=== PATIENT | male | born 1960 | race African-American/Black ===

== ENCOUNTER 2019-10-11 16:18 | Inpatient (IN) | payer MEDICARE ==
--- NOTE | 2019-10-11 16:51 | ER Document Report ---
ED Medical Screen (RME) - General Chief Complaint: Weakness Stated Complaint: WEAKNESS,BLURRED VISION Time Seen by Provider: 10/11/19 16:37 TRAVEL OUTSIDE OF THE [place] IN LAST 30 DAYS: No - HPI Notes: 10/11/19 59-year-old male to the emergency department with complaints of weakness, cough for 2 weeks, and low blood pressure. He states that he is been getting progressively worse. He states that he feels generally weak all over. He does admit to shortness of breath as well. He admits to fevers but has not measured them. He has not been seen for this in the past 2 weeks. He is a diabetic. Family who is with patient states that he seems to be a little bit more confused than normal. He does not smoke. Noted in triage that patient is hypotensive, tachycardic, tachypneic. Sepsis protocol was initiated and patient was immediately moved back to bed 2. I notified Dr. Shin of patient's sepsis criteria and she went and saw patient immediately. I did perform a brief medical screening exam on patient and determined that he would need further evaluation and management by me inside ER provider. - Related Data Allergies/Adverse Reactions: No Known Allergies Allergy (Verified 10/11/19 16:35) Past Medical History - Social History Chew tobacco use (# tins/day): No Frequency of alcohol use: Not any more Drug Abuse: None - Past Medical History Cardiac Medical History: Reports: Hx Hypercholesterolemia Endocrine Medical History: Reports: Hx Diabetes Mellitus Type 2 Musculoskeltal Medical History: Reports Hx Arthritis Past Surgical History: Reports: Hx Orthopedic Surgery - left leg surg - Immunizations Hx Diphtheria, Pertussis, Tetanus Vaccination: No Physical Exam - Vital signs Vitals: Temp Pulse Resp BP Pulse Ox 98.5 F 116 H 36 H 87/57 L 99 10/11/19 16:32 10/11/19 16:32 10/11/19 16:32 10/11/19 16:32 10/11/19 16:32 Course - Vital Signs Vital signs: Temp Pulse Resp BP Pulse Ox 98 F 116 H 30 H 101/64 97 10/11/19 19:45 10/11/19 16:32 10/11/19 19:45 10/11/19 19:45 10/11/19 19:45 - Laboratory Result Diagrams: 10/11/19 17:02 10/11/19 17:02 Laboratory results interpreted by me: 10/11/19 10/11/19 10/11/19 17:02 17:02 17:02 WBC 27.4 H RBC 3.76 L Hgb 11.0 L Hct 32.3 L RDW 14.6 H Plt Count 461 H Seg Neuts % (Manual) 84 H Band Neutrophils % 8 H Lymphocytes % (Manual) 5 L Monocytes % (Manual) 2 L Abs Neuts (Manual) 25.5 H PT 15.9 H D-Dimer 6.27 H Carbonic Acid ABG pCO2 ABG pO2 ABG HCO3 ABG Total CO2 Sodium Creatinine Est GFR (MDRD) Non-Af Glucose POC Glucose Lactic Acid (Sepsis) 5.2 H Total Bilirubin Direct Bilirubin AST Alkaline Phosphatase NT-Pro-B Natriuret Pep Total Protein Albumin Urine Glucose (UA) Urine Urobilinogen 10/11/19 10/11/19 10/11/19 17:02 17:02 17:08 WBC RBC Hgb Hct RDW Plt Count Seg Neuts % (Manual) Band Neutrophils % Lymphocytes % (Manual) Monocytes % (Manual) Abs Neuts (Manual) PT D-Dimer Carbonic Acid ABG pCO2 ABG pO2 ABG HCO3 ABG Total CO2 Sodium 135.1 L Creatinine 1.28 H Est GFR (MDRD) Non-Af 57 L Glucose 210 H POC Glucose 224 H Lactic Acid (Sepsis) Total Bilirubin 1.5 H Direct Bilirubin 1.0 H AST 113 H Alkaline Phosphatase 416 H NT-Pro-B Natriuret Pep 2330 H Total Protein 8.8 H Albumin 3.3 L Urine Glucose (UA) Urine Urobilinogen 10/11/19 10/11/19 18:50 18:50 WBC RBC Hgb Hct RDW Plt Count Seg Neuts % (Manual) Band Neutrophils % Lymphocytes % (Manual) Monocytes % (Manual) Abs Neuts (Manual) PT D-Dimer Carbonic Acid 0.80 L ABG pCO2 26.5 L ABG pO2 76.7 L ABG HCO3 17.5 L ABG Total CO2 18.3 L Sodium Creatinine Est GFR (MDRD) Non-Af Glucose POC Glucose Lactic Acid (Sepsis) Total Bilirubin Direct Bilirubin AST Alkaline Phosphatase NT-Pro-B Natriuret Pep Total Protein Albumin Urine Glucose (UA) >=500 H Urine Urobilinogen 4.0 H Doctor's Discharge - Discharge
[2019-10-11] MEDS ORDERED: NORMAL SALINE 1000 ML 2,300 ML IV ONE (16:59)
[2019-10-11] MEDS ORDERED: VANCOMYCIN HCL 0 MG in DEXTROSE 5%-WATER 250 ML IV NR ×2 (17:00→19:45)
[2019-10-11] MEDS ORDERED: IPRATROPIUM/ALBUTEROL 0.5-2.5 MG/3 ML AMPUL NEB ONE (17:01)
--- NOTE | 2019-10-11 17:08 | ER Document Report ---
ED General - General Chief Complaint: Weakness Stated Complaint: WEAKNESS,BLURRED VISION Time Seen by Provider: 10/11/19 16:37 Information source: Patient, Relative Notes: Mr. Leahy is a 59-year-old male with past medical history of diabetes, hyperlipidemia, and likely COPD presenting to the ED for cough and weakness. Patient states that his cough started between 3 to 4 weeks ago. It is productive of yellow sputum. He endorses subjective fever and chills. He also endorses lightheadedness and decreased appetite that is worsened over the past 5 days. He was smoking 1-1.5 packs of cigarettes per day up until 5 days ago when he states he quit. He has been smoking this much for the past 30 to 40 years. Upon further chart dissection, was noted that the patient has been on prednisone and has had episodes of wheezing multiple times in the past, likely COPD that he does not know that he carries this diagnosis. Patient denies any chest pain but does endorse shortness of breath. In triage, during provider evaluation, the patient was hypotensive. Brought immediately back at which point I evaluated him. Patient noted to be warm to touch although afebrile here rechecked multiple times. Tachycardic to 105 and when he stood up he did become lightheaded. TRAVEL OUTSIDE OF THE [place] IN LAST 30 DAYS: No - Related Data Allergies/Adverse Reactions: No Known Allergies Allergy (Verified 10/11/19 16:35) Past Medical History - Social History Smoking Status: Current Every Day Smoker Chew tobacco use (# tins/day): No Frequency of alcohol use: Not any more Drug Abuse: None Family History: DM Patient has suicidal ideation: No Patient has homicidal ideation: No - Past Medical History Cardiac Medical History: Reports: Hx Hypercholesterolemia Endocrine Medical History: Reports: Hx Diabetes Mellitus Type 2 Musculoskeletal Medical History: Reports Hx Arthritis Past Surgical History: Reports: Hx Orthopedic Surgery - left leg surg - Immunizations Hx Diphtheria, Pertussis, Tetanus Vaccination: No Review of Systems - Review of Systems Constitutional: See HPI EENT: No symptoms reported Cardiovascular: No symptoms reported Respiratory: See HPI Gastrointestinal: No symptoms reported Genitourinary: No symptoms reported Male Genitourinary: No symptoms reported Musculoskeletal: No symptoms reported Skin: No symptoms reported Hematologic/Lymphatic: No symptoms reported Neurological/Psychological: No symptoms reported Physical Exam - Vital signs Vitals: Temp Pulse Resp BP Pulse Ox 98.5 F 116 H 36 H 87/57 L 99 10/11/19 16:32 10/11/19 16:32 10/11/19 16:32 10/11/19 16:32 10/11/19 16:32 Interpretation: Hypotensive, Tachycardic, Tachypneic - General General appearance: Alert, Other - Appears weak and nontoxic In distress: Mild - HEENT Head: Normocephalic, Atraumatic Eyes: Normal Pupils: PERRL Mucous membranes: Dry - Respiratory Respiratory status: Respiratory distress, Tachypnea Chest status: Nontender Breath sounds: Decreased air movement, Rales, Wheezing - Bibasilar rales and some rhonchi. Faint expiratory wheezes. Chest palpation: Normal - Cardiovascular Rhythm: Regular Heart sounds: Normal auscultation Murmur: No - Abdominal Inspection: Normal Distension: No distension Bowel sounds: Normal Tenderness: Nontender Organomegaly: No organomegaly - Back Back: Normal, Nontender - Extremities General upper extremity: Normal inspection, Nontender, Normal color, Normal ROM, Normal temperature General lower extremity: Normal inspection, Nontender, Normal color, Normal ROM, Normal temperature, Normal weight bearing. No: Luciano's sign - Neurological Neuro grossly intact: Yes Cognition: Normal Orientation: AAOx4 [place] Coma Scale Eye Opening: Spontaneous [place] Coma Scale Verbal: Oriented [place] Coma Scale Motor: Obeys Commands Serafin Coma Scale Total: 15 Speech: Normal Motor strength normal: LUE, RUE, LLE, RLE Sensory: Normal - Psychological Associated symptoms: Normal affect, Normal mood - Skin Skin Temperature: Warm Skin Moisture: Dry Skin Color: Normal Course - Re-evaluation Re-evalutation: Patient is ill-appearing but nontoxic. Initial vitals notable for hypotension, tachycardia and tachypnea. Concerning for sepsis, pulmonary embolism, pneumonia, dehydration, electrolyte abnormalities 10/11/19 17:09 2 sets of blood cultures in addition to lactic acid were ordered. Patient get ordered for IV fluids. Will administer broad-spectrum antibiotics with vancomycin and Zosyn. Patient has some rhonchi and rales at bilateral bases although given the cough and history of extensive smoking as well as decreased appetite and lightheadedness, likely infectious in origin rather than congestive heart failure. Patient ordered for IV fluids. Will order DuoNeb's for the wheezing as well. 10/11/19 19:06 Labs notable for significant leukocytosis with a left shift. H&H is stable. Lactic acidosis also elevated at 5.2. D-dimer is positive so a CTA will be ordered. Patient received his full septic bolus as well as broad-spectrum antibiotics. CMP within normal limits. UA negative for infection. Chest x-ray has been read as right lower lobe pneumonia. 10/11/19 19:[address] Ramirez. No pickup. 10/11/19 19:[address] Ramirez. Accepted admission to MICU. - Vital Signs Vital signs: Temp Pulse Resp BP Pulse Ox 98.7 F 116 H 25 H 105/66 100 10/11/19 21:15 10/11/19 16:32 10/11/19 21:15 10/11/19 21:15 10/11/19 21:15 - Laboratory Result Diagrams: 10/11/19 17:02 10/11/19 17:02 Laboratory results interpreted by me: 10/11/19 10/11/19 10/11/19 17:02 17:02 17:02 WBC 27.4 H RBC 3.76 L Hgb 11.0 L Hct 32.3 L RDW 14.6 H Plt Count 461 H Seg Neuts % (Manual) 84 H Band Neutrophils % 8 H Lymphocytes % (Manual) 5 L Monocytes % (Manual) 2 L Abs Neuts (Manual) 25.5 H PT 15.9 H D-Dimer 6.27 H Carbonic Acid ABG pCO2 ABG pO2 ABG HCO3 ABG Total CO2 Sodium Creatinine Est GFR (MDRD) Non-Af Glucose POC Glucose Lactic Acid (Sepsis) 5.2 H Total Bilirubin Direct Bilirubin AST Alkaline Phosphatase NT-Pro-B Natriuret Pep Total Protein Albumin Urine Glucose (UA) Urine Urobilinogen 10/11/19 10/11/19 10/11/19 17:02 17:02 17:08 WBC RBC Hgb Hct RDW Plt Count Seg Neuts % (Manual) Band Neutrophils % Lymphocytes % (Manual) Monocytes % (Manual) Abs Neuts (Manual) PT D-Dimer Carbonic Acid ABG pCO2 ABG pO2 ABG HCO3 ABG Total CO2 Sodium 135.1 L Creatinine 1.28 H Est GFR (MDRD) Non-Af 57 L Glucose 210 H POC Glucose 224 H Lactic Acid (Sepsis) Total Bilirubin 1.5 H Direct Bilirubin 1.0 H AST 113 H Alkaline Phosphatase 416 H NT-Pro-B Natriuret Pep 2330 H Total Protein 8.8 H Albumin 3.3 L Urine Glucose (UA) Urine Urobilinogen 10/11/19 10/11/19 18:50 18:50 WBC RBC Hgb Hct RDW Plt Count Seg Neuts % (Manual) Band Neutrophils % Lymphocytes % (Manual) Monocytes % (Manual) Abs Neuts (Manual) PT D-Dimer Carbonic Acid 0.80 L ABG pCO2 26.5 L ABG pO2 76.7 L ABG HCO3 17.5 L ABG Total CO2 18.3 L Sodium Creatinine Est GFR (MDRD) Non-Af Glucose POC Glucose Lactic Acid (Sepsis) Total Bilirubin Direct Bilirubin AST Alkaline Phosphatase NT-Pro-B Natriuret Pep Total Protein Albumin Urine Glucose (UA) >=500 H Urine Urobilinogen 4.0 H - EKG Interpretation by Tx EKG shows normal: Sinus rhythm, [place] Rate: Normal Rhythm: NSR, Other - Inverted T waves in leads V1, V2, V3 Critical Care Note - Critical Care Note Total time excluding time spent on procedures (mins): 45 - Tubal reevaluation, sepsis, initially hypotensive Discharge - Discharge Clinical Impression: Pneumonia, Sepsis with hypotension, Lactic acid acidosis Clinical Impression: (Ruled Out): Sepsis associated hypotension Disposition: ADMITTED INPATIENT Admitting Provider: James (Hospitalist) Unit Admitted: [facility] ED Sepsis - Sepsis Documentation Sepsis Patient: Yes - Vital Signs Interpretation: Normal - Cardiovascular Peripheral Pulse Strength: Normal Capillary refill: < 3 seconds Rhythm: Regular Heart Sounds: Normal auscultation - Respiratory Breath sounds: Rales, Rhonchi Respiratory Status: No respiratory distress, Tachypnea - Skin Skin Color: Normal
[2019-10-11 17:29] LABS: HEMATOCRIT 32.3 % (37.9-51.0); MEAN CORPUSCULAR HEMOGLOBIN 29.1 pg (27.0-33.4); MEAN CORPUSCULAR HGB CONC 33.9 g/dL (32.0-36.0); MEAN CORPUSCULAR VOLUME 86 fl (80-97); PLATELET COUNT 461 10^3/uL (150-450); RED BLOOD COUNT 3.76 10^6/uL (4.35-5.55); RED CELL DISTRIBUTION WIDTH 14.6 % (11.5-14.0); WHITE BLOOD COUNT 27.4 10^3/uL (4.0-10.5)
[2019-10-11 17:30] LABS: INTERNATIONAL RATION (INR) 1.26; PROTHROMBIN TIME 15.9 SEC (11.4-15.4)
--- NOTE | 2019-10-11 17:38 | RADIOLOGY REPORT (SQ) ---
EXAM DESCRIPTION: CHEST SINGLE VIEW COMPLETED DATE/TIME: 10/11/2019 5:22 pm REASON FOR STUDY: sepsis COMPARISON: None. EXAM PARAMETERS: NUMBER OF VIEWS: One view. TECHNIQUE: Single frontal radiographic view of the chest acquired. RADIATION DOSE: NA LIMITATIONS: None. FINDINGS: LUNGS AND PLEURA: There is dense opacification in the right lung base. MEDIASTINUM AND HILAR STRUCTURES: No masses. Contour normal. HEART AND VASCULAR STRUCTURES: Heart size is borderline. There is no pulmonary edema. BONES: No acute findings. HARDWARE: None in the chest. OTHER: No other significant finding. IMPRESSION: Borderline cardiomegaly without pulmonary edema. Right lower lobe pneumonia. TECHNICAL DOCUMENTATION: JOB ID: [id number] [employer]- All Rights Reserved Reading location - IP/workstation name: [email or web address]
[2019-10-11 17:53] LABS: ALBUMIN 3.3 g/dL (3.5-5.0); ALKALINE PHOSPHATASE 416 U/L (38-126); ANION GAP 14 (5-19); ASPARTATE AMINO TRANSFERASE 113 U/L (17-59); BILIRUBIN,TOTAL 1.5 mg/dL (0.2-1.3); BLOOD UREA NITROGEN 17 mg/dL (7-20); CALCIUM 8.8 mg/dL (8.4-10.2); CARBON DIOXIDE 22 mmol/L (22-30); CHLORIDE 99 mmol/L (98-107); GLUCOSE 210 mg/dL (75-110); POTASSIUM 3.7 mmol/L (3.6-5.0); TOTAL PROTEIN 8.8 g/dL (6.3-8.2)
[2019-10-11 17:54] LABS: ABSOLUTE LYMPHOCYTES# (MANUAL) 1.4 10^3/uL (0.5-4.7); ABSOLUTE MONOCYTES # (MANUAL) 0.5 10^3/uL (0.1-1.4); ANISOCYTOSIS SLIGHT; BAND NEUTROPHILS % (MANUAL) 8 % (3-5); BASOPHILS % (MANUAL) 0 % (0-2); EOSINOPHILS % (MANUAL) 0 % (0-6); LYMPHOCYTES % (MANUAL) 5 % (13-45); METAMYELOCYTES % (MANUAL) 1 % (0-1); MONOCYTES % (MANUAL) 2 % (3-13); PLATELET COMMENT INCREASED; SEGMENTED NEUTROPHILS % (MAN) 84 % (42-78); TOTAL CELLS COUNTED 100
[2019-10-11 17:55] LABS: D-DIMER 6.27 ug/mL (0.00-0.50)
[2019-10-11] MEDS ORDERED: PIPERACILLIN SODIUM/TAZOBACTAM 4.5 GM in NORMAL SALINE 100 ML IV SCH (18:00)
--- NOTE | 2019-10-11 18:07 | EKG REPORT ---
SEVERITY:- ABNORMAL ECG - SINUS RHYTHM PROBABLE LEFT ATRIAL ABNORMALITY ABNORMAL T, CONSIDER ISCHEMIA, ANTERIOR LEADS PROLONGED QT INTERVAL : Confirmed by: Curry Taylor MD 11-Oct-2019 18:06:16
[2019-10-11] MEDS ORDERED: VANCOMYCIN HCL 750 MG in DEXTROSE 5%-WATER 250 ML IV SCH (19:00)
[2019-10-11 19:05] LABS: ARTERIAL BLOOD BASE EXCESS -5.6 mmol/L; ARTERIAL BLOOD HCO3 17.5 mmol/L (20-24); ARTERIAL BLOOD PCO2 26.5 mmHg (35-45); ARTERIAL BLOOD PH 7.44 (7.35-7.45); ARTERIAL BLOOD PO2 76.7 mmHg (80-100); ARTERIAL BLOOD TOTAL CO2 18.3 mmol/L (23-27)
[2019-10-11 19:19] LABS: APPEARANCE,URINE SLIGHTLY-CLOUDY; BILIRUBIN,URINE NEGATIVE (NEGATIVE); COLOR,URINE YELLOW; GLUCOSE, URINE >=500 mg/dL (NEGATIVE); KETONES,URINE NEGATIVE (NEGATIVE); PROTEIN,URINE NEGATIVE (NEGATIVE); URINE SPECIFIC GRAVITY 1.026
[2019-10-11] MEDS ORDERED: IPRATROPIUM/ALBUTEROL 0.5-2.5 MG/3 ML AMPUL NEB PRN (19:32)
[2019-10-11] MEDS ORDERED: ACETAMINOPHEN 325 MG TABLET PO PRN (19:32)
[2019-10-11 19:33] LABS: ARTERIAL BLOOD FIO2 ROOM AIR
[2019-10-11] MEDS ORDERED: DEXTROSE 50%-WATER 25 GM/50 ML DISP.SYRIN IV PRN ×2 (19:35)
[2019-10-11] MEDS ORDERED: DEXTROSE 40% GEL 15 GM TUBE PO PRN ×2 (19:35)
[2019-10-11] MEDS ORDERED: GLUCAGON,HUMAN RECOMB 1 MG INJ IM PRN (19:35)
[2019-10-11] MEDS ORDERED: VANCOMYCIN HCL 750 MG in DEXTROSE 5%-WATER 250 ML IV ONE (20:00)
[2019-10-11] MEDS ORDERED: NORMAL SALINE 1000 ML 1,000 ML IV ONE (20:34)
[2019-10-11] MEDS ORDERED: OXYCODONE-ACETAMINOPHEN 5-325 MG TABLET PO PRN (20:37)
[2019-10-11] MEDS: FLUTICASONE NASAL SPRAY 50 MCG/SPRY 120 SPRAY/16 GM NASL SCH ×2 (21:27→22:16)
[2019-10-11] MEDS: IPRATROPIUM/ALBUTEROL 0.5-2.5 MG/3 ML AMPUL NEB SCH (21:29)
--- NOTE | 2019-10-11 21:32 | RADIOLOGY REPORT (SQ) ---
EXAM DESCRIPTION: [facility]: CT CHEST ANGIOGRAPHY WITHOUT THEN WITH IV CONTRAST CLINICAL HISTORY: 59 years Male; + ddimer, hypoxia, hypotension; TECHNIQUE: CT angiogram of the chest using intravenous contrast.. MIP reconstructions were performed. All CT scans at this facility use dose modulation, iterative reconstruction, and/or weight based dosing when appropriate to reduce radiation dose to as low as reasonably achievable. COMPARISON: None. FINDINGS: Chest: No filling defects in the central pulmonary arteries. There is nearly complete consolidation of the right lower lobe, with some air bronchograms. Superior segment is partially aerated, with a dense alveolar/interstitial infiltrate. Dense consolidation/infiltrate in the right middle lobe, with air bronchograms. Scattered reticular nodular infiltrate in the right upper lobe Small scattered infiltrates in the left lung, with focal areas consolidation. There is a 2 cm superior pretracheal lymph node. No other enlarged mediastinal lymph nodes. There are multiple hepatic lesions: 1. Left lobe, segment 2, 3.9 cm diameter. 2. Segment 7, 4.9 x 6.4 x 5.2 cm 3. Superior segment 7, approximately 3.1 cm diameter. 4. There are other smaller lesions. 5. Note that the liver is incompletely visualized on this exam and this technique is not optimized to demonstrate liver lesions. IMPRESSION: 1. Dense consolidation of the majority of the right lower lobe. There is likely an underlying neoplasm. 2. Scattered infiltrates in the remainder of the lungs, likely acute pneumonia. 3. Multiple liver lesions, suspicious for metastatic disease 4. Enlarged superior pretracheal lymph node, suspicious for metastatic adenopathy. 5. Consider dedicated imaging of the abdomen and pelvis to more reliably assess the extent of liver disease. 6. No CT evidence for pulmonary embolism.
[2019-10-11] MEDS: THIAMINE HCL 100 MG, FOLIC ACID 1 MG in NORMAL SALINE 250 ML IV SCH (22:16)
[2019-10-11] MEDS: HEPARIN SOD (PORCINE) 5,000 UNIT/ML 1 ML VIAL SUBCUT SCH (22:41)
[2019-10-11] MEDS: PIPERACILLIN SODIUM/TAZOBACTAM 3.375 GM in NORMAL SALINE 100 ML IV SCH (23:03)
[2019-10-12] MEDS ORDERED: LORAZEPAM INJ 2 MG/1 ML VIAL ONE (00:36)
[2019-10-12] MEDS ORDERED: LORAZEPAM INJ 2 MG/1 ML VIAL IV ONE (00:45)
[2019-10-12] MEDS ORDERED: DILTIAZEM HCL INJ 25 MG/5 ML VIAL ONE (00:55)
[2019-10-12] MEDS ORDERED: DILTIAZEM HCL INJ 25 MG/5 ML VIAL IV ONE ×2 (01:15→03:30)
[2019-10-12] MEDS: IPRATROPIUM/ALBUTEROL 0.5-2.5 MG/3 ML AMPUL NEB SCH ×3 (01:25→14:12)
[2019-10-12] MEDS ORDERED: DILTIAZEM HCL/D5W 125 MG/125 ML RTUINJ IV ONE ×2 (01:59→17:19)
[2019-10-12] MEDS ORDERED: DILTIAZEM HCL/D5W 125 MG/125 ML RTUINJ IV PRN ×2 (02:11→17:33)
[2019-10-12] MEDS ORDERED: FUROSEMIDE INJ/PF 40 MG/4 ML SDV ONE (02:44)
[2019-10-12 03:02] LABS: ARTERIAL BLOOD BASE EXCESS -3.6 mmol/L; ARTERIAL BLOOD H2CO3 0.94 mmol/L (1.05-1.35); ARTERIAL BLOOD HCO3 19.9 mmol/L (20-24); ARTERIAL BLOOD O2 SATURATION 99.8 % (94-98); ARTERIAL BLOOD PCO2 31.1 mmHg (35-45); ARTERIAL BLOOD PH 7.42 (7.35-7.45); ARTERIAL BLOOD TOTAL CO2 20.9 mmol/L (23-27)
[2019-10-12 03:03] LABS: ARTERIAL BLOOD FIO2 100%
--- NOTE | 2019-10-12 03:08 | PDOC H&P ---
History of Present Illness Admission Date/PCP: 10/11/19 19:37 WANDA NEFF Patient complains of: Generalized weakness and shortness of breath History of Present Illness: OSCAR KOO is a 59 year old male who is a poor historian but admits diabetes, dyslipidemia, narcotic dependent chronic back pain and long-standing tobacco dependence. He 1 week after the onset of shortness of breath, nonproductive cough and generalized weakness. He admits some rhinorrhea denies sore throat, chest pain or acid reflux. In the emergency room he is found to have hypotension, tachypnea, hypoxia, use of respiratory muscles, leukocytosis with bandemia and a chest x-ray with a right lower lobe infiltrate. He started on empiric antibiotics and referred to the hospitalist for admission. Patient denies recent antibiotic use. He has been feeling bad for a couple of months, smoked from the age of 89 years old and decided to stop last week. Past Medical History Cardiac Medical History: Reports: Hyperlipidema Pulmonary Medical History: Reports: Bronchitis Endocrine Medical History: Reports: Diabetes Mellitus Type 2 Musculoskeltal Medical History: Reports: Arthritis Psychiatric Medical History: Reports: Tobacco Dependency Denies: Alcohol Dependency Past Surgical History Past Surgical History: Reports: Orthopedic Surgery - left leg surg Social History Information Source: Patient Smoking Status: Current Every Day Smoker Cigarettes Packs Per Day: 1 Electronic Cigarette use?: No Number of Years Smokin Frequency of Alcohol Use: None Hx Recreational Drug Use: No Drugs: None Hx Prescription Drug Abuse: No - Advance Directive Resuscitation Status: Full Code Family History Family History: DM Parental Family History Reviewed: Yes Children Family History Reviewed: Yes Sibling(s) Family History Reviewed.: Yes Medication/Allergy Home Medications: Glipizide [Glocotrol 10 Mg Tablet] 10 mg PO BID 10/11/19 Metformin HCl [Glucophage] 1,000 mg PO BID 10/11/19 Oxycodone HCl/Acetaminophen [Endocet 5-325 Tablet] 1 tab PO TIDP PRN 10/11/19 Simvastatin [Zocor 40 mg Tablet] 40 mg PO QHS 10/11/19 Allergies/Adverse Reactions: No Known Allergies Allergy (Verified 10/11/19 16:35) Review of Systems ROS unobtainable: Due to mental status Constitutional: PRESENT: as per HPI, anorexia, chills, fatigue, fever(s), weakness, weight loss. ABSENT: headache(s), weight gain Eyes: ABSENT: visual disturbances Ears: ABSENT: hearing changes Cardiovascular: PRESENT: as per HPI, dyspnea on exertion, orthropnea, palpitations. ABSENT: chest pain, edema Respiratory: PRESENT: as per HPI, cough, dyspnea. ABSENT: hemoptysis, sputum Gastrointestinal: ABSENT: abdominal pain, constipation, diarrhea, hematemesis, hematochezia, nausea, vomiting Genitourinary: ABSENT: dysuria, hematuria Musculoskeletal: ABSENT: joint swelling Integumentary: ABSENT: rash, wounds Neurological: ABSENT: abnormal gait, abnormal speech, confusion, dizziness, focal weakness, syncope Psychiatric: ABSENT: anxiety, depression, homidical ideation, suicidal ideation Endocrine: ABSENT: cold intolerance, heat intolerance, polydipsia, polyuria Hematologic/Lymphatic: ABSENT: easy bleeding, easy bruising Physical Exam Vital Signs: Temp Pulse Resp BP Pulse Ox 98.4 F 125 H 30 H 99/57 L 98 10/12/19 00:35 10/12/19 01:36 10/12/19 01:36 10/12/19 01:36 10/12/19 01:36 Intake & Output 10/10/19 10/11/19 10/12/19 11:59 11:59 11:59 Intake Total 4225.2 Output Total 0 Balance 4225.2 Weight 75.6 kg General appearance: PRESENT: cooperative, mild distress, well-developed Head exam: PRESENT: atraumatic, normocephalic Eye exam: PRESENT: conjunctiva pink, EOMI, PERRLA. ABSENT: scleral icterus Ear exam: PRESENT: normal external ear exam Mouth exam: PRESENT: moist, tongue midline Neck exam: PRESENT: full ROM, JVD, tenderness. ABSENT: lymphadenopathy Respiratory exam: PRESENT: accessory muscle use, crackles, prolonged expiratory phas, retraction, rhonchi, tachypnea. ABSENT: wheezes Cardiovascular exam: PRESENT: gallop, +S1, +S2, systolic murmur Pulses: PRESENT: normal dorsalis pedis pul Vascular exam: PRESENT: normal capillary refill GI/Abdominal exam: PRESENT: normal bowel sounds, soft. ABSENT: distended, guarding, mass, organolmegaly, rebound, tenderness Rectal exam: PRESENT: deferred Extremities exam: PRESENT: full ROM. ABSENT: calf tenderness, clubbing, pedal edema Neurological exam: PRESENT: alert, awake, oriented to person, oriented to place, oriented to situation, CN II-XII grossly intact. ABSENT: motor sensory deficit Psychiatric exam: PRESENT: flat affect, normal mood. ABSENT: homicidal ideation, suicidal ideation Skin exam: PRESENT: dry, intact, warm. ABSENT: cyanosis, rash Results Laboratory Results: 10/11/19 17:02 10/11/19 17:02 10/11/19 10/11/19 10/11/19 17:02 17:02 18:50 WBC 27.4 H RBC 3.76 L Hgb 11.0 L Hct 32.3 L MCV 86 MCH 29.1 MCHC 33.9 RDW 14.6 H Plt Count 461 H Seg Neutrophils % Not Reportable Carbonic Acid HCO3/H2CO3 Ratio ABG pH ABG pCO2 ABG pO2 ABG HCO3 ABG O2 Saturation ABG Base Excess FiO2 Sodium 135.1 L Potassium 3.7 Chloride 99 Carbon Dioxide 22 Anion Gap 14 BUN 17 Creatinine 1.28 H Est GFR ( Amer) > 60 Glucose 210 H Calcium 8.8 Total Bilirubin 1.5 H AST 113 H Alkaline Phosphatase 416 H Total Protein 8.8 H Albumin 3.3 L Urine Color YELLOW Urine Appearance SLIGHTLY-CLOUDY Urine pH 5.0 Ur Specific [place] 1.026 Urine Protein NEGATIVE Urine Glucose (UA) >=500 H Urine Ketones NEGATIVE Urine Blood NEGATIVE Urine RBC (Auto) 31 10/11/19 18:50 WBC RBC Hgb Hct MCV MCH MCHC RDW Plt Count Seg Neutrophils % Carbonic Acid 0.80 L HCO3/H2CO3 Ratio 21:1 ABG pH 7.44 ABG pCO2 26.5 L ABG pO2 76.7 L ABG HCO3 17.5 L ABG O2 Saturation 96.0 ABG Base Excess -5.6 FiO2 ROOM AIR Sodium Potassium Chloride Carbon Dioxide Anion Gap BUN Creatinine Est GFR ( Amer) Glucose Calcium Total Bilirubin AST Alkaline Phosphatase Total Protein Albumin Urine Color Urine Appearance Urine pH Ur Specific [place] Urine Protein Urine Glucose (UA) Urine Ketones Urine Blood Urine RBC (Auto) 10/11/19 10/11/19 17:02 20:03 Troponin I 0.016 NT-Pro-B Natriuret Pep 2330 H Impressions: Chest X-Ray 10/11/19 16:55 IMPRESSION: Borderline cardiomegaly without pulmonary edema. Right lower lobe pneumonia. Chest/Abdomen CTA 10/11/19 19:25 IMPRESSION: 1. Dense consolidation of the majority of the right lower lobe. There is likely an underlying neoplasm. 2. Scattered infiltrates in the remainder of the lungs, likely acute pneumonia. 3. Multiple liver lesions, suspicious for metastatic disease 4. Enlarged superior pretracheal lymph node, suspicious for metastatic adenopathy. 5. Consider dedicated imaging of the abdomen and pelvis to more reliably assess the extent of liver disease. 6. No CT evidence for pulmonary embolism. Assessment and Plan - Diagnosis (1) Pneumonia Is this a current diagnosis for this admission?: Yes Plan: Complicated by tobacco history and CT suggestive of lung mass. Pneumonia care set deployed, (2) Sepsis with hypotension Is this a current diagnosis for this admission?: Yes Plan: Secondary to #1, IV fluid challenge, Selvin-Synephrine PRN anticipate overload given cardiac enlargement and gallop. (3) Congestive heart failure Is this a current diagnosis for this admission?: Yes Plan: BiPAP, judicious volume control and septic state, strict I's and O's Lasix as needed, follow-up 2D echo and cardiac enzymes (4) Acute renal failure Is this a current diagnosis for this admission?: Yes Plan: Unclear duration likely secondary to sepsis. Avoid nephrotoxic meds and doses follow-up chemistry (5) Diabetes Is this a current diagnosis for this admission?: Yes Plan: Humalog sliding scale q. AC (6) Lactic acid acidosis Is this a current diagnosis for this admission?: Yes Plan: Secondary to sepsis, trend lactic acid level (7) Lung cancer, lower lobe Is this a current diagnosis for this admission?: Yes Plan: Oncology consult when stable (8) Liver mass Is this a current diagnosis for this admission?: Yes Plan: Oncology consult once stable - Time Time Spent with patient: 35 or more minutes - Inpatient Certification Medical Necessity: Need Close Monitoring Due to Risk of Patient Decompensation
[2019-10-12] MEDS ORDERED: FUROSEMIDE INJ/PF 40 MG/4 ML SDV IV ONE (03:15)
[2019-10-12] MEDS ORDERED: DIGOXIN INJ 0.5 MG/2 ML AMPULE IV ONE ×2 (03:24→05:00)
--- NOTE | 2019-10-12 03:39 | RADIOLOGY REPORT (SQ) ---
Chest single view on 10/12/2019 at 3:04 AM CLINICAL INDICATION: Change in respiratory status COMPARISON: 10/11/2019 FINDINGS: There has been mild worsening of right mid and lower lung opacities consistent with likely worsening pneumonia. Some of this may be postobstructive from underlying tumor. Other patchy bilateral opacities are likely infectious as well. Heart is within normal limits for size. No bony abnormality is noted. IMPRESSION: Some worsening right mid and lower lung opacity consistent with worsening or pneumonia.
[2019-10-12] MEDS: ACETAMINOPHEN 650 MG SUPP.RECT PR PRN ×2 (03:41→20:52)
[2019-10-12 03:56] LABS: HEMATOCRIT 30.5 % (37.9-51.0); HEMOGLOBIN 10.2 g/dL (13.5-17.0); MEAN CORPUSCULAR HEMOGLOBIN 28.6 pg (27.0-33.4); MEAN CORPUSCULAR HGB CONC 33.5 g/dL (32.0-36.0); MEAN CORPUSCULAR VOLUME 85 fl (80-97); PLATELET COUNT 357 10^3/uL (150-450); RED BLOOD COUNT 3.57 10^6/uL (4.35-5.55); RED CELL DISTRIBUTION WIDTH 14.3 % (11.5-14.0); WHITE BLOOD COUNT 9.6 10^3/uL (4.0-10.5)
[2019-10-12 04:06] LABS: ALBUMIN 2.8 g/dL (3.5-5.0); ALKALINE PHOSPHATASE 363 U/L (38-126); ANION GAP 9 (5-19); ASPARTATE AMINO TRANSFERASE 92 U/L (17-59); BILIRUBIN,DIRECT 1.1 mg/dL (0.0-0.4); BILIRUBIN,TOTAL 1.4 mg/dL (0.2-1.3); BLOOD UREA NITROGEN 15 mg/dL (7-20); CALCIUM 7.9 mg/dL (8.4-10.2); CARBON DIOXIDE 23 mmol/L (22-30); CHLORIDE 107 mmol/L (98-107); GLUCOSE 186 mg/dL (75-110); POTASSIUM 3.6 mmol/L (3.6-5.0); TOTAL PROTEIN 7.6 g/dL (6.3-8.2)
[2019-10-12 04:20] LABS: ABSOLUTE LYMPHOCYTES# (MANUAL) 0.4 10^3/uL (0.5-4.7); ABSOLUTE MONOCYTES # (MANUAL) 0.3 10^3/uL (0.1-1.4); BAND NEUTROPHILS % (MANUAL) 9 % (3-5); BASOPHILS % (MANUAL) 0 % (0-2); EOSINOPHILS % (MANUAL) 0 % (0-6); LYMPHOCYTES % (MANUAL) 4 % (13-45); MONOCYTES % (MANUAL) 3 % (3-13); SEGMENTED NEUTROPHILS % (MAN) 84 % (42-78); TOTAL CELLS COUNTED 100
[2019-10-12 04:22] LABS: ANISOCYTOSIS SLIGHT; OVALOCYTES SLIGHT; PLATELET COMMENT ADEQUATE; POIKILOCYTOSIS SLIGHT; TEAR DROP CELLS SLIGHT; TOXIC GRANULATION 1+
[2019-10-12] MEDS: HEPARIN SOD (PORCINE) 5,000 UNIT/ML 1 ML VIAL SUBCUT SCH ×3 (05:17→21:43)
[2019-10-12] MEDS: VANCOMYCIN HCL 750 MG in DEXTROSE 5%-WATER 250 ML IV SCH ×2 (05:18→19:04)
[2019-10-12] MEDS: PIPERACILLIN SODIUM/TAZOBACTAM 3.375 GM in NORMAL SALINE 100 ML IV SCH (05:18)
--- NOTE | 2019-10-12 08:53 | PDOC CONSULTATION ---
Consultation Consult Date: 10/12/19 Attending physician:: KARINA JUSTICE Provider Consulted: GERSON NEWBERRY Consult reason:: New right lung collapse/obstruction, liver metastasis, mediastinal adenopathy History of Present Illness Admission Date/PCP: 10/11/19 19:37 WANDA NEFF Patient complains of: Shortness of breath, dyspnea on exertion, respiratory failure History of Present Illness: OSCAR KOO is a 59 year old male who presents with acute respiratory failure, currently is on BiPAP and speaking short sentences, but per history He has been complaining of a 1 to 2-week history of increasing shortness of breath and dyspnea on exertion, ultimately presented to the ED and was in respiratory failure, he had CTA of the chest done which indicated right lower lobe collapse, probably postobstructive changes, mediastinal adenopathy as well as multiple liver lesions. I reviewed the images myself and it is quite significant. He is currently on the third floor and he has his oxygen status as well as respiratory status seems to be worsening and they are considering intubation. Past Medical History Cardiac Medical History: Reports: Hyperlipidema Pulmonary Medical History: Reports: Bronchitis Endocrine Medical History: Reports: Diabetes Mellitus Type 2 Malignancy Medical History: Reports: Lung Cancer - as per H&P Musculoskeltal Medical History: Reports: Arthritis Psychiatric Medical History: Reports: Tobacco Dependency Denies: Alcohol Dependency Past Surgical History Past Surgical History: Reports: Orthopedic Surgery - left leg surg Social History Information Source: Patient Smoking Status: Current Every Day Smoker Cigarettes Packs Per Day: 1 Electronic Cigarette use?: No Number of Years Smokin Frequency of Alcohol Use: None Hx Recreational Drug Use: No Drugs: None Hx Prescription Drug Abuse: No - Advance Directive Resuscitation Status: Full Code Family History Family History: DM Parental Family History Reviewed: Yes Children Family History Reviewed: Yes Sibling(s) Family History Reviewed.: Yes Medication/Allergy Home Medications: Glipizide [Glocotrol 10 Mg Tablet] 10 mg PO BID 10/11/19 Metformin HCl [Glucophage] 1,000 mg PO BID 10/11/19 Oxycodone HCl/Acetaminophen [Endocet 5-325 Tablet] 1 tab PO TIDP PRN 10/11/19 Simvastatin [Zocor 40 mg Tablet] 40 mg PO QHS 10/11/19 Allergies/Adverse Reactions: No Known Allergies Allergy (Verified 10/11/19 16:35) Review of Systems ROS unobtainable: Other - Speaking short sentences because of BiPAP Physical Exam Vital Signs: Temp Pulse Resp BP Pulse Ox 100.5 F H 115 H 36 H 106/50 L 99 10/12/19 08:00 10/12/19 08:00 10/12/19 08:00 10/12/19 08:00 10/12/19 08:00 Intake & Output 10/11/19 10/12/19 10/13/19 06:59 06:59 06:59 Intake Total 4325.2 250 Output Total 500 Balance 3825.2 250 Weight 75.6 kg General appearance: PRESENT: no acute distress, well-developed, well-nourished Head exam: PRESENT: atraumatic, normocephalic Eye exam: PRESENT: conjunctiva pink, EOMI, PERRLA. ABSENT: scleral icterus Ear exam: PRESENT: normal external ear exam Mouth exam: PRESENT: moist, tongue midline Neck exam: ABSENT: carotid bruit, JVD, lymphadenopathy, thyromegaly Respiratory exam: PRESENT: clear to auscultation sera. ABSENT: rales, rhonchi, wheezes Cardiovascular exam: PRESENT: RRR. ABSENT: diastolic murmur, rubs, systolic murmur Pulses: PRESENT: normal dorsalis pedis pul Vascular exam: PRESENT: normal capillary refill GI/Abdominal exam: PRESENT: normal bowel sounds, soft. ABSENT: distended, guarding, mass, organolmegaly, rebound, tenderness Rectal exam: PRESENT: deferred Extremities exam: PRESENT: full ROM. ABSENT: calf tenderness, clubbing, pedal edema Neurological exam: PRESENT: alert, awake, oriented to person, oriented to place, oriented to time, oriented to situation, CN II-XII grossly intact. ABSENT: motor sensory deficit Psychiatric exam: PRESENT: appropriate affect, normal mood. ABSENT: homicidal ideation, suicidal ideation Skin exam: PRESENT: dry, intact, warm. ABSENT: cyanosis, rash Results Laboratory Results: 10/12/19 03:43 10/12/19 03:43 10/11/19 10/11/19 10/11/19 17:02 17:02 18:50 WBC 27.4 H RBC 3.76 L Hgb 11.0 L Hct 32.3 L MCV 86 MCH 29.1 MCHC 33.9 RDW 14.6 H Plt Count 461 H Seg Neutrophils % Not Reportable Carbonic Acid HCO3/H2CO3 Ratio ABG pH ABG pCO2 ABG pO2 ABG HCO3 ABG O2 Saturation ABG Base Excess FiO2 Sodium 135.1 L Potassium 3.7 Chloride 99 Carbon Dioxide 22 Anion Gap 14 BUN 17 Creatinine 1.28 H Est GFR ( Amer) > 60 Glucose 210 H Calcium 8.8 Total Bilirubin 1.5 H AST 113 H Alkaline Phosphatase 416 H Total Protein 8.8 H Albumin 3.3 L Urine Color YELLOW Urine Appearance SLIGHTLY-CLOUDY Urine pH 5.0 Ur Specific [place] 1.026 Urine Protein NEGATIVE Urine Glucose (UA) >=500 H Urine Ketones NEGATIVE Urine Blood NEGATIVE Urine RBC (Auto) 31 10/11/19 10/12/19 10/12/19 18:50 02:52 03:43 WBC 9.6 RBC 3.57 L Hgb 10.2 L Hct 30.5 L MCV 85 MCH 28.6 MCHC 33.5 RDW 14.3 H Plt Count 357 Seg Neutrophils % Not Reportable Carbonic Acid 0.80 L 0.94 L HCO3/H2CO3 Ratio 21:1 21:1 ABG pH 7.44 7.42 ABG pCO2 26.5 L 31.1 L ABG pO2 76.7 L 329.0 H ABG HCO3 17.5 L 19.9 L ABG O2 Saturation 96.0 99.8 H ABG Base Excess -5.6 -3.6 FiO2 ROOM AIR 100% Sodium Potassium Chloride Carbon Dioxide Anion Gap BUN Creatinine Est GFR ( Amer) Glucose Calcium Total Bilirubin AST Alkaline Phosphatase Total Protein Albumin Urine Color Urine Appearance Urine pH Ur Specific [place] Urine Protein Urine Glucose (UA) Urine Ketones Urine Blood Urine RBC (Auto) 10/12/19 03:43 WBC RBC Hgb Hct MCV MCH MCHC RDW Plt Count Seg Neutrophils % Carbonic Acid HCO3/H2CO3 Ratio ABG pH ABG pCO2 ABG pO2 ABG HCO3 ABG O2 Saturation ABG Base Excess FiO2 Sodium 139.1 Potassium 3.6 Chloride 107 Carbon Dioxide 23 Anion Gap 9 BUN 15 Creatinine 1.00 Est GFR ( Amer) > 60 Glucose 186 H Calcium 7.9 L Total Bilirubin 1.4 H AST 92 H Alkaline Phosphatase 363 H Total Protein 7.6 Albumin 2.8 L Urine Color Urine Appearance Urine pH Ur Specific [place] Urine Protein Urine Glucose (UA) Urine Ketones Urine Blood Urine RBC (Auto) 10/11/19 10/11/19 10/12/19 17:02 20:03 00:00 Troponin I 0.016 < 0.012 NT-Pro-B Natriuret Pep 2330 H 10/12/19 03:43 Troponin I 0.029 NT-Pro-B Natriuret Pep Impressions: Chest/Abdomen CTA 10/11/19 19:25 IMPRESSION: 1. Dense consolidation of the majority of the right lower lobe. There is likely an underlying neoplasm. 2. Scattered infiltrates in the remainder of the lungs, likely acute pneumonia. 3. Multiple liver lesions, suspicious for metastatic disease 4. Enlarged superior pretracheal lymph node, suspicious for metastatic adenopathy. 5. Consider dedicated imaging of the abdomen and pelvis to more reliably assess the extent of liver disease. 6. No CT evidence for pulmonary embolism. Chest X-Ray 10/12/19 00:00 IMPRESSION: Some worsening right mid and lower lung opacity consistent with worsening or pneumonia. Status: Image reviewed by me Assessment & Plan - Diagnosis (1) Lung cancer, lower lobe Qualifiers: Laterality: right Qualified Code(s): C34.31 - Malignant neoplasm of lower lobe, right bronchus or lung Is this a current diagnosis for this admission?: Yes Plan: Probable stage IV right lung cancer, ultimately I believe we need to do liver biopsy. But he will need to be stabilized from a respiratory status. Once he is stabilized he would probably benefit from completion of staging with CT of the abdomen pelvis, and also CT of the head versus MRI of the brain. We will follow. - Time Time Spent: Greater than 70 Minutes - Inpatient Certification Based on my medical assessment, after consideration of the patient's comorbidities, presenting symptoms, or acuity I expect that the services needed warrant INPATIENT care.: Yes I certify that my determination is in accordance with my understanding of Medicare's requirements for reasonable and necessary INPATIENT services [42 CFR 412.3e].: Yes Medical Necessity: Need for Nebulizer Therapy and Monitoring of Response, Risk of Complication if Not Cared For in Hospital
[2019-10-12] MEDS: INSULIN LISPRO 100 UNIT/ML 3 ML VIAL SUBCUT SCH ×3 (08:58→18:45)
[2019-10-12] MEDS: THIAMINE HCL 100 MG, FOLIC ACID 1 MG in NORMAL SALINE 250 ML IV SCH (09:17)
[2019-10-12] MEDS: FLUTICASONE NASAL SPRAY 50 MCG/SPRY 120 SPRAY/16 GM NASL SCH (09:19)
[2019-10-12] MEDS ORDERED: AZITHROMYCIN 500 MG in DEXTROSE 5%-WATER 250 ML IV SCH (10:00)
[2019-10-12] MEDS ORDERED: CEFTRIAXONE 1 GM/D5W RTU 50 ML IV SCH (10:00)
[2019-10-12 10:33] LABS: ARTERIAL BLOOD BASE EXCESS -3.4 mmol/L; ARTERIAL BLOOD H2CO3 0.89 mmol/L (1.05-1.35); ARTERIAL BLOOD HCO3 19.9 mmol/L (20-24); ARTERIAL BLOOD O2 SATURATION 92.7 % (94-98); ARTERIAL BLOOD PCO2 29.7 mmHg (35-45); ARTERIAL BLOOD PH 7.45 (7.35-7.45); ARTERIAL BLOOD PO2 60.9 mmHg (80-100); ARTERIAL BLOOD TOTAL CO2 20.9 mmol/L (23-27)
[2019-10-12 10:34] LABS: ARTERIAL BLOOD FIO2 4L
[2019-10-12 13:37] LABS: FREE T3 2.15 pg/mL (2.77-5.27); FREE T4 (FREE THYROXINE) 1.28 ng/dL (0.78-2.19)
[2019-10-12 13:51] LABS: THYROID STIMULATING HORMONE 2.65 uIU/mL (0.47-4.68)
[2019-10-12] MEDS ORDERED: NORMAL SALINE 1000 ML 1,000 ML IV PRN (14:23)
--- NOTE | 2019-10-12 14:45 | PDOC PROGRESS REPORT ---
Subjective Progress Note for:: 10/12/19 Subjective:: This is a 59 year old male with a PMH of chronic cigarette smoking, diabetes mellitus, dyslipidemia and chronic back pain who presented with generalized weakness, cough and shortness of breath. Patient was noted to be hypoxic on presentation. Chest CT revealed a right sided pneumonia likely postobstructive from an underlying lung mass and possible liver metastasis. Patient was placed on BiPAP. He was also noted to be initially hypotensive, tachypneic and had significant leukocytosis and lactic acidosis. Upon encounter this morning, patient is saturating well on BiPAP. He was switched to nasal cannula and so far has been saturating well. He says that his shortness of breath has slightly improved. Sister and mother are on the bedside. We discussed in length initial lab and diagnostic findings. We also discussed his CODE STATUS. He expresses he prefers to be full code for now and prefers to receive chest compressions, defibrillation or mechanical ventilation if the need arises. He says that his mother and his girlfriend would be his surrogate medical decision makers. Also discussed oncology recommendations about liver biopsy later once he is more stable. He says he will discuss this with his family and will need more time to think about his options. Reason For Visit: COPD CHF PNEUMONIA Physical Exam Vital Signs: Temp Pulse Resp BP Pulse Ox 98.0 F 95 32 H 93/53 L 96 10/12/19 11:00 10/12/19 11:00 10/12/19 11:00 10/12/19 11:00 10/12/19 11:00 Intake & Output 10/11/19 10/12/19 10/13/19 06:59 06:59 06:59 Intake Total 4325.2 366 Output Total 500 Balance 3825.2 366 Weight 166 lb 10.711 oz General appearance: PRESENT: no acute distress, well-developed, well-nourished Head exam: PRESENT: atraumatic, normocephalic Eye exam: PRESENT: conjunctiva pink, EOMI, PERRLA. ABSENT: scleral icterus Ear exam: PRESENT: normal external ear exam Mouth exam: PRESENT: moist, tongue midline Neck exam: ABSENT: carotid bruit, JVD, lymphadenopathy, thyromegaly Respiratory exam: PRESENT: rales, rhonchi. ABSENT: wheezes Cardiovascular exam: PRESENT: RRR. ABSENT: diastolic murmur, rubs, systolic murmur Pulses: PRESENT: normal dorsalis pedis pul GI/Abdominal exam: PRESENT: normal bowel sounds, soft. ABSENT: distended, guarding, mass, organolmegaly, rebound, tenderness Rectal exam: PRESENT: deferred Extremities exam: PRESENT: full ROM. ABSENT: calf tenderness, clubbing, pedal edema Neurological exam: PRESENT: alert, awake, oriented to person, oriented to place, oriented to time, oriented to situation, CN II-XII grossly intact. ABSENT: motor sensory deficit Results Laboratory Results: 10/12/19 03:43 10/12/19 03:43 10/11/19 10/11/19 10/11/19 17:02 17:02 18:50 WBC 27.4 H RBC 3.76 L Hgb 11.0 L Hct 32.3 L MCV 86 MCH 29.1 MCHC 33.9 RDW 14.6 H Plt Count 461 H Seg Neutrophils % Not Reportable Carbonic Acid HCO3/H2CO3 Ratio ABG pH ABG pCO2 ABG pO2 ABG HCO3 ABG O2 Saturation ABG Base Excess FiO2 Sodium 135.1 L Potassium 3.7 Chloride 99 Carbon Dioxide 22 Anion Gap 14 BUN 17 Creatinine 1.28 H Est GFR ( Amer) > 60 Glucose 210 H Lactic Acid Calcium 8.8 Total Bilirubin 1.5 H AST 113 H Alkaline Phosphatase 416 H Total Protein 8.8 H Albumin 3.3 L TSH Free T4 Free T3 pg/mL Urine Color YELLOW Urine Appearance SLIGHTLY-CLOUDY Urine pH 5.0 Ur Specific [place] 1.026 Urine Protein NEGATIVE Urine Glucose (UA) >=500 H Urine Ketones NEGATIVE Urine Blood NEGATIVE Urine RBC (Auto) 31 10/11/19 10/12/19 10/12/19 18:50 02:52 03:43 WBC 9.6 RBC 3.57 L Hgb 10.2 L Hct 30.5 L MCV 85 MCH 28.6 MCHC 33.5 RDW 14.3 H Plt Count 357 Seg Neutrophils % Not Reportable Carbonic Acid 0.80 L 0.94 L HCO3/H2CO3 Ratio 21:1 21:1 ABG pH 7.44 7.42 ABG pCO2 26.5 L 31.1 L ABG pO2 76.7 L 329.0 H ABG HCO3 17.5 L 19.9 L ABG O2 Saturation 96.0 99.8 H ABG Base Excess -5.6 -3.6 FiO2 ROOM AIR 100% Sodium Potassium Chloride Carbon Dioxide Anion Gap BUN Creatinine Est GFR ( Amer) Glucose Lactic Acid Calcium Total Bilirubin AST Alkaline Phosphatase Total Protein Albumin TSH Free T4 Free T3 pg/mL Urine Color Urine Appearance Urine pH Ur Specific [place] Urine Protein Urine Glucose (UA) Urine Ketones Urine Blood Urine RBC (Auto) 10/12/19 10/12/19 10/12/19 03:43 09:25 12:40 WBC RBC Hgb Hct MCV MCH MCHC RDW Plt Count Seg Neutrophils % Carbonic Acid 0.89 L HCO3/H2CO3 Ratio 22:1 ABG pH 7.45 ABG pCO2 29.7 L ABG pO2 60.9 L ABG HCO3 19.9 L ABG O2 Saturation 92.7 L ABG Base Excess -3.4 FiO2 4L Sodium 139.1 Potassium 3.6 Chloride 107 Carbon Dioxide 23 Anion Gap 9 BUN 15 Creatinine 1.00 Est GFR ( Amer) > 60 Glucose 186 H Lactic Acid Calcium 7.9 L Total Bilirubin 1.4 H AST 92 H Alkaline Phosphatase 363 H Total Protein 7.6 Albumin 2.8 L TSH 2.65 Free T4 1.28 Free T3 pg/mL 2.15 L Urine Color Urine Appearance Urine pH Ur Specific [place] Urine Protein Urine Glucose (UA) Urine Ketones Urine Blood Urine RBC (Auto) 10/12/19 12:40 WBC RBC Hgb Hct MCV MCH MCHC RDW Plt Count Seg Neutrophils % Carbonic Acid HCO3/H2CO3 Ratio ABG pH ABG pCO2 ABG pO2 ABG HCO3 ABG O2 Saturation ABG Base Excess FiO2 Sodium Potassium Chloride Carbon Dioxide Anion Gap BUN Creatinine Est GFR ( Amer) Glucose Lactic Acid 2.7 H Calcium Total Bilirubin AST Alkaline Phosphatase Total Protein Albumin TSH Free T4 Free T3 pg/mL Urine Color Urine Appearance Urine pH Ur Specific [place] Urine Protein Urine Glucose (UA) Urine Ketones Urine Blood Urine RBC (Auto) 10/11/19 10/11/19 10/12/19 17:02 20:03 00:00 Troponin I 0.016 < 0.012 NT-Pro-B Natriuret Pep 2330 H 10/12/19 03:43 Troponin I 0.029 NT-Pro-B Natriuret Pep Impressions: Chest/Abdomen CTA 10/11/19 19:25 IMPRESSION: 1. Dense consolidation of the majority of the right lower lobe. There is likely an underlying neoplasm. 2. Scattered infiltrates in the remainder of the lungs, likely acute pneumonia. 3. Multiple liver lesions, suspicious for metastatic disease 4. Enlarged superior pretracheal lymph node, suspicious for metastatic adenopathy. 5. Consider dedicated imaging of the abdomen and pelvis to more reliably assess the extent of liver disease. 6. No CT evidence for pulmonary embolism. Chest X-Ray 10/12/19 00:00 IMPRESSION: Some worsening right mid and lower lung opacity consistent with worsening or pneumonia. Assessment and Plan - Diagnosis (1) Acute respiratory failure with hypoxia Is this a current diagnosis for this admission?: Yes Plan: Secondary to postobstructive pneumonia. Off BiPAP and switched to nasal cannula. (2) Sepsis Is this a current diagnosis for this admission?: Yes Plan: Secondary to postobstructive pneumonia. Continue vancomycin. Switch Zosyn to cefepime. Cultures pending. Repeat lactic acid level. (3) Postobstructive pneumonia Is this a current diagnosis for this admission?: Yes Plan: As per #2. (4) Lactic acid acidosis Is this a current diagnosis for this admission?: Yes Plan: Secondary to sepsis. Repeat lactic acid level. Cautious hydration. (5) Lung cancer, lower lobe Qualifiers: Laterality: right Qualified Code(s): C34.31 - Malignant neoplasm of lower lobe, right bronchus or lung Is this a current diagnosis for this admission?: Yes Plan: Oncology recommendations noted. - Time Time Spent with patient: 25-34 minutes
--- NOTE | 2019-10-12 14:46 | ADVANCED CARE ---
- Diagnosis (1) Acute respiratory failure with hypoxia Diagnosis Current: Yes (2) Sepsis Diagnosis Current: Yes (3) Postobstructive pneumonia Diagnosis Current: Yes (4) Lactic acid acidosis Diagnosis Current: Yes Resuscitation Status: Full Code Discussion: We discussed his CODE STATUS. He expresses he prefers to be full code for now and prefers to receive chest compressions, defibrillation or mechanical ventilation if the need arises. He says that his mother and his girlfriend would be his surrogate medical decision makers.
--- NOTE | 2019-10-12 16:47 | RADIOLOGY REPORT (SQ) ---
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 FLUOROSCOPY TIME: 0.24 minutes 2 images saved to PACS. TECHNIQUE: Fluoroscopic and ultrasound guided PICC placement. LIMITATIONS: None. PROCEDURE: The procedure, risks, benefits, and alternatives were discussed with the patient in the p reprocedural area, and all questions were answered. Informed consent was obtained verbally and in wri ting. The patient was then brought to the procedural suite, positioned supine on the fluoroscopy table, and a time-out was performed. At first the left upper extremity was evaluated with ultrasound and the brachial vein was found to be patent and compressible. The left upper extremity was then prepped and draped with 2% chlorhexidine utilizing standard sterile technique. After the skin over the brachial vein was anesthetized with 1% lidocaine, ultrasound guidance was used to access the vessel with a 21-gauge needle - a sonographic i mage was stored for documentation. A 0.018 inch guidewire was then inserted through the needle and ad vanced under fluoroscopic guidance into the SVC. After that, the needle was exchanged over the guidew sonia for a peel-away sheath. A 5 [place] double -lumen PICC was then cut to the appropriate length of 4 5 cm, inserted through the sheath and advanced under fluoroscopic guidance into the SVC. After that, the peel-away sheath was removed and a fluoroscopic image of the chest was obtained to confirm proper position of the catheter tip within SVC. The lumens of the PICC were then aspirated, flushed with sterile saline and heparinized. At the end of the procedure the PICC was secured in place and a sterile dressing applied over it. The patient tolerated the procedure well without immediate complication. At the end of the procedure the patient's condition was unchanged from the preprocedural baseline. No IV conscious sedation was administered. Physiologic monitoring was provided before, during, and after the procedure. Documentation of [id number] time performing proceduralist spent monitoring the patient: 15 minutes. IMPRESSION: Successful placement of a 5 [place] x 45 cm double-lumen PICC via the left brachial vein utilizing fluoroscopic and sonographic guidance. COMMENT: Patient medication list reviewed: Yes- Quality ID# [id number]:Eligible professional attests to doc umenting in the medical record they obtained, updated, or reviewed the patient's current medications. . Quality ID 145: Final reports for procedures using fluoroscopy that document radiation exposure susan winnie, or exposure time and number of fluorographic images (if radiation exposure indices are not avail able) Quality ID #76: The patient was prepped and draped using maximum sterile barrier technique including cap, mask, sterile gown, sterile gloves, a large sterile sheet, hand hygiene, and 2% Chlorhexidine fo r cutaneous antisepsis. When ultrasound is used, sterile ultrasound techniques are followed requiring sterile gel and sterile probes. TECHNICAL DOCUMENTATION: JOB ID: [id number] [employer]- All Rights Reserved Reading location - IP/workstation name: [email or web address]
--- NOTE | 2019-10-12 16:47 | RADIOLOGY REPORT (SQ) ---
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 FLUOROSCOPY TIME: 0.24 minutes 2 images saved to PACS. TECHNIQUE: Fluoroscopic and ultrasound guided PICC placement. LIMITATIONS: None. PROCEDURE: The procedure, risks, benefits, and alternatives were discussed with the patient in the p reprocedural area, and all questions were answered. Informed consent was obtained verbally and in wri ting. The patient was then brought to the procedural suite, positioned supine on the fluoroscopy table, and a time-out was performed. At first the left upper extremity was evaluated with ultrasound and the brachial vein was found to be patent and compressible. The left upper extremity was then prepped and draped with 2% chlorhexidine utilizing standard sterile technique. After the skin over the brachial vein was anesthetized with 1% lidocaine, ultrasound guidance was used to access the vessel with a 21-gauge needle - a sonographic i mage was stored for documentation. A 0.018 inch guidewire was then inserted through the needle and ad vanced under fluoroscopic guidance into the SVC. After that, the needle was exchanged over the guidew sonia for a peel-away sheath. A 5 [place] double -lumen PICC was then cut to the appropriate length of 4 5 cm, inserted through the sheath and advanced under fluoroscopic guidance into the SVC. After that, the peel-away sheath was removed and a fluoroscopic image of the chest was obtained to confirm proper position of the catheter tip within SVC. The lumens of the PICC were then aspirated, flushed with sterile saline and heparinized. At the end of the procedure the PICC was secured in place and a sterile dressing applied over it. The patient tolerated the procedure well without immediate complication. At the end of the procedure the patient's condition was unchanged from the preprocedural baseline. No IV conscious sedation was administered. Physiologic monitoring was provided before, during, and after the procedure. Documentation of iacw-sa-cnuo time performing proceduralist spent monitoring the patient: 15 minutes. IMPRESSION: Successful placement of a 5 [place] x 45 cm double-lumen PICC via the left brachial vein utilizing fluoroscopic and sonographic guidance. COMMENT: Patient medication list reviewed: Yes- Quality ID# 130:Eligible professional attests to doc umenting in the medical record they obtained, updated, or reviewed the patient's current medications. . Quality ID 145: Final reports for procedures using fluoroscopy that document radiation exposure susan winnie, or exposure time and number of fluorographic images (if radiation exposure indices are not avail able) Quality ID #76: The patient was prepped and draped using maximum sterile barrier technique including cap, mask, sterile gown, sterile gloves, a large sterile sheet, hand hygiene, and 2% Chlorhexidine fo r cutaneous antisepsis. When ultrasound is used, sterile ultrasound techniques are followed requiring sterile gel and sterile probes. TECHNICAL DOCUMENTATION: JOB ID: [id number] [employer]- All Rights Reserved Reading location - IP/workstation name: [email or web address]
--- NOTE | 2019-10-12 16:47 | RADIOLOGY REPORT (SQ) ---
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 FLUOROSCOPY TIME: 0.24 minutes 2 images saved to PACS. TECHNIQUE: Fluoroscopic and ultrasound guided PICC placement. LIMITATIONS: None. PROCEDURE: The procedure, risks, benefits, and alternatives were discussed with the patient in the p reprocedural area, and all questions were answered. Informed consent was obtained verbally and in wri ting. The patient was then brought to the procedural suite, positioned supine on the fluoroscopy table, and a time-out was performed. At first the left upper extremity was evaluated with ultrasound and the brachial vein was found to be patent and compressible. The left upper extremity was then prepped and draped with 2% chlorhexidine utilizing standard sterile technique. After the skin over the brachial vein was anesthetized with 1% lidocaine, ultrasound guidance was used to access the vessel with a 21-gauge needle - a sonographic i mage was stored for documentation. A 0.018 inch guidewire was then inserted through the needle and ad vanced under fluoroscopic guidance into the SVC. After that, the needle was exchanged over the guidew sonia for a peel-away sheath. A 5 Macedonian double -lumen PICC was then cut to the appropriate length of 4 5 cm, inserted through the sheath and advanced under fluoroscopic guidance into the SVC. After that, the peel-away sheath was removed and a fluoroscopic image of the chest was obtained to confirm proper position of the catheter tip within SVC. The lumens of the PICC were then aspirated, flushed with sterile saline and heparinized. At the end of the procedure the PICC was secured in place and a sterile dressing applied over it. The patient tolerated the procedure well without immediate complication. At the end of the procedure the patient's condition was unchanged from the preprocedural baseline. No IV conscious sedation was administered. Physiologic monitoring was provided before, during, and after the procedure. Documentation of [id number] time performing proceduralist spent monitoring the patient: 15 minutes. IMPRESSION: Successful placement of a 5 Macedonian x 45 cm double-lumen PICC via the left brachial vein utilizing fluoroscopic and sonographic guidance. COMMENT: Patient medication list reviewed: Yes- Quality ID# [id number]:Eligible professional attests to doc umenting in the medical record they obtained, updated, or reviewed the patient's current medications. . Quality ID 145: Final reports for procedures using fluoroscopy that document radiation exposure susan winnie, or exposure time and number of fluorographic images (if radiation exposure indices are not avail able) Quality ID #76: The patient was prepped and draped using maximum sterile barrier technique including cap, mask, sterile gown, sterile gloves, a large sterile sheet, hand hygiene, and 2% Chlorhexidine fo r cutaneous antisepsis. When ultrasound is used, sterile ultrasound techniques are followed requiring sterile gel and sterile probes. TECHNICAL DOCUMENTATION: JOB ID: [id number] [employer]- All Rights Reserved Reading location - IP/workstation name: [email or web address]
[2019-10-12] MEDS ORDERED: NORMAL SALINE 10 ML SDV (AFTER EACH USE) IV PRN (17:00)
[2019-10-12] MEDS ORDERED: FUROSEMIDE INJ/PF 20 MG/2 ML SDV ONE (17:37)
--- NOTE | 2019-10-12 17:38 | RADIOLOGY REPORT (SQ) ---
EXAM DESCRIPTION: CHEST SINGLE VIEW COMPLETED DATE/TIME: 10/12/2019 5:17 pm REASON FOR STUDY: shortness of breath COMPARISON: 10/12/2019 EXAM PARAMETERS: NUMBER OF VIEWS: One view. TECHNIQUE: Single frontal radiographic view of the chest acquired. RADIATION DOSE: NA LIMITATIONS: None. FINDINGS: LUNGS AND PLEURA: Pulmonary edema. Marked opacification in the right lung base. MEDIASTINUM AND HILAR STRUCTURES: No masses. Contour normal. HEART AND VASCULAR STRUCTURES: Cardiomegaly. BONES: No acute findings. HARDWARE: Left-sided PICC. No pneumothorax. OTHER: No other significant finding. IMPRESSION: Cardiomegaly with pulmonary edema. Airspace disease in the right lower lobe. TECHNICAL DOCUMENTATION: JOB ID: [id number] [employer]- All Rights Reserved Reading location - IP/workstation name: [email or web address]
[2019-10-12] MEDS: MEROPENEM 1 GM in NORMAL SALINE 50 ML IV SCH (18:47)
--- NOTE | 2019-10-12 18:52 | CRITICAL CARE ADMISSION REPORT ---
HPI Date:: 10/12/19 Time:: 18:18 Reason for ICU Reason:: Hypoxic respiratory failure with cavitary pneumonia and liver mass HPI: 59 year old male with diabetes, dyslipidemia, narcotic dependence secondary to chronic back pain. Developed onset of shortness of breath, nonproductive cough and generalized weakness. He admits some rhinorrhea denies sore throat, chest pain or acid reflux. In the emergency room he was hypotension with tachypnea and hypoxia. Noted increase use of respiratory muscles. Had elevated leukocytosis with bandemia . He was started on broad spectrum empiric antibiotics and admitted to [facility] under the hospitalist service. Patient also was noted to have lesions on his liver seen on CAT scan. CAT scan shows also an area that appears to be necrotizing. He has a long-standing tobacco user. Patient had been on I MCU however developed worsening shortness of breath. He was also noted to have Klebsiella in his bloodstream. His respiratory rate had worsened and he was requiring noninvasive ventilation. For safety and to improve his prognosis he is brought to the ICU for closer monitoring and care. Was also seen by the oncology service because of the liver masses. Work-up is underway. He had a PICC line placed today. He also had an echocardiogram done yesterday which has not been officially read. Review of the images shows an ejection fraction that approaches 35 to 38%. We do not have any ability to determine whether this is a new situation or not. Patient was brought down from [facility] with increasing shortness of breath. He end orses this but feels that he is slightly better than when he was first admitted. He has an elevated heart rate and respiratory rate of 32. Heart rate at 120. - Diagnosis/Plan (1) Sepsis with encephalopathy and septic shock Is this a current diagnosis for this admission?: Yes Plan: Sepsis secondary to Klebsiella bacteremia (2) Acute respiratory failure with hypoxia Is this a current diagnosis for this admission?: Yes (3) Cardiomyopathy Qualifiers: Cardiomyopathy type: unspecified Qualified Code(s): I42.9 - Cardiomyopathy, unspecified Is this a current diagnosis for this admission?: Yes (4) Pneumonia Qualifiers: Pneumonia type: due to unspecified organism Laterality: right Lung loc ation: lower lobe of lung Qualified Code(s): J18.9 - Pneumonia, unspecified organism Is this a current diagnosis for this admission?: Yes (5) Bacteremia due to Klebsiella pneumoniae Is this a current diagnosis for this admission?: Yes (6) Lactic acidosis Is this a current diagnosis for this admission?: Yes (7) Liver masses Is this a current diagnosis for this admission?: Yes - . Plan Summary: Patient has significant illness with bacteremia from Klebsiella. He also has a necrotizing pneumonia on the right lung. This would appear to be a Klebsiella based pneumonia however we do not have cultures for this. I have de-escalated his antibiotics and have given him 1 dose of IV gentamicin at a concentrated elevated dose. I am concerned about his cardiomyopathy but unsure that this is acute. We will check a mixed venous blood gas to determine what the S CVO to is. He may require inotropic or vasopressor support. He has masses in his liver. Unsure if this is primary malignancy, inflammatory, or infectious. He will need liver biopsy and we would suggest earlier than later. Patient appears quite ill with increased respiratory rate and is at risk for the need for mechanical ventilation. We will attempt to contact family to discuss. Past Medical History Cardiac Medical History: Reports: Hyperlipidema Denies: Congestive Heart Failure Pulmonary Medical History: Reports: Bronchitis EENT Medical History: Reports: None Neurological Medical History: Reports: None Endocrine Medical History: Reports: Diabetes Mellitus Type 2 Renal/ Medical History: Reports: None Malignancy Medical History: Reports: None Denies: Lung Cancer - as per H&P GI Medical History: Reports: None Musculoskeltal Medical History: Reports: Arthritis Skin Medical History: Reports: None Psychiatric Medical History: Reports: Tobacco Dependency Denies: Alcohol Dependency Traumatic Medical History: Reports: None Hematology: Reports: None Infectious Medical History: Reports: None Past Surgical History Past Surgical History: Reports: Orthopedic Surgery - left leg surg Social/Family History - Social History Smoking Status: Current Every Day Smoker Cigarettes Packs Per Day: 1 Number of Years Smokin Frequency of Alcohol Use: None Hx Recreational Drug Use: No Drugs: None Hx Prescription Drug Abuse: No - Family History Family History: Reviewed & Not Pertinent - Medication/Allergies Home Medications: Glipizide [Glocotrol 10 Mg Tablet] 10 mg PO BID 10/11/19 Oxycodone HCl/Acetaminophen [Endocet 5-325 Tablet] 1 tab PO Q8HP PRN 10/11/19 Simvastatin [Zocor 40 mg Tablet] 40 mg PO QHS 10/11/19 Empagliflozin [Jardiance] 25 mg PO DAILY 10/12/19 Insulin Detemir [Levemir] 65 units SQ DAILY 10/12/19 Allergies/Adverse Reactions: No Known Allergies Allergy (Verified 10/11/19 16:35) Review of Systems Constitutional: PRESENT: chills, fever(s), night sweats, weight loss Eyes: ABSENT: visual disturbances Ears: ABSENT: hearing changes Nose, Mouth, and Throat: ABSENT: mouth pain, sore throat Respiratory: PRESENT: cough, dyspnea, hemoptysis, sputum Gastrointestinal: ABSENT: as per HPI, abdominal pain, bloating, coffee ground emesis, constipation, diarrhea, dysphagia, heartburn, hematemesis, hematochezia, melena, nausea, vomiting, other Genitourinary: ABSENT: difficulty urinating, dysuria, hematuria Musculoskeletal: PRESENT: back pain, muscle weakness Integumentary: ABSENT: rash, wounds Neurological: ABSENT: abnormal gait, abnormal speech, confusion, dizziness, focal weakness, syncope Psychiatric: ABSENT: anxiety, depression, homidical ideation, suicidal ideation Endocrine: ABSENT: cold intolerance, heat intolerance, polydipsia, polyuria Hematologic/Lymphatic: ABSENT: easy bleeding, easy bruising Allergic/Immunologic: PRESENT: other - No lymphadenopathy. Physical Exam Vital Signs: Temp Pulse Resp BP Pulse Ox 97.7 F 85 34 H 111/67 99 10/12/19 15:00 10/12/19 15:00 10/12/19 15:00 10/12/19 15:00 10/12/19 15:00 Intake & Output 10/11/19 10/12/19 10/13/19 06:59 06:59 06:59 Intake Total 4325.2 371 Output Total 500 Balance 3825.2 371 Weight 75.6 kg Weight/Height Weight 75.6 kg Height 5 ft 11 in General appearance: PRESENT: cooperative, mild distress, thin. ABSENT: hard of hearing Exam: 59-year-old black male appears ill but nontoxic in mild to moderate distress which improved with BiPAP. Head exam: PRESENT: atraumatic, normocephalic Eye exam: PRESENT: conjunctival injection, EOMI, PERRLA. ABSENT: nystagmus, scleral icterus Ear exam: PRESENT: normal external ear exam Mouth exam: PRESENT: dry mucosa Neck exam: ABSENT: carotid bruit, JVD, lymphadenopathy, tenderness, thyromegaly, tracheal deviation Respiratory exam: PRESENT: accessory muscle use, crackles, decreased breath sounds - right lung, rhonchi, tachypnea. ABSENT: unlabored Cardiovascular exam: PRESENT: +S1, +S2, tachycardia. ABSENT: clicks, diastolic murmur, gallop, rubs Pulses: PRESENT: +2 pedal pulses bilateral Vascular exam: PRESENT: normal capillary refill. ABSENT: pallor GI/Abdominal exam: PRESENT: normal bowel sounds, soft. ABSENT: distended, firm, guarding, mass, Mallory's sign, organolmegaly, rebound, rigid, tenderness Rectal exam: PRESENT: deferred Gentrourinary exam: PRESENT: ecchymosis, lesions. ABSENT: erythema, scrotal swelling, urethral discharge, indwelling catheter, other Extremities exam: ABSENT: pedal edema, tenderness Musculoskeletal exam: PRESENT: normal inspection. ABSENT: deformity, dislocation Neurological exam: PRESENT: altered, awake, oriented to person, oriented to place, oriented to time, oriented to situation, CN II-XII grossly intact, other - Lethargic but awake. GCS: 15. No focal deficits. ABSENT: motor sensory deficit, aphasic Psychiatric exam: PRESENT: depressed, flat affect Focused psych exam: ABSENT: psychomotor agitation, restlessness Skin exam: PRESENT: dry, intact, normal color, warm. ABSENT: cyanosis, mottled, pallor, petechiae, rash, urticaria, vesicles Tubes/Lines: ABSENT: Endotracheal Tube, Chest Tube, Central Line, Arterial Catheter, Dialysis catheter, Peg Tube, Nasogastic Tube, Other Laboratory/Radiographs Laboratory Results: 10/12/19 03:43 10/12/19 03:43 10/11/19 10/11/19 10/12/19 18:50 18:50 02:52 WBC RBC Hgb Hct MCV MCH MCHC RDW Plt Count Seg Neutrophils % Carbonic Acid 0.80 L 0.94 L HCO3/H2CO3 Ratio 21:1 21:1 ABG pH 7.44 7.42 ABG pCO2 26.5 L 31.1 L ABG pO2 76.7 L 329.0 H ABG HCO3 17.5 L 19.9 L ABG O2 Saturation 96.0 99.8 H ABG Base Excess -5.6 -3.6 FiO2 ROOM AIR 100% Sodium Potassium Chloride Carbon Dioxide Anion Gap BUN Creatinine Est GFR ( Amer) Glucose Lactic Acid Calcium Total Bilirubin AST Alkaline Phosphatase Total Protein Albumin TSH Free T4 Free T3 pg/mL Urine Color YELLOW Urine Appearance SLIGHTLY-CLOUDY Urine pH 5.0 Ur Specific [place] 1.026 Urine Protein NEGATIVE Urine Glucose (UA) >=500 H Urine Ketones NEGATIVE Urine Blood NEGATIVE Urine RBC (Auto) 31 10/12/19 10/12/19 10/12/19 03:43 03:43 09:25 WBC 9.6 RBC 3.57 L Hgb 10.2 L Hct 30.5 L MCV 85 MCH 28.6 MCHC 33.5 RDW 14.3 H Plt Count 357 Seg Neutrophils % Not Reportable Carbonic Acid 0.89 L HCO3/H2CO3 Ratio 22:1 ABG pH 7.45 ABG pCO2 29.7 L ABG pO2 60.9 L ABG HCO3 19.9 L ABG O2 Saturation 92.7 L ABG Base Excess -3.4 FiO2 4L Sodium 139.1 Potassium 3.6 Chloride 107 Carbon Dioxide 23 Anion Gap 9 BUN 15 Creatinine 1.00 Est GFR ( Amer) > 60 Glucose 186 H Lactic Acid Calcium 7.9 L Total Bilirubin 1.4 H AST 92 H Alkaline Phosphatase 363 H Total Protein 7.6 Albumin 2.8 L TSH Free T4 Free T3 pg/mL Urine Color Urine Appearance Urine pH Ur Specific [place] Urine Protein Urine Glucose (UA) Urine Ketones Urine Blood Urine RBC (Auto) 10/12/19 10/12/19 12:40 12:40 WBC RBC Hgb Hct MCV MCH MCHC RDW Plt Count Seg Neutrophils % Carbonic Acid HCO3/H2CO3 Ratio ABG pH ABG pCO2 ABG pO2 ABG HCO3 ABG O2 Saturation ABG Base Excess FiO2 Sodium Potassium Chloride Carbon Dioxide Anion Gap BUN Creatinine Est GFR ( Amer) Glucose Lactic Acid 2.7 H Calcium Total Bilirubin AST Alkaline Phosphatase Total Protein Albumin TSH 2.65 Free T4 1.28 Free T3 pg/mL 2.15 L Urine Color Urine Appearance Urine pH Ur Specific [place] Urine Protein Urine Glucose (UA) Urine Ketones Urine Blood Urine RBC (Auto) 10/11/19 17:02 Blood Blood Culture (PCR) - Final Klebsiella Pneumoniae 10/11/19 10/11/19 10/12/19 17:02 20:03 00:00 Troponin I 0.016 < 0.012 NT-Pro-B Natriuret Pep 2330 H 10/12/19 03:43 Troponin I 0.029 NT-Pro-B Natriuret Pep Impressions: Chest/Abdomen CTA 10/11/19 19:25 IMPRESSION: 1. Dense consolidation of the majority of the right lower lobe. There is likely an underlying neoplasm. 2. Scattered infiltrates in the remainder of the lungs, likely acute pneumonia. 3. Multiple liver lesions, suspicious for metastatic disease 4. Enlarged superior pretracheal lymph node, suspicious for metastatic adenopathy. 5. Consider dedicated imaging of the abdomen and pelvis to more reliably assess the extent of liver disease. 6. No CT evidence for pulmonary embolism. Chest X-Ray 10/12/19 00:00 IMPRESSION: Cardiomegaly with pulmonary edema. Airspace disease in the right lower lobe. Guidance Fluoroscopy 10/12/19 00:00 IMPRESSION: Successful placement of a 5 Montenegrin x 45 cm double-lumen PICC via the left brachial vein utilizing fluoroscopic and sonographic guidance. Interventional Vascular Procedure 10/12/19 00:00 IMPRESSION: Successful placement of a 5 Montenegrin x 45 cm double-lumen PICC via the left brachial vein utilizing fluoroscopic and sonographic guidance. PICC Line Insertion 10/12/19 00:00 IMPRESSION: Successful placement of a 5 Montenegrin x 45 cm double-lumen PICC via the left brachial vein utilizing fluoroscopic and sonographic guidance. All labs, radiographs, diagnostic studies and EKGs were personally reviewed: Yes In addition, reports of radiographic and diagnostic studies were read: Yes Critical Time Critical Time (minutes): 68 -: The care of a critically ill patient is dynamic. This note represents a static moment in the admission process. orders and treatments may be given simultaneously and urgently, and time is not quality control representative of the treatment process. This patient requires Critical Care secondary to life threatening organ or limb dysfunction. Without the need for Critical Care services, the patient is at risk for increased mortality and morbidity.
[2019-10-12 18:54] LABS: ARTERIAL BLOOD HCO3 21.9 mmol/L (20-24); ARTERIAL BLOOD O2 SATURATION 66.4 % (94-98); ARTERIAL BLOOD PCO2 29.9 mmHg (35-45); ARTERIAL BLOOD PH 7.48 (7.35-7.45); ARTERIAL BLOOD TOTAL CO2 22.8 mmol/L (23-27)
[2019-10-12 18:55] LABS: ARTERIAL BLOOD PO2 31.5 mmHg (80-100)
[2019-10-12 19:07] LABS: ALBUMIN 2.5 g/dL (3.5-5.0); ALKALINE PHOSPHATASE 324 U/L (38-126); ANION GAP 11 (5-19); ASPARTATE AMINO TRANSFERASE 69 U/L (17-59); BILIRUBIN,DIRECT 1.3 mg/dL (0.0-0.4); BILIRUBIN,TOTAL 1.7 mg/dL (0.2-1.3); BLOOD UREA NITROGEN 14 mg/dL (7-20); CALCIUM 7.7 mg/dL (8.4-10.2); CARBON DIOXIDE 21 mmol/L (22-30); CHLORIDE 106 mmol/L (98-107); GLUCOSE 108 mg/dL (75-110); POTASSIUM 3.5 mmol/L (3.6-5.0); TOTAL PROTEIN 6.7 g/dL (6.3-8.2)
[2019-10-12 19:15] LABS: ARTERIAL BLOOD BASE EXCESS -1.3 mmol/L; ARTERIAL BLOOD FIO2 40%; ARTERIAL BLOOD H2CO3 0.84 mmol/L (1.05-1.35); ARTERIAL BLOOD O2 SATURATION 98.3 % (94-98); ARTERIAL BLOOD PH 7.49 (7.35-7.45); ARTERIAL BLOOD PO2 107.7 mmHg (80-100); ARTERIAL BLOOD TOTAL CO2 21.9 mmol/L (23-27)
[2019-10-12 19:37] LABS: CARCINOEMBRYONIC ANTIGEN 3.7 ng/mL (<3.0)
[2019-10-12] MEDS ORDERED: WATER IV ONE (20:00)
[2019-10-12] MEDS ORDERED: GENTAMICIN SULFATE IV ONE (20:00)
[2019-10-12] MEDS ORDERED: DEXTROSE 5% IV ONE (20:00)
[2019-10-12] MEDS: POTASSI CL 20 MEQ/50 ML RIDER 20 MEQ/50 ML RTUPB IV SCH ×2 (20:06→21:43)
[2019-10-12] MEDS: NORMAL SALINE 10 ML SDV (SCHEDULED) IV SCH (21:44)
[2019-10-12] MEDS ORDERED: CEFEPIME 1 GM/D5W RTU 1 GM/50 ML RTUPB IV SCH (22:00)
[2019-10-12] MEDS ORDERED: ALBUMIN HUMAN 12.5 GM/50 ML RTUINJ IV ONE (23:05)
[2019-10-13] MEDS ORDERED: RINGERS SOLUTION,LACTATED 1,000 ML IV ONE (03:47)
[2019-10-13] MEDS ORDERED: ACETAMINOPHEN 325 MG TABLET ONE ×2 (04:23→17:52)
[2019-10-13] MEDS: ACETAMINOPHEN 650 MG SUPP.RECT PR PRN (04:25)
[2019-10-13 05:09] LABS: ARTERIAL BLOOD FIO2 40%; ARTERIAL BLOOD H2CO3 0.89 mmol/L (1.05-1.35); ARTERIAL BLOOD HCO3 21.8 mmol/L (20-24); ARTERIAL BLOOD O2 SATURATION 94.5 % (94-98); ARTERIAL BLOOD PCO2 29.6 mmHg (35-45); ARTERIAL BLOOD PH 7.49 (7.35-7.45); ARTERIAL BLOOD PO2 65.3 mmHg (80-100); ARTERIAL BLOOD TOTAL CO2 22.8 mmol/L (23-27); HEMATOCRIT 25.7 % (37.9-51.0); HEMOGLOBIN 8.6 g/dL (13.5-17.0); MEAN CORPUSCULAR HEMOGLOBIN 28.6 pg (27.0-33.4); MEAN CORPUSCULAR HGB CONC 33.4 g/dL (32.0-36.0); MEAN CORPUSCULAR VOLUME 86 fl (80-97); PLATELET COUNT 294 10^3/uL (150-450); RED BLOOD COUNT 3.01 10^6/uL (4.35-5.55); RED CELL DISTRIBUTION WIDTH 14.6 % (11.5-14.0); WHITE BLOOD COUNT 18.1 10^3/uL (4.0-10.5)
[2019-10-13] MEDS: HEPARIN SOD (PORCINE) 5,000 UNIT/ML 1 ML VIAL SUBCUT SCH ×3 (05:09→21:48)
[2019-10-13] MEDS: MEROPENEM 1 GM in NORMAL SALINE 50 ML IV SCH ×3 (05:09→21:48)
[2019-10-13 05:26] LABS: ABSOLUTE LYMPHOCYTES# (MANUAL) 1.6 10^3/uL (0.5-4.7); ABSOLUTE MONOCYTES # (MANUAL) 1.1 10^3/uL (0.1-1.4); BAND NEUTROPHILS % (MANUAL) 6 % (3-5); BASOPHILS % (MANUAL) 0 % (0-2); EOSINOPHILS % (MANUAL) 0 % (0-6); LYMPHOCYTES % (MANUAL) 9 % (13-45); MONOCYTES % (MANUAL) 6 % (3-13); SEGMENTED NEUTROPHILS % (MAN) 79 % (42-78); TOTAL CELLS COUNTED 100
[2019-10-13 05:27] LABS: TOXIC GRANULATION SLIGHT
[2019-10-13 05:28] LABS: ANISOCYTOSIS SLIGHT; OVALOCYTES SLIGHT; PLATELET COMMENT ADEQUATE; POIKILOCYTOSIS SLIGHT; POLYCHROMASIA SLIGHT; TOXIC VACUOLATION PRESENT
[2019-10-13 05:35] LABS: VANCOMYCIN,TROUGH < 5.0 ug/mL (5.0-20.0)
[2019-10-13 06:16] LABS: ALBUMIN 2.4 g/dL (3.5-5.0); ALKALINE PHOSPHATASE 276 U/L (38-126); ANION GAP 7 (5-19); ASPARTATE AMINO TRANSFERASE 57 U/L (17-59); BILIRUBIN,DIRECT 1.5 mg/dL (0.0-0.4); BILIRUBIN,TOTAL 2.1 mg/dL (0.2-1.3); BLOOD UREA NITROGEN 15 mg/dL (7-20); CALCIUM 7.9 mg/dL (8.4-10.2); CARBON DIOXIDE 24 mmol/L (22-30); CHLORIDE 108 mmol/L (98-107); GLUCOSE 94 mg/dL (75-110); PHOSPHORUS 2.6 mg/dL (2.5-4.5); POTASSIUM 3.8 mmol/L (3.6-5.0); TOTAL PROTEIN 6.6 g/dL (6.3-8.2)
--- NOTE | 2019-10-13 09:02 | RADIOLOGY REPORT (SQ) ---
EXAM DESCRIPTION: CHEST SINGLE VIEW COMPLETED DATE/TIME: 10/13/2019 6:17 am REASON FOR STUDY: necrotizing pneumonia COMPARISON: 10/12/2019 NUMBER OF VIEWS: One view. TECHNIQUE: Single frontal radiographic image of the chest acquired. LIMITATIONS: None. FINDINGS: LUNGS AND PLEURA: Dense consolidation in the right lower lobe and middle lobe not signific antly changed. The left lung is clear. MEDIASTINUM AND HEART: Stable heart size and mediastinal structures. SUPPORT DEVICES: Appropriate location without change. BONY STRUCTURES: No acute findings. HARDWARE: None. OTHER: No other significant finding. IMPRESSION: Right middle and lower lobe pneumonia. No significant change. Reading location - IP/workstation name: [email or web address]
--- NOTE | 2019-10-13 11:36 | PDOC PROGRESS REPORT ---
Subjective Progress Note for:: 10/13/19 Subjective:: Patient doing much better this morning, breathing is better, oxygenation much better. Reason For Visit: COPD CHF PNEUMONIA Physical Exam Vital Signs: Temp Pulse Resp BP Pulse Ox 96.8 F L 93 30 H 109/71 100 10/13/19 08:00 10/13/19 10:00 10/13/19 10:00 10/13/19 10:00 10/13/19 10:00 Intake & Output 10/12/19 10/13/19 10/14/19 06:59 06:59 06:59 Intake Total 4325.2 948 240 Output Total 500 939 125 Balance 3825.2 9 115 Weight 75.6 kg 75.1 kg General appearance: PRESENT: no acute distress, well-developed, well-nourished Head exam: PRESENT: atraumatic, normocephalic Eye exam: PRESENT: conjunctiva pink, EOMI, PERRLA. ABSENT: scleral icterus Ear exam: PRESENT: normal external ear exam Mouth exam: PRESENT: moist, tongue midline Neck exam: ABSENT: carotid bruit, JVD, lymphadenopathy, thyromegaly Respiratory exam: PRESENT: clear to auscultation sera. ABSENT: rales, rhonchi, wheezes Cardiovascular exam: PRESENT: RRR. ABSENT: diastolic murmur, rubs, systolic murmur Pulses: PRESENT: normal dorsalis pedis pul Vascular exam: PRESENT: normal capillary refill GI/Abdominal exam: PRESENT: normal bowel sounds, soft. ABSENT: distended, guarding, mass, organolmegaly, rebound, tenderness Rectal exam: PRESENT: deferred Extremities exam: PRESENT: full ROM. ABSENT: calf tenderness, clubbing, pedal edema Neurological exam: PRESENT: alert, awake, oriented to person, oriented to place, oriented to time, oriented to situation, CN II-XII grossly intact. ABSENT: motor sensory deficit Psychiatric exam: PRESENT: appropriate affect, normal mood. ABSENT: homicidal ideation, suicidal ideation Skin exam: PRESENT: dry, intact, warm. ABSENT: cyanosis, rash Results Laboratory Results: 10/13/19 04:45 10/13/19 04:45 10/12/19 10/12/19 10/12/19 12:40 12:40 18:30 WBC RBC Hgb Hct MCV MCH MCHC RDW Plt Count Seg Neutrophils % Carbonic Acid HCO3/H2CO3 Ratio ABG pH ABG pCO2 ABG pO2 ABG HCO3 ABG O2 Saturation ABG Base Excess FiO2 Sodium 138.4 Potassium 3.5 L Chloride 106 Carbon Dioxide 21 L Anion Gap 11 BUN 14 Creatinine 0.83 Est GFR ( Amer) > 60 Glucose 108 Lactic Acid 2.7 H Calcium 7.7 L Phosphorus Magnesium Total Bilirubin 1.7 H AST 69 H Alkaline Phosphatase 324 H Ammonia Total Protein 6.7 Albumin 2.5 L TSH 2.65 Free T4 1.28 Free T3 pg/mL 2.15 L 10/12/19 10/12/19 10/12/19 18:30 18:30 18:35 WBC RBC Hgb Hct MCV MCH MCHC RDW Plt Count Seg Neutrophils % Carbonic Acid 0.90 L HCO3/H2CO3 Ratio 24:1 ABG pH 7.48 H ABG pCO2 29.9 L ABG pO2 31.5 L* ABG HCO3 21.9 ABG O2 Saturation 66.4 L ABG Base Excess -1.0 FiO2 5l Sodium Potassium Chloride Carbon Dioxide Anion Gap BUN Creatinine Est GFR ( Amer) Glucose Lactic Acid 3.2 H Calcium Phosphorus Magnesium Total Bilirubin AST Alkaline Phosphatase Ammonia 11.4 Total Protein Albumin TSH Free T4 Free T3 pg/mL 10/12/19 10/13/19 10/13/19 19:05 04:45 04:45 WBC RBC Hgb Hct MCV MCH MCHC RDW Plt Count Seg Neutrophils % Carbonic Acid 0.84 L 0.89 L HCO3/H2CO3 Ratio 25:1 24:1 ABG pH 7.49 H 7.49 H ABG pCO2 28.0 L 29.6 L ABG pO2 107.7 H 65.3 L ABG HCO3 21.0 21.8 ABG O2 Saturation 98.3 H 94.5 ABG Base Excess -1.3 -1.0 FiO2 40% 40% Sodium Potassium Chloride Carbon Dioxide Anion Gap BUN Creatinine Est GFR ( Amer) Glucose Lactic Acid Calcium Phosphorus Magnesium Total Bilirubin AST Alkaline Phosphatase Ammonia 14.7 Total Protein Albumin TSH Free T4 Free T3 pg/mL 10/13/19 10/13/19 10/13/19 04:45 04:45 04:45 WBC 18.1 H RBC 3.01 L Hgb 8.6 L Hct 25.7 L MCV 86 MCH 28.6 MCHC 33.4 RDW 14.6 H Plt Count 294 Seg Neutrophils % Not Reportable Carbonic Acid HCO3/H2CO3 Ratio ABG pH ABG pCO2 ABG pO2 ABG HCO3 ABG O2 Saturation ABG Base Excess FiO2 Sodium 139.2 Potassium 3.8 Chloride 108 H Carbon Dioxide 24 Anion Gap 7 BUN 15 Creatinine 0.83 Est GFR ( Amer) > 60 Glucose 94 Lactic Acid 1.3 Calcium 7.9 L Phosphorus 2.6 Magnesium 2.0 Total Bilirubin 2.1 H AST 57 Alkaline Phosphatase 276 H Ammonia Total Protein 6.6 Albumin 2.4 L TSH Free T4 Free T3 pg/mL 10/11/19 17:02 Blood Blood Culture (PCR) - Final Klebsiella Pneumoniae 10/11/19 18:30 Blood Blood Culture (PCR) - Final Klebsiella Pneumoniae 10/11/19 10/11/19 10/12/19 17:02 20:03 00:00 Troponin I 0.016 < 0.012 NT-Pro-B Natriuret Pep 2330 H 10/12/19 03:43 Troponin I 0.029 NT-Pro-B Natriuret Pep Impressions: Chest/Abdomen CTA 10/11/19 19:25 IMPRESSION: 1. Dense consolidation of the majority of the right lower lobe. There is likely an underlying neoplasm. 2. Scattered infiltrates in the remainder of the lungs, likely acute pneumonia. 3. Multiple liver lesions, suspicious for metastatic disease 4. Enlarged superior pretracheal lymph node, suspicious for metastatic adenopathy. 5. Consider dedicated imaging of the abdomen and pelvis to more reliably assess the extent of liver disease. 6. No CT evidence for pulmonary embolism. Guidance Fluoroscopy 10/12/19 00:00 IMPRESSION: Successful placement of a 5 Serbian x 45 cm double-lumen PICC via the left brachial vein utilizing fluoroscopic and sonographic guidance. Interventional Vascular Procedure 10/12/19 00:00 IMPRESSION: Successful placement of a 5 Serbian x 45 cm double-lumen PICC via the left brachial vein utilizing fluoroscopic and sonographic guidance. PICC Line Insertion 10/12/19 00:00 IMPRESSION: Successful placement of a 5 Serbian x 45 cm double-lumen PICC via the left brachial vein utilizing fluoroscopic and sonographic guidance. Chest X-Ray 10/13/19 06:00 IMPRESSION: Right middle and lower lobe pneumonia. No significant change. Status: Image reviewed by me Assessment & Plan - Diagnosis (1) Lung cancer, lower lobe Qualifiers: Laterality: right Qualified Code(s): C34.31 - Malignant neoplasm of lower lobe, right bronchus or lung Is this a current diagnosis for this admission?: Yes Plan: Likely a stage IV lung cancer, today I will complete staging with CT of the abdomen pelvis with IV contrast only, plan for CT-guided liver biopsy on Tuesday. - Time Time Spent with patient: 35 or more minutes - Inpatient Certification Based on my medical assessment, after consideration of the patient's comorbidities, presenting symptoms, or acuity I expect that the services needed warrant INPATIENT care.: Yes I certify that my determination is in accordance with my understanding of Medic are's requirements for reasonable and necessary INPATIENT services [42 CFR 412.3e].: Yes Medical Necessity: Need For Continuous Telemetry Monitoring, Need for Nebulizer Therapy and Monitoring of Response, Need for Surgery, Risk of Complication if Not Cared For in Hospital
[2019-10-13] MEDS: INSULIN LISPRO 100 UNIT/ML 3 ML VIAL SUBCUT SCH ×3 (12:10→17:56)
[2019-10-13] MEDS: NORMAL SALINE 10 ML SDV (SCHEDULED) IV SCH ×2 (12:11→21:49)
--- NOTE | 2019-10-13 15:19 | PDOC CRITICAL CARE PROG REPORT ---
General Date:: 10/13/19 ICU Day:: 2 Ventilator Day:: 0 Hospital Day:: 3 Events in the past 12 to 24 Hours:: Cardizem has been discontinued Dyspnea is much improved. Much more awake. Tolerated diet Microbiologic studies show Klebsiella in blood; Strep species in urine (clean catch) Review of systems relevant to events:: Starting to develop occasional increase in heart rate this afternoon. Patient started on Lopressor. Reason for ICU Addmission:: Hypoxic respiratory failure with cavitary pneumonia and liver mass - Medications: Medications reviewed and adjusted accordingly: Yes Vasopressors:: None Sedation:: None Physical Exam Vital Signs: Temp Pulse Resp BP Pulse Ox 96.9 F L 119 H 31 H 97/60 L 96 10/13/19 04:00 10/12/19 19:00 10/13/19 06:15 10/13/19 06:15 10/13/19 06:15 Intake & Output 10/12/19 10/13/19 10/14/19 06:59 06:59 06:59 Intake Total 4325.2 948 Output Total 500 939 Balance 3825.2 9 Weight 75.6 kg 75.1 kg Weight/Height Weight 75.1 kg Height 5 ft 11 in General appearance: PRESENT: no acute distress, thin, well-developed Exam: Resident nontoxic 59-year-old white male no acute distress he is awake alert oriented x3. Much improved lethargy. Head exam: PRESENT: atraumatic, normocephalic Eye exam: PRESENT: conjunctival injection, conjunctiva pink, EOMI, PERRLA, scleral icterus. ABSENT: nystagmus Ear exam: PRESENT: normal external ear exam Mouth exam: PRESENT: dry mucosa Teeth exam: PRESENT: dental caries, poor dentation Neck exam: ABSENT: carotid bruit, JVD, lymphadenopathy, thyromegaly Respiratory exam: PRESENT: crackles, rhonchi - On right, tachypnea, unlabored. ABSENT: accessory muscle use Cardiovascular exam: PRESENT: irregular rhythm, +S1, +S2 Pulses: PRESENT: +2 pedal pulses bilateral Vascular exam: PRESENT: normal capillary refill. ABSENT: pallor GI/Abdominal exam: PRESENT: firm, mass, Mallory's sign, normal bowel sounds, soft, tenderness - RUQ. ABSENT: ascites, distended, guarding, rigid Rectal exam: PRESENT: deferred Extremities exam: ABSENT: tenderness Musculoskeletal exam: PRESENT: normal inspection. ABSENT: deformity, dislocation Neurological exam: PRESENT: awake, oriented to person, oriented to place, oriented to time, oriented to situation, CN II-XII grossly intact. ABSENT: motor sensory deficit, aphasic Psychiatric exam: PRESENT: appropriate affect, normal mood. ABSENT: homicidal ideation, suicidal ideation Skin exam: PRESENT: dry, intact, normal color, warm. ABSENT: cyanosis, mottled, pallor, rash Tubes/Lines: ABSENT: Endotracheal Tube, Chest Tube, Central Line, Arterial Catheter, Dialysis catheter, Peg Tube, Nasogastic Tube, Other Laboratory/Radiographs Laboratory Results: 10/13/19 04:45 10/13/19 04:45 10/12/19 10/12/19 10/12/19 09:25 12:40 12:40 WBC RBC Hgb Hct MCV MCH MCHC RDW Plt Count Seg Neutrophils % Carbonic Acid 0.89 L HCO3/H2CO3 Ratio 22:1 ABG pH 7.45 ABG pCO2 29.7 L ABG pO2 60.9 L ABG HCO3 19.9 L ABG O2 Saturation 92.7 L ABG Base Excess -3.4 FiO2 4L Sodium Potassium Chloride Carbon Dioxide Anion Gap BUN Creatinine Est GFR ( Amer) Glucose Lactic Acid 2.7 H Calcium Phosphorus Magnesium Total Bilirubin AST Alkaline Phosphatase Ammonia Total Protein Albumin TSH 2.65 Free T4 1.28 Free T3 pg/mL 2.15 L 10/12/19 10/12/19 10/12/19 18:30 18:30 18:30 WBC RBC Hgb Hct MCV MCH MCHC RDW Plt Count Seg Neutrophils % Carbonic Acid HCO3/H2CO3 Ratio ABG pH ABG pCO2 ABG pO2 ABG HCO3 ABG O2 Saturation ABG Base Excess FiO2 Sodium 138.4 Potassium 3.5 L Chloride 106 Carbon Dioxide 21 L Anion Gap 11 BUN 14 Creatinine 0.83 Est GFR ( Amer) > 60 Glucose 108 Lactic Acid 3.2 H Calcium 7.7 L Phosphorus Magnesium Total Bilirubin 1.7 H AST 69 H Alkaline Phosphatase 324 H Ammonia 11.4 Total Protein 6.7 Albumin 2.5 L TSH Free T4 Free T3 pg/mL 10/12/19 10/12/19 10/13/19 18:35 19:05 04:45 WBC RBC Hgb Hct MCV MCH MCHC RDW Plt Count Seg Neutrophils % Carbonic Acid 0.90 L 0.84 L HCO3/H2CO3 Ratio 24:1 25:1 ABG pH 7.48 H 7.49 H ABG pCO2 29.9 L 28.0 L ABG pO2 31.5 L* 107.7 H ABG HCO3 21.9 21.0 ABG O2 Saturation 66.4 L 98.3 H ABG Base Excess -1.0 -1.3 FiO2 5l 40% Sodium Potassium Chloride Carbon Dioxide Anion Gap BUN Creatinine Est GFR ( Amer) Glucose Lactic Acid Calcium Phosphorus Magnesium Total Bilirubin AST Alkaline Phosphatase Ammonia 14.7 Total Protein Albumin TSH Free T4 Free T3 pg/mL 10/13/19 10/13/19 10/13/19 04:45 04:45 04:45 WBC 18.1 H RBC 3.01 L Hgb 8.6 L Hct 25.7 L MCV 86 MCH 28.6 MCHC 33.4 RDW 14.6 H Plt Count 294 Seg Neutrophils % Not Reportable Carbonic Acid 0.89 L HCO3/H2CO3 Ratio 24:1 ABG pH 7.49 H ABG pCO2 29.6 L ABG pO2 65.3 L ABG HCO3 21.8 ABG O2 Saturation 94.5 ABG Base Excess -1.0 FiO2 40% Sodium 139.2 Potassium 3.8 Chloride 108 H Carbon Dioxide 24 Anion Gap 7 BUN 15 Creatinine 0.83 Est GFR ( Amer) > 60 Glucose 94 Lactic Acid Calcium 7.9 L Phosphorus 2.6 Magnesium 2.0 Total Bilirubin 2.1 H AST 57 Alkaline Phosphatase 276 H Ammonia Total Protein 6.6 Albumin 2.4 L TSH Free T4 Free T3 pg/mL 10/13/19 04:45 WBC RBC Hgb Hct MCV MCH MCHC RDW Plt Count Seg Neutrophils % Carbonic Acid HCO3/H2CO3 Ratio ABG pH ABG pCO2 ABG pO2 ABG HCO3 ABG O2 Saturation ABG Base Excess FiO2 Sodium Potassium Chloride Carbon Dioxide Anion Gap BUN Creatinine Est GFR ( Amer) Glucose Lactic Acid 1.3 Calcium Phosphorus Magnesium Total Bilirubin AST Alkaline Phosphatase Ammonia Total Protein Albumin TSH Free T4 Free T3 pg/mL 10/11/19 18:30 Blood Blood Culture (PCR) - Final Klebsiella Pneumoniae 10/11/19 17:02 Blood Blood Culture (PCR) - Final Klebsiella Pneumoniae 10/11/19 10/11/19 10/12/19 17:02 20:03 00:00 Troponin I 0.016 < 0.012 NT-Pro-B Natriuret Pep 2330 H 10/12/19 03:43 Troponin I 0.029 NT-Pro-B Natriuret Pep Impressions: Chest/Abdomen CTA 10/11/19 19:25 IMPRESSION: 1. Dense consolidation of the majority of the right lower lobe. There is likely an underlying neoplasm. 2. Scattered infiltrates in the remainder of the lungs, likely acute pneumonia. 3. Multiple liver lesions, suspicious for metastatic disease 4. Enlarged superior pretracheal lymph node, suspicious for metastatic adenopathy. 5. Consider dedicated imaging of the abdomen and pelvis to more reliably assess the extent of liver disease. 6. No CT evidence for pulmonary embolism. Guidance Fluoroscopy 10/12/19 00:00 IMPRESSION: Successful placement of a 5 Mauritian x 45 cm double-lumen PICC via the left brachial vein utilizing fluoroscopic and sonographic guidance. Interventional Vascular Procedure 10/12/19 00:00 IMPRESSION: Successful placement of a 5 Mauritian x 45 cm double-lumen PICC via the left brachial vein utilizing fluoroscopic and sonographic guidance. PICC Line Insertion 10/12/19 00:00 IMPRESSION: Successful placement of a 5 Mauritian x 45 cm double-lumen PICC via the left brachial vein utilizing fluoroscopic and sonographic guidance. All labs, radiographs, diagnostic studies and EKGs were personally reviewed: Yes In addition, reports of radiographic and diagnostic studies were read: Yes Assessment and Plan - Diagnosis (1) Sepsis with encephalopathy and septic shock Is this a current diagnosis for this admission?: Yes (2) Acute respiratory failure with hypoxia Is this a current diagnosis for this admission?: Yes (3) Cardiomyopathy Qualifiers: Cardiomyopathy type: unspecified Qualified Code(s): I42.9 - Cardiomyopathy, unspecified Is this a current diagnosis for this admission?: Yes (4) Pneumonia Qualifiers: Pneumonia type: due to unspecified organism Laterality: right Lung location: lower lobe of lung Qualified Code(s): J18.9 - Pneumonia, unspecified organism Is this a current diagnosis for this admission?: Yes (5) Bacteremia due to Klebsiella pneumoniae Is this a current diagnosis for this admission?: Yes (6) Lactic acidosis Is this a current diagnosis for this admission?: Yes (7) Liver masses Is this a current diagnosis for this admission?: Yes (8) Lactic acidosis Is this a current diagnosis for this admission?: Yes Plan: Resolved (9) UTI (urinary tract infection) Qualifiers: Urinary tract infection type: site unspecified Hematuria presence: without hematuria Qualified Code(s): N39.0 - Urinary tract infection, site not specifi ed Is this a current diagnosis for this admission?: Yes Plan Summary: 10.13.19: Patient's condition has stabilized. He is still slightly tachycardic rate he does have a reduced ejection fraction as evaluated on echocardiogram. This is not been officially read but is available for review. We will start him on Lopr essor at this point. May also be a candidate for digoxin but we will start out with conservative management and treatment. He is on meropenem because of the Klebsiella in his bloodstream. He appears to have had a significant response to the gentamicin which was given as well. CT scan of the chest shows a cavitary pneumonia which may also represent metastatic disease. There is no evidence to support any broadening of antibiotics. Patient had atrial fibrillation with rapid ventricular response and will need to consider anticoagulation however he will need a liver biopsy because of the liver masses that are noted. Cancer antigens and enzymes have been sent and are still pending. We will continue to evaluate the patient in the ICU and monitor response to Lopressor. Continue to monitor microbiologic data to determine sensitivities. 10.12.19: 59 year old male with diabetes, dyslipidemia, narcotic dependence secondary to chronic back pain. Developed onset of shortness of breath, nonproductive cough and generalized weakness. He admits some rhinorrhea denies sore throat, chest pain or acid reflux. In the emergency room he was hypotension with tachypnea and hypoxia. Noted increase use of respiratory muscles. Had elevated leukocytosis with bandemia . He was started on broad spectrum empiric antibiotics and admitted to IMCU under the hospitalist service. Patient also was noted to have lesions on his liver seen on CAT scan. CAT scan shows also an area that appears to be necrotizing. He has a long-standing tobacco user. Patient had been on I MCU however developed worsening shortness of breath. He was also noted to have Klebsiella in his bloodstream. His respiratory rate had worsened and he was requiring noninvasive ventilation. For safety and to improve his prognosis he is brought to the ICU for closer monitoring and care. Was also seen by the oncology service because of the liver masses. Work-up is underway. He had a PICC line placed today. He also had an echocardiogram done yesterday which has not been officially read. Review of the images shows an ejection fraction that approaches 35 to 38%. We do not have any ability to determine whether this is a new situation or not. Patient was brought down from [facility] with increasing shortness of breath. He endorses this but feels that he is slightly better than when he was first admitted. He has an elevated heart rate and respiratory rate of 32. Heart rate at 120. Critical Time Critical Time (minutes): 38 Level of Care: ICU Within: within 48 hours -: 1. The care of a critical patient is a dynamic process. This note is a internet sales representative synopsis but static in nature. The timeframe for treatments given in order is not necessary the actual time these treatments may have been done. 2. This patient requires critical care secondary to ongoing requirements for therapy not offered or safe outside the critical care environment. Transfer to a lower level of care with altered life or limb morbidity and mortality. 3. Multidisciplinary rounds completed. 4. ABCDE bundle addressed.
[2019-10-13] MEDS: METOPROLOL TARTRATE 25 MG TABLET PO SCH ×3 (15:45→21:56)
[2019-10-13] MEDS ORDERED: METOPROLOL TARTRATE PF/INJ 5 MG/5 ML SDV IV ONE ×2 (17:48→18:00)
[2019-10-13] MEDS ORDERED: ALBUMIN HUMAN 500 ML IV ONE ×2 (18:45→19:27)
[2019-10-14] MEDS ORDERED: MIDAZOLAM HCL 50 MG/100 ML RTUINJ ONE (02:37)
[2019-10-14] MEDS: MEROPENEM 1 GM in NORMAL SALINE 50 ML IV SCH (05:17)
[2019-10-14] MEDS: HEPARIN SOD (PORCINE) 5,000 UNIT/ML 1 ML VIAL SUBCUT SCH ×2 (05:17→16:30)
[2019-10-14] MEDS: INSULIN LISPRO 100 UNIT/ML 3 ML VIAL SUBCUT SCH ×3 (09:04→16:28)
[2019-10-14] MEDS ORDERED: CEFTRIAXONE SODIUM 2,000 MG in DEXTROSE 5%-WATER 100 ML IV SCH (10:00)
--- NOTE | 2019-10-14 10:04 | RADIOLOGY REPORT (SQ) ---
EXAM DESCRIPTION: CT ABD/PELVIS WITH IV ONLY COMPLETED DATE/TIME: 10/14/2019 8:34 am REASON FOR STUDY: Lung Cancer COMPARISON: None. TECHNIQUE: CT scan of the abdomen and pelvis performed using helical scanning technique with dynamic intravenous contrast injection. No oral contrast. Images reviewed with lung, soft tissue, and bone windows. Reconstructed coronal and sagittal MPR images reviewed. Delayed images for evaluation of the urinary system also acquired. All images stored on PACS. All CT scanners at this facility use dose modulation, iterative reconstruction, and/or weight based d osing when appropriate to reduce radiation dose to as low as reasonably achievable (ALARA). [facility]: Dose Right [facility]: CareDose [facility]: Dose Right [facility]: Teradose 4D [facility]: Lopoly CONTRAST TYPE AND DOSE: contrast/concentration: Isovue 350.00 mg/ml; Total Contrast Delivered: 86.0 ml; Total Saline Delivered: 69.0 ml RENAL FUNCTION: GFR > 60. RADIATION DOSE: CT Rad equipment meets quality standard of care and radiation dose reduction techniq ues were employed. CTDIvol: 6.4 - 8.8 mGy. DLP: 850 mGy-cm.. LIMITATIONS: None. FINDINGS: LOWER CHEST: See recent chest CT. LIVER: Scattered low-density lesions measuring 20-30 HU, the largest posterior segment right lobe 4.3 x 6.6 cm. SPLEEN: Normal size. No focal lesions. PANCREAS: No masses. No significant calcifications. No adjacent inflammation or peripancreatic fluid collections. Pancreatic duct not dilated. GALLBLADDER: Cholelithiasis. ADRENAL GLANDS: No significant masses or asymmetry. RIGHT KIDNEY AND URETER: No solid masses. No significant calcifications. No hydronephrosis or hyd roureter. LEFT KIDNEY AND URETER: No solid masses. No significant calcifications. No hydronephrosis or hydr oureter. AORTA AND VESSELS: No aneurysm. No dissection. Renal arteries, SMA, celiac without stenosis. RETROPERITONEUM: No retroperitoneal adenopathy, hemorrhage or masses. BOWEL AND PERITONEAL CAVITY: No masses or inflammatory changes. Trace ascites right pericolic gutter . APPENDIX: Not visualized. PELVIS: Cade catheter in urinary bladder. No pelvic adenopathy. Small amount of free fluid. ABDOMINAL WALL: Small fat containing umbilical hernia. BONES: No significant or acute findings. OTHER: No other significant finding. IMPRESSION: 1. Liver lesions suspicious for metastatic disease. 2. Trace ascites. TECHNICAL DOCUMENTATION: JOB ID: [id number] Quality ID # [id number]: Final reports with documentation of one or more dose reduction techniques (e.g., Au tomated exposure control, adjustment of the mA and/or kV according to patient size, use of iterative reconstruction technique) 2010 [employer]- All Rights Reserved Reading location - IP/workstation name: [email or web address]
[2019-10-14] MEDS: METOPROLOL TARTRATE 25 MG TABLET PO SCH ×2 (10:50→21:20)
[2019-10-14] MEDS: CEFTRIAXONE 2 GM/D5W RTU 2 GM/50 ML RTUPB IV SCH (10:50)
[2019-10-14] MEDS: NORMAL SALINE 10 ML SDV (SCHEDULED) IV SCH ×2 (10:51→21:20)
[2019-10-14] MEDS: NORMAL SALINE 1000 ML 1,000 ML IV PRN (12:59)
[2019-10-14] MEDS ORDERED: OXYCODONE-ACETAMINOPHEN 5-325 MG TABLET PO PRN (13:14)
[2019-10-14] MEDS ORDERED: ACETAMINOPHEN 325 MG TABLET PO PRN (13:14)
[2019-10-14] MEDS ORDERED: ALBUMIN HUMAN 500 ML IV ONE (13:30)
--- NOTE | 2019-10-14 13:31 | XCELERA REPORT ---
[address] [address] Transthoracic Echocardiogram Report Name: OSCAR KOO Age: 59 yrs Gender: Male : 1960 Patient Status: Inpatient Patient Location: [address] Study Date: 10/11/2019 08:46 PM Procedure: A two-dimensional transthoracic echocardiogram with color flow and Doppler was performed. The study was technically difficult with many images being suboptimal in quality. Reason For Study: systolic murmur History: systolic murmur. Ordering Physician: LEXIS KASPER Performed By: Chantelle Gil Interpretation Summary The left ventricle is normal in size. LV EF is 40% Left ventricular systolic function is moderately reduced. LV diastolic function could not be adequately assessed. There is moderate global hypokinesis of the left ventricle. There is no thrombus. No ASD , VSD , or PFO seen. The right atrium is normal. The left atrial size is normal. There is no evidence of mitral valve prolapse. There is no vegetation seen on the mitral valve. There is no mitral valve stenosis. There is a trace to mild amount of mitral regurgitation There is no aortic valve stenosis There is no LVOT obstruction. No aortic regurgitation is present. There is a trace amount of tricuspid regurgitation No significant pulmonary hypertension.RVSP is 26 to 31 mm of Hg , with RA mean of 10 to 15. There is no pulmonic valvular stenosis. There is no pulmonic valvular regurgitation. The aortic root is normal size. The inferior vena cava appeared normal and decreased < 50% with respiration (RAP 10-15 mmHg) There is no pericardial effusion. MMode/2D Measurements & Calculations RVDd: 2.1 cm LVIDd: 4.8 cm FS: 11.7 % Ao root diam: 2.5 cm IVSd: 1.1 cm LVIDs: 4.2 cm EDV(Teich): Ao root area: LVPWd: 0.94 cm 107.1 ml 5.0 cm2 ESV(Teich): 79.9 ml EF(Teich): 25.4 % LA dimension: 3.3 cm LVLd ap4: 8.3 cm SV(MOD-sp4): EDV(MOD-sp4): 33.0 ml 74.0 ml LVLs ap4: 6.7 cm ESV(MOD-sp4): 41.0 ml EF(MOD-sp4): 44.6 % Doppler Measurements & Calculations MV E max iam: MV P1/2t max iam: Ao V2 max: LV V1 max P.5 cm/sec 99.9 cm/sec 109.5 cm/sec 2.9 mmHg MV A max iam: MV P1/2t: 49.3 msec Ao max P.8 mmHg LV V1 max: 71.6 cm/sec 85.4 cm/sec MV E/A: 1.1 MVA(P1/2t): 4.5 cm2 MV dec slope: 593.2 cm/sec2 MV dec time: 0.14 sec PA V2 max: TR max iam: MV P1/2t-pr_phl: 84.3 cm/sec 202.4 cm/sec 49.3 msec PA max PG: TR max P.4 mmHg 2.8 mmHg Left Ventricle The left ventricle is normal in size. There is normal left ventricular wall thickness. LV EF is 40%. Left ventricular systolic function is moderately reduced. LV diastolic function could not be adequately assessed. There is moderate global hypokinesis of the left ventricle. There is no thrombus. No ASD , VSD , or PFO seen. Right Ventricle The right ventricle is normal in size and function. Atria The right atrium is normal. The left atrial size is normal. Mitral Valve There is no evidence of mitral valve prolapse. There is no vegetation seen on the mitral valve. There is no mitral valve stenosis. There is a trace to mild amount of mitral regurgitation. Aortic Valve There is no aortic valve stenosis. There is no LVOT obstruction. No aortic regurgitation is present. Tricuspid Valve There is no tricuspid stenosis. There is a trace amount of tricuspid regurgitation. No significant pulmonary hypertension.RVSP is 26 to 31 mm of Hg , with RA mean of 10 to 15. Pulmonic Valve There is no pulmonic valvular stenosis. There is no pulmonic valvular regurgitation. Great Vessels The aortic root is normal size. The inferior vena cava appeared normal and decreased < 50% with respiration (RAP 10-15 mmHg). Effusions There is no pericardial effusion. : LEXIS KASPER Lakshmi
--- NOTE | 2019-10-14 13:55 | PDOC CRITICAL CARE PROG REPORT ---
General Date:: 10/14/19 ICU Day:: 3 Ventilator Day:: 0 Hospital Day:: 4 Events in the past 12 to 24 Hours:: Reason for ICU Admission:: Hypoxic respiratory failure with cavitary pneumonia and liver mass 10.14.19: Patient had elevated heart rate last evening which appeared to be atrial fibrillation. He was given 1 dose of Lopressor which revealed a sinus tachycardia. With the onset of a fever and his bacteremia he was given fluid and colloid improvement in his heart rate. He remains without complaint. 10.13.19: Cardizem has been discontinued Dyspnea is much improved. Much more awake. Tolerated diet Microbiologic studies show Klebsiella in blood; Strep species in urine (clean catch) Review of systems relevant to events:: Starting to develop occasional increase in heart rate this afternoon. Patient started on Lopressor. Review of systems relevant to events:: Patient underwent a CT of the abdomen pelvis for further declaration of the extent of liver and possible metastatic disease. His tachycardia has improved and he is off BiPAP and only on nasal cannula. Reason for ICU Addmission:: Hypoxic respiratory failure with cavitary pneumonia and liver mass - Medications: Medications reviewed and adjusted accordingly: Yes Vasopressors:: None Sedation:: None Physical Exam Vital Signs: Temp Pulse Resp BP Pulse Ox 98.3 F 100 18 118/72 97 10/14/19 04:00 10/14/19 07:13 10/14/19 06:22 10/14/19 06:22 10/14/19 06:22 Intake & Output 10/13/19 10/14/19 10/15/19 06:59 06:59 06:59 Intake Total 948 930 Output Total 939 1925 Balance 9 -995 Weight 75.1 kg 76.8 kg Weight/Height Weight 76.8 kg Height 5 ft 11 in General appearance: PRESENT: no acute distress, thin, well-developed Exam: Was not nontoxic 59-year-old black male no active distress awake alert and oriented. Head exam: PRESENT: atraumatic, normocephalic Eye exam: PRESENT: conjunctival injection, EOMI, PERRLA. ABSENT: nystagmus, scleral icterus Ear exam: PRESENT: normal external ear exam Mouth exam: PRESENT: dry mucosa, neck supple Teeth exam: PRESENT: poor dentation Neck exam: ABSENT: carotid bruit, JVD, lymphadenopathy, tenderness, thyromegaly Respiratory exam: PRESENT: crackles, rhonchi - Jesussaves#1. ABSENT: accessory muscle use Pulses: PRESENT: normal dorsalis pedis pul, +2 pedal pulses bilateral GI/Abdominal exam: PRESENT: mass - RUL mass, Mallory's sign, normal bowel sounds, soft, tenderness - RUL. ABSENT: ascites, distended, guarding, organolmegaly, r ebound Rectal exam: PRESENT: deferred Gentrourinary exam: ABSENT: scrotal swelling, indwelling catheter Extremities exam: ABSENT: pedal edema, tenderness Musculoskeletal exam: PRESENT: normal inspection. ABSENT: deformity, dislocation Neurological exam: PRESENT: alert, awake, oriented to person, oriented to place, oriented to time, oriented to situation, CN II-XII grossly intact. ABSENT: motor sensory deficit Psychiatric exam: PRESENT: appropriate affect, normal mood. ABSENT: homicidal ideation, suicidal ideation Skin exam: PRESENT: dry, intact, warm. ABSENT: cyanosis, rash Additional comments: No lymphadenopathy. Tubes/Lines: ABSENT: Endotracheal Tube, Chest Tube, Central Line, Arterial Catheter, Dialysis catheter - Bashir removed, Peg Tube, Nasogastic Tube, Other Laboratory/Radiographs Laboratory Results: 10/13/19 04:45 10/13/19 04:45 10/11/19 18:30 Blood Blood Culture (PCR) - Final Klebsiella Pneumoniae 10/11/19 18:30 Blood Blood Culture - Final Klebsiella Pneumoniae 10/11/19 17:02 Blood Blood Culture (PCR) - Final Klebsiella Pneumoniae 10/11/19 17:02 Blood Blood Culture - Final Klebsiella Pneumoniae 10/11/19 18:50 Clean Catch Midstream Urine Culture - Final Group B Beta Streptococcus 10/11/19 10/11/19 10/12/19 17:02 20:03 00:00 Troponin I 0.016 < 0.012 NT-Pro-B Natriuret Pep 2330 H 10/12/19 03:43 Troponin I 0.029 NT-Pro-B Natriuret Pep Impressions: Chest/Abdomen CTA 10/11/19 19:25 IMPRESSION: 1. Dense consolidation of the majority of the right lower lobe. There is likely an underlying neoplasm. 2. Scattered infiltrates in the remainder of the lungs, likely acute pneumonia. 3. Multiple liver lesions, suspicious for metastatic disease 4. Enlarged superior pretracheal lymph node, suspicious for metastatic adenopathy. 5. Consider dedicated imaging of the abdomen and pelvis to more reliably assess the extent of liver disease. 6. No CT evidence for pulmonary embolism. Guidance Fluoroscopy 10/12/19 00:00 IMPRESSION: Successful placement of a 5 Palestinian x 45 cm double-lumen PICC via the left brachial vein utilizing fluoroscopic and sonographic guidance. Interventional Vascular Procedure 10/12/19 00:00 IMPRESSION: Successful placement of a 5 Palestinian x 45 cm double-lumen PICC via the left brachial vein utilizing fluoroscopic and sonographic guidance. PICC Line Insertion 10/12/19 00:00 IMPRESSION: Successful placement of a 5 Palestinian x 45 cm double-lumen PICC via the left brachial vein utilizing fluoroscopic and sonographic guidance. Chest X-Ray 10/13/19 06:00 IMPRESSION: Right middle and lower lobe pneumonia. No significant change. All labs, radiographs, diagnostic studies and EKGs were personally reviewed: Yes In addition, reports of radiographic and diagnostic studies were read: Yes Assessment and Plan - Diagnosis (1) Sepsis with encephalopathy and septic shock Is this a current diagnosis for this admission?: Yes Plan: Improving (2) Acute respiratory failure with hypoxia Is this a current diagnosis for this admission?: Yes Plan: Improving. Suspect post-obstructive pneumonia (3) Cardiomyopathy Qualifiers: Cardiomyopathy type: unspecified Qualified Code(s): I42.9 - Cardiomyopathy, unspecified Is this a current diagnosis for this admission?: Yes (4) Pneumonia Qualifiers: Pneumonia type: due to unspecified organism Laterality: right Lung location: lower lobe of lung Qualified Code(s): J18.9 - Pneumonia, unspecified organism Is this a current diagnosis for this admission?: Yes Plan: Suspect klebsiella given positive blood cultures (5) Bacteremia due to Klebsiella pneumoniae Is this a current diagnosis for this admission?: Yes (6) Lactic acidosis Is this a current diagnosis for this admission?: Yes Plan: Resolved (7) Liver masses Is this a current diagnosis for this admission?: Yes Plan: For biopsy 10.15.19; NPO after midnight (8) Lactic acidosis Is this a current diagnosis for this admission?: Yes (9) UTI (urinary tract infection) Qualifiers: Urinary tract infection type: site unspecified Hematuria presence: without hematuria Qualified Code(s): N39.0 - Urinary tract infection, site not specified Is this a current diagnosis for this admission?: Yes Plan: Prior to admission and prior to bashir placement. Will d/c bashir (10) Acute metabolic encephalopathy Is this a current diagnosis for this admission?: Yes Plan: Resolved Plan Summary: 10.14.19: Overall the patient's condition has improved. His tachycardia is improved. He is no longer dyspneic and he is only on nasal cannula having been on BiPAP 24 hours ago. We are making the assumption, based on his bacteremia with Klebsiella, that this is a Klebsiella pneumonia with bacteremia. Sensitivities have returned and he has been transitioned to IV Rocephin. He is scheduled for biopsy of the liver tomorrow and I have discontinued his heparin before midnight. He is also been made n.p.o. in preparation. Review of his CT scan he does have some ascites and what appears to be some gallbladder sludge. He most definitely has significant masses in his liver. His serum tumor markers are still pending although the CEA is elevated. His encephalopathy, from sepsis, is improved and he is more awake and conversant. His ejection fraction is noted to be 40% with global cardiomyopathy. He has systolic dysfunction of the left ventricle. We have maintained him on beta- samara therapy. Will start DILAN inhibitor therapy as long as his blood pressure is stable. I have withheld the DILAN inhibitor until the biopsy is complete so that no hypotension occurs or if there is bleeding we will not have an additive effect. The beta-samara will be necessary for now but attention will need to be paid to lack of tachycardic response if there are any complications. Patient will be downgraded to telemetry. He would most definitely need bronchoscopy for postobstructive pneumonia however the liver mass is more amenable to biopsy and will be the first step in determining what is needed next. I have sent a PSA because of enlargement of the prostate seen on CT scan. Alpha-fetoprotein CA-19-9 are all still pending We will continue glucose coverage with subcu insulin. We have stopped Glucophage secondary to lactic acidosis. 10.13.19: Patient's condition has stabilized. He is still slightly tachycardic rate he does have a reduced ejection fraction as evaluated on echocardiogram. This is not been officially read but is available for review. We will start him on Lopressor at this point. May also be a candidate for digoxin but we will start out with conservative management and treatment. He is on meropenem because of the Klebsiella in his bloodstream. He appears to have had a significant response to the gentamicin which was given as well. CT scan of the chest shows a cavitary pneumonia which may also represent metastatic disease. There is no evidence to support any broadening of antibiotics. Patient had atrial fibrillation with rapid ventricular response and will need to consider anticoagulation however he will need a liver biopsy because of the li jordi masses that are noted. Cancer antigens and enzymes have been sent and are still pending. We will continue to evaluate the patient in the ICU and monitor response to Lopressor. Continue to monitor microbiologic data to determine sensitivities. 10.12.19: 59 year old male with diabetes, dyslipidemia, narcotic dependence secondary to chronic back pain. Developed onset of shortness of breath, nonproductive cough and generalized weakness. He admits some rhinorrhea denies sore throat, chest p ain or acid reflux. In the emergency room he was hypotension with tachypnea and hypoxia. Noted increase use of respiratory muscles. Had elevated leukocytosis with bandemia . He was started on broad spectrum empiric antibiotics and admitted to [facility] under the hospitalist service. Patient also was noted to have lesions on his liver seen on CAT scan. CAT scan shows also an area that appears to be necrotizing. He has a long-standing tobacco user. Patient had been on I MCU however developed worsening shortness of breath. He was also noted to have Klebsiella in his bloodstream. His respiratory rate had worsened and he was requiring noninvasive ventilation. For safety and to improve his prognosis he is brought to the ICU for closer monitoring and care. Was also seen by the oncology service because of the liver masses. Work-up is underway. He had a PICC line placed today. He also had an echocardiogram done yesterday which has not been officially read. Review of the images shows an ejection fraction that approaches 35 to 38%. We do not have any ability to determine whether this is a new situation or not. Patient was brought down from [facility] with increasing shortness of breath. He e ndorses this but feels that he is slightly better than when he was first admitted. He has an elevated heart rate and respiratory rate of 32. Heart rate at 120. Critical Time Critical Time (minutes): 38 Level of Care: ICU Anticipated discharge: Home with Homehealth Within: within 48 hours -: 1. The care of a critical patient is a dynamic process. This note is a compliance representative synopsis but static in nature. The timeframe for treatments given in order is not necessary the actual time these treatments may have been done. 2. This patient requires critical care secondary to ongoing requirements for therapy not offered or safe outside the critical care environment. Transfer to a lower level of care with altered life or limb morbidity and mortality. 3. Multidisciplinary rounds completed. 4. ABCDE bundle addressed. 5. Met with patient and family, updated Patient required critical care services secondary to tachycardia and bacteremia.
[2019-10-14] MEDS: OXYCODONE-ACETAMINOPHEN 5-325 MG TABLET PO PRN (16:28)
[2019-10-14 18:39] LABS: AFP SERUM TUMOR MARKER <0.9 ng/mL (0.0-8.3); CANCER ANTIGEN (CA) 125 28.1 U/mL (Not Estab.)
[2019-10-15] MEDS: NORMAL SALINE 1000 ML 1,000 ML IV PRN ×2 (02:20→15:33)
[2019-10-15 04:30] LABS: ABSOLUTE BASOPHILS # (AUTO) 0.1 10^3/uL (0.0-0.2); ABSOLUTE EOSINOPHILS # (AUTO) 0.1 10^3/uL (0.0-0.6); ABSOLUTE LYMPHOCYTES (AUTO) 0.9 10^3/uL (0.5-4.7); ABSOLUTE MONOCYTES (AUTO) 0.7 10^3/uL (0.1-1.4); ABSOLUTE NEUT (AUTO) 10.7 10^3/uL (1.7-8.2); BASOPHILS % (AUTO) 0.5 % (0-2); EOSINOPHILS % (AUTO) 0.8 % (0-6); HEMATOCRIT 24.9 % (37.9-51.0); HEMOGLOBIN 8.3 g/dL (13.5-17.0); LYMPHOCYTES % (AUTO) 7.1 % (13-45); MEAN CORPUSCULAR HEMOGLOBIN 28.3 pg (27.0-33.4); MEAN CORPUSCULAR HGB CONC 33.5 g/dL (32.0-36.0); MEAN CORPUSCULAR VOLUME 85 fl (80-97); MONOCYTES % (AUTO) 5.8 % (3-13); PLATELET COUNT 285 10^3/uL (150-450); RED BLOOD COUNT 2.94 10^6/uL (4.35-5.55); RED CELL DISTRIBUTION WIDTH 14.7 % (11.5-14.0); SEGMENTED NEUTROPHILS % (AUTO) 85.8 % (42-78); TOTAL CELLS COUNTED % (AUTO) 100 %; WHITE BLOOD COUNT 12.4 10^3/uL (4.0-10.5)
[2019-10-15 04:53] LABS: PROTHROMBIN TIME 16.3 SEC (11.4-15.4)
[2019-10-15 04:54] LABS: FIBRINOGEN 623 mg/dL (209-497)
[2019-10-15 05:02] LABS: ALBUMIN 2.4 g/dL (3.5-5.0); ALKALINE PHOSPHATASE 255 U/L (38-126); ANION GAP 11 (5-19); ASPARTATE AMINO TRANSFERASE 23 U/L (17-59); BILIRUBIN,DIRECT 0.6 mg/dL (0.0-0.4); BILIRUBIN,TOTAL 1.1 mg/dL (0.2-1.3); BLOOD UREA NITROGEN 11 mg/dL (7-20); CALCIUM 7.7 mg/dL (8.4-10.2); CARBON DIOXIDE 20 mmol/L (22-30); CHLORIDE 110 mmol/L (98-107); GLUCOSE 231 mg/dL (75-110); PHOSPHORUS 2.6 mg/dL (2.5-4.5); POTASSIUM 3.8 mmol/L (3.6-5.0)
--- NOTE | 2019-10-15 08:10 | PDOC PROGRESS REPORT ---
Subjective Progress Note for:: 10/15/19 Subjective:: Pt improved, should be getting liver bx today Reason For Visit: COPD CHF PNEUMONIA Physical Exam Vital Signs: Temp Pulse Resp BP Pulse Ox 98.6 F 104 H 36 H 125/62 95 10/15/19 07:12 10/15/19 07:12 10/15/19 07:12 10/15/19 07:12 10/15/19 07:12 Intake & Output 10/14/19 10/15/19 10/16/19 06:59 06:59 06:59 Intake Total 930 2009 Output Total 5 1151 Balance -995 859 Weight 76.8 kg 78.9 kg General appearance: PRESENT: no acute distress, well-developed, well-nourished Head exam: PRESENT: atraumatic, normocephalic Eye exam: PRESENT: conjunctiva pink, EOMI, PERRLA. ABSENT: scleral icterus Ear exam: PRESENT: normal external ear exam Mouth exam: PRESENT: moist, tongue midline Neck exam: ABSENT: carotid bruit, JVD, lymphadenopathy, thyromegaly Respiratory exam: PRESENT: clear to auscultation sera. ABSENT: rales, rhonchi, wheezes Cardiovascular exam: PRESENT: RRR. ABSENT: diastolic murmur, rubs, systolic murmur Pulses: PRESENT: normal dorsalis pedis pul Vascular exam: PRESENT: normal capillary refill GI/Abdominal exam: PRESENT: normal bowel sounds, soft. ABSENT: distended, guarding, mass, organolmegaly, rebound, tenderness Rectal exam: PRESENT: deferred Extremities exam: PRESENT: full ROM. ABSENT: calf tenderness, clubbing, pedal edema Neurological exam: PRESENT: alert, awake, oriented to person, oriented to place, oriented to time, oriented to situation, CN II-XII grossly intact. ABSENT: motor sensory deficit Psychiatric exam: PRESENT: appropriate affect, normal mood. ABSENT: homicidal ideation, suicidal ideation Skin exam: PRESENT: dry, intact, warm. ABSENT: cyanosis, rash Results Laboratory Results: 10/15/19 04:11 10/15/19 04:11 10/15/19 10/15/19 10/15/19 04:11 04:11 04:11 WBC 12.4 H RBC 2.94 L Hgb 8.3 L Hct 24.9 L MCV 85 MCH 28.3 MCHC 33.5 RDW 14.7 H Plt Count 285 Seg Neutrophils % 85.8 H Sodium 140.6 Potassium 3.8 Chloride 110 H Carbon Dioxide 20 L Anion Gap 11 BUN 11 Creatinine 0.63 Est GFR ( Amer) > 60 Glucose 231 H Calcium 7.7 L Phosphorus 2.6 Magnesium 1.8 Total Bilirubin 1.1 AST 23 Alkaline Phosphatase 255 H Ammonia < 8.7 L Total Protein 6.0 L Albumin 2.4 L Prostate Specific Ag 1.900 10/11/19 18:30 Blood Blood Culture (PCR) - Final Klebsiella Pneumoniae 10/11/19 18:30 Blood Blood Culture - Final Klebsiella Pneumoniae 10/11/19 17:02 Blood Blood Culture (PCR) - Final Klebsiella Pneumoniae 10/11/19 17:02 Blood Blood Culture - Final Klebsiella Pneumoniae 10/11/19 10/11/19 10/12/19 17:02 20:03 00:00 Troponin I 0.016 < 0.012 NT-Pro-B Natriuret Pep 2330 H 10/12/19 03:43 Troponin I 0.029 NT-Pro-B Natriuret Pep Impressions: Chest/Abdomen CTA 10/11/19 19:25 IMPRESSION: 1. Dense consolidation of the majority of the right lower lobe. There is likely an underlying neoplasm. 2. Scattered infiltrates in the remainder of the lungs, likely acute pneumonia. 3. Multiple liver lesions, suspicious for metastatic disease 4. Enlarged superior pretracheal lymph node, suspicious for metastatic adenopathy. 5. Consider dedicated imaging of the abdomen and pelvis to more reliably assess the extent of liver disease. 6. No CT evidence for pulmonary embolism. Guidance Fluoroscopy 10/12/19 00:00 IMPRESSION: Successful placement of a 5 Sri [place]ankan x 45 cm double-lumen PICC via the left brachial vein utilizing fluoroscopic and sonographic guidance. Interventional Vascular Procedure 10/12/19 00:00 IMPRESSION: Successful placement of a 5 Sri [place]ankan x 45 cm double-lumen PICC via the left brachial vein utilizing fluoroscopic and sonographic guidance. PICC Line Insertion 10/12/19 00:00 IMPRESSION: Successful placement of a 5 Sri [place]ankan x 45 cm double-lumen PICC via the left brachial vein utilizing fluoroscopic and sonographic guidance. Chest X-Ray 10/13/19 06:00 IMPRESSION: Right middle and lower lobe pneumonia. No significant change. Abdomen/Pelvis CT 10/14/19 09:00 IMPRESSION: 1. Liver lesions suspicious for metastatic disease. 2. Trace ascites. Assessment & Plan - Diagnosis (1) Lung cancer, lower lobe Qualifiers: Laterality: right Qualified Code(s): C34.31 - Malignant neoplasm of lower lobe, right bronchus or lung Is this a current diagnosis for this admission?: Yes Plan: Likely to be lung ca, liver bx pending today - Time Time Spent with patient: 15-24 minutes
[2019-10-15] MEDS: INSULIN LISPRO 100 UNIT/ML 3 ML VIAL SUBCUT SCH ×3 (08:41→16:15)
[2019-10-15] MEDS: METOPROLOL TARTRATE 25 MG TABLET PO SCH ×2 (10:01→21:56)
[2019-10-15] MEDS: NORMAL SALINE 10 ML SDV (SCHEDULED) IV SCH ×2 (10:04→21:56)
[2019-10-15] MEDS: CEFTRIAXONE 2 GM/D5W RTU 2 GM/50 ML RTUPB IV SCH (10:05)
[2019-10-15] MEDS ORDERED: OXYCODONE-ACETAMINOPHEN 5-325 MG TABLET PO PRN (11:26)
--- NOTE | 2019-10-15 13:17 | PDOC CRITICAL CARE PROG REPORT ---
General Date:: 10/15/19 ICU Day:: 4 Hospital Day:: 5 Events in the past 12 to 24 Hours:: Plan for a liver biopsy. Improvement in respiratory status. Review of systems relevant to events:: Respiratory Reason for ICU Addmission:: Hypoxic respiratory failure with cavitary pneumonia and liver mass - Medications: Medications reviewed and adjusted accordingly: Yes Vasopressors:: None Sedation:: None Physical Exam Vital Signs: Temp Pulse Resp BP Pulse Ox 98.6 F 104 H 36 H 125/62 95 10/15/19 07:12 10/15/19 07:12 10/15/19 07:12 10/15/19 07:12 10/15/19 07:12 Intake & Output 10/14/19 10/15/19 10/16/19 06:59 06:59 06:59 Intake Total 930 2010 240 Output Total 1925 1151 Balance -995 859 240 Weight 76.8 kg 78.9 kg Weight/Height Weight 78.9 kg Height 5 ft 11 in General appearance: PRESENT: no acute distress, well-developed, well-nourished Head exam: PRESENT: atraumatic, normocephalic Eye exam: PRESENT: conjunctiva pink, EOMI, PERRLA. ABSENT: scleral icterus Ear exam: PRESENT: normal external ear exam Mouth exam: PRESENT: moist, tongue midline Throat exam: PRESENT: other - Voice quite weak Respiratory exam: PRESENT: clear to auscultation sera, decreased breath sounds, prolonged expiratory phas, unlabored Cardiovascular exam: PRESENT: RRR. ABSENT: diastolic murmur, rubs, systolic murmur Vascular exam: PRESENT: normal capillary refill GI/Abdominal exam: PRESENT: normal bowel sounds, soft. ABSENT: distended, guarding, mass, organolmegaly, rebound, tenderness Rectal exam: PRESENT: deferred Extremities exam: PRESENT: full ROM. ABSENT: calf tenderness, clubbing, pedal edema Neurological exam: PRESENT: alert, awake, oriented to person, oriented to place, oriented to time, oriented to situation, CN II-XII grossly intact. ABSENT: motor sensory deficit Skin exam: PRESENT: dry, intact, warm. ABSENT: cyanosis, rash Laboratory/Radiographs Laboratory Results: 10/15/19 04:11 10/15/19 04:11 10/15/19 10/15/19 10/15/19 04:11 04:11 04:11 WBC 12.4 H RBC 2.94 L Hgb 8.3 L Hct 24.9 L MCV 85 MCH 28.3 MCHC 33.5 RDW 14.7 H Plt Count 285 Seg Neutrophils % 85.8 H Sodium 140.6 Potassium 3.8 Chloride 110 H Carbon Dioxide 20 L Anion Gap 11 BUN 11 Creatinine 0.63 Est GFR ( Amer) > 60 Glucose 231 H Calcium 7.7 L Phosphorus 2.6 Magnesium 1.8 Total Bilirubin 1.1 AST 23 Alkaline Phosphatase 255 H Ammonia < 8.7 L Total Protein 6.0 L Albumin 2.4 L Prostate Specific Ag 1.900 10/11/19 10/11/19 10/12/19 17:02 20:03 00:00 Troponin I 0.016 < 0.012 NT-Pro-B Natriuret Pep 2330 H 10/12/19 03:43 Troponin I 0.029 NT-Pro-B Natriuret Pep Impressions: Chest/Abdomen CTA 10/11/19 19:25 IMPRESSION: 1. Dense consolidation of the majority of the right lower lobe. There is likely an underlying neoplasm. 2. Scattered infiltrates in the remainder of the lungs, likely acute pneumonia. 3. Multiple liver lesions, suspicious for metastatic disease 4. Enlarged superior pretracheal lymph node, suspicious for metastatic adenopathy. 5. Consider dedicated imaging of the abdomen and pelvis to more reliably assess the extent of liver disease. 6. No CT evidence for pulmonary embolism. Guidance Fluoroscopy 10/12/19 00:00 IMPRESSION: Successful placement of a 5 Portuguese x 45 cm double-lumen PICC via the left brachial vein utilizing fluoroscopic and sonographic guidance. Interventional Vascular Procedure 10/12/19 00:00 IMPRESSION: Successful placement of a 5 Portuguese x 45 cm double-lumen PICC via the left brachial vein utilizing fluoroscopic and sonographic guidance. PICC Line Insertion 10/12/19 00:00 IMPRESSION: Successful placement of a 5 Portuguese x 45 cm double-lumen PICC via the left brachial vein utilizing fluoroscopic and sonographic guidance. Chest X-Ray 10/13/19 06:00 IMPRESSION: Right middle and lower lobe pneumonia. No significant change. Abdomen/Pelvis CT 10/14/19 09:00 IMPRESSION: 1. Liver lesions suspicious for metastatic disease. 2. Trace ascites. All labs, radiographs, diagnostic studies and EKGs were personally reviewed: Yes In addition, reports of radiographic and diagnostic studies were read: Yes Assessment and Plan - Diagnosis (1) Bacteremia due to Klebsiella pneumoniae Is this a current diagnosis for this admission?: Yes Plan: Continue antibiotics for up to 7 days. (2) Liver masses Is this a current diagnosis for this admission?: Yes Plan: Most likely lung CA with mets. Liver biopsy postponed till Tuesday due to full schedule. Likely will not be read until after Thanksgiving. (3) Lung cancer, lower lobe Qualifiers: Laterality: right Qualified Code(s): C34.31 - Malignant neoplasm of lower lobe, right bronchus or lung Is this a current diagnosis for this admission?: Yes Plan: The likely primary site and source of cancer. (4) Postobstructive pneumonia Is this a current diagnosis for this admission?: Yes Plan: As above. No longer needs an ICU or tele level of care. Plan Summary: Continue antibiotics and plan for liver biopsy Tuesday. May need chemoport but this can be placed as out patient. Critical Time Critical Time (minutes): 30 Level of Care: MEDICAL Anticipated discharge: Home with Homehealth Within: within 72 hours -: 1. The care of a critical patient is a dynamic process. This note is a new accounts representative synopsis but static in nature. The timeframe for treatments give n in order is not necessary the actual time these treatments may have been done. 2. This patient requires critical care secondary to ongoing requirements for therapy not offered or safe outside the critical care environment. Transfer to a lower level of care with altered life or limb morbidity and mortality. 3. Multidisciplinary rounds completed. 4. ABCDE bundle addressed.
[2019-10-15] MEDS: OXYCODONE-ACETAMINOPHEN 5-325 MG TABLET PO PRN (15:17)
[2019-10-15] MEDS ORDERED: SIMVASTATIN 40 MG TABLET PO SCH (22:00)
[2019-10-16] MEDS: NORMAL SALINE 1000 ML 1,000 ML IV PRN (03:57)
--- NOTE | 2019-10-16 07:48 | PDOC PROGRESS REPORT ---
Subjective Progress Note for:: 10/16/19 Subjective:: Patient states that he feels better. He is still having pain in his lower back. ROS: eating and drinking OK. No constipation. No dyspnea. Reason For Visit: COPD CHF PNEUMONIA Physical Exam Vital Signs: Temp Pulse Resp BP Pulse Ox 99.9 F 72 24 H 111/61 93 10/16/19 03:59 10/15/19 20:00 10/15/19 20:00 10/15/19 20:00 10/15/19 20:00 Intake & Output 10/15/19 10/16/19 10/17/19 06:59 06:59 06:59 Intake Total 2009 2400 Output Total 1151 1320 Balance 859 1081 Weight 78.9 kg 78.6 kg General appearance: PRESENT: no acute distress, well-developed, well-nourished Head exam: PRESENT: normocephalic Respiratory exam: PRESENT: clear to auscultation sera, unlabored Cardiovascular exam: PRESENT: RRR GI/Abdominal exam: PRESENT: soft. ABSENT: tenderness Extremities exam: ABSENT: pedal edema Neurological exam: PRESENT: alert, awake Psychiatric exam: PRESENT: appropriate affect Skin exam: PRESENT: normal color Results Laboratory Results: 10/15/19 04:11 10/15/19 04:11 10/11/19 10/11/19 10/12/19 17:02 20:03 00:00 Troponin I 0.016 < 0.012 NT-Pro-B Natriuret Pep 2330 H 10/12/19 03:43 Troponin I 0.029 NT-Pro-B Natriuret Pep Impressions: Chest/Abdomen CTA 10/11/19 19:25 IMPRESSION: 1. Dense consolidation of the majority of the right lower lobe. There is likely an underlying neoplasm. 2. Scattered infiltrates in the remainder of the lungs, likely acute pneumonia. 3. Multiple liver lesions, suspicious for metastatic disease 4. Enlarged superior pretracheal lymph node, suspicious for metastatic adenopathy. 5. Consider dedicated imaging of the abdomen and pelvis to more reliably assess the extent of liver disease. 6. No CT evidence for pulmonary embolism. Guidance Fluoroscopy 10/12/19 00:00 IMPRESSION: Successful placement of a 5 Maldivian x 45 cm double-lumen PICC via the left brachial vein utilizing fluoroscopic and sonographic guidance. Interventional Vascular Procedure 10/12/19 00:00 IMPRESSION: Successful placement of a 5 Maldivian x 45 cm double-lumen PICC via the left brachial vein utilizing fluoroscopic and sonographic guidance. PICC Line Insertion 10/12/19 00:00 IMPRESSION: Successful placement of a 5 Maldivian x 45 cm double-lumen PICC via the left brachial vein utilizing fluoroscopic and sonographic guidance. Chest X-Ray 10/13/19 06:00 IMPRESSION: Right middle and lower lobe pneumonia. No significant change. Abdomen/Pelvis CT 10/14/19 09:00 IMPRESSION: 1. Liver lesions suspicious for metastatic disease. 2. Trace ascites. Assessment & Plan - Diagnosis (1) Back pain Is this a current diagnosis for this admission?: Yes Plan: Continue current pain meds. (2) Acute respiratory failure with hypoxia Is this a current diagnosis for this admission?: Yes Plan: Improving. (3) Liver mass Is this a current diagnosis for this admission?: Yes Plan: Await biopsy today. This was scheduled for yesterday, but radiology had a full schedule, so plan to have this today instead. Further recommendations after path results are available. - Time Time Spent with patient: Less than 15 minutes
[2019-10-16] MEDS: OXYCODONE-ACETAMINOPHEN 5-325 MG TABLET PO PRN (07:55)
[2019-10-16] MEDS: INSULIN LISPRO 100 UNIT/ML 3 ML VIAL SUBCUT SCH ×3 (08:29→16:32)
[2019-10-16] MEDS ORDERED: (PENDING PHARMACY ID) (Empagliflozin [Jardiance] 25 MG) PO SCH (10:00)
[2019-10-16] MEDS ORDERED: MIDAZOLAM 2 MG/2 ML INJ ONE (10:46)
[2019-10-16] MEDS ORDERED: FENTANYL CITRATE INJ/PF 100 MCG/2 ML AMPUL ONE (10:46)
[2019-10-16] MEDS: NORMAL SALINE 10 ML SDV (SCHEDULED) IV SCH ×2 (12:10→21:33)
[2019-10-16] MEDS: CEFTRIAXONE 2 GM/D5W RTU 2 GM/50 ML RTUPB IV SCH (12:11)
[2019-10-16] MEDS: METOPROLOL TARTRATE 25 MG TABLET PO SCH ×2 (12:17→21:32)
--- NOTE | 2019-10-16 12:52 | RADIOLOGY REPORT (SQ) ---
EXAM DESCRIPTION: CT BIOPSY LIVER COMPLETED DATE/TIME: 10/16/2019 12:28 pm REASON FOR STUDY: Liver Mass COMPARISON: 10/14/2019 TECHNIQUE: After obtaining informed consent and explaining the risks and benefits of conscious sedat ion,the patient agreed to the procedure. The patient was brought to the CT suite and was placed supin e on the CT gurney. The patient was prepped and draped in the usual sterile fashion. Axial images we re obtained for targeting of theleft hepatic lobe lesion. An appropriate access site was selected. IV conscious sedation was administered and physician direction by the registered nurse using 25 microgr ams of fentanyl. Physiologic monitoring was provided before, during, and after sedation. The total se dation time was 45 minutes. Documentation face to face time, the performing proceduralist, spent monitoring the patient: [address] of the liver was performed to localize an approach for the left hepatic lobe liver biopsy. A percutaneous site was marked. Time out was performed. After skin prep and local lidocaine for skin and deep tissue anesthesia, a coaxial biopsy needle sys tem was used to obtain several cores of tissue from the left hepatic lobe hypodense lesion liver. Ad ditional attempts were made at aspirating from the trocar without fluid returned. The samples were s ubmitted to the lab in formalin. No immediate postprocedure complications. Total of 12.[address] fluoro was used. 3 CT Fluoroscopic images were obtained and saved to PACS. All CT scanners at this facility use dose modulation, iterative reconstruction, and/or weight based d osing when appropriate to reduce radiation dose to as low as reasonably achievable (ALARA). [facility]: Dose Right [facility]: CareDose [facility]: Dose Right [facility]: Teradose 4D [facility]: Smart [employer] RADIATION DOSE: CT Rad equipment meets quality standard of care and radiation dose reduction techniq ues were employed. CTDIvol: 4.0 - 18.0 mGy. DLP: 641 mGy-cm. mGy. LIMITATIONS: None. FINDINGS: Limited CT demonstrates unchanged appearance of the hypodense bilobar hepatic lesions. In traprocedural imaging demonstrates needle biopsy trough across the lesion of interest. IMPRESSION: CT-guided biopsy of the hypodense left hepatic lobe lesion as detailed above. Pathology pending at the time of dictation. Attempts at aspirating from the trocar yielded no fluid. COMMENT: Patient medication list reviewed:Yes- Quality ID# [id number]:Eligible professional attests to docu menting in the medical record they obtained, updated, or reviewed the patient's current medications.. Quality ID [id number]: Final reports for procedures using fluoroscopy that document radiation exposure susan winnie, or exposure time and number of fluorographic images (if radiation exposure indices are not avail able) TECHNICAL DOCUMENTATION: JOB ID: [id number] Quality ID # [id number]: Final reports with documentation of one or more dose reduction techniques (e.g., A utomated exposure control, adjustment of the mA and/or kV according to patient size, use of iterative reconstruction technique) 2010 [employer]- All Rights Reserved Reading location - IP/workstation name: [email or web address]
[2019-10-16] MEDS: CEFPODOXIME 200 MG TABLET PO SCH ×2 (13:50→21:32)
--- NOTE | 2019-10-16 15:12 | PDOC CRITICAL CARE PROG REPORT ---
General Date:: 10/16/19 Hospital Day:: 5 Events in the past 12 to 24 Hours:: Liver biopsy performed Review of systems relevant to events:: Respiratory and GI Reason for ICU Addmission:: Hypoxic respiratory failure with cavitary pneumonia and liver mass - Medications: Medications reviewed and adjusted accordingly: Yes Vasopressors:: None Sedation:: None Physical Exam Vital Signs: Temp Pulse Resp BP Pulse Ox 98.8 F 85 31 H 123/68 96 10/16/19 08:04 10/16/19 08:04 10/16/19 08:04 10/16/19 08:04 10/16/19 08:04 Intake & Output 10/15/19 10/16/19 10/17/19 06:59 06:59 06:59 Intake Total 20091 1050 Output Total 1 1320 400 Balance 859 1081 650 Weight 78.9 kg 78.6 kg Weight/Height Weight 78.6 kg Height 5 ft 11 in General appearance: PRESENT: no acute distress, cooperative - . Head exam: PRESENT: atraumatic, normocephalic Eye exam: PRESENT: conjunctiva pink, EOMI, PERRLA. ABSENT: scleral icterus Ear exam: PRESENT: normal external ear exam Mouth exam: PRESENT: moist, tongue midline Respiratory exam: PRESENT: clear to auscultation sera. ABSENT: rales, rhonchi, wheezes Cardiovascular exam: PRESENT: RRR, tachycardia. ABSENT: diastolic murmur, rubs, systolic murmur Vascular exam: PRESENT: normal capillary refill GI/Abdominal exam: PRESENT: normal bowel sounds, soft. ABSENT: distended, g uarding, mass, organolmegaly, rebound, tenderness Rectal exam: PRESENT: deferred Extremities exam: PRESENT: full ROM. ABSENT: calf tenderness, clubbing, pedal edema Musculoskeletal exam: PRESENT: full ROM Neurological exam: PRESENT: alert, awake, oriented to person, oriented to place, oriented to time, oriented to situation, CN II-XII grossly intact. ABSENT: motor sensory deficit Psychiatric exam: PRESENT: appropriate affect, normal mood. ABSENT: homicidal ideation, suicidal ideation Skin exam: PRESENT: dry, intact, warm. ABSENT: cyanosis, rash Laboratory/Radiographs Laboratory Results: 10/15/19 04:11 10/15/19 04:11 10/11/19 10/11/19 10/12/19 17:02 20:03 00:00 Troponin I 0.016 < 0.012 NT-Pro-B Natriuret Pep 2330 H 10/12/19 03:43 Troponin I 0.029 NT-Pro-B Natriuret Pep Impressions: Chest/Abdomen CTA 10/11/19 19:25 IMPRESSION: 1. Dense consolidation of the majority of the right lower lobe. There is likely an underlying neoplasm. 2. Scattered infiltrates in the remainder of the lungs, likely acute pneumonia. 3. Multiple liver lesions, suspicious for metastatic disease 4. Enlarged superior pretracheal lymph node, suspicious for metastatic adenopathy. 5. Consider dedicated imaging of the abdomen and pelvis to more reliably assess the extent of liver disease. 6. No CT evidence for pulmonary embolism. Guidance Fluoroscopy 10/12/19 00:00 IMPRESSION: Successful placement of a 5 Fijian x 45 cm double-lumen PICC via the left brachial vein utilizing fluoroscopic and sonographic guidance. Interventional Vascular Procedure 10/12/19 00:00 IMPRESSION: Successful placement of a 5 Fijian x 45 cm double-lumen PICC via the left brachial vein utilizing fluoroscopic and sonographic guidance. PICC Line Insertion 10/12/19 00:00 IMPRESSION: Successful placement of a 5 Fijian x 45 cm double-lumen PICC via the left brachial vein utilizing fluoroscopic and sonographic guidance. Chest X-Ray 10/13/19 06:00 IMPRESSION: Right middle and lower lobe pneumonia. No significant change. Abdomen/Pelvis CT 10/14/19 09:00 IMPRESSION: 1. Liver lesions suspicious for metastatic disease. 2. Trace ascites. Liver Biopsy CT 10/16/19 11:00 IMPRESSION: CT-guided biopsy of the hypodense left hepatic lobe lesion as detailed above. Pathology pending at the time of dictation. Attempts at aspirating from the trocar yielded no fluid. EKG: Sinus tachycardia All labs, radiographs, diagnostic studies and EKGs were personally reviewed: Yes In addition, reports of radiographic and diagnostic studies were read: Yes Assessment and Plan - Diagnosis (1) Bacteremia due to Klebsiella pneumoniae Is this a current diagnosis for this admission?: Yes Plan: On IV antibiotic for 5 days. Very sensitive klebsiela. On PO now with Vantin (2) Liver masses Is this a current diagnosis for this admission?: Yes Plan: Probably a form of lung cancer. Biopsy probably wont be ready till next week. Oncology on the case. (3) Lung cancer, lower lobe Qualifiers: Laterality: right Qualified Code(s): C34.31 - Malignant neoplasm of lower lobe, right bronchus or lung Is this a current diagnosis for this admission?: Yes Plan: Same (4) Postobstructive pneumonia Is this a current diagnosis for this admission?: Yes Plan: CXR shows dense consolidation of RLL. This is likely mostly a post obstructive process that will not improve until the bronchi are open. If he has now fever by tomorrow AM will send home. Plan Summary: PO antibiotics, await biopsy report and send home hopefully in AM. Critical Time Critical Time (minutes): 30 Level of Care: MEDICAL Anticipated discharge: Home Within: within 24 hours -: 1. The care of a critical patient is a dynamic process. This note is a home furnishings sales representative synopsis but static in nature. The timeframe for treatments giv en in order is not necessary the actual time these treatments may have been done. 2. This patient requires critical care secondary to ongoing requirements for therapy not offered or safe outside the critical care environment. Transfer to a lower level of care with altered life or limb morbidity and mortality. 3. Multidisciplinary rounds completed. 4. ABCDE bundle addressed.
[2019-10-17 01:36] LABS: ALK PHOS BONE FRACTION 38 % (12-68); ALK PHOS LIVER FRACTION 54 % (13-88); ALKALINE PHOSPHATASE TOTAL 219 IU/L (39-117)
[2019-10-17] MEDS: OXYCODONE-ACETAMINOPHEN 5-325 MG TABLET PO PRN ×2 (06:15→20:12)
[2019-10-17 07:11] LABS: ALK PHOS INTESTINAL FRACTION 8 % (0-18)
[2019-10-17] MEDS: INSULIN LISPRO 100 UNIT/ML 3 ML VIAL SUBCUT SCH ×3 (07:55→17:38)
[2019-10-17] MEDS: METOPROLOL TARTRATE 25 MG TABLET PO SCH ×2 (09:04→21:46)
[2019-10-17] MEDS: NORMAL SALINE 10 ML SDV (SCHEDULED) IV SCH ×2 (09:07→21:44)
[2019-10-17] MEDS: CEFPODOXIME 200 MG TABLET PO SCH ×2 (09:09→21:47)
--- NOTE | 2019-10-17 09:11 | PDOC PROGRESS REPORT ---
Subjective Progress Note for:: 10/17/19 Subjective:: 10/17/2019-no complaints Reason For Visit: COPD CHF PNEUMONIA Physical Exam Vital Signs: Temp Pulse Resp BP Pulse Ox 98.1 F 77 16 124/55 L 98 10/17/19 07:45 10/17/19 07:45 10/17/19 07:45 10/17/19 07:45 10/17/19 07:45 Intake & Output 10/16/19 10/17/19 10/18/19 06:59 06:59 06:59 Intake Total 2401 1650 Output Total 1320 2000 Balance 1081 -350 Weight 78.6 kg 78.7 kg General appearance: PRESENT: no acute distress, well-developed, well-nourished Neck exam: ABSENT: carotid bruit, JVD, lymphadenopathy, thyromegaly Respiratory exam: PRESENT: decreased breath sounds, symmetrical, unlabored, wheezes. ABSENT: rales, rhonchi Cardiovascular exam: PRESENT: RRR. ABSENT: diastolic murmur, rubs, systolic murmur Pulses: PRESENT: normal dorsalis pedis pul GI/Abdominal exam: PRESENT: normal bowel sounds, soft. ABSENT: distended, guarding, mass, organolmegaly, rebound, tenderness Extremities exam: PRESENT: full ROM. ABSENT: calf tenderness, clubbing, pedal edema Neurological exam: PRESENT: alert, awake, oriented to person, oriented to place, oriented to time, oriented to situation, CN II-XII grossly intact. ABSENT: motor sensory deficit Psychiatric exam: PRESENT: appropriate affect, normal mood. ABSENT: homicidal ideation, suicidal ideation Skin exam: PRESENT: dry, intact, warm. ABSENT: cyanosis, rash Results Laboratory Results: 10/15/19 04:11 10/15/19 04:11 10/11/19 10/11/19 10/12/19 17:02 20:03 00:00 Troponin I 0.016 < 0.012 NT-Pro-B Natriuret Pep 2330 H 10/12/19 03:43 Troponin I 0.029 NT-Pro-B Natriuret Pep Impressions: Chest/Abdomen CTA 10/11/19 19:25 IMPRESSION: 1. Dense consolidation of the majority of the right lower lobe. There is likely an underlying neoplasm. 2. Scattered infiltrates in the remainder of the lungs, likely acute pneumonia. 3. Multiple liver lesions, suspicious for metastatic disease 4. Enlarged superior pretracheal lymph node, suspicious for metastatic adenopathy. 5. Consider dedicated imaging of the abdomen and pelvis to more reliably assess the extent of liver disease. 6. No CT evidence for pulmonary embolism. Guidance Fluoroscopy 10/12/19 00:00 IMPRESSION: Successful placement of a 5 Slovak x 45 cm double-lumen PICC via the left brachial vein utilizing fluoroscopic and sonographic guidance. Interventional Vascular Procedure 10/12/19 00:00 IMPRESSION: Successful placement of a 5 Slovak x 45 cm double-lumen PICC via the left brachial vein utilizing fluoroscopic and sonographic guidance. PICC Line Insertion 10/12/19 00:00 IMPRESSION: Successful placement of a 5 Slovak x 45 cm double-lumen PICC via the left brachial vein utilizing fluoroscopic and sonographic guidance. Chest X-Ray 10/13/19 06:00 IMPRESSION: Right middle and lower lobe pneumonia. No significant change. Abdomen/Pelvis CT 10/14/19 09:00 IMPRESSION: 1. Liver lesions suspicious for metastatic disease. 2. Trace ascites. Liver Biopsy CT 10/16/19 11:00 IMPRESSION: CT-guided biopsy of the hypodense left hepatic lobe lesion as detailed above. Pathology pending at the time of dictation. Attempts at aspirating from the trocar yielded no fluid. Assessment and Plan - Diagnosis (1) Pneumonia Is this a current diagnosis for this admission?: Yes Plan: Complicated by tobacco history and CT suggestive of lung mass. Pneumonia care set deployed, 10/17/2019-at this time. Patient continues on cephalosporin which show susceptibility to type Klebsiella pneumoniae. We will continue until all sensitivities return (2) Acute renal failure Is this a current diagnosis for this admission?: Yes Plan: Unclear duration likely secondary to sepsis. Avoid nephrotoxic meds and doses follow-up chemistry 10/17/2019-resolved stable continue to follow (3) Congestive heart failure Is this a current diagnosis for this admission?: Yes Plan: BiPAP, judicious volume control and septic state, strict I's and O's Lasix as needed, follow-up 2D echo and cardiac enzymes 10/17/2019-not in acute exacerbation at this time. Continue to follow (4) Diabetes Is this a current diagnosis for this admission?: Yes Plan: Humalog sliding scale q. AC 10/17/2019-continue sliding scale insulin before meals and at bedtime. (5) Lactic acidosis Is this a current diagnosis for this admission?: Yes Plan: Resolved 10/17/2019-resolved stable. (6) Liver mass Is this a current diagnosis for this admission?: Yes Plan: Oncology consult once stable 10/17/2019-awaiting liver biopsy results. (7) Lung cancer, lower lobe Qualifiers: Laterality: right Qualified Code(s): C34.31 - Malignant neoplasm of lower lobe, right bronchus or lung Is this a current diagnosis for this admission?: Yes Plan: Same 10/17/2019-stable (8) Sepsis with hypotension Is this a current diagnosis for this admission?: Yes Plan: Secondary to #1, IV fluid challenge, Selvin-Synephrine PRN anticipate overload given cardiac enlargement and gallop. 10/17/2019-stable patient remains off vasopressors at this time. We will continue to follow - Time Time Spent with patient: 15-24 minutes - Inpatient Certification Based on my medical assessment, after consideration of the patient's comorbidities, presenting symptoms, or acuity I expect that the services needed warrant INPATIENT care.: Yes I certify that my determination is in accordance with my understanding of Medicare's requirements for reasonable and necessary INPATIENT services [42 CFR 412.3e].: Yes Medical Necessity: Need for IV Antibiotics
[2019-10-18] MEDS: OXYCODONE-ACETAMINOPHEN 5-325 MG TABLET PO PRN ×2 (04:35→18:07)
[2019-10-18] MEDS: INSULIN LISPRO 100 UNIT/ML 3 ML VIAL SUBCUT SCH ×3 (07:19→18:00)
[2019-10-18 07:40] LABS: HEMATOCRIT 27.9 % (37.9-51.0); HEMOGLOBIN 9.1 g/dL (13.5-17.0); MEAN CORPUSCULAR HEMOGLOBIN 28.1 pg (27.0-33.4); MEAN CORPUSCULAR HGB CONC 32.7 g/dL (32.0-36.0); MEAN CORPUSCULAR VOLUME 86 fl (80-97); PLATELET COUNT 351 10^3/uL (150-450); RED BLOOD COUNT 3.26 10^6/uL (4.35-5.55); RED CELL DISTRIBUTION WIDTH 14.9 % (11.5-14.0); WHITE BLOOD COUNT 14.4 10^3/uL (4.0-10.5)
[2019-10-18 08:04] LABS: ANION GAP 7 (5-19); BLOOD UREA NITROGEN 5 mg/dL (7-20); CARBON DIOXIDE 23 mmol/L (22-30); CHLORIDE 107 mmol/L (98-107); GLUCOSE 185 mg/dL (75-110); POTASSIUM 3.4 mmol/L (3.6-5.0)
[2019-10-18] MEDS: CEFPODOXIME 200 MG TABLET PO SCH ×2 (09:03→21:29)
[2019-10-18] MEDS: METOPROLOL TARTRATE 25 MG TABLET PO SCH ×2 (09:03→21:29)
[2019-10-18] MEDS: NORMAL SALINE 10 ML SDV (SCHEDULED) IV SCH ×2 (09:19→21:30)
--- NOTE | 2019-10-18 09:38 | PDOC PROGRESS REPORT ---
Subjective Progress Note for:: 10/18/19 Subjective:: 10/17/2019-no complaints 10/18/2019-no complaints this a.m. Reason For Visit: COPD CHF PNEUMONIA Physical Exam Vital Signs: Temp Pulse Resp BP Pulse Ox 99.7 F 97 16 141/60 H 96 10/17/19 20:48 10/17/19 20:48 10/17/19 20:48 10/17/19 20:48 10/18/19 00:31 Intake & Output 10/17/19 10/18/19 10/19/19 06:59 06:59 06:59 Intake Total 1650 480 Output Total 1999 775 Balance -350 -295 Weight 78.7 kg 78.9 kg General appearance: PRESENT: no acute distress, well-developed, well-nourished Neck exam: ABSENT: carotid bruit, JVD, lymphadenopathy, thyromegaly Respiratory exam: PRESENT: decreased breath sounds, symmetrical, unlabored Cardiovascular exam: PRESENT: RRR. ABSENT: diastolic murmur, rubs, systolic murmur Pulses: PRESENT: normal dorsalis pedis pul Vascular exam: PRESENT: normal capillary refill GI/Abdominal exam: PRESENT: normal bowel sounds, soft. ABSENT: distended, guarding, mass, organolmegaly, rebound, tenderness Extremities exam: PRESENT: full ROM. ABSENT: calf tenderness, clubbing, pedal edema Neurological exam: PRESENT: alert, awake, oriented to person, oriented to place, oriented to time, oriented to situation, CN II-XII grossly intact. ABSENT: motor sensory deficit Psychiatric exam: PRESENT: appropriate affect, normal mood. ABSENT: homicidal ideation, suicidal ideation Skin exam: PRESENT: dry, intact, warm. ABSENT: cyanosis, rash Results Laboratory Results: 10/18/19 06:00 10/18/19 06:00 10/18/19 10/18/19 06:00 06:00 WBC 14.4 H RBC 3.26 L Hgb 9.1 L Hct 27.9 L MCV 86 MCH 28.1 MCHC 32.7 RDW 14.9 H Plt Count 351 Sodium 137.4 Potassium 3.4 L Chloride 107 Carbon Dioxide 23 Anion Gap 7 BUN 5 L Creatinine 0.50 L Est GFR ( Amer) > 60 Glucose 185 H Calcium 7.0 L* 10/11/19 10/11/19 10/12/19 17:02 20:03 00:00 Troponin I 0.016 < 0.012 NT-Pro-B Natriuret Pep 2330 H 10/12/19 03:43 Troponin I 0.029 NT-Pro-B Natriuret Pep Impressions: Chest/Abdomen CTA 10/11/19 19:25 IMPRESSION: 1. Dense consolidation of the majority of the right lower lobe. There is likely an underlying neoplasm. 2. Scattered infiltrates in the remainder of the lungs, likely acute pneumonia. 3. Multiple liver lesions, suspicious for metastatic disease 4. Enlarged superior pretracheal lymph node, suspicious for metastatic adenopathy. 5. Consider dedicated imaging of the abdomen and pelvis to more reliably assess the extent of liver disease. 6. No CT evidence for pulmonary embolism. Guidance Fluoroscopy 10/12/19 00:00 IMPRESSION: Successful placement of a 5 Cuban x 45 cm double-lumen PICC via t he left brachial vein utilizing fluoroscopic and sonographic guidance. Interventional Vascular Procedure 10/12/19 00:00 IMPRESSION: Successful placement of a 5 Cuban x 45 cm double-lumen PICC via the left brachial vein utilizing fluoroscopic and sonographic guidance. PICC Line Insertion 10/12/19 00:00 IMPRESSION: Successful placement of a 5 [place] x 45 cm double-lumen PICC via the left brachial vein utilizing fluoroscopic and sonographic guidance. Chest X-Ray 10/13/19 06:00 IMPRESSION: Right middle and lower lobe pneumonia. No significant change. Abdomen/Pelvis CT 10/14/19 09:00 IMPRESSION: 1. Liver lesions suspicious for metastatic disease. 2. Trace ascites. Liver Biopsy CT 10/16/19 11:00 IMPRESSION: CT-guided biopsy of the hypodense left hepatic lobe lesion as detailed above. Pathology pending at the time of dictation. Attempts at aspirating from the trocar yielded no fluid. Assessment and Plan - Diagnosis (1) Pneumonia Is this a current diagnosis for this admission?: Yes Plan: Complicated by tobacco history and CT suggestive of lung mass. Pneumonia care set deployed, 10/17/2019-at this time. Patient continues on cephalosporin which show susceptibility to type Klebsiella pneumoniae. We will continue until all sensitivities return 10/18/2019-potential improvement. Most likely discharge in a.m. Continue current antibiotic therapy (2) Acute renal failure Is this a current diagnosis for this admission?: Yes Plan: Unclear duration likely secondary to sepsis. Avoid nephrotoxic meds and doses follow-up chemistry 10/17/2019-resolved stable continue to follow 10/18/2019-stable (3) Congestive heart failure Is this a current diagnosis for this admission?: Yes Plan: BiPAP, judicious volume control and septic state, strict I's and O's Lasix as needed, follow-up 2D echo and cardiac enzymes 10/17/2019-not in acute exacerbation at this time. Continue to follow 10/18/2019-stable (4) Diabetes Is this a current diagnosis for this admission?: Yes Plan: Humalog sliding scale q. AC 10/17/2019-continue sliding scale insulin before meals and at bedtime. 10/18/2019-stable (5) Lactic acidosis Is this a current diagnosis for this admission?: Yes Plan: Resolved 10/17/2019-resolved stable. 10/18/2019-resolved stable (6) Liver mass Is this a current diagnosis for this admission?: Yes Plan: Oncology consult once stable 10/17/2019-awaiting liver biopsy results. 10/18/2019-continue await liver biopsy results (7) Lung cancer, lower lobe Qualifiers: Laterality: right Qualified Code(s): C34.31 - Malignant neoplasm of lower lobe, right bronchus or lung Is this a current diagnosis for this admission?: Yes Plan: Same 10/17/2019-stable 10/18/2019-stable (8) Sepsis with hypotension Is this a current diagnosis for this admission?: Yes Plan: Secondary to #1, IV fluid challenge, Selvin-Synephrine PRN anticipate overload given cardiac enlargement and gallop. 10/17/2019-stable patient remains off vasopressors at this time. We will continue to follow 10/18/2019-stable resolved - Time Time Spent with patient: 15-24 minutes - Inpatient Certification Based on my medical assessment, after consideration of the patient's comorbidities, presenting symptoms, or acuity I expect that the services needed warrant INPATIENT care.: Yes I certify that my determination is in accordance with my understanding of Medicare's requirements for reasonable and necessary INPATIENT services [42 CFR 412.3e].: Yes Medical Necessity: Need for IV Antibiotics
[2019-10-18] MEDS ORDERED: CALCIUM GLUCONATE 1000 MG/10 ML INJ IV ONE (10:00)
--- NOTE | 2019-10-18 10:37 | PDOC PROGRESS REPORT ---
Subjective Progress Note for:: 10/18/19 Subjective:: Patient states that he is feeling much better than he was previously. He is eating well, denies pain. Some loose stools. He states he has not been up walking, as he has no pants. Reason For Visit: COPD CHF PNEUMONIA Physical Exam Vital Signs: Temp Pulse Resp BP Pulse Ox 98.6 F 89 19 138/67 H 98 10/18/19 08:07 10/18/19 08:07 10/18/19 08:07 10/18/19 08:07 10/18/19 08:07 Intake & Output 10/17/19 10/18/19 10/19/19 06:59 06:59 06:59 Intake Total 1650 480 120 Output Total 1999 775 700 Balance -350 -295 -580 Weight 78.7 kg 78.9 kg General appearance: PRESENT: well-developed, well-nourished Head exam: PRESENT: normocephalic Eye exam: PRESENT: EOMI Respiratory exam: PRESENT: clear to auscultation sera, unlabored Cardiovascular exam: PRESENT: RRR GI/Abdominal exam: PRESENT: soft. ABSENT: tenderness Extremities exam: ABSENT: pedal edema Neurological exam: PRESENT: alert, awake Psychiatric exam: PRESENT: appropriate affect Skin exam: PRESENT: normal color Results Laboratory Results: 10/18/19 06:00 10/18/19 06:00 10/18/19 10/18/19 06:00 06:00 WBC 14.4 H RBC 3.26 L Hgb 9.1 L Hct 27.9 L MCV 86 MCH 28.1 MCHC 32.7 RDW 14.9 H Plt Count 351 Sodium 137.4 Potassium 3.4 L Chloride 107 Carbon Dioxide 23 Anion Gap 7 BUN 5 L Creatinine 0.50 L Est GFR ( Amer) > 60 Glucose 185 H Calcium 7.0 L* 10/11/19 10/11/19 10/12/19 17:02 20:03 00:00 Troponin I 0.016 < 0.012 NT-Pro-B Natriuret Pep 2330 H 10/12/19 03:43 Troponin I 0.029 NT-Pro-B Natriuret Pep Impressions: Chest/Abdomen CTA 10/11/19 19:25 IMPRESSION: 1. Dense consolidation of the majority of the right lower lobe. There is likely an underlying neoplasm. 2. Scattered infiltrates in the remainder of the lungs, likely acute pneumonia. 3. Multiple liver lesions, suspicious for metastatic disease 4. Enlarged superior pretracheal lymph node, suspicious for metastatic adenopathy. 5. Consider dedicated imaging of the abdomen and pelvis to more reliably assess the extent of liver disease. 6. No CT evidence for pulmonary embolism. Guidance Fluoroscopy 10/12/19 00:00 IMPRESSION: Successful placement of a 5 [place] Konger x 45 cm double-lumen PICC via the left brachial vein utilizing fluoroscopic and sonographic guidance. Interventional Vascular Procedure 10/12/19 00:00 IMPRESSION: Successful placement of a 5 [place] Kong[place] x 45 cm double-lumen PICC via the left brachial vein utilizing fluoroscopic and sonographic guidance. PICC Line Insertion 10/12/19 00:00 IMPRESSION: Successful placement of a 5 [place] Kong[place] x 45 cm double-lumen PICC via the left brachial vein utilizing fluoroscopic and sonographic guidance. Chest X-Ray 10/13/19 06:00 IMPRESSION: Right middle and lower lobe pneumonia. No significant change. Abdomen/Pelvis CT 10/14/19 09:00 IMPRESSION: 1. Liver lesions suspicious for metastatic disease. 2. Trace ascites. Liver Biopsy CT 10/16/19 11:00 IMPRESSION: CT-guided biopsy of the hypodense left hepatic lobe lesion as detailed above. Pathology pending at the time of dictation. Attempts at aspirating from the trocar yielded no fluid. Assessment & Plan - Diagnosis (1) Back pain Is this a current diagnosis for this admission?: Yes (2) Acute respiratory failure with hypoxia Is this a current diagnosis for this admission?: Yes (3) Liver mass Is this a current diagnosis for this admission?: Yes Plan: Await pathology from cultures. If patient is discharged prior to path returning, please arrange follow-up with us to review results in office. (4) Bacteremia due to Klebsiella pneumoniae Is this a current diagnosis for this admission?: Yes Plan: No repeat olld cultures were obtained. I am concerned about discharging patient without making sure the bacteremia has cleared. I discussed this with Shakir Dan, hospitalist. I will repeat Blood cultures today to make sure these are negative prior to discharge. - Time Time Spent with patient: 15-24 minutes - Plan Summary Plan Summary: I have encouraged patient to ask nurses for appropriate clothing and to walk in [place] with help.
[2019-10-19 07:17] LABS: ANION GAP 9 (5-19); BLOOD UREA NITROGEN 8 mg/dL (7-20); CALCIUM 8.5 mg/dL (8.4-10.2); CARBON DIOXIDE 28 mmol/L (22-30); CHLORIDE 100 mmol/L (98-107); GLUCOSE 201 mg/dL (75-110)
[2019-10-19] MEDS: INSULIN LISPRO 100 UNIT/ML 3 ML VIAL SUBCUT SCH ×3 (08:54→17:18)
--- NOTE | 2019-10-19 09:15 | PDOC PROGRESS REPORT ---
Subjective Progress Note for:: 10/19/19 Subjective:: 10/17/2019-no complaints 10/18/2019-no complaints this a.m. 10/19/2019-no complaints Reason For Visit: COPD CHF PNEUMONIA Physical Exam Vital Signs: Temp Pulse Resp BP Pulse Ox 99.0 F 94 17 130/54 H 91 L 10/18/19 20:28 10/18/19 20:28 10/18/19 20:28 10/18/19 20:28 10/18/19 20:28 Intake & Output 10/18/19 10/19/19 10/20/19 06:59 06:59 06:59 Intake Total 480 120 Output Total 775 1075 Balance -295 -955 Weight 78.9 kg 78.6 kg General appearance: PRESENT: no acute distress, well-developed, well-nourished Neck exam: ABSENT: carotid bruit, JVD, lymphadenopathy, thyromegaly Respiratory exam: PRESENT: clear to auscultation sera. ABSENT: rales, rhonchi, w heezes Cardiovascular exam: PRESENT: RRR. ABSENT: diastolic murmur, rubs, systolic murmur Pulses: PRESENT: normal dorsalis pedis pul Vascular exam: PRESENT: normal capillary refill GI/Abdominal exam: PRESENT: normal bowel sounds, soft. ABSENT: distended, guarding, mass, organolmegaly, rebound, tenderness Extremities exam: PRESENT: full ROM. ABSENT: calf tenderness, clubbing, pedal edema Neurological exam: PRESENT: alert, awake, oriented to person, oriented to place, oriented to time, oriented to situation, CN II-XII grossly intact. ABSENT: motor sensory deficit Psychiatric exam: PRESENT: appropriate affect, normal mood. ABSENT: homicidal ideation, suicidal ideation Skin exam: PRESENT: dry, intact, warm. ABSENT: cyanosis, rash Results Laboratory Results: 10/18/19 06:00 10/19/19 06:30 10/19/19 06:30 Sodium 137.1 Potassium 4.0 Chloride 100 Carbon Dioxide 28 Anion Gap 9 BUN 8 Creatinine 0.65 Est GFR ( Amer) > 60 Glucose 201 H Calcium 8.5 10/11/19 10/11/19 10/12/19 17:02 20:03 00:00 Troponin I 0.016 < 0.012 NT-Pro-B Natriuret Pep 2330 H 10/12/19 03:43 Troponin I 0.029 NT-Pro-B Natriuret Pep Impressions: Chest/Abdomen CTA 10/11/19 19:25 IMPRESSION: 1. Dense consolidation of the majority of the right lower lobe. There is likely an underlying neoplasm. 2. Scattered infiltrates in the remainder of the lungs, likely acute pneumonia. 3. Multiple liver lesions, suspicious for metastatic disease 4. Enlarged superior pretracheal lymph node, suspicious for metastatic adenopathy. 5. Consider dedicated imaging of the abdomen and pelvis to more reliably assess the extent of liver disease. 6. No CT evidence for pulmonary embolism. Guidance Fluoroscopy 10/12/19 00:00 IMPRESSION: Successful placement of a 5 Pashto x 45 cm double-lumen PICC via the left brachial vein utilizing fluoroscopic and sonographic guidance. Interventional Vascular Procedure 10/12/19 00:00 IMPRESSION: Successful placement of a 5 Pashto x 45 cm double-lumen PICC via the left brachial vein utilizing fluoroscopic and sonographic guidance. PICC Line Insertion 10/12/19 00:00 IMPRESSION: Successful placement of a 5 Pashto x 45 cm double-lumen PICC via the left brachial vein utilizing fluoroscopic and sonographic guidance. Chest X-Ray 10/13/19 06:00 IMPRESSION: Right middle and lower lobe pneumonia. No significant change. Abdomen/Pelvis CT 10/14/19 09:00 IMPRESSION: 1. Liver lesions suspicious for metastatic disease. 2. Trace ascites. Liver Biopsy CT 10/16/19 11:00 IMPRESSION: CT-guided biopsy of the hypodense left hepatic lobe lesion as detailed above. Pathology pending at the time of dictation. Attempts at aspirating from the trocar yielded no fluid. Assessment and Plan - Diagnosis (1) Pneumonia Is this a current diagnosis for this admission?: Yes Plan: Complicated by tobacco history and CT suggestive of lung mass. Pneumonia care set deployed, 10/17/2019-at this time. Patient continues on cephalosporin which show susceptibility to type Klebsiella pneumoniae. We will continue until all sensitivities return 10/18/2019-potential improvement. Most likely discharge in a.m. Continue current antibiotic therapy 10/19/2019-continues to improve. Patient was bacteremic with Klebsiella no pneumonia growing and all blood cultures on arrival we repeated blood cultures yesterday awaiting for confirmation of resolution (2) Acute renal failure Is this a current diagnosis for this admission?: Yes Plan: Unclear duration likely secondary to sepsis. Avoid nephrotoxic meds and doses follow-up chemistry 10/17/2019-resolved stable continue to follow 10/18/2019-stable 10/19/2019-stable (3) Congestive heart failure Is this a current diagnosis for this admission?: Yes Plan: BiPAP, judicious volume control and septic state, strict I's and O's Lasix as needed, follow-up 2D echo and cardiac enzymes 10/17/2019-not in acute exacerbation at this time. Continue to follow 10/18/2019-stable 10/19/2019-no acute exacerbation at this time. Continue to follow (4) Diabetes Is this a current diagnosis for this admission?: Yes Plan: Humalog sliding scale q. AC 10/17/2019-continue sliding scale insulin before meals and at bedtime. 10/18/2019-stable 10/19/2019-stable (5) Lactic acidosis Is this a current diagnosis for this admission?: Yes Plan: Resolved 10/17/2019-resolved stable. 10/18/2019-resolved stable 10/19/2019-stable (6) Liver mass Is this a current diagnosis for this admission?: Yes Plan: Oncology consult once stable 10/17/2019-awaiting liver biopsy results. 10/18/2019-continue await liver biopsy results 10/19/2019-stable continue be followed by oncology. Await liver biopsy results (7) Lung cancer, lower lobe Qualifiers: Laterality: right Qualified Code(s): C34.31 - Malignant neoplasm of lower lobe, right bronchus or lung Is this a current diagnosis for this admission?: Yes Plan: Same 10/17/2019-stable 10/18/2019-stable 10/19/2019-continue followed by oncology (8) Sepsis with hypotension Is this a current diagnosis for this admission?: Yes Plan: Secondary to #1, IV fluid challenge, Selvin-Synephrine PRN anticipate overload given cardiac enlargement and gallop. 10/17/2019-stable patient remains off vasopressors at this time. We will continue to follow 10/18/2019-stable resolved 10/19/2019-stable resolved - Time Time Spent with patient: 15-24 minutes - Inpatient Certification Based on my medical assessment, after consideration of the patient's comorbidities, presenting symptoms, or acuity I expect that the services needed warrant INPATIENT care.: Yes I certify that my determination is in accordance with my understanding of Medicare's requirements for reasonable and necessary INPATIENT services [42 CFR 412.3e].: Yes Medical Necessity: Need for IV Antibiotics
[2019-10-19] MEDS ORDERED: NORMAL SALINE 10 ML SDV (AFTER EACH USE) IV PRN (10:30)
[2019-10-19] MEDS: METOPROLOL TARTRATE 25 MG TABLET PO SCH ×2 (11:13→22:38)
[2019-10-19] MEDS: CEFPODOXIME 200 MG TABLET PO SCH ×2 (11:14→22:38)
[2019-10-19] MEDS ORDERED: HYDROCORTISONE ACETATE 25 MG SUPP.RECT PR PRN (16:36)
[2019-10-19] MEDS: OXYCODONE-ACETAMINOPHEN 5-325 MG TABLET PO PRN ×2 (17:18→22:38)
[2019-10-19] MEDS: NORMAL SALINE 10 ML SDV (SCHEDULED) IV SCH (22:39)
[2019-10-20] MEDS: OXYCODONE-ACETAMINOPHEN 5-325 MG TABLET PO PRN ×2 (05:59→21:48)
[2019-10-20 06:50] LABS: HEMATOCRIT 26.6 % (37.9-51.0); HEMOGLOBIN 8.7 g/dL (13.5-17.0); MEAN CORPUSCULAR HGB CONC 32.8 g/dL (32.0-36.0); MEAN CORPUSCULAR VOLUME 85 fl (80-97); PLATELET COUNT 351 10^3/uL (150-450); RED BLOOD COUNT 3.12 10^6/uL (4.35-5.55)
[2019-10-20 07:08] LABS: ANION GAP 7 (5-19); BLOOD UREA NITROGEN 10 mg/dL (7-20); CALCIUM 8.5 mg/dL (8.4-10.2); CARBON DIOXIDE 29 mmol/L (22-30); CHLORIDE 101 mmol/L (98-107); GLUCOSE 246 mg/dL (75-110); POTASSIUM 4.5 mmol/L (3.6-5.0)
[2019-10-20] MEDS: INSULIN LISPRO 100 UNIT/ML 3 ML VIAL SUBCUT SCH ×3 (08:19→17:08)
--- NOTE | 2019-10-20 09:14 | PDOC PROGRESS REPORT ---
Subjective Reason For Visit: COPD CHF PNEUMONIA Physical Exam Vital Signs: Temp Pulse Resp BP Pulse Ox 98.4 F 81 19 137/61 H 97 10/19/19 21:45 10/19/19 21:45 10/19/19 21:45 10/19/19 21:45 10/20/19 05:39 Intake & Output 10/19/19 10/20/19 10/21/19 06:59 06:59 06:59 Intake Total 120 330 Output Total 1075 Balance -955 330 Weight 78.6 kg 75.8 kg General appearance: PRESENT: no acute distress, well-developed, well-nourished Head exam: PRESENT: atraumatic, normocephalic Eye exam: PRESENT: conjunctiva pink, EOMI, PERRLA. ABSENT: scleral icterus Ear exam: PRESENT: normal external ear exam Mouth exam: PRESENT: moist, tongue midline Neck exam: ABSENT: carotid bruit, JVD, lymphadenopathy, thyromegaly Respiratory exam: PRESENT: clear to auscultation sera. ABSENT: rales, rhonchi, wheezes Cardiovascular exam: PRESENT: RRR. ABSENT: diastolic murmur, rubs, systolic murmur Pulses: PRESENT: normal dorsalis pedis pul Vascular exam: PRESENT: normal capillary refill GI/Abdominal exam: PRESENT: normal bowel sounds, soft. ABSENT: distended, guarding, mass, organolmegaly, rebound, tenderness Rectal exam: PRESENT: deferred Extremities exam: PRESENT: full ROM. ABSENT: calf tenderness, clubbing, pedal edema Neurological exam: PRESENT: alert, awake, oriented to person, oriented to place, oriented to time, oriented to situation, CN II-XII grossly intact. ABSENT: motor sensory deficit Psychiatric exam: PRESENT: appropriate affect, normal mood. ABSENT: homicidal ideation, suicidal ideation Skin exam: PRESENT: dry, intact, warm. ABSENT: cyanosis, rash Results Laboratory Results: 10/20/19 05:42 10/20/19 05:42 10/20/19 10/20/19 05:42 05:42 WBC 15.0 H RBC 3.12 L Hgb 8.7 L Hct 26.6 L MCV 85 MCH 28.0 MCHC 32.8 RDW 15.0 H Plt Count 351 Sodium 137.0 Potassium 4.5 Chloride 101 Carbon Dioxide 29 Anion Gap 7 BUN 10 Creatinine 0.76 Est GFR ( Amer) > 60 Glucose 246 H Calcium 8.5 10/17/19 06:00 Sputum Gram Stain - Final 10/17/19 06:00 Sputum Sputum Culture - Final C.albicans/C.dubliniensis Reduced Normal Dotty 10/11/19 10/11/19 10/12/19 17:02 20:03 00:00 Troponin I 0.016 < 0.012 NT-Pro-B Natriuret Pep 2330 H 10/12/19 03:43 Troponin I 0.029 NT-Pro-B Natriuret Pep Impressions: Chest/Abdomen CTA 10/11/19 19:25 IMPRESSION: 1. Dense consolidation of the majority of the right lower lobe. There is likely an underlying neoplasm. 2. Scattered infiltrates in the remainder of the lungs, likely acute pneumonia. 3. Multiple liver lesions, suspicious for metastatic disease 4. Enlarged superior pretracheal lymph node, suspicious for metastatic adenopathy. 5. Consider dedicated imaging of the abdomen and pelvis to more reliably assess the extent of liver disease. 6. No CT evidence for pulmonary embolism. Guidance Fluoroscopy 10/12/19 00:00 IMPRESSION: Successful placement of a 5 Iraqi x 45 cm double-lumen PICC via the left brachial vein utilizing fluoroscopic and sonographic guidance. Interventional Vascular Procedure 10/12/19 00:00 IMPRESSION: Successful placement of a 5 Iraqi x 45 cm double-lumen PICC via the left brachial vein utilizing fluoroscopic and sonographic guidance. PICC Line Insertion 10/12/19 00:00 IMPRESSION: Successful placement of a 5 Iraqi x 45 cm double-lumen PICC via the left brachial vein utilizing fluoroscopic and sonographic guidance. Chest X-Ray 10/13/19 06:00 IMPRESSION: Right middle and lower lobe pneumonia. No significant change. Abdomen/Pelvis CT 10/14/19 09:00 IMPRESSION: 1. Liver lesions suspicious for metastatic disease. 2. Trace ascites. Liver Biopsy CT 10/16/19 11:00 IMPRESSION: CT-guided biopsy of the hypodense left hepatic lobe lesion as detailed above. Pathology pending at the time of dictation. Attempts at aspirating from the trocar yielded no fluid. Assessment and Plan - Diagnosis (1) Pneumonia Is this a current diagnosis for this admission?: Yes Plan: Complicated by tobacco history and CT suggestive of lung mass. Pneumonia care set deployed, 10/17/2019-at this time. Patient continues on cephalosporin which show susceptibility to type Klebsiella pneumoniae. We will continue until all sensitivities return 10/18/2019-potential improvement. Most likely discharge in a.m. Continue current antibiotic therapy 10/19/2019-continues to improve. Patient was bacteremic with Klebsiella no pneumonia growing and all blood cultures on arrival we repeated blood cultures yesterday awaiting for confirmation of resolution 10/20/2019-continues to improve. Continue antibiotics. Awaiting second set of cultures return. (2) Acute renal failure Is this a current diagnosis for this admission?: Yes Plan: Unclear duration likely secondary to sepsis. Avoid nephrotoxic meds and doses follow-up chemistry 10/17/2019-resolved stable continue to follow 10/18/2019-stable 10/19/2019-stable -stable resolved (3) Congestive heart failure Is this a current diagnosis for this admission?: Yes Plan: BiPAP, judicious volume control and septic state, strict I's and O's Lasix as needed, follow-up 2D echo and cardiac enzymes 10/17/2019-not in acute exacerbation at this time. Continue to follow 10/18/2019-stable 10/19/2019-no acute exacerbation at this time. Continue to follow 10/20/2019-stable (4) Diabetes Is this a current diagnosis for this admission?: Yes Plan: Humalog sliding scale q. AC 10/17/2019-continue sliding scale insulin before meals and at bedtime. 10/18/2019-stable 10/19/2019-stable 10/20/2019-mildly elevated in the 200 range. I have added Lantus 15 units daily (5) Lactic acidosis Is this a current diagnosis for this admission?: Yes Plan: Resolved 10/17/2019-resolved stable. 10/18/2019-resolved stable 10/19/2019-stable 10/20/2019-stable (6) Liver mass Is this a current diagnosis for this admission?: Yes Plan: Oncology consult once stable 10/17/2019-awaiting liver biopsy results. 10/18/2019-continue await liver biopsy results 10/19/2019-stable continue be followed by oncology. Await liver biopsy results 10/20/2019-stable (7) Lung cancer, lower lobe Qualifiers: Laterality: right Qualified Code(s): C34.31 - Malignant neoplasm of lower lobe, right bronchus or lung Is this a current diagnosis for this admission?: Yes Plan: Same 10/17/2019-stable 10/18/2019-stable 10/19/2019-continue followed by oncology 10/20/2019-followed by oncology (8) Sepsis with hypotension Is this a current diagnosis for this admission?: Yes Plan: Secondary to #1, IV fluid challenge, Selvin-Synephrine PRN anticipate overload given cardiac enlargement and gallop. 10/17/2019-stable patient remains off vasopressors at this time. We will continue to follow 10/18/2019-stable resolved 10/19/2019-stable resolved 10/20/2019-stable - Time Time Spent with patient: 15-24 minutes - Inpatient Certification Based on my medical assessment, after consideration of the patient's comorbidities, presenting symptoms, or acuity I expect that the services needed warrant INPATIENT care.: Yes I certify that my determination is in accordance with my understanding of Medicare's requirements for reasonable and necessary INPATIENT services [42 CFR 412.3e].: Yes Medical Necessity: Need for IV Antibiotics
[2019-10-20] MEDS: METOPROLOL TARTRATE 25 MG TABLET PO SCH ×2 (12:03→21:47)
[2019-10-20] MEDS: INSULIN GLARGINE,HUM.REC.ANLOG 1,000 UNIT/10 ML VIAL SUBCUT SCH (12:05)
[2019-10-20] MEDS: CEFPODOXIME 200 MG TABLET PO SCH ×2 (12:15→21:48)
[2019-10-20] MEDS: NORMAL SALINE 10 ML SDV (SCHEDULED) IV SCH ×2 (12:17→21:49)
--- NOTE | 2019-10-20 16:10 | PDOC PROGRESS REPORT ---
Subjective Progress Note for:: 10/20/19 Subjective:: Patient continues to feel better. He states he is able to walk in hallway. He is eating. No new concerns. Reason For Visit: COPD CHF PNEUMONIA Physical Exam Vital Signs: Temp Pulse Resp BP Pulse Ox 98.2 F 73 15 133/63 H 96 10/20/19 07:53 10/20/19 07:53 10/20/19 07:53 10/20/19 07:53 10/20/19 07:53 Intake & Output 10/19/19 10/20/19 10/21/19 06:59 06:59 06:59 Intake Total 120 330 840 Output Total 1075 Balance -955 330 840 Weight 78.6 kg 75.8 kg General appearance: PRESENT: well-developed, well-nourished Head exam: PRESENT: normocephalic Eye exam: PRESENT: EOMI Respiratory exam: PRESENT: unlabored Neurological exam: PRESENT: alert, awake Skin exam: PRESENT: normal color Results Laboratory Results: 10/20/19 05:42 10/20/19 05:42 10/20/19 10/20/19 05:42 05:42 WBC 15.0 H RBC 3.12 L Hgb 8.7 L Hct 26.6 L MCV 85 MCH 28.0 MCHC 32.8 RDW 15.0 H Plt Count 351 Sodium 137.0 Potassium 4.5 Chloride 101 Carbon Dioxide 29 Anion Gap 7 BUN 10 Creatinine 0.76 Est GFR ( Amer) > 60 Glucose 246 H Calcium 8.5 10/17/19 06:00 Sputum Gram Stain - Final 10/17/19 06:00 Sputum Sputum Culture - Final C.albicans/C.dubliniensis Reduced Normal Dotty 10/11/19 10/11/19 10/12/19 17:02 20:03 00:00 Troponin I 0.016 < 0.012 NT-Pro-B Natriuret Pep 2330 H 10/12/19 03:43 Troponin I 0.029 NT-Pro-B Natriuret Pep Impressions: Chest/Abdomen CTA 10/11/19 19:25 IMPRESSION: 1. Dense consolidation of the majority of the right lower lobe. There is likely an underlying neoplasm. 2. Scattered infiltrates in the remainder of the lungs, likely acute pneumonia. 3. Multiple liver lesions, suspicious for metastatic disease 4. Enlarged superior pretracheal lymph node, suspicious for metastatic adenopathy. 5. Consider dedicated imaging of the abdomen and pelvis to more reliably assess the extent of liver disease. 6. No CT evidence for pulmonary embolism. Guidance Fluoroscopy 10/12/19 00:00 IMPRESSION: Successful placement of a 5 [place] x 45 cm double-lumen PICC via the left brachial vein utilizing fluoroscopic and sonographic guidance. Interventional Vascular Procedure 10/12/19 00:00 IMPRESSION: Successful placement of a 5 [place] x 45 cm double-lumen PICC via the left brachial vein utilizing fluoroscopic and sonographic guidance. PICC Line Insertion 10/12/19 00:00 IMPRESSION: Successful placement of a 5 [place] x 45 cm double-lumen PICC via the left brachial vein utilizing fluoroscopic and sonographic guidance. Chest X-Ray 10/13/19 06:00 IMPRESSION: Right middle and lower lobe pneumonia. No significant change. Abdomen/Pelvis CT 10/14/19 09:00 IMPRESSION: 1. Liver lesions suspicious for metastatic disease. 2. Trace ascites. Liver Biopsy CT 10/16/19 11:00 IMPRESSION: CT-guided biopsy of the hypodense left hepatic lobe lesion as detailed above. Pathology pending at the time of dictation. Attempts at aspirating from the trocar yielded no fluid. Assessment & Plan - Diagnosis (1) Back pain Is this a current diagnosis for this admission?: Yes (2) Acute respiratory failure with hypoxia Is this a current diagnosis for this admission?: Yes (3) Liver mass Is this a current diagnosis for this admission?: Yes Plan: pathology report shows no evidence of cancer. Only microabcesses. (4) Bacteremia due to Klebsiella pneumoniae Is this a current diagnosis for this admission?: Yes Plan: Repeat Blood cultures are NGTD. However, with abscesses, will defer to primary team as to further treatment. - Time Time Spent with patient: 15-24 minutes - Plan Summary Plan Summary: He is still anemic, but otherwise, no evidence of Heme/onc problems. I will sign off. Please call me if needed.
[2019-10-21] MEDS: INSULIN LISPRO 100 UNIT/ML 3 ML VIAL SUBCUT SCH (08:01)
[2019-10-21] MEDS: METOPROLOL TARTRATE 25 MG TABLET PO SCH (09:20)
[2019-10-21] MEDS: INSULIN GLARGINE,HUM.REC.ANLOG 1,000 UNIT/10 ML VIAL SUBCUT SCH (09:21)
[2019-10-21] MEDS: CEFPODOXIME 200 MG TABLET PO SCH (09:22)
[2019-10-21] MEDS: NORMAL SALINE 10 ML SDV (SCHEDULED) IV SCH (09:23)
--- NOTE | 2019-10-21 09:42 | PDOC DISCHARGE SUMMARY ---
Impression - Admit/DC Date/PCP Admission Date/Primary Care Provider: 10/11/19 19:37 WANDA NEFF Discharge Date: 10/21/19 - Discharge Diagnosis (1) Pneumonia Is this a current diagnosis for this admission?: Yes (2) Acute renal failure Is this a current diagnosis for this admission?: Yes (3) Congestive heart failure Is this a current diagnosis for this admission?: Yes (4) Diabetes Is this a current diagnosis for this admission?: Yes (5) Lactic acidosis Is this a current diagnosis for this admission?: Yes (6) Liver mass Is this a current diagnosis for this admission?: Yes (7) Lung cancer, lower lobe Is this a current diagnosis for this admission?: Yes (8) Sepsis with hypotension Is this a current diagnosis for this admission?: Yes - Additional Information Resuscitation Status: Full Code Discharge Diet: Cardiac Discharge Activity: Activity As Tolerated, Balance Activity w/Rest, Weigh Daily Referrals: GERSON NEWBERRY MD [ACTIVE STAFF] - WANDA NEFF MD [Primary Care Provider] - Prescriptions: Amox Tr/Potassium Clavulanate [Augmentin 875-125 mg Tablet] 1 tab PO BID #10 tablet Fluconazole [Diflucan 100 Mg Tablet] 100 mg PO DAILY #5 tablet Metoprolol Tartrate [Lopressor 25 mg Tablet] 25 mg PO Q12 #60 tablet Home Medications: Glipizide [Glucotrol 10 mg Tablet] 10 mg PO BID 10/11/19 Oxycodone HCl/Acetaminophen [Endocet 5-325 Tablet] 1 tab PO Q8HP PRN 10/11/19 Simvastatin [Zocor 40 mg Tablet] 40 mg PO QHS 10/11/19 Empagliflozin [Jardiance] 25 mg PO DAILY 10/12/19 Insulin Detemir [Levemir] 65 units SQ DAILY 10/12/19 Amox Tr/Potassium Clavulanate [Augmentin 875-125 mg Tablet] 1 tab PO BID #10 tablet 10/21/19 Fluconazole [Diflucan 100 Mg Tablet] 100 mg PO DAILY #5 tablet 10/21/19 Metoprolol Tartrate [Lopressor 25 mg Tablet] 25 mg PO Q12 #60 tablet 10/21/19 History of Present Illiness History of Present Illness: OSCAR KOO is a 59 year old male who presented to the ER with generalized weakness and shortness of breath Hospital Course Hospital Course: Patient presented to the ER with generalized weakness shortness of breath but was a poor historian but did admit to diabetes, dyslipidemia, narcotic dependent chronic back pain and long-standing tobacco dependence. States 1 week history of shortness of breath, nonproductive cough and generalized weakness. He did state he did have rhinorrhea and denied sore throat chest pain or acid reflux. He was found to have hypotension, tachycardia tachypnea and hypoxia in the ER use of accessory muscles, leukocytosis with bandemia and a chest x-ray with a right lower lobe infiltrate. Patient was admitted and transferred to the ICU for further evaluation treatment. Patient was placed on vasopressors and IV antibiotics with fluid resuscitation. Patient is improved patient return to the floor and was found to have a Klebsiella pneumonia, Patience in sputum and a UTI. History of lung cancer and was found to have a mass on his liver. This mass turned out to be a small abscess. Patient will need to follow-up with gastroenterology. I will leave this up to primary care to establish. Patient will also follow-up with primary care within 1 week. I will send patient home on Augmentin 875 mg 1 p.o. twice daily for 5 more days and Diflucan 100 mg p.o. for 5 days. Patient return to the ER with any further complaints or concerns. Physical Exam Vital Signs: Temp Pulse Resp BP Pulse Ox 98.6 F 85 16 129/68 H 95 10/21/19 07:20 10/21/19 07:20 10/21/19 07:20 10/21/19 07:20 10/21/19 07:20 Intake & Output 10/20/19 10/21/19 10/22/19 06:59 06:59 06:59 Intake Total 330 840 Balance 330 840 Weight 75.8 kg 76.1 kg General appearance: PRESENT: no acute distress, well-developed, well-nourished Head exam: PRESENT: atraumatic, normocephalic Eye exam: PRESENT: EOMI, PERRLA. ABSENT: scleral icterus Ear exam: PRESENT: normal external ear exam Mouth exam: PRESENT: moist, tongue midline Neck exam: ABSENT: carotid bruit, JVD, lymphadenopathy, thyromegaly Respiratory exam: PRESENT: clear to auscultation sera. ABSENT: rales, rhonchi, wheezes Cardiovascular exam: PRESENT: RRR. ABSENT: diastolic murmur, rubs, systolic murmur Pulses: PRESENT: normal dorsalis pedis pul Vascular exam: PRESENT: normal capillary refill GI/Abdominal exam: PRESENT: normal bowel sounds, soft. ABSENT: distended, guarding, mass, organolmegaly, rebound, tenderness Rectal exam: PRESENT: deferred Extremities exam: PRESENT: full ROM. ABSENT: calf tenderness, clubbing, pedal edema Neurological exam: PRESENT: alert, awake, oriented to person, oriented to place, oriented to time, oriented to situation, CN II-XII grossly intact. ABSENT: motor sensory deficit Psychiatric exam: PRESENT: appropriate affect, normal mood. ABSENT: homicidal ideation, suicidal ideation Skin exam: PRESENT: dry, intact, warm. ABSENT: cyanosis, rash Results Laboratory Results: WBC 15.0 10^3/uL (4.0-10.5) H 10/20/19 05:42 RBC 3.12 10^6/uL (4.35-5.55) L 10/20/19 05:42 Hgb 8.7 g/dL (13.5-17.0) L 10/20/19 05:42 Hct 26.6 % (37.9-51.0) L 10/20/19 05:42 MCV 85 fl (80-97) 10/20/19 05:42 MCH 28.0 pg (27.0-33.4) 10/20/19 05:42 MCHC 32.8 g/dL (32.0-36.0) 10/20/19 05:42 RDW 15.0 % (11.5-14.0) H 10/20/19 05:42 Plt Count 351 10^3/uL (150-450) 10/20/19 05:42 Lymph % (Auto) 7.1 % (13-45) L 10/15/19 04:11 [place] % (Auto) 5.8 % (3-13) 10/15/19 04:11 Eos % (Auto) 0.8 % (0-6) 10/15/19 04:11 Baso % (Auto) 0.5 % (0-2) 10/15/19 04:11 Absolute Neuts (auto) 10.7 10^3/uL (1.7-8.2) H 10/15/19 04:11 Absolute Lymphs (auto) 0.9 10^3/uL (0.5-4.7) 10/15/19 04:11 Absolute Monos (auto) 0.7 10^3/uL (0.1-1.4) 10/15/19 04:11 Absolute Eos (auto) 0.1 10^3/uL (0.0-0.6) 10/15/19 04:11 Absolute Basos (auto) 0.1 10^3/uL (0.0-0.2) 10/15/19 04:11 Total Counted 100 10/13/19 04:45 Seg Neutrophils % 85.8 % (42-78) H 10/15/19 04:11 Seg Neuts % (Manual) 79 % (42-78) H 10/13/19 04:45 Band Neutrophils % 6 % (3-5) H 10/13/19 04:45 Lymphocytes % (Manual) 9 % (13-45) L 10/13/19 04:45 Monocytes % (Manual) 6 % (3-13) 10/13/19 04:45 Eosinophils % (Manual) 0 % (0-6) 10/13/19 04:45 Basophils % (Manual) 0 % (0-2) 10/13/19 04:45 Metamyelocytes % 1 % (0-1) 10/11/19 17:02 Abs Neuts (Manual) 15.4 10^3/uL (1.7-8.2) H 10/13/19 04:45 Abs Lymphs (Manual) 1.6 10^3/uL (0.5-4.7) 10/13/19 04:45 Abs Monocytes (Manual) 1.1 10^3/uL (0.1-1.4) 10/13/19 04:45 Absolute Eos (Manual) 0.0 10^3/uL (0.0-0.6) 10/13/19 04:45 Abs Basophils (Manual) 0.0 10^3/uL (0.0-0.2) 10/13/19 04:45 Toxic Granulation SLIGHT 10/13/19 04:45 Toxic Vacuolation PRESENT 10/13/19 04:45 Platelet Comment ADEQUATE 10/13/19 04:45 Polychromasia SLIGHT 10/13/19 04:45 Poikilocytosis SLIGHT 10/13/19 04:45 Anisocytosis SLIGHT 10/13/19 04:45 Tear Drop Cells SLIGHT 10/12/19 03:43 Ovalocytes SLIGHT 10/13/19 04:45 PT 16.3 SEC (11.4-15.4) H 10/15/19 04:11 INR 1.30 10/15/19 04:11 APTT 35.0 SEC (23.5-35.8) 10/15/19 04:11 Fibrinogen 623 mg/dL (209-497) H 10/15/19 04:11 D-Dimer 6.27 ug/mL (0.00-0.50) H 10/11/19 17:02 Carbonic Acid 0.89 mmol/L (1.05-1.35) L 10/13/19 04:45 HCO3/H2CO3 Ratio 24:1 10/13/19 04:45 ABG pH 7.49 (7.35-7.45) H 10/13/19 04:45 ABG pCO2 29.6 mmHg (35-45) L 10/13/19 04:45 ABG pO2 65.3 mmHg (80-100) L 10/13/19 04:45 ABG HCO3 21.8 mmol/L (20-24) 10/13/19 04:45 ABG Total CO2 22.8 mmol/L (23-27) L 10/13/19 04:45 ABG O2 Saturation 94.5 % (94-98) 10/13/19 04:45 ABG Base Excess -1.0 mmol/L 10/13/19 04:45 FiO2 40% 10/13/19 04:45 Sodium 137.0 mmol/L (137-145) 10/20/19 05:42 Potassium 4.5 mmol/L (3.6-5.0) 10/20/19 05:42 Chloride 101 mmol/L (98-107) 10/20/19 05:42 Carbon Dioxide 29 mmol/L (22-30) 10/20/19 05:42 Anion Gap 7 (5-19) 10/20/19 05:42 BUN 10 mg/dL (7-20) 10/20/19 05:42 Creatinine 0.76 mg/dL (0.52-1.25) 10/20/19 05:42 Est GFR ( Amer) > 60 (>60) 10/20/19 05:42 Est GFR (MDRD) Non-Af > 60 (>60) 10/20/19 05:42 Glucose 246 mg/dL (75-110) H 10/20/19 05:42 POC Glucose 227 mg/dL (70-110) H 10/21/19 06:19 Hemoglobin A1c % 12.3 % (4.7-6.0) H 10/13/19 04:45 Lactic Acid 1.3 mmol/L (0.7-2.1) 10/13/19 04:45 Lactic Acid (Sepsis) 3.2 mmol/L (0.7-2.1) H 10/12/19 03:43 Calcium 8.5 mg/dL (8.4-10.2) 10/20/19 05:42 Phosphorus 2.6 mg/dL (2.5-4.5) 10/15/19 04:11 Magnesium 1.8 mg/dL (1.6-2.3) 10/15/19 04:11 Total Bilirubin 1.1 mg/dL (0.2-1.3) 10/15/19 04:11 Direct Bilirubin 0.6 mg/dL (0.0-0.4) H 10/15/19 04:11 Neonat Total Bilirubin Not Reportable 10/15/19 04:11 Neonat Direct Bilirubin Not Reportable 10/15/19 04:11 Neonat Indirect Bili Not Reportable 10/15/19 04:11 AST 23 U/L (17-59) 10/15/19 04:11 ALT 23 U/L (<50) 10/15/19 04:11 Alkaline Phosphatase 255 U/L (38-126) H 10/15/19 04:11 Total Alk Phosphatase 219 IU/L (39-117) H 10/15/19 04:11 Alk Phos Iso-Intestine 8 % (0-18) 10/15/19 04:11 Alk Phos Iso-Bone 38 % (12-68) 10/15/19 04:11 Alk Phos Iso-Liver 54 % (13-88) 10/15/19 04:11 Ammonia < 8.7 umol/L (9-33) L 10/15/19 04:11 Troponin I 0.029 ng/mL 10/12/19 03:43 NT-Pro-B Natriuret Pep 2330 pg/mL (<125) H 10/11/19 17:02 Total Protein 6.0 g/dL (6.3-8.2) L 10/15/19 04:11 Albumin 2.4 g/dL (3.5-5.0) L 10/15/19 04:11 Tumor Marker AFP <0.9 ng/mL (0.0-8.3) 10/12/19 18:30 Carcinoembryonic Ag 3.7 ng/mL (<3.0) H 10/12/19 18:30 CA 19-9 Antigen 186 U/mL (0-35) H 10/12/19 18:30 CA 125 Antigen 28.1 U/mL (Not Estab.) 10/12/19 18:30 Prostate Specific Ag 1.900 ng/mL (<4.00) 10/15/19 04:11 TSH 2.65 uIU/mL (0.47-4.68) 10/12/19 12:40 Free T4 1.28 ng/dL (0.78-2.19) 10/12/19 12:40 Free T3 pg/mL 2.15 pg/mL (2.77-5.27) L 10/12/19 12:40 Urine Color YELLOW 10/11/19 18:50 Urine Appearance SLIGHTLY-CLOUDY 10/11/19 18:50 Urine pH 5.0 (5.0-9.0) 10/11/19 18:50 Ur Specific Pace 1.026 10/11/19 18:50 Urine Protein NEGATIVE mg/dL (NEGATIVE) 10/11/19 18:50 Urine Glucose (UA) >=500 mg/dL (NEGATIVE) H 10/11/19 18:50 Urine Ketones NEGATIVE mg/dL (NEGATIVE) 10/11/19 18:50 Urine Blood NEGATIVE (NEGATIVE) 10/11/19 18:50 Urine Nitrite (Reflex) NEGATIVE (NEGATIVE) 10/11/19 18:50 Urine Bilirubin NEGATIVE (NEGATIVE) 10/11/19 18:50 Urine Urobilinogen 4.0 mg/dL (<2.0) H 10/11/19 18:50 Leukocyte Esterase Rfl NEGATIVE (NEGATIVE) 10/11/19 18:50 Urine RBC (Auto) 31 /HPF 10/11/19 18:50 U Hyaline Cast (Auto) 3 /LPF 10/11/19 18:50 Urine WBC (Reflex) 14 /HPF 10/11/19 18:50 Squamous Epi Cells Auto 2 /HPF 10/11/19 18:50 Urine Mucus (Auto) RARE /LPF 10/11/19 18:50 Urine Ascorbic Acid NEGATIVE (NEGATIVE) 10/11/19 18:50 Time Trough Drawn 0445 10/13/19 04:45 Vancomycin Trough < 5.0 ug/mL (5.0-20.0) L 10/13/19 04:45 10/11/19 10/11/19 10/12/19 17:02 20:03 00:00 Troponin I 0.016 < 0.012 NT-Pro-B Natriuret Pep 2330 H 10/12/19 03:43 Troponin I 0.029 NT-Pro-B Natriuret Pep Impressions: Chest X-Ray 10/11/19 16:55 IMPRESSION: Borderline cardiomegaly without pulmonary edema. Right lower lobe pneumonia. Chest/Abdomen CTA 10/11/19 19:25 IMPRESSION: 1. Dense consolidation of the majority of the right lower lobe. There is likely an underlying neoplasm. 2. Scattered infiltrates in the remainder of the lungs, likely acute pneumonia. 3. Multiple liver lesions, suspicious for metastatic disease 4. Enlarged superior pretracheal lymph node, suspicious for metastatic adenopathy. 5. Consider dedicated imaging of the abdomen and pelvis to more reliably assess the extent of liver disease. 6. No CT evidence for pulmonary embolism. Chest X-Ray 10/12/19 00:00 IMPRESSION: Some worsening right mid and lower lung opacity consistent with worsening or pneumonia. Chest X-Ray 10/12/19 00:00 IMPRESSION: Cardiomegaly with pulmonary edema. Airspace disease in the right lower lobe. Guidance Fluoroscopy 10/12/19 00:00 IMPRESSION: Successful placement of a 5 Citizen [place] x 45 cm double-lumen PICC via the left brachial vein utilizing fluoroscopic and sonographic guidance. Interventional Vascular Procedure 10/12/19 00:00 IMPRESSION: Successful placement of a 5 [place] x 45 cm double-lumen PICC via the left brachial vein utilizing fluoroscopic and sonographic guidance. PICC Line Insertion 10/12/19 00:00 IMPRESSION: Successful placement of a 5 [place] x 45 cm double-lumen PICC via the left brachial vein utilizing fluoroscopic and sonographic guidance. Chest X-Ray 10/13/19 06:00 IMPRESSION: Right middle and lower lobe pneumonia. No significant change. Abdomen/Pelvis CT 10/14/19 09:00 IMPRESSION: 1. Liver lesions suspicious for metastatic disease. 2. Trace ascites. Liver Biopsy CT 10/16/19 11:00 IMPRESSION: CT-guided biopsy of the hypodense left hepatic lobe lesion as detailed above. Pathology pending at the time of dictation. Attempts at aspirating from the trocar yielded no fluid. Plan Time Spent: Greater than 30 Minutes Stroke Is this a Stroke Patient?: No Acute Heart Failure - Is this a Heart Failure Patient?: No
[2019-10-21 10:12] VITALS: BP 120/67
== END 2019-10-21 12:28 | disposition home or self-care (01) | DRG 871 ==
LOC: ER 16:18 → EH 19:37 → UNDOADMIN 19:37 → 3S 21:58 → EH 21:58 → ICU 10-12 18:25 → 3S 10-12 18:25 → 4S 10-16 16:05
PROVIDERS: ADMIT Internal Medicine Critical Care Medicine; ATTEND Internal Medicine Critical Care Medicine
PROC: 02HV33Z Insertion of Infusion Device into Superior Vena Cava, Percutaneous Approach (ICD-10-PCS; principal; 2019-10-12)
PROC: B5181ZA Fluoroscopy of Superior Vena Cava using Low Osmolar Contrast, Guidance (ICD-10-PCS; 2019-10-12)
PROC: B548ZZA Ultrasonography of Superior Vena Cava, Guidance (ICD-10-PCS; 2019-10-12)
PROC: 5A09457 Assistance with Respiratory Ventilation, 24-96 Consecutive Hours, Continuous Positive Airway Pressure (ICD-10-PCS; 2019-10-12)
PROC: 0FB23ZX Excision of Left Lobe Liver, Percutaneous Approach, Diagnostic (ICD-10-PCS; 2019-10-16)
DX: A41.89 Other specified sepsis (principal); K75.0 Abscess of liver; R65.21 Severe sepsis with septic shock; J96.01 Acute respiratory failure with hypoxia; J15.0 Pneumonia due to Klebsiella pneumoniae; J44.1 Chronic obstructive pulmonary disease with (acute) exacerbation; N17.9 Acute kidney failure, unspecified; J44.0 Chronic obstructive pulmonary disease with (acute) lower respiratory infection; C34.31 Malignant neoplasm of lower lobe, right bronchus or lung; I42.9 Cardiomyopathy, unspecified; E11.22 Type 2 diabetes mellitus with diabetic chronic kidney disease; I50.9 Heart failure, unspecified; E78.5 Hyperlipidemia, unspecified; B96.1 Klebsiella pneumoniae [K. pneumoniae] as the cause of diseases classified elsewhere; G89.29 Other chronic pain; M54.9 Dorsalgia, unspecified; E78.00 Pure hypercholesterolemia, unspecified; F17.210 Nicotine dependence, cigarettes, uncomplicated; E86.0 Dehydration; Z79.4 Long term (current) use of insulin; Z79.899 Other long term (current) drug therapy; Z79.891 Long term (current) use of opiate analgesic; Z79.84 Long term (current) use of oral hypoglycemic drugs
CPT/HCPCS: 36415; 36569; 36600; 47000; 71045; 71275; 74177; 76937; 77001; 80048; 80053; 80202; 81001; 82105; 82140; 82378; 82803; 82962; 83036; 83605; 83735; 83880; 84080; 84100; 84153; 84439; 84443; 84481; 84484; 85025; 85027; 85379; 85384; 85610; 85730; 86301; 86304; 87040; 87070; 87077; 87086; 87088; 87150; 87186; 87205; 88305; 93005; 93010; 93306; 94640; 94660; 94667; 94668; 94799; 96361; 96365; 99232; 99291; J0610; J0696; J1160; J1580; J1642; J1644; J1815; J1940; J2060; J2185; J2250; J2543; J3010; J3370; J3411; J3480; J3490; J7030; J7050; J7060; J7120; J7620; P9041; P9047

== ENCOUNTER 2019-12-30 13:26 | Inpatient (IN) | payer MEDICARE ==
--- NOTE | 2019-12-30 13:43 | ER Document Report ---
ED Medical Screen (RME) - General Chief Complaint: Shortness Of Breath Stated Complaint: SHORTNESS OF BREATH Time Seen by Provider: 12/30/19 13:36 Primary Care Provider: WANDA NEFF MD [Primary Care Provider] - Follow up as needed Mode of Arrival: Ambulatory Information source: Patient Notes: 59-year-old male patient presents emergency department chief complaint of shortness of breath and feeling like there is fluid in his lungs. Patient denies any peripheral edema. Patient reports symptoms ongoing for the last 2 days. Patient denies any history of CHF or COPD however in his chart there was a recent admission for same. He reports only medication he takes is for his diabetes. Exam: Rales noted bilaterally. Patient tachycardic in triage heart rate 129. Increased work of breathing. Patient answering all questions appropriately. I have greeted and performed a rapid initial assessment of this patient. A comprehensive ED assessment and evaluation of the patient, analysis of test results and completion of the medical decision making process will be conducted by additional ED providers. I have specifically instructed the patient or family members with the patient to immediately return to any nursing staff should anything change in the patient's condition or with their chief complaint. TRAVEL OUTSIDE OF THE [place] IN LAST 30 DAYS: No - Related Data Allergies/Adverse Reactions: No Known Allergies Allergy (Verified 10/11/19 16:35) Past Medical History - Past Medical History Cardiac Medical History: Reports: Hx Hypercholesterolemia Denies: Hx Congestive Heart Failure Pulmonary Medical History: Reports: Hx Bronchitis Endocrine Medical History: Reports: Hx Diabetes Mellitus Type 2 Malignancy Medical History: Denies Hx Lung Cancer - as per H&P Musculoskeltal Medical History: Reports Hx Arthritis Past Surgical History: Reports: Hx Orthopedic Surgery - left leg surg - Immunizations Hx Diphtheria, Pertussis, Tetanus Vaccination: No Doctor's Discharge - Discharge Referrals: WANDA NEFF MD [Primary Care Provider] - Follow up as needed
[2019-12-30] MEDS ORDERED: ACETAMINOPHEN 325 MG TABLET PO ONE (14:11)
[2019-12-30] MEDS ORDERED: IPRATROPIUM/ALBUTEROL 0.5-2.5 MG/3 ML AMPUL NEB ONE (14:11)
--- NOTE | 2019-12-30 14:16 | RADIOLOGY REPORT (SQ) ---
EXAM DESCRIPTION: CHEST SINGLE VIEW COMPLETED DATE/TIME: 12/30/2019 2:05 pm REASON FOR STUDY: shortness of breath COMPARISON: 10/13/2019 EXAM PARAMETERS: NUMBER OF VIEWS: One view. TECHNIQUE: Single frontal radiographic view of the chest acquired. RADIATION DOSE: NA LIMITATIONS: None. FINDINGS: LUNGS AND PLEURA: Bilateral airspace disease with air bronchograms. Chronic elevation rig ht diaphragm. No large effusions. MEDIASTINUM AND HILAR STRUCTURES: Stable. HEART AND VASCULAR STRUCTURES: Stable cardiomegaly. BONES: No acute findings. HARDWARE: None in the chest. OTHER: No other significant finding. IMPRESSION: Bilateral pneumonia or asymmetric edema. Clinical correlation is needed. TECHNICAL DOCUMENTATION: JOB ID: [id number] [email or web address] All Rights Reserved Reading location - IP/workstation name: [email or web address]
[2019-12-30 14:37] LABS: ABSOLUTE BASOPHILS # (AUTO) 0.2 10^3/uL (0.0-0.2); ABSOLUTE EOSINOPHILS # (AUTO) 0.4 10^3/uL (0.0-0.6); ABSOLUTE LYMPHOCYTES (AUTO) 1.4 10^3/uL (0.5-4.7); ABSOLUTE MONOCYTES (AUTO) 1.6 10^3/uL (0.1-1.4); ABSOLUTE NEUT (AUTO) 12.1 10^3/uL (1.7-8.2); BASOPHILS % (AUTO) 1.3 % (0-2); EOSINOPHILS % (AUTO) 2.5 % (0-6); HEMOGLOBIN 12.4 g/dL (13.5-17.0); LYMPHOCYTES % (AUTO) 8.9 % (13-45); MEAN CORPUSCULAR HEMOGLOBIN 28.2 pg (27.0-33.4); MEAN CORPUSCULAR HGB CONC 34.5 g/dL (32.0-36.0); MEAN CORPUSCULAR VOLUME 82 fl (80-97); MONOCYTES % (AUTO) 10.4 % (3-13); PLATELET COUNT 564 10^3/uL (150-450); RED BLOOD COUNT 4.41 10^6/uL (4.35-5.55); RED CELL DISTRIBUTION WIDTH 16.6 % (11.5-14.0); SEGMENTED NEUTROPHILS % (AUTO) 76.9 % (42-78); TOTAL CELLS COUNTED % (AUTO) 100 %; WHITE BLOOD COUNT 15.8 10^3/uL (4.0-10.5)
[2019-12-30 14:45] LABS: ALBUMIN 3.5 g/dL (3.5-5.0); ALKALINE PHOSPHATASE 162 U/L (38-126); ANION GAP 14 (5-19); ASPARTATE AMINO TRANSFERASE 16 U/L (17-59); BILIRUBIN,DIRECT 0.5 mg/dL (0.0-0.4); BILIRUBIN,TOTAL 0.5 mg/dL (0.2-1.3); BLOOD UREA NITROGEN 22 mg/dL (7-20); CALCIUM 9.9 mg/dL (8.4-10.2); CARBON DIOXIDE 30 mmol/L (22-30); CHLORIDE 94 mmol/L (98-107); GLUCOSE 129 mg/dL (75-110); POTASSIUM 4.4 mmol/L (3.6-5.0); TOTAL PROTEIN 9.8 g/dL (6.3-8.2)
[2019-12-30 14:48] LABS: CREATINE KINASE < 20 U/L (55-170)
[2019-12-30 14:56] LABS: NT PRO BNP 410 pg/mL (<125)
[2019-12-30 14:59] LABS: TROPONIN I < 0.012 ng/mL
[2019-12-30] MEDS ORDERED: LEVOFLOXACIN 750 MG/D5W RTU 750 MG/150 ML RTUPB IV ONE (15:15)
--- NOTE | 2019-12-30 15:21 | ER Document Report ---
Entered by HEATH TOVAR SCRIBE 12/30/19 1407 Acting as scribe for:DARRYL BRAVO MD ED Respiratory Problem - General Chief Complaint: Shortness Of Breath Stated Complaint: SHORTNESS OF BREATH Time Seen by Provider: 12/30/19 13:36 Mode of Arrival: Ambulatory Information source: Patient Notes: This 59 year old male patient presents to the emergency department today with complaints of a cough, shortness of breath, and left lateral rib (chest wall) pain for the last "couple of days". Patient was admitted to this facility from 10/11/19 to 10/21/19 for klebsiella pneumonia. Patient states he does not feel like he ever got fully well since this admission. Patient had a room air saturation of 89% on arrival here. He reports coughing up yellow colored phlegm. TRAVEL OUTSIDE OF THE [place] IN LAST 30 DAYS: No - Related Data Allergies/Adverse Reactions: No Known Allergies Allergy (Verified 12/30/19 14:17) Past Medical History - General Information source: Patient, [facility] Records - Social History Smoking Status: Former Smoker Cigarette use (# per day): No Chew tobacco use (# tins/day): No Smoking Education Provided: No Frequency of alcohol use: None Drug Abuse: None Occupation: unemployed Lives with: Family Family History: Reviewed & Not Pertinent Patient has suicidal ideation: No Patient has homicidal ideation: No - Past Medical History Cardiac Medical History: Reports: Hx Hypercholesterolemia Pulmonary Medical History: Reports: Hx Bronchitis, Hx Pneumonia - klebsiella Endocrine Medical History: Reports: Hx Diabetes Mellitus Type 2 Malignancy Medical History: Reports Hx Lung Cancer - Lung cancer was documented on his admission from 10/11/2019. Musculoskeletal Medical History: Reports Hx Arthritis Past Surgical History: Reports: Hx Orthopedic Surgery - left leg surg - Immunizations Hx Diphtheria, Pertussis, Tetanus Vaccination: No Review of Systems - Review of Systems Constitutional: No symptoms reported EENT: No symptoms reported Cardiovascular: No symptoms reported Respiratory: See HPI, Cough, Short of breath, Sputum, Wheezing, Other - left lateral chest wall pain, reproducible Gastrointestinal: No symptoms reported Genitourinary: No symptoms reported Male Genitourinary: No symptoms reported Musculoskeletal: No symptoms reported Skin: No symptoms reported Hematologic/Lymphatic: No symptoms reported Neurological/Psychological: No symptoms reported -: Yes All other systems reviewed and negative Physical Exam - Vital signs Vitals: Temp Pulse Resp BP Pulse Ox 97.8 F 140 H 28 H 111/65 89 L 12/30/19 13:35 12/30/19 13:35 12/30/19 13:35 12/30/19 13:35 12/30/19 13:35 Interpretation: Normal - General General appearance: Appears well, Alert - HEENT Head: Normocephalic, Atraumatic Eyes: Normal Pupils: PERRL - Respiratory Respiratory status: Respiratory distress - mild Chest status: Tender - left lateral chest wall ttp Breath sounds: Productive cough, Rhonchi, Wheezing - Cardiovascular Rhythm: Tachycardia Heart sounds: Normal auscultation Murmur: No - Abdominal Inspection: Normal Distension: No distension Bowel sounds: Normal Tenderness: Nontender Organomegaly: No organomegaly - Back Back: Normal, Nontender - Extremities General upper extremity: Normal inspection, Normal ROM. No: Edema General lower extremity: Normal inspection, Normal ROM. No: Edema - Neurological Neuro grossly intact: Yes Cognition: Normal Orientation: AAOx4 Seraf[place] Coma Scale Eye Opening: Spontaneous [place] Coma Scale Verbal: Oriented Seraf[place] Coma Scale Motor: Obeys Commands Serafin Coma Scale Total: 15 Speech: Normal - Psychological Associated symptoms: Normal affect, Normal mood - Skin Skin Temperature: Cool Skin Moisture: Diaphoretic Skin Color: Normal Course - Re-evaluation Re-evalutation: 12/30/19 15:22 On auscultation, the lungs sound better, the wheezes have mostly cleared and there are rales noted in the bases. Patient remains diaphoretic and tachycardic. - Vital Signs Vital signs: Temp Pulse Resp BP Pulse Ox 98.0 F 122 H 20 110/87 H 96 12/30/19 19:22 12/30/19 19:22 12/30/19 19:22 12/30/19 19:22 12/30/19 19:22 - Laboratory Result Diagrams: 12/30/19 14:10 12/30/19 14:10 Laboratory results interpreted by me: 12/30/19 12/30/19 12/30/19 14:10 14:10 14:10 WBC 15.8 H Hgb 12.4 L Hct 36.0 L RDW 16.6 H Plt Count 564 H Lymph % (Auto) 8.9 L Absolute Neuts (auto) 12.1 H Absolute Monos (auto) 1.6 H Chloride 94 L BUN 22 H Glucose 129 H Direct Bilirubin 0.5 H AST 16 L Alkaline Phosphatase 162 H Creatine Kinase < 20 L NT-Pro-B Natriuret Pep 410 H Total Protein 9.8 H - Diagnostic Test Radiology reviewed: Image reviewed, Reports reviewed - Chest x-ray shows bilateral lower lobe pneumonias - EKG Interpretation by Me EKG shows normal: Sinus rhythm, [place], Intervals, QRS Complexes, ST-T Waves Rate: Tachycardia - 127 Voltage: Consistant with LVH P Waves: LAE When compared to previous EKG there are: Changes noted Critical Care Note - Critical Care Note Total time excluding time spent on procedures (mins): 40 Discharge - Discharge Clinical Impression: Hypoxemia, Tachycardia Pneumonia Qualifiers: Pneumonia type: due to unspecified organism Laterality: bilateral Lung location: lower lobe of lung Qualified Code(s): J18.9 - Pneumonia, unspecified organism Leukocytosis Qualifiers: Leukocytosis type: unspecified Qualified Code(s): D72.829 - Elevated white blood cell count, unspecified Fever Qualifiers: Fever type: unspecified Qualified Code(s): R50.9 - Fever, unspecified Condition: Stable Disposition: ADMITTED INPATIENT Admitting Provider: Zane (Hospitalist) Lakeisha Attestation: 12/30/19 15:31 I personally performed the services described in the documentation, reviewed and edited the documentation which was dictated to the scribe in my presence, and it accurately records my words and actions. I personally performed the services described in the documentation, reviewed and edited the documentation which was dictated to the scribe in my presence, and it accurately records my words and actions.
[2019-12-30] MEDS ORDERED: NORMAL SALINE 1000 ML 1,000 ML IV ONE (15:23)
[2019-12-30] MEDS ORDERED: VANCOMYCIN HCL 0 MG in DEXTROSE 5%-WATER 250 ML IV NR (16:00)
[2019-12-30] MEDS ORDERED: ACETAMINOPHEN 325 MG TABLET PO PRN (16:01)
--- NOTE | 2019-12-30 16:13 | PDOC H&P ---
History of Present Illness Admission Date/PCP: WANDA NEFF History of Present Illness: OSCAR KOO is a 59 year old male with a history of heart failure with reduced ejection fraction EF 40% on echocardiogram done late September 2019, [id number] diabetes mellitus, alleged history of lung cancer, and was recently hospitalized here late September early October 2019 with a Klebsiella bacteremia due to liver abscess. He presented with worsening shortness of breath since yesterday. He said he had a fever at home but is not know how high it was. He is a terrible historian. He said he was feeling poorly so he got his girlfriend to bring him to the emergency room. He was found to be tachycardic and his chest x-ray shows asymmetric pulmonary edema. He does not a ppear to be volume overloaded. He had a leukocytosis. Past Medical History Cardiac Medical History: Reports: Hyperlipidema Denies: Congestive Heart Failure Pulmonary Medical History: Reports: Bronchitis, Pneumonia - klebsiella Endocrine Medical History: Reports: Diabetes Mellitus Type 2 Malignancy Medical History: Denies: Lung Cancer - as per H&P Musculoskeltal Medical History: Reports: Arthritis Past Surgical History Past Surgical History: Reports: Orthopedic Surgery - left leg surg Social History Lives with: Family Smoking Status: Former Smoker Frequency of Alcohol Use: None Hx Recreational Drug Use: No Drugs: None Hx Prescription Drug Abuse: No Family History Family History: Reviewed & Not Pertinent Parental Family History Reviewed: No - Unreliable historian Children Family History Reviewed: No - Unreliable historian Sibling(s) Family History Reviewed.: No - Unreliable historian Medication/Allergy Home Medications: Aspirin [Ecotrin 81 mg EC Tablet] 81 mg PO BID 12/30/19 Empagliflozin [Jardiance] 25 mg PO DAILY 12/30/19 Glipizide [Glucotrol 10 mg Tablet] 10 mg PO BID 12/30/19 Metformin HCl [Glucophage] 1,000 mg PO DAILY 12/30/19 Oxycodone HCl/Acetaminophen [Percocet 5-325 mg Tablet] 1 tab PO Q8HP PRN 12/30/19 Simvastatin [Zocor 40 mg Tablet] 40 mg PO QHS 12/30/19 Allergies/Adverse Reactions: No Known Allergies Allergy (Verified 12/30/19 14:17) Review of Systems ROS unobtainable: Other - Unreliable historian Physical Exam Vital Signs: Temp Pulse Resp BP Pulse Ox 97.8 F 140 H 31 H 129/80 H 98 12/30/19 13:35 12/30/19 13:35 12/30/19 15:01 12/30/19 15:00 12/30/19 15:01 Intake & Output 12/29/19 12/30/19 12/31/19 06:59 06:59 06:59 Weight 70.2 kg General appearance: PRESENT: cooperative, disheveled, mild distress Head exam: PRESENT: atraumatic, normocephalic Eye exam: PRESENT: EOMI, PERRLA. ABSENT: conjunctival injection, nystagmus Ear exam: PRESENT: normal external ear exam Mouth exam: PRESENT: dry mucosa, neck supple Teeth exam: PRESENT: poor dentation Throat exam: ABSENT: post pharyngeal erythema Neck exam: PRESENT: full ROM. ABSENT: carotid bruit, JVD, lymphadenopathy, me ningismus, tenderness, thyromegaly Respiratory exam: PRESENT: crackles - Bibasilar, symmetrical, tachypnea. ABSENT: accessory muscle use, chest wall tenderness, prolonged expiratory phas, retraction, rhonchi, unlabored, wheezes Cardiovascular exam: PRESENT: +S1, +S2, tachycardia Pulses: PRESENT: normal carotid pulses Vascular exam: PRESENT: normal capillary refill GI/Abdominal exam: PRESENT: normal bowel sounds, soft. ABSENT: distended, guarding, rebound, tenderness Extremities exam: ABSENT: clubbing, pedal edema Musculoskeletal exam: PRESENT: normal inspection. ABSENT: deformity Neurological exam: PRESENT: alert, awake, oriented to person, oriented to place, oriented to situation, CN II-XII grossly intact. ABSENT: motor sensory deficit Psychiatric exam: PRESENT: flat affect Skin exam: PRESENT: dry, warm Results Laboratory Results: 12/30/19 14:10 12/30/19 14:10 12/30/19 12/30/19 14:10 14:10 WBC 15.8 H RBC 4.41 Hgb 12.4 L Hct 36.0 L MCV 82 MCH 28.2 MCHC 34.5 RDW 16.6 H Plt Count 564 H Seg Neutrophils % 76.9 Sodium 138.4 Potassium 4.4 Chloride 94 L Carbon Dioxide 30 Anion Gap 14 BUN 22 H Creatinine 0.72 Est GFR ( Amer) > 60 Glucose 129 H Calcium 9.9 Magnesium 2.0 Total Bilirubin 0.5 AST 16 L Alkaline Phosphatase 162 H Total Protein 9.8 H Albumin 3.5 12/30/19 12/30/19 14:10 14:10 Creatine Kinase < 20 L Troponin I < 0.012 NT-Pro-B Natriuret Pep 410 H Impressions: Chest X-Ray 12/30/19 13:41 IMPRESSION: Bilateral pneumonia or asymmetric edema. Clinical correlation is needed. Assessment and Plan - Diagnosis (1) Healthcare-associated pneumonia Is this a current diagnosis for this admission?: Yes Plan: Blood cultures have been drawn. I will start him empirically on vancomycin and cefepime. We will monitor his response. We will try to get a sputum specimen if possible. (2) Acute respiratory failure with hypoxia Is this a current diagnosis for this admission?: Yes Plan: Continue supplemental O2 to maintain SPO2 greater than 90%. (3) Congestive heart failure Qualifiers: Heart failure type: systolic Heart failure chronicity: chronic Qualified Code(s): I50.22 - Chronic systolic (congestive) heart failure Is this a current diagnosis for this admission?: Yes Plan: Not acutely exacerbated. He does not appear to be on a beta-samara or an DILAN inhibitor and so once he is a little bit improved clinically we will get him started on those medications. (4) Diabetes Qualifiers: Diabetes mellitus type: type 2 Diabetes mellitus alf insulin use: without alf use Diabetes mellitus complication status: without complication Qualified Code(s): E11.9 - Type 2 diabetes mellitus without complications Is this a current diagnosis for this admission?: Yes Plan: We will try to control this with his home medications. (5) Sepsis Qualifiers: Sepsis type: sepsis due to unspecified organism Sepsis acute organ dysfunction status: with acute organ dysfunction Severe sepsis acute organ dysfunction type: acute respiratory failure Acute respiratory failure type: with hypoxia Severe sepsis shock status: without septic shock Qualified Code(s): A41.9 - Sepsis, unspecified organism; R65.20 - Severe sepsis without septic shock; J96.01 - Acute respiratory failure with hypoxia Is this a current diagnosis for this admission?: Yes Plan: Treatments as previously noted - Time Time Spent with patient: 35 or more minutes - Inpatient Certification Based on my medical assessment, after consideration of the patient's comorbidities, presenting symptoms, or acuity I expect that the services needed warrant INPATIENT care.: Yes I certify that my determination is in accordance with my understanding of Medicare's requirements for reasonable and necessary INPATIENT services [42 CFR 412.3e].: Yes Medical Necessity: Need Close Monitoring Due to Risk of Patient Decompensation, Need For IV Fluids, Need for IV Antibiotics, Risk of Complication if Not Cared For in Hospital
[2019-12-30] MEDS ORDERED: CEFEPIME 2 GM/D5W RTU 2 GM/50 ML RTUPB IV ONE (16:45)
[2019-12-30] MEDS ORDERED: VANCOMYCIN HCL 1,500 MG in DEXTROSE 5%-WATER 250 ML IV SCH (18:00)
[2019-12-30] MEDS: ASPIRIN 81 MG TABLET, ENT COATED PO SCH (19:47)
[2019-12-30] MEDS: GLIPIZIDE 10 MG TABLET PO SCH (19:47)
[2019-12-30] MEDS ORDERED: VANCOMYCIN HCL INJ 500 MG VIAL ONE (20:00)
[2019-12-30] MEDS ORDERED: VANCOMYCIN HCL INJ 1000 MG VIAL ONE (20:00)
--- NOTE | 2019-12-30 20:34 | EKG REPORT ---
SEVERITY:- ABNORMAL ECG - SINUS TACHYCARDIA PROBABLE LEFT ATRIAL ABNORMALITY LVH WITH SECONDARY REPOLARIZATION ABNORMALITY : Confirmed by: Elvia Russell MD 30-Dec-2019 20:33:46
[2019-12-30] MEDS: OXYCODONE-ACETAMINOPHEN 5-325 MG TABLET PO PRN (20:45)
[2019-12-30] MEDS: HEPARIN SOD (PORCINE) 5,000 UNIT/ML 1 ML VIAL SUBCUT SCH (22:39)
[2019-12-30] MEDS: SIMVASTATIN 40 MG TABLET PO SCH (22:39)
[2019-12-31] MEDS: IPRATROPIUM/ALBUTEROL 0.5-2.5 MG/3 ML AMPUL NEB PRN ×2 (03:26→21:01)
[2019-12-31] MEDS: OXYCODONE-ACETAMINOPHEN 5-325 MG TABLET PO PRN ×2 (05:09→12:11)
[2019-12-31] MEDS ORDERED: METOPROLOL TARTRATE PF/INJ 5 MG/5 ML SDV IV PRN (05:43)
[2019-12-31] MEDS: HEPARIN SOD (PORCINE) 5,000 UNIT/ML 1 ML VIAL SUBCUT SCH ×3 (05:53→21:54)
--- NOTE | 2019-12-31 06:39 | Progress Note ---
Provider Note Provider Note: Critical care note: 12/31/2019 Critical care start time: 04:35 Critical care issue: Tachycardia The patient's nurse asked me to see the patient because he had persistent tachycardia in the 120s without apparent cause. Patient is being treated for pneumonia but has not had a fever and is not hypotensive and has been getting adequate fluid intake. Patient complains of moderate to severe amounts of sharp pain in his left side that worsens with a cough. On exam his chest is found to have a few scattered rhonchi. Heart shows a regular rate and rhythm with no murmurs clicks gallops or rubs but a significant tachycardia is present in the 120s. Extremities showed no clubbing cyanosis or edema. I discussed the patient's symptoms and problems with him and instruct him as to my proposed recommendation which would be to start him on a medication called metoprolol at 25 mg p.o. twice daily with a initial 5 mg metoprolol tartrate IV dose which could be repeated every 4 hours as needed until he can be started on oral medication at 10 AM. Patient's monitor is observed and the care plan was discussed with the patient and his care providing nurse. Critical care end time: 06:39 Total critical care time: 24 minutes
[2019-12-31 06:45] LABS: HEMOGLOBIN 10.5 g/dL (13.5-17.0); MEAN CORPUSCULAR HGB CONC 32.9 g/dL (32.0-36.0); MEAN CORPUSCULAR VOLUME 82 fl (80-97); PLATELET COUNT 498 10^3/uL (150-450); RED BLOOD COUNT 3.91 10^6/uL (4.35-5.55); RED CELL DISTRIBUTION WIDTH 16.8 % (11.5-14.0); WHITE BLOOD COUNT 13.4 10^3/uL (4.0-10.5)
[2019-12-31 07:04] LABS: ANION GAP 14 (5-19); BLOOD UREA NITROGEN 15 mg/dL (7-20); CALCIUM 9.2 mg/dL (8.4-10.2); CARBON DIOXIDE 25 mmol/L (22-30); CHLORIDE 98 mmol/L (98-107); POTASSIUM 4.5 mmol/L (3.6-5.0)
[2019-12-31 07:13] LABS: GLUCOSE 69 mg/dL (75-110)
[2019-12-31] MEDS ORDERED: VANCOMYCIN HCL 1,500 MG in DEXTROSE 5%-WATER 250 ML IV SCH (09:00)
[2019-12-31] MEDS: METFORMIN HCL 500 MG TABLET PO SCH (09:29)
[2019-12-31] MEDS: METOPROLOL SUCCINATE 25 MG TAB.SR.24H PO SCH ×2 (09:29→21:54)
[2019-12-31] MEDS: ASPIRIN 81 MG TABLET, ENT COATED PO SCH ×2 (09:29→17:50)
[2019-12-31] MEDS: GLIPIZIDE 10 MG TABLET PO SCH ×2 (09:29→17:50)
[2019-12-31] MEDS ORDERED: (PENDING PHARMACY ID) (Empagliflozin [Jardiance] 25 MG) PO SCH (10:00)
[2019-12-31] MEDS ORDERED: CEFEPIME 2 GM/D5W RTU 2 GM/50 ML RTUPB IV SCH (10:00)
[2019-12-31] MEDS: CEFEPIME HCL 2 GM in DEXTROSE 5%-WATER 50 ML IV SCH ×2 (12:11→23:56)
[2019-12-31] MEDS: VANCOMYCIN HCL 1,250 MG in DEXTROSE 5%-WATER 250 ML IV SCH ×2 (12:52→21:54)
--- NOTE | 2019-12-31 15:08 | Progress Note ---
Provider Note Provider Note: He was started on some metoprolol overnight for his mild tachycardia. His heart rate has been staying right around 100-110. He is in a sinus rhythm. He states his breathing feels a lot better than it did yesterday. We will continue to monitor.
[2019-12-31] MEDS: SIMVASTATIN 40 MG TABLET PO SCH (21:54)
[2020-01-01] MEDS: HEPARIN SOD (PORCINE) 5,000 UNIT/ML 1 ML VIAL SUBCUT SCH ×3 (05:03→21:44)
[2020-01-01 05:07] LABS: HEMATOCRIT 34.1 % (37.9-51.0); HEMOGLOBIN 11.3 g/dL (13.5-17.0); MEAN CORPUSCULAR HEMOGLOBIN 27.3 pg (27.0-33.4); MEAN CORPUSCULAR HGB CONC 33.1 g/dL (32.0-36.0); MEAN CORPUSCULAR VOLUME 82 fl (80-97); PLATELET COUNT 473 10^3/uL (150-450); RED BLOOD COUNT 4.14 10^6/uL (4.35-5.55); RED CELL DISTRIBUTION WIDTH 16.5 % (11.5-14.0); WHITE BLOOD COUNT 11.5 10^3/uL (4.0-10.5)
[2020-01-01 05:28] LABS: ANION GAP 10 (5-19); BLOOD UREA NITROGEN 17 mg/dL (7-20); CALCIUM 9.3 mg/dL (8.4-10.2); CARBON DIOXIDE 26 mmol/L (22-30); CHLORIDE 100 mmol/L (98-107); GLUCOSE 226 mg/dL (75-110); POTASSIUM 4.9 mmol/L (3.6-5.0)
[2020-01-01] MEDS: ASPIRIN 81 MG TABLET, ENT COATED PO SCH ×2 (10:36→17:38)
[2020-01-01] MEDS: METOPROLOL SUCCINATE 25 MG TAB.SR.24H PO SCH ×2 (10:36→21:44)
[2020-01-01] MEDS: GLIPIZIDE 10 MG TABLET PO SCH ×2 (10:36→17:38)
[2020-01-01] MEDS: METFORMIN HCL 500 MG TABLET PO SCH (10:36)
[2020-01-01] MEDS: OXYCODONE-ACETAMINOPHEN 5-325 MG TABLET PO PRN ×2 (10:36→20:41)
[2020-01-01] MEDS: IPRATROPIUM/ALBUTEROL 0.5-2.5 MG/3 ML AMPUL NEB PRN ×2 (11:05→20:29)
[2020-01-01] MEDS: CEFEPIME HCL 2 GM in DEXTROSE 5%-WATER 50 ML IV SCH (12:03)
--- NOTE | 2020-01-01 16:59 | PDOC PROGRESS REPORT ---
Subjective Progress Note for:: 01/01/20 Subjective:: OSCAR KOO is a 59 year old male with a history of heart failure with reduced ejection fraction EF 40% on echocardiogram done late September 2019, [id number] diabetes mellitus, alleged history of lung cancer, and was recently hospitalized here late September early October 2019 with a Klebsiella bacteremia due to liver abscess. He presented with worsening shortness of breath since yesterday. He said he had a fever at home but is not know how high it was. He is a terrible historian. He said he was feeling poorly so he got his girlfriend to bring him to the emergency room. He was found to be tachycardic and his chest x-ray shows asymmetric pulmonary edema. He does not appear to be volume overloaded. He had a leukocytosis. 01/01/2020. No acute events overnight. Comfortably sitting in bed no apparent distress, still complaining of shortness of breath on exertion denies any chest pain, nausea, vomiting, diarrhea, constipation or any urinary symptoms. Reason For Visit: [facility] Physical Exam Vital Signs: Temp Pulse Resp BP Pulse Ox 97.7 F 95 18 128/71 H 94 01/01/20 11:16 01/01/20 14:00 01/01/20 11:16 01/01/20 11:16 01/01/20 11:16 Intake & Output 12/31/19 01/01/20 01/02/20 06:59 06:59 06:59 Intake Total 1932 2040 530 Output Total 1175 2200 300 Balance 757 -160 230 Weight 70.6 kg 70.7 kg General appearance: PRESENT: no acute distress, well-developed, well-nourished Head exam: PRESENT: atraumatic, normocephalic Respiratory exam: PRESENT: crackles, decreased breath sounds. ABSENT: rales, rhonchi, wheezes Cardiovascular exam: PRESENT: RRR. ABSENT: diastolic murmur, rubs, systolic murmur GI/Abdominal exam: PRESENT: normal bowel sounds, soft. ABSENT: distended, guard ing, mass, organolmegaly, rebound, tenderness Neurological exam: PRESENT: alert, awake, oriented to person, oriented to place, oriented to time, oriented to situation, CN II-XII grossly intact. ABSENT: motor sensory deficit Results Laboratory Results: 01/01/20 04:22 01/01/20 04:22 01/01/20 01/01/20 04:22 04:22 WBC 11.5 H RBC 4.14 L Hgb 11.3 L Hct 34.1 L MCV 82 MCH 27.3 MCHC 33.1 RDW 16.5 H Plt Count 473 H Sodium 136.0 L Potassium 4.9 Chloride 100 Carbon Dioxide 26 Anion Gap 10 BUN 17 Creatinine 0.58 Est GFR ( Amer) > 60 Glucose 226 H Calcium 9.3 12/30/19 12/30/19 14:10 14:10 Creatine Kinase < 20 L Troponin I < 0.012 NT-Pro-B Natriuret Pep 410 H Impressions: Chest X-Ray 12/30/19 13:41 IMPRESSION: Bilateral pneumonia or asymmetric edema. Clinical correlation is needed. Assessment and Plan - Diagnosis (1) Healthcare-associated pneumonia Is this a current diagnosis for this admission?: Yes Plan: Improving. WBC WNL. SPO2 WNL on 2 L nasal cannula. Afebrile. Healthcare associated pneumonia.History of recent multiple hospitalization within the last 6 months. Blood cultures negative. Sputum culture positive for gram-negative rods pending sensitivity. Day 3 IV antibiotics. Day 3 IV cefepime. Received 2 days of IV vancomycin. DC IV vancomycin. (2) Acute respiratory failure with hypoxia Is this a current diagnosis for this admission?: Yes Plan: Due to problem #1. Improving. SPO2 WNL on 2 L nasal cannula. Plan as per #1. (4) Congestive heart failure Qualifiers: Heart failure type: systolic Heart failure chronicity: chronic Qualified Code(s): I50.22 - Chronic systolic (congestive) heart failure Is this a current diagnosis for this admission?: Yes Plan: Not acutely exacerbated. ED echo. 10/17/2019. LVEF 40%. Moderate global hypokinesis. Home meds metoprolol 25 mg p.o. daily. Continue metoprolol 25 mg p.o. daily. Uptitrate as tolerated. Low-dose lisinopril, uptitrate as tolerated. Cardiac diet, daily weights. (5) Diabetes Qualifiers: Diabetes mellitus type: type 2 Diabetes mellitus residential insulin use: without residential use Diabetes mellitus complication status: without complication Qualified Code(s): E11.9 - Type 2 diabetes mellitus without complications Is this a current diagnosis for this admission?: Yes Plan: Not controlled. Hemoglobin A1c 12.3% on 10/13/2019. Home meds are glipizide, metformin and Jardiance. Restart home meds. Diabetic diet. Sliding scale insulin. (6) Sepsis Qualifiers: Sepsis type: sepsis due to unspecified organism Sepsis acute organ dysfunction status: with acute organ dysfunction Severe sepsis acute organ dysfunction type: acute respiratory failure Acute respiratory failure type: with hypoxia Severe sepsis shock status: without septic shock Qualified Code(s): A41.9 - Sepsis, unspecified organism; R65.20 - Severe sepsis without septic shock; J96.01 - Acute respiratory failure with hypoxia Is this a current diagnosis for this admission?: Yes Plan: Treatments as previously noted
[2020-01-01] MEDS ORDERED: DEXTROSE 40% GEL 15 GM TUBE PO PRN ×2 (17:18)
[2020-01-01] MEDS ORDERED: DEXTROSE 50%-WATER 25 GM/50 ML DISP.SYRIN IV PRN ×2 (17:18)
[2020-01-01] MEDS ORDERED: GLUCAGON,HUMAN RECOMB 1 MG INJ IM PRN (17:18)
[2020-01-01] MEDS: SIMVASTATIN 40 MG TABLET PO SCH (21:44)
[2020-01-01] MEDS: INSULIN LISPRO 100 UNIT/ML 3 ML VIAL SUBCUT SCH (21:45)
[2020-01-01 22:47] LABS: VANCOMYCIN,TROUGH 6.7 ug/mL (5.0-20.0)
[2020-01-02] MEDS: CEFEPIME HCL 2 GM in DEXTROSE 5%-WATER 50 ML IV SCH (00:51)
[2020-01-02 05:22] LABS: HEMATOCRIT 32.2 % (37.9-51.0); HEMOGLOBIN 10.7 g/dL (13.5-17.0); MEAN CORPUSCULAR HEMOGLOBIN 27.1 pg (27.0-33.4); MEAN CORPUSCULAR HGB CONC 33.3 g/dL (32.0-36.0); MEAN CORPUSCULAR VOLUME 82 fl (80-97); PLATELET COUNT 510 10^3/uL (150-450); RED BLOOD COUNT 3.96 10^6/uL (4.35-5.55); RED CELL DISTRIBUTION WIDTH 16.1 % (11.5-14.0); WHITE BLOOD COUNT 13.9 10^3/uL (4.0-10.5)
[2020-01-02] MEDS: HEPARIN SOD (PORCINE) 5,000 UNIT/ML 1 ML VIAL SUBCUT SCH ×3 (05:25→22:06)
[2020-01-02 05:52] LABS: ANION GAP 7 (5-19); BLOOD UREA NITROGEN 15 mg/dL (7-20); CALCIUM 9.5 mg/dL (8.4-10.2); CARBON DIOXIDE 29 mmol/L (22-30); CHLORIDE 102 mmol/L (98-107); GLUCOSE 171 mg/dL (75-110); POTASSIUM 4.3 mmol/L (3.6-5.0)
[2020-01-02] MEDS: METFORMIN HCL 500 MG TABLET PO SCH (09:28)
[2020-01-02] MEDS: OXYCODONE-ACETAMINOPHEN 5-325 MG TABLET PO PRN ×2 (09:29→18:04)
[2020-01-02] MEDS: METOPROLOL SUCCINATE 25 MG TAB.SR.24H PO SCH (09:29)
[2020-01-02] MEDS: GLIPIZIDE 10 MG TABLET PO SCH ×2 (09:29→17:35)
[2020-01-02] MEDS: INSULIN LISPRO 100 UNIT/ML 3 ML VIAL SUBCUT SCH ×4 (09:29→22:05)
[2020-01-02] MEDS: ASPIRIN 81 MG TABLET, ENT COATED PO SCH ×2 (09:29→17:35)
--- NOTE | 2020-01-02 10:34 | PDOC PROGRESS REPORT ---
Subjective Progress Note for:: 01/02/20 Subjective:: OSCAR KOO is a 59 year old male with a history of heart failure with reduced ejection fraction EF 40% on echocardiogram done late September 2019, bql-jvaxzjo-kkwlqmuoc diabetes mellitus, alleged history of lung cancer, and was recently hospitalized here late September early October 2019 with a Klebsiella bacteremia due to liver abscess. He presented with worsening shortness of breath since yesterday. He said he had a fever at home but is not know how high it was. He is a terrible historian. He said he was feeling poorly so he got his girlfriend to bring him to the emergency room. He was found to be tachycardic and his chest x-ray shows asymmetric pulmonary edema. He does not appear to be volume overloaded. He had a leukocytosis. 01/01/2020. No acute events overnight. Comfortably sitting in bed no apparent distress, still complaining of shortness of breath on exertion denies any chest pain, nausea, vomiting, diarrhea, constipation or any urinary symptoms. 01/02/2020. No acute events overnight. Still on 2 L nasal cannula in no apparent distress. [facility] Physical Exam Vital Signs: Temp Pulse Resp BP Pulse Ox 98.0 F 102 H 19 120/87 H 96 01/02/20 07:17 01/02/20 07:17 01/02/20 07:17 01/02/20 07:17 01/02/20 07:17 Intake & Output 01/01/20 01/02/20 01/03/20 06:59 06:59 06:59 Intake Total 2040 940 Output Total 2200 600 Balance -160 340 Weight 70.7 kg 70.5 kg General appearance: PRESENT: no acute distress, well-developed, well-nourished Head exam: PRESENT: atraumatic, normocephalic Respiratory exam: PRESENT: crackles. ABSENT: rales, rhonchi, wheezes Cardiovascular exam: PRESENT: RRR, tachycardia. ABSENT: diastolic murmur, rubs, systolic murmur GI/Abdominal exam: PRESENT: normal bowel sounds, soft. ABSENT: distended, guarding, mass, organolmegaly, rebound, tenderness Neurological exam: PRESENT: alert, awake, oriented to person, oriented to place, oriented to time, oriented to situation, CN II-XII grossly intact. ABSENT: motor sensory deficit Results Laboratory Results: 01/02/20 04:24 01/02/20 04:24 01/02/20 01/02/20 04:24 04:24 WBC 13.9 H RBC 3.96 L Hgb 10.7 L Hct 32.2 L MCV 82 MCH 27.1 MCHC 33.3 RDW 16.1 H Plt Count 510 H Sodium 138.2 Potassium 4.3 Chloride 102 Carbon Dioxide 29 Anion Gap 7 BUN 15 Creatinine 0.60 Est GFR ( Amer) > 60 Glucose 171 H Calcium 9.5 Magnesium 2.2 12/30/19 15:04 Sputum Gram Stain - Final 12/30/19 15:04 Sputum Sputum Culture - Final Klebsiella Pneumoniae Yeast, Not Patience Albicans Normal Dotty 12/30/19 12/30/19 14:10 14:10 Creatine Kinase < 20 L Troponin I < 0.012 NT-Pro-B Natriuret Pep 410 H Impressions: Chest X-Ray 12/30/19 13:41 IMPRESSION: Bilateral pneumonia or asymmetric edema. Clinical correlation is needed. Assessment and Plan - Diagnosis (1) Healthcare-associated pneumonia Is this a current diagnosis for this admission?: Yes Plan: Improving. WBC WNL. SPO2 WNL on 2 L nasal cannula. Afebrile. Due to Klebsiella pneumonia. Pansensitive. Blood cultures negative. Sputum culture growing Klebsiella pneumonia pansensitive. Day 4 antibiotics. Day 1 p.o. levofloxacin. Received 3 days of IV antibiotics. Received 3 days of IV cefepime. DC IV cefepime. Received 2 days of IV vancomycin. DC IV vancomycin. (2) Acute respiratory failure with hypoxia Is this a current diagnosis for this admission?: Yes Plan: Due to problem #1. Improving. SPO2 WNL on 2 L nasal cannula. Plan as per #1. (3) Congestive heart failure Qualifiers: Heart failure type: systolic Heart failure chronicity: chronic Qualified Code(s): I50.22 - Chronic systolic (congestive) heart failure Is this a current diagnosis for this admission?: Yes Plan: Not acutely exacerbated. ED echo. 10/17/2019. LVEF 40%. Moderate global hypokinesis. Home meds metoprolol 25 mg p.o. daily. Increase metoprolol to 50 mg p.o. twice daily. Uptitrate as tolerated. Increase lisinopril to 5 mg p.o. daily. Uptitrate as tolerated. Cardiac diet, daily weights. 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 Hemoglobin A1c 12.3% on 10/13/2019. Home meds are glipizide, metformin and Jardiance. Restart home meds. Diabetic diet. Sliding scale insulin. (5) Sepsis Qualifiers: Sepsis type: sepsis due to unspecified organism Sepsis acute organ dysfunction status: with acute organ dysfunction Severe sepsis acute organ dysfunction type: acute respiratory failure Acute respiratory failure type: with hypoxia Severe sepsis shock status: without septic shock Qualified Code(s): A41.9 - Sepsis, unspecified organism; R65.20 - Severe sepsis without septic shock; J96.01 - Acute respiratory failure with hypoxia Is this a current diagnosis for this admission?: Yes Plan: Ruled out. Presented with SPO2 89% on RA, tachypnea, tachycardia, neutrophilic leukocytosis, thrombocytosis likely due to systemic inflammatory response syndrome due to underlying pneumonia.
[2020-01-02] MEDS: LEVOFLOXACIN 750 MG TABLET PO SCH (13:37)
[2020-01-02] MEDS: LISINOPRIL 5 MG TABLET PO SCH (13:44)
[2020-01-02] MEDS: FLUTICASONE/UMECLIDIN/VILANTER 100-62.5-25 MCG/DOSE IH SCH (13:47)
[2020-01-02] MEDS: IPRATROPIUM BROMIDE 0.02% NEB 0.5 MG/2.5 ML AMPUL NEB SCH ×2 (14:23→21:13)
[2020-01-02] MEDS: LEVALBUTEROL HCL NEB 0.63 MG/3 ML AMPUL NEB SCH ×2 (14:23→21:13)
[2020-01-02] MEDS ORDERED: METOPROLOL SUCCINATE 25 MG TAB.SR.24H PO SCH (22:00)
[2020-01-02] MEDS: SIMVASTATIN 40 MG TABLET PO SCH (22:05)
[2020-01-02] MEDS: METOPROLOL SUCCINATE 50 MG TAB.SR.24H PO SCH (22:05)
[2020-01-03] MEDS: OXYCODONE-ACETAMINOPHEN 5-325 MG TABLET PO PRN ×2 (02:09→21:03)
[2020-01-03 04:58] LABS: HEMATOCRIT 33.1 % (37.9-51.0); HEMOGLOBIN 11.1 g/dL (13.5-17.0); MEAN CORPUSCULAR HEMOGLOBIN 27.2 pg (27.0-33.4); MEAN CORPUSCULAR HGB CONC 33.5 g/dL (32.0-36.0); MEAN CORPUSCULAR VOLUME 81 fl (80-97); PLATELET COUNT 518 10^3/uL (150-450); RED BLOOD COUNT 4.07 10^6/uL (4.35-5.55); RED CELL DISTRIBUTION WIDTH 16.4 % (11.5-14.0)
[2020-01-03] MEDS: HEPARIN SOD (PORCINE) 5,000 UNIT/ML 1 ML VIAL SUBCUT SCH ×3 (05:21→21:03)
[2020-01-03 05:25] LABS: ANION GAP 10 (5-19); BLOOD UREA NITROGEN 14 mg/dL (7-20); CALCIUM 9.6 mg/dL (8.4-10.2); CARBON DIOXIDE 24 mmol/L (22-30); CHLORIDE 101 mmol/L (98-107); GLUCOSE 164 mg/dL (75-110); POTASSIUM 5.3 mmol/L (3.6-5.0)
[2020-01-03] MEDS: INSULIN LISPRO 100 UNIT/ML 3 ML VIAL SUBCUT SCH ×4 (08:01→21:43)
[2020-01-03] MEDS ORDERED: SODIUM POLYSTYRENE SULFONATE 15 GM/60 ML PO ONE (08:30)
[2020-01-03] MEDS: LEVALBUTEROL HCL NEB 0.63 MG/3 ML AMPUL NEB SCH ×3 (08:36→20:30)
[2020-01-03] MEDS: IPRATROPIUM BROMIDE 0.02% NEB 0.5 MG/2.5 ML AMPUL NEB SCH ×3 (08:36→20:30)
[2020-01-03] MEDS: LEVOFLOXACIN 750 MG TABLET PO SCH (09:54)
[2020-01-03] MEDS: METFORMIN HCL 500 MG TABLET PO SCH (09:54)
[2020-01-03] MEDS: ASPIRIN 81 MG TABLET, ENT COATED PO SCH ×2 (09:55→18:01)
[2020-01-03] MEDS: METOPROLOL SUCCINATE 50 MG TAB.SR.24H PO SCH ×2 (09:55→21:02)
[2020-01-03] MEDS: LISINOPRIL 5 MG TABLET PO SCH (09:55)
[2020-01-03] MEDS: GLIPIZIDE 10 MG TABLET PO SCH ×2 (09:55→18:01)
[2020-01-03] MEDS: FLUTICASONE/UMECLIDIN/VILANTER 100-62.5-25 MCG/DOSE IH SCH (09:58)
--- NOTE | 2020-01-03 12:33 | PDOC PROGRESS REPORT ---
Subjective Progress Note for:: 01/03/20 Subjective:: OSCAR KOO is a 59 year old male with a history of heart failure with reduced ejection fraction EF 40% on echocardiogram done late September 2019, [id number] diabetes mellitus, alleged history of lung cancer, and was recently hospitalized here late September early October 2019 with a Klebsiella bacteremia due to liver abscess. He presented with worsening shortness of breath since yesterday. He said he had a fever at home but is not know how high it was. He is a terrible historian. He said he was feeling poorly so he got his girlfriend to bring him to the emergency room. He was found to be tachycardic and his chest x-ray shows asymmetric pulmonary edema. He does not appear to be volume overloaded. He had a leukocytosis. 01/01/2020. No acute events overnight. Comfortably sitting in bed no apparent distress, still complaining of shortness of breath on exertion denies any chest pain, nausea, vomiting, diarrhea, constipation or any urinary symptoms. 01/02/2020. No acute events overnight. Still on 2 L nasal cannula in no apparent distress. 01/03/2020. No acute events overnight. Patient currently resting in bed no apparent distress, enjoying his breakfast. Could potentially be discharged home however potassium is still elevated patient still dependent on supplemental oxygen. [facility] Physical Exam Vital Signs: Temp Pulse Resp BP Pulse Ox 97.1 F 100 16 120/75 90 L 01/03/20 07:32 01/03/20 08:36 01/03/20 08:36 01/03/20 07:32 01/03/20 08:36 Intake & Output 01/02/20 01/03/20 01/04/20 06:59 06:59 06:59 Intake Total 940 1580 Output Total 600 Balance 340 1580 Weight 70.5 kg 70.8 kg General appearance: PRESENT: no acute distress, well-developed, well-nourished Head exam: PRESENT: atraumatic, normocephalic Neck exam: ABSENT: carotid bruit, JVD, lymphadenopathy, thyromegaly Respiratory exam: PRESENT: clear to auscultation sera. ABSENT: rales, rhonchi, wheezes GI/Abdominal exam: PRESENT: normal bowel sounds, soft. ABSENT: distended, guarding, mass, organolmegaly, rebound, tenderness Extremities exam: PRESENT: full ROM. ABSENT: calf tenderness, clubbing, pedal edema Neurological exam: PRESENT: alert, awake, oriented to person, oriented to place, oriented to time, oriented to situation, CN II-XII grossly intact. ABSENT: motor sensory deficit Results Laboratory Results: 01/03/20 04:29 01/03/20 04:29 01/03/20 01/03/20 04:29 04:29 WBC 14.0 H RBC 4.07 L Hgb 11.1 L Hct 33.1 L MCV 81 MCH 27.2 MCHC 33.5 RDW 16.4 H Plt Count 518 H Sodium 135.4 L Potassium 5.3 H Chloride 101 Carbon Dioxide 24 Anion Gap 10 BUN 14 Creatinine 0.54 Est GFR ( Amer) > 60 Glucose 164 H Calcium 9.6 12/30/19 12/30/19 14:10 14:10 Creatine Kinase < 20 L Troponin I < 0.012 NT-Pro-B Natriuret Pep 410 H Impressions: Chest X-Ray 12/30/19 13:41 IMPRESSION: Bilateral pneumonia or asymmetric edema. Clinical correlation is needed. Assessment and Plan - Diagnosis (1) Healthcare-associated pneumonia Is this a current diagnosis for this admission?: Yes Plan: Improving. WBC WNL. SPO2 WNL on 2 L nasal cannula. Afebrile. Due to Klebsiella pneumonia. Pansensitive. Blood cultures negative. Sputum culture growing Klebsiella pneumonia pansensitive. Day 5 antibiotics. Day 2 p.o. levofloxacin. Received 3 days of IV antibiotics. Received 3 days of IV cefepime. DC IV cefepime. Received 2 days of IV vancomycin. DC IV vancomycin. (2) Acute respiratory failure with hypoxia Is this a current diagnosis for this admission?: Yes Plan: Due to problem #1. Improving. SPO2 WNL on 2 L nasal cannula. Plan as per #1. (3) Congestive heart failure Qualifiers: Heart failure type: systolic Heart failure chronicity: chronic Qualified Code(s): I50.22 - Chronic systolic (congestive) heart failure Is this a current diagnosis for this admission?: Yes Plan: Not acutely exacerbated. ED echo. 10/17/2019. LVEF 40%. Moderate global hypokinesis. Home meds metoprolol 25 mg p.o. daily. Increase metoprolol to 50 mg p.o. twice daily. Uptitrate as tolerated. Increase lisinopril to 5 mg p.o. daily. Uptitrate as tolerated. Cardiac diet, daily weights. 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 Hemoglobin A1c 12.3% on 10/13/2019. Home meds are glipizide, metformin and Jardiance. Restart home meds. Diabetic diet. Sliding scale insulin. (5) Sepsis Qualifiers: Sepsis type: sepsis due to unspecified organism Sepsis acute organ dysfunction status: with acute organ dysfunction Severe sepsis acute organ dysfunction type: acute respiratory failure Acute respiratory failure type: w ith hypoxia Severe sepsis shock status: without septic shock Qualified Code(s): A41.9 - Sepsis, unspecified organism; R65.20 - Severe sepsis without septic shock; J96.01 - Acute respiratory failure with hypoxia Is this a current diagnosis for this admission?: Yes Plan: Ruled out. Presented with SPO2 89% on RA, tachypnea, tachycardia, neutrophilic leukocytosis, thrombocytosis likely due to systemic inflammatory response syndrome due to underlying pneumonia. (6) Hyperkalemia Is this a current diagnosis for this admission?: Yes Plan: No acute EKG changes. Hyperkalemia protocol. BMP tomorrow.
[2020-01-03] MEDS: SIMVASTATIN 40 MG TABLET PO SCH (21:02)
[2020-01-04 05:08] LABS: HEMATOCRIT 34.1 % (37.9-51.0); HEMOGLOBIN 11.2 g/dL (13.5-17.0); MEAN CORPUSCULAR HEMOGLOBIN 26.9 pg (27.0-33.4); MEAN CORPUSCULAR VOLUME 81 fl (80-97); PLATELET COUNT 517 10^3/uL (150-450); RED BLOOD COUNT 4.19 10^6/uL (4.35-5.55); RED CELL DISTRIBUTION WIDTH 16.1 % (11.5-14.0); WHITE BLOOD COUNT 13.4 10^3/uL (4.0-10.5)
[2020-01-04] MEDS: HEPARIN SOD (PORCINE) 5,000 UNIT/ML 1 ML VIAL SUBCUT SCH (05:18)
[2020-01-04 05:22] LABS: ANION GAP 9 (5-19); BLOOD UREA NITROGEN 14 mg/dL (7-20); CALCIUM 9.5 mg/dL (8.4-10.2); CARBON DIOXIDE 27 mmol/L (22-30); CHLORIDE 100 mmol/L (98-107); GLUCOSE 233 mg/dL (75-110)
[2020-01-04 05:38] LABS: POTASSIUM 3.8 mmol/L (3.6-5.0)
[2020-01-04] MEDS: INSULIN LISPRO 100 UNIT/ML 3 ML VIAL SUBCUT SCH (08:28)
[2020-01-04] MEDS: IPRATROPIUM BROMIDE 0.02% NEB 0.5 MG/2.5 ML AMPUL NEB SCH (08:42)
[2020-01-04] MEDS: LEVALBUTEROL HCL NEB 0.63 MG/3 ML AMPUL NEB SCH (08:42)
[2020-01-04 09:19] VITALS: BP 118/70
[2020-01-04] MEDS: ASPIRIN 81 MG TABLET, ENT COATED PO SCH (09:57)
[2020-01-04] MEDS: LEVOFLOXACIN 750 MG TABLET PO SCH (09:57)
[2020-01-04] MEDS: METOPROLOL SUCCINATE 50 MG TAB.SR.24H PO SCH (09:57)
[2020-01-04] MEDS: METFORMIN HCL 500 MG TABLET PO SCH (09:57)
[2020-01-04] MEDS: LISINOPRIL 5 MG TABLET PO SCH (09:58)
[2020-01-04] MEDS: GLIPIZIDE 10 MG TABLET PO SCH (09:58)
[2020-01-04] MEDS: OXYCODONE-ACETAMINOPHEN 5-325 MG TABLET PO PRN (09:59)
[2020-01-04] MEDS: FLUTICASONE/UMECLIDIN/VILANTER 100-62.5-25 MCG/DOSE IH SCH (09:59)
--- NOTE | 2020-01-04 16:29 | PDOC DISCHARGE SUMMARY ---
Impression - Admit/DC Date/PCP Admission Date/Primary Care Provider: 12/30/19 16:25 WANDA NEFF Discharge Date: 01/04/20 - Discharge Diagnosis (1) Healthcare-associated pneumonia Is this a current diagnosis for this admission?: Yes (2) Acute respiratory failure with hypoxia Is this a current diagnosis for this admission?: Yes (3) Congestive heart failure Is this a current diagnosis for this admission?: Yes (4) Diabetes Is this a current diagnosis for this admission?: Yes (5) Sepsis Is this a current diagnosis for this admission?: Yes - Additional Information Resuscitation Status: Full Code Discharge Diet: Cardiac, Diabetic Discharge Activity: Activity As Tolerated Referrals: WANDA NEFF MD [Primary Care Provider] - 01/09/20 10:00 am Prescriptions: Levofloxacin [Levaquin 750 mg Tablet] 750 mg PO DAILY 4 Days #4 tablet Lisinopril [Prinivil 5 mg Tablet] 2.5 mg PO DAILY 30 Days #15 tablet Metoprolol Succinate [Toprol Xl 50 mg Tab.sr] 50 mg PO Q12 30 Days #30 tab.sr.24h Home Medications: Aspirin [Ecotrin 81 mg EC Tablet] 81 mg PO BID 12/30/19 Empagliflozin [Jardiance] 25 mg PO DAILY 12/30/19 Glipizide [Glucotrol 10 mg Tablet] 10 mg PO BID 12/30/19 Metformin HCl [Glucophage] 1,000 mg PO DAILY 12/30/19 Oxycodone HCl/Acetaminophen [Percocet 5-325 mg Tablet] 1 tab PO Q8HP PRN 12/30/19 Simvastatin [Zocor 40 mg Tablet] 40 mg PO QHS 12/30/19 Levofloxacin [Levaquin 750 mg Tablet] 750 mg PO DAILY 4 Days #4 tablet 01/04/20 Lisinopril [Prinivil 5 mg Tablet] 2.5 mg PO DAILY 30 Days #15 tablet 01/04/20 Metoprolol Succinate [Toprol Xl 50 mg Tab.sr] 50 mg PO Q12 30 Days #30 tab.sr.24h 01/04/20 History of Present Illiness History of Present Illness: OSCAR KOO is a 59 year old male with a history of heart failure with reduced ejection fraction EF 40% on echocardiogram done late September 2019, non -insulin-dependent diabetes mellitus, alleged history of lung cancer, and was recently hospitalized here late September early October 2019 with a Klebsiella bacteremia due to liver abscess. He presented with worsening shortness of breath since yesterday. He said he had a fever at home but is not know how high it was. He is a terrible historian. He said he was feeling poorly so he got his girlfriend to bring him to the emergency room. He was found to be tachycardic and his chest x-ray shows asymmetric pulmonary edema. He does not appear to be volume overloaded. He had a leukocytosis. Hospital Course Hospital Course: (1) Healthcare-associated pneumonia Afebrile. SPO2 WNL on RA. Mild leukocytosis with no bandemia. Due to Klebsiella pneumonia. Pansensitive. Sputum culture growing Klebsiella pneumonia pansensitive. Blood cultures remain negative. Received 6 days of antibiotics. Received 3 days of levofloxacin. Received 3 days of IV antibiotics. Received 3 days of IV cefepime. DC IV cefepime. Received 2 days of IV vancomycin. DC IV vancomycin. Was discharged on levofloxacin p.o. for another 4 days. (2) Acute respiratory failure with hypoxia Resolved. SPO2 WNL on RA. (3) Congestive heart failure Not acutely exacerbated. ED echo. 10/17/2019. LVEF 40%. Moderate global hypokinesis. Home meds metoprolol 25 mg p.o. daily. Increase metoprolol to 50 mg p.o. twice daily. Increase lisinopril to 5 mg p.o. daily. Was a started on cardiac diet and daily weights. Outpatient PCP and cardiology follow-up recommended. (4) Diabetes Improved compared to previous hospitalization. Hemoglobin A1c 12.3% on 10/13/2019. Home meds are glipizide, metformin and Jardiance. Restarted on home meds. Diabetic diet, sliding scale insulin. (5) Sepsis Ruled out. Presented with SPO2 89% on RA, tachypnea, tachycardia, neutrophilic leukocytosis, thrombocytosis likely due to systemic inflammatory response syndrome due to underlying pneumonia. (6) Hyperkalemia Resolved. No acute EKG changes. Hyperkalemia protocol initiated. Physical Exam Vital Signs: Temp Pulse Resp BP Pulse Ox 98.1 F 94 19 110/87 H 96 01/04/20 09:08 01/04/20 09:08 01/04/20 09:08 01/04/20 09:08 01/04/20 09:08 Intake & Output 01/03/20 01/04/20 01/05/20 06:59 06:59 06:59 Intake Total 1580 1138 Balance 1580 1138 Weight 70.8 kg 70.4 kg General appearance: PRESENT: no acute distress, well-developed, well-nourished Head exam: PRESENT: atraumatic, normocephalic Respiratory exam: PRESENT: clear to auscultation sera. ABSENT: rales, rhonchi, wheezes Cardiovascular exam: PRESENT: RRR. ABSENT: diastolic murmur, rubs, systolic murmur Neurological exam: PRESENT: alert, awake, oriented to person, oriented to place, oriented to time, oriented to situation, CN II-XII grossly intact. ABSENT: motor sensory deficit Results Laboratory Results: WBC 13.4 10^3/uL (4.0-10.5) H 01/04/20 04:30 RBC 4.19 10^6/uL (4.35-5.55) L 01/04/20 04:30 Hgb 11.2 g/dL (13.5-17.0) L 01/04/20 04:30 Hct 34.1 % (37.9-51.0) L 01/04/20 04:30 MCV 81 fl (80-97) 01/04/20 04:30 MCH 26.9 pg (27.0-33.4) L 01/04/20 04:30 MCHC 33.0 g/dL (32.0-36.0) 01/04/20 04:30 RDW 16.1 % (11.5-14.0) H 01/04/20 04:30 Plt Count 517 10^3/uL (150-450) H 01/04/20 04:30 Lymph % (Auto) 8.9 % (13-45) L 12/30/19 14:10 Smyth % (Auto) 10.4 % (3-13) 12/30/19 14:10 Eos % (Auto) 2.5 % (0-6) 12/30/19 14:10 Baso % (Auto) 1.3 % (0-2) 12/30/19 14:10 Absolute Neuts (auto) 12.1 10^3/uL (1.7-8.2) H 12/30/19 14:10 Absolute Lymphs (auto) 1.4 10^3/uL (0.5-4.7) 12/30/19 14:10 Absolute Monos (auto) 1.6 10^3/uL (0.1-1.4) H 12/30/19 14:10 Absolute Eos (auto) 0.4 10^3/uL (0.0-0.6) 12/30/19 14:10 Absolute Basos (auto) 0.2 10^3/uL (0.0-0.2) 12/30/19 14:10 Seg Neutrophils % 76.9 % (42-78) 12/30/19 14:10 Sodium 135.9 mmol/L (137-145) L 01/04/20 04:30 Potassium 3.8 mmol/L (3.6-5.0) 01/04/20 04:30 Chloride 100 mmol/L (98-107) 01/04/20 04:30 Carbon Dioxide 27 mmol/L (22-30) 01/04/20 04:30 Anion Gap 9 (5-19) 01/04/20 04:30 BUN 14 mg/dL (7-20) 01/04/20 04:30 Creatinine 0.50 mg/dL (0.52-1.25) L 01/04/20 04:30 Est GFR ( Amer) > 60 (>60) 01/04/20 04:30 Est GFR (MDRD) Non-Af > 60 (>60) 01/04/20 04:30 Glucose 233 mg/dL (75-110) H 01/04/20 04:30 POC Glucose 211 mg/dL (70-110) H 01/04/20 08:19 Calcium 9.5 mg/dL (8.4-10.2) 01/04/20 04:30 Magnesium 2.2 mg/dL (1.6-2.3) 01/02/20 04:24 Total Bilirubin 0.5 mg/dL (0.2-1.3) 12/30/19 14:10 Direct Bilirubin 0.5 mg/dL (0.0-0.4) H 12/30/19 14:10 Neonat Total Bilirubin Not Reportable 12/30/19 14:10 Neonat Direct Bilirubin Not Reportable 12/30/19 14:10 Neonat Indirect Bili Not Reportable 12/30/19 14:10 AST 16 U/L (17-59) L 12/30/19 14:10 ALT 9 U/L (<50) 12/30/19 14:10 Alkaline Phosphatase 162 U/L (38-126) H 12/30/19 14:10 Creatine Kinase < 20 U/L (55-170) L 12/30/19 14:10 Troponin I < 0.012 ng/mL 12/30/19 14:10 NT-Pro-B Natriuret Pep 410 pg/mL (<125) H 12/30/19 14:10 Total Protein 9.8 g/dL (6.3-8.2) H 12/30/19 14:10 Albumin 3.5 g/dL (3.5-5.0) 12/30/19 14:10 Time Trough Drawn 2144 01/01/20 21:44 Vancomycin Trough 6.7 ug/mL (5.0-20.0) 01/01/20 21:44 12/30/19 14:10 Troponin I < 0.012 NT-Pro-B Natriuret Pep 410 H Impressions: Chest X-Ray 12/30/19 13:41 IMPRESSION: Bilateral pneumonia or asymmetric edema. Clinical correlation is needed. Stroke Is this a Stroke Patient?: No Acute Heart Failure - Is this a Heart Failure Patient?: No
== END 2020-01-04 10:30 | disposition home or self-care (01) | DRG 177 ==
LOC: ER 13:26 → EH 16:25 → 3W 18:55
PROVIDERS: ADMIT Family Medicine; ATTEND Family Medicine
DX: J15.0 Pneumonia due to Klebsiella pneumoniae (principal); J96.01 Acute respiratory failure with hypoxia; I50.22 Chronic systolic (congestive) heart failure; D72.829 Elevated white blood cell count, unspecified; E11.9 Type 2 diabetes mellitus without complications; E78.5 Hyperlipidemia, unspecified; E87.5 Hyperkalemia; Y95 Nosocomial condition; M19.90 Unspecified osteoarthritis, unspecified site; Z87.891 Personal history of nicotine dependence; Z79.82 Long term (current) use of aspirin; Z79.84 Long term (current) use of oral hypoglycemic drugs; Z85.118 Personal history of other malignant neoplasm of bronchus and lung
CPT/HCPCS: 36415; 71045; 80048; 80053; 80202; 82550; 82962; 83735; 83880; 84132; 84484; 85025; 85027; 87040; 87070; 87077; 87186; 87205; 93005; 93010; 94640; 96365; 99291; J0692; J1644; J1815; J1956; J3370; J3490; J7030; J7060; J7614; J7620

== ENCOUNTER 2020-02-08 18:13 | Inpatient (IN) | payer MEDICARE ==
--- NOTE | 2020-02-08 19:33 | RADIOLOGY REPORT (SQ) ---
EXAM DESCRIPTION: CHEST SINGLE VIEW COMPLETED DATE/TIME: 02/08/2020 7:17 pm REASON FOR STUDY: sob COMPARISON: 12/30/2019 EXAM PARAMETERS: NUMBER OF VIEWS: One view. TECHNIQUE: Single frontal radiographic view of the chest acquired. RADIATION DOSE: NA LIMITATIONS: None. FINDINGS: LUNGS AND PLEURA: Elevated right hemidiaphragm. Considerable opacification of both lungs. Small right pleural effusion. MEDIASTINUM AND HILAR STRUCTURES: No masses. Contour normal. HEART AND VASCULAR STRUCTURES: Heart size is borderline. BONES: No acute findings. HARDWARE: None in the chest. OTHER: No other significant finding. IMPRESSION: Borderline heart size. Extensive airspace disease in both lungs, pneumonia versus asymm etric pulmonary edema. Small right pleural effusion. TECHNICAL DOCUMENTATION: JOB ID: [id number] [employer]- All Rights Reserved Reading location - IP/workstation name: [email or web address]
[2020-02-08] MEDS ORDERED: PIPERACILLIN/TAZOBACTAM 3.375 GM VIAL IV ONE (19:39)
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
[2020-02-08 19:51] LABS: ABSOLUTE BASOPHILS # (AUTO) 0.2 10^3/uL (0.0-0.2); ABSOLUTE EOSINOPHILS # (AUTO) 0.5 10^3/uL (0.0-0.6); ABSOLUTE LYMPHOCYTES (AUTO) 1.9 10^3/uL (0.5-4.7); ABSOLUTE MONOCYTES (AUTO) 1.2 10^3/uL (0.1-1.4); BASOPHILS % (AUTO) 1.2 % (0-2); EOSINOPHILS % (AUTO) 3.3 % (0-6); HEMATOCRIT 37.2 % (37.9-51.0); HEMOGLOBIN 12.6 g/dL (13.5-17.0); LYMPHOCYTES % (AUTO) 13.8 % (13-45); MEAN CORPUSCULAR HEMOGLOBIN 27.7 pg (27.0-33.4); MEAN CORPUSCULAR HGB CONC 33.9 g/dL (32.0-36.0); MEAN CORPUSCULAR VOLUME 82 fl (80-97); MONOCYTES % (AUTO) 8.7 % (3-13); PLATELET COUNT 646 10^3/uL (150-450); RED BLOOD COUNT 4.54 10^6/uL (4.35-5.55); RED CELL DISTRIBUTION WIDTH 16.7 % (11.5-14.0); TOTAL CELLS COUNTED % (AUTO) 100 %; WHITE BLOOD COUNT 13.7 10^3/uL (4.0-10.5)
[2020-02-08 20:05] LABS: ALBUMIN 3.4 g/dL (3.5-5.0); ALKALINE PHOSPHATASE 117 U/L (38-126); ANION GAP 11 (5-19); ASPARTATE AMINO TRANSFERASE 23 U/L (17-59); BILIRUBIN,TOTAL 0.3 mg/dL (0.2-1.3); BLOOD UREA NITROGEN 18 mg/dL (7-20); CARBON DIOXIDE 30 mmol/L (22-30); CHLORIDE 100 mmol/L (98-107); GLUCOSE 74 mg/dL (75-110); POTASSIUM 4.9 mmol/L (3.6-5.0); TOTAL PROTEIN 9.4 g/dL (6.3-8.2)
[2020-02-08 20:06] LABS: CREATINE KINASE < 20 U/L (55-170)
[2020-02-08 20:17] LABS: CREATINE KINASE MB 0.54 ng/mL (<4.55); NT PRO BNP 603 pg/mL (<125)
[2020-02-08 20:23] LABS: TROPONIN I < 0.012 ng/mL
[2020-02-08] MEDS ORDERED: FUROSEMIDE INJ/PF 20 MG/2 ML SDV IV ONE (20:42)
[2020-02-08] MEDS ORDERED: LEVALBUTEROL HCL NEB 0.63 MG/3 ML AMPUL NEB PRN (21:48)
[2020-02-08 21:51] LABS: ARTERIAL BLOOD BASE EXCESS 3.8 mmol/L; ARTERIAL BLOOD FIO2 28%; ARTERIAL BLOOD H2CO3 1.26 mmol/L (1.05-1.35); ARTERIAL BLOOD HCO3 28.3 mmol/L (20-24); ARTERIAL BLOOD PH 7.45 (7.35-7.45); ARTERIAL BLOOD PO2 78.1 mmHg (80-100); ARTERIAL BLOOD TOTAL CO2 29.6 mmol/L (23-27)
[2020-02-08] MEDS ORDERED: DEXTROSE 40% GEL 15 GM TUBE PO PRN ×2 (21:52)
[2020-02-08] MEDS ORDERED: GLUCAGON,HUMAN RECOMB 1 MG INJ IM PRN (21:52)
[2020-02-08] MEDS ORDERED: DEXTROSE 50%-WATER 25 GM/50 ML DISP.SYRIN IV PRN ×2 (21:52)
[2020-02-08] MEDS ORDERED: NICOTINE 21 MG/24 HR PATCH.TD24 TD PRN (21:53)
[2020-02-08] MEDS ORDERED: PROMETHAZINE HCL INJ 25 MG/1 ML VIAL IV PRN (21:53)
[2020-02-08] MEDS ORDERED: MELATONIN 5 MG TABLET PO PRN ×2 (21:53→22:30)
[2020-02-08] MEDS ORDERED: ACETAMINOPHEN 325 MG TABLET PO PRN (21:53)
[2020-02-08] MEDS ORDERED: MAGNESIUM HYDROXIDE SUSP 30 ML UDCUP PO PRN (21:56)
[2020-02-08] MEDS ORDERED: MAG HYDROX/AL HYDROX/SIMETH SUSP 30 ML UDCUP PO PRN (21:56)
[2020-02-08] MEDS ORDERED: MEROPENEM 1 GM VIAL IV PRN (22:00)
[2020-02-08] MEDS: HEPARIN SOD (PORCINE) 5,000 UNIT/ML 1 ML VIAL SUBCUT SCH (22:49)
[2020-02-08] MEDS: FAMOTIDINE 20 MG TABLET PO SCH (22:49)
[2020-02-08] MEDS ORDERED: MEROPENEM 1 GM VIAL ONE (22:58)
[2020-02-08] MEDS ORDERED: MEROPENEM 1 GM in NORMAL SALINE 50 ML IV ONE (23:00)
[2020-02-08 23:20] LABS: APPEARANCE,URINE CLEAR; BILIRUBIN,URINE NEGATIVE (NEGATIVE); COLOR,URINE YELLOW; GLUCOSE, URINE >=500 mg/dL (NEGATIVE); KETONES,URINE NEGATIVE (NEGATIVE); LEUKOCYTE ESTERASE,URINE NEGATIVE (NEGATIVE); NITRITE,URINE NEGATIVE (NEGATIVE); PROTEIN,URINE NEGATIVE (NEGATIVE); URINE SPECIFIC GRAVITY 1.016; UROBILINOGEN,URINE NEGATIVE mg/dL (<2.0)
[2020-02-08] MEDS: IPRATROPIUM BROMIDE 0.02% NEB 0.5 MG/2.5 ML AMPUL NEB SCH (23:51)
[2020-02-08] MEDS: LEVALBUTEROL HCL NEB 1.25 MG/3 ML AMPUL NEB SCH (23:51)
[2020-02-09] MEDS: GUAIFENESIN SYRP 200 MG/10 ML UDC PO PRN ×2 (00:04→22:36)
[2020-02-09] MEDS: ACETYLCYSTEINE 20% SOLN 800 MG/4 ML VIAL.NEB NEB SCH ×3 (00:05→20:40)
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
[2020-02-09] MEDS: HEPARIN SOD (PORCINE) 5,000 UNIT/ML 1 ML VIAL SUBCUT SCH ×3 (05:51→22:36)
[2020-02-09] MEDS: MEROPENEM 1 GM in NORMAL SALINE 50 ML IV SCH ×3 (05:51→22:36)
[2020-02-09 08:01] LABS: HEMATOCRIT 33.5 % (37.9-51.0); HEMOGLOBIN 11.7 g/dL (13.5-17.0); MEAN CORPUSCULAR HEMOGLOBIN 28.2 pg (27.0-33.4); MEAN CORPUSCULAR HGB CONC 34.8 g/dL (32.0-36.0); MEAN CORPUSCULAR VOLUME 81 fl (80-97); PLATELET COUNT 614 10^3/uL (150-450); RED BLOOD COUNT 4.14 10^6/uL (4.35-5.55); RED CELL DISTRIBUTION WIDTH 16.6 % (11.5-14.0); WHITE BLOOD COUNT 15.1 10^3/uL (4.0-10.5)
[2020-02-09] MEDS: IPRATROPIUM BROMIDE 0.02% NEB 0.5 MG/2.5 ML AMPUL NEB SCH ×3 (08:08→23:59)
[2020-02-09] MEDS: LEVALBUTEROL HCL NEB 1.25 MG/3 ML AMPUL NEB SCH ×2 (08:08→15:52)
[2020-02-09 08:22] LABS: ANION GAP 14 (5-19); BLOOD UREA NITROGEN 18 mg/dL (7-20); CALCIUM 9.6 mg/dL (8.4-10.2); CARBON DIOXIDE 26 mmol/L (22-30); CHLORIDE 99 mmol/L (98-107); CHOLESTEROL 123.58 mg/dL (0-200); GLUCOSE 93 mg/dL (75-110); POTASSIUM 4.7 mmol/L (3.6-5.0); TRIGLYCERIDES 85 mg/dL (<150)
[2020-02-09 08:32] LABS: DIRECT LDL 67 mg/dL (<100)
[2020-02-09] MEDS: FAMOTIDINE 20 MG TABLET PO SCH ×2 (11:06→22:36)
[2020-02-09] MEDS: DOCUSATE SODIUM 100 MG CAPSULE PO SCH ×2 (11:08→17:39)
--- NOTE | 2020-02-09 13:12 | PDOC PROGRESS REPORT ---
Subjective Progress Note for:: 02/09/20 Subjective:: Patient still has a cough. It is productive of white sputum. He states previously it was yellow. He is still on oxygen but reports that his shortness of breath is slightly improved. He has had repeated episodes of pneumonia with Klebsiella and some sputum specimens in the past have tested positive for yeast. 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 ABSENT: bleeding, drainage Respiratory exam: PRESENT: decreased breath sounds - Bilaterally, prolonged expiratory phas, rhonchi - Bilateral, symmetrical, unlabored. ABSENT: accessory muscle use, rales, tachypnea, wheezes Cardiovascular exam: PRESENT: RRR, +S1, +S2 GI/Abdominal exam: PRESENT: diminished bowel sounds, soft. ABSENT: distended, guarding, tenderness Rectal exam: PRESENT: deferred Gentrourinary exam: ABSENT: indwelling catheter Extremities exam: ABSENT: joint swelling, pedal edema Musculoskeletal exam: PRESENT: deformity - Bony lump medial aspect distal left lower leg from previous fracture Neurological exam: PRESENT: alert, awake, oriented to person, oriented to place, oriented to time, oriented to situation, CN II-XII grossly intact. ABSENT: altered Psychiatric exam: PRESENT: flat affect. ABSENT: agitated, anxious Focused psych exam: ABSENT: delusional, restlessness Skin exam: PRESENT: dry, normal color, warm. ABSENT: rash Results Laboratory Results: 02/09/20 07:48 02/09/20 07:48 02/08/20 02/08/20 02/08/20 19:33 19:33 19:33 WBC 13.7 H RBC 4.54 Hgb 12.6 L Hct 37.2 L MCV 82 MCH 27.7 MCHC 33.9 RDW 16.7 H Plt Count 646 H Seg Neutrophils % 73.0 Carbonic Acid HCO3/H2CO3 Ratio ABG pH ABG pCO2 ABG pO2 ABG HCO3 ABG O2 Saturation ABG Base Excess FiO2 Sodium 140.8 Potassium 4.9 Chloride 100 Carbon Dioxide 30 Anion Gap 11 BUN 18 Creatinine 0.68 Est GFR ( Amer) > 60 Glucose 74 L Lactic Acid 3.1 H Calcium 10.0 Magnesium Total Bilirubin 0.3 AST 23 Alkaline Phosphatase 117 Total Protein 9.4 H Albumin 3.4 L Triglycerides Cholesterol LDL Cholesterol Direct VLDL Cholesterol HDL Cholesterol TSH Urine Color Urine Appearance Urine pH Ur Specific [place] Urine Protein Urine Glucose (UA) Urine Ketones Urine Blood Urine Nitrite Ur Leukocyte Esterase Urine WBC (Auto) Urine RBC (Auto) 02/08/20 02/08/20 02/08/20 20:14 21:40 22:50 WBC RBC Hgb Hct MCV MCH MCHC RDW Plt Count Seg Neutrophils % Carbonic Acid Cancelled 1.26 HCO3/H2CO3 Ratio Cancelled 22:1 ABG pH Cancelled 7.45 ABG pCO2 Cancelled 42.0 ABG pO2 Cancelled 78.1 L ABG HCO3 Cancelled 28.3 H ABG O2 Saturation Cancelled 96.0 ABG Base Excess Cancelled 3.8 FiO2 Cancelled 28% Sodium Potassium Chloride Carbon Dioxide Anion Gap BUN Creatinine Est GFR ( Amer) Glucose Lactic Acid Calcium Magnesium Total Bilirubin AST Alkaline Phosphatase Total Protein Albumin Triglycerides Cholesterol LDL Cholesterol Direct VLDL Cholesterol HDL Cholesterol TSH Urine Color YELLOW Urine Appearance CLEAR Urine pH 5.0 Ur Specific [place] 1.016 Urine Protein NEGATIVE Urine Glucose (UA) >=500 H Urine Ketones NEGATIVE Urine Blood NEGATIVE Urine Nitrite NEGATIVE Ur Leukocyte Esterase NEGATIVE Urine WBC (Auto) 1 Urine RBC (Auto) 1 02/08/20 02/09/20 02/09/20 23:03 02:49 07:48 WBC RBC Hgb Hct MCV MCH MCHC RDW Plt Count Seg Neutrophils % Carbonic Acid HCO3/H2CO3 Ratio ABG pH ABG pCO2 ABG pO2 ABG HCO3 ABG O2 Saturation ABG Base Excess FiO2 Sodium Potassium Chloride Carbon Dioxide Anion Gap BUN Creatinine Est GFR ( Amer) Glucose Lactic Acid 1.9 2.1 1.2 Calcium Magnesium Total Bilirubin AST Alkaline Phosphatase Total Protein Albumin Triglycerides Cholesterol LDL Cholesterol Direct VLDL Cholesterol HDL Cholesterol TSH Urine Color Urine Appearance Urine pH Ur Specific [place] Urine Protein Urine Glucose (UA) Urine Ketones Urine Blood Urine Nitrite Ur Leukocyte Esterase Urine WBC (Auto) Urine RBC (Auto) 02/09/20 02/09/20 02/09/20 07:48 07:48 07:48 WBC 15.1 H RBC 4.14 L Hgb 11.7 L Hct 33.5 L MCV 81 MCH 28.2 MCHC 34.8 RDW 16.6 H Plt Count 614 H Seg Neutrophils % Carbonic Acid HCO3/H2CO3 Ratio ABG pH ABG pCO2 ABG pO2 ABG HCO3 ABG O2 Saturation ABG Base Excess FiO2 Sodium 138.9 Potassium 4.7 Chloride 99 Carbon Dioxide 26 Anion Gap 14 BUN 18 Creatinine 0.60 Est GFR ( Amer) > 60 Glucose 93 Lactic Acid Calcium 9.6 Magnesium 1.9 Total Bilirubin AST Alkaline Phosphatase Total Protein Albumin Triglycerides 85 Cholesterol 123.58 LDL Cholesterol Direct 67 VLDL Cholesterol 17.0 HDL Cholesterol 29 L TSH 1.77 Urine Color Urine Appearance Urine pH Ur Specific [place] Urine Protein Urine Glucose (UA) Urine Ketones Urine Blood Urine Nitrite Ur Leukocyte Esterase Urine WBC (Auto) Urine RBC (Auto) 02/09/20 11:03 WBC RBC Hgb Hct MCV MCH MCHC RDW Plt Count Seg Neutrophils % Carbonic Acid HCO3/H2CO3 Ratio ABG pH ABG pCO2 ABG pO2 ABG HCO3 ABG O2 Saturation ABG Base Excess FiO2 Sodium Potassium Chloride Carbon Dioxide Anion Gap BUN Creatinine Est GFR ( Amer) Glucose Lactic Acid 1.4 Calcium Magnesium Total Bilirubin AST Alkaline Phosphatase Total Protein Albumin Triglycerides Cholesterol LDL Cholesterol Direct VLDL Cholesterol HDL Cholesterol TSH Urine Color Urine Appearance Urine pH Ur Specific [place] Urine Protein Urine Glucose (UA) Urine Ketones Urine Blood Urine Nitrite Ur Leukocyte Esterase Urine WBC (Auto) Urine RBC (Auto) 02/08/20 02/08/20 19:33 19:33 Creatine Kinase < 20 L CK-MB (CK-2) 0.54 Troponin I < 0.012 NT-Pro-B Natriuret Pep 603 H Impressions: Chest X-Ray 02/08/20 19:02 IMPRESSION: Borderline heart size. Extensive airspace disease in both lungs, pneumonia versus asymmetric pulmonary edema. Small right pleural effusion. Assessment and Plan - Diagnosis (1) Acute respiratory failure with hypoxia Is this a current diagnosis for this admission?: Yes Plan: 02/09/2020 The patient reports not needing oxygen at home. He is requiring 2 L nasal cannula to keep saturations greater than 90%. Will treat comorbidities and attempt to wean oxygen to room air. (2) Pneumonia due to Klebsiella pneumoniae Qualifiers: Laterality: bilateral Is this a current diagnosis for this admission?: Yes Plan: 02/09/2020 In December 2019 the patient had pneumonia from Klebsiella pneumonia and yeast was present. He has had multiple blood cultures in the past positive for Klebsiella as well. In September 2019 his sputum had Patience with reduced normal rodolfo. His x-ray shows diffuse bilateral pneumonia. He is currently on meropenem. I have added micafungin for possible candidiasis/fungal pneumonia. I have asked for a sputum culture for yeast primarily as the patient has been on meropenem. (3) Candidiasis of lung Is this a current diagnosis for this admission?: Yes Plan: 02/09/2020 As above (4) Lactic acidosis Is this a current diagnosis for this admission?: Yes Plan: 02/09/2020 Lactic acid was 3.1 on admission but is now normal. (5) Leukocytosis Qualifiers: Leukocytosis type: unspecified Qualified Code(s): D72.829 - Elevated white blood cell count, unspecified Is this a current diagnosis for this admission?: Yes Plan: 02/09/2020 White blood cell count is actually slightly higher today. He does have a significant bilateral pneumonia. We will continue meropenem and micafungin and continue to monitor serial CBCs. (6) Diabetes mellitus type 2 in nonobese Is this a current diagnosis for this admission?: Yes Plan: 02/09/2020 Hemoglobin A1c was greater than 9%. He will continue his oral medications. He normally takes a large dose of Levemir daily. If his sliding scale requirements are high I will reintroduce long-acting insulin and adjust based on his Accu- Cheks. (7) Chronic systolic congestive heart failure Is this a current diagnosis for this admission?: Yes Plan: 02/09/2020 In September 2019 the patient had an ejection fraction of 40% by echocardiogram. We will monitor his intake and output. We will watch for volume overload. Net fluid balance is fairly neutral at this point. (8) Liver abscess Is this a current diagnosis for this admission?: Yes Plan: 02/09/2020 The patient has multiple liver abscesses. This is based on a CT scan from September 2019. If his blood cultures are positive for Klebsiella then it is worth rescanning his abdomen. There certainly could be anaerobes. He has not traveled outside [place] so parasitic lesions are less likely. We will continue to monitor the patient's progress. I did asked the patient if he had ever had a PICC line with long-term antibiotic therapy. He said he has not. This might be a consideration. - Plan Summary Summary: Patient is admitted to the medical floor where he will receive routine supportive and symptomatic cares. He will be treated with IV fluids and antibiotics utilizing meropenem. Serial lactic acid levels will be performed. Patient will receive supplemental oxygen via nasal cannula with possible use of noninvasive airway pressure support devices such as BiPAP. Patient received aggressive pulmonary toilet utilizing nebulized Xopenex, Atrovent and Mucomyst. CBCs, metabolic profiles and magnesium levels will be obtained as required. Before meals and at bedtime Accu-Cheks will be obtained and the patient be treated with a sliding scale insulin for hyperglycemia with a hypoglycemic p rotocol in place. Patient will be on a cardiac and diabetic restricted diet. Patient's usual home medications will be continued as appropriate once his medication list has been verified and reconciled. - Time Time Spent with patient: 15-24 minutes Medications reviewed and adjusted accordingly: Yes Anticipated discharge: Home
--- NOTE | 2020-02-09 13:56 | EKG REPORT ---
SEVERITY:- BORDERLINE ECG - SINUS TACHYCARDIA PROBABLE LEFT ATRIAL ABNORMALITY BORDERLINE T ABNORMALITIES, ANT-LAT LEADS : Confirmed by: Elvia Russell MD 09-Feb-2020 13:54:49
--- NOTE | 2020-02-09 13:56 | EKG REPORT ---
SEVERITY:- BORDERLINE ECG - SINUS TACHYCARDIA PROBABLE LEFT ATRIAL ABNORMALITY : Confirmed by: Elvia Russell MD 09-Feb-2020 13:54:45
[2020-02-09] MEDS: GLIPIZIDE 10 MG TABLET PO SCH (17:37)
[2020-02-09] MEDS: METFORMIN HCL 500 MG TABLET PO SCH (17:37)
[2020-02-09] MEDS: MICAFUNGIN SODIUM 100 MG in NORMAL SALINE 100 ML IV SCH (17:39)
[2020-02-09] MEDS: METOPROLOL SUCCINATE 50 MG TAB.SR.24H PO SCH (22:36)
[2020-02-09] MEDS: SIMVASTATIN 40 MG TABLET PO SCH (22:36)
[2020-02-10] MEDS: OXYCODONE-ACETAMINOPHEN 5-325 MG TABLET PO PRN ×2 (02:50→23:07)
[2020-02-10 05:29] LABS: HEMATOCRIT 35.6 % (37.9-51.0); HEMOGLOBIN 11.7 g/dL (13.5-17.0); MEAN CORPUSCULAR HEMOGLOBIN 26.8 pg (27.0-33.4); MEAN CORPUSCULAR HGB CONC 32.8 g/dL (32.0-36.0); MEAN CORPUSCULAR VOLUME 82 fl (80-97); PLATELET COUNT 614 10^3/uL (150-450); RED BLOOD COUNT 4.36 10^6/uL (4.35-5.55); RED CELL DISTRIBUTION WIDTH 16.3 % (11.5-14.0)
[2020-02-10] MEDS: HEPARIN SOD (PORCINE) 5,000 UNIT/ML 1 ML VIAL SUBCUT SCH ×3 (05:37→21:56)
[2020-02-10] MEDS: MEROPENEM 1 GM in NORMAL SALINE 50 ML IV SCH (05:37)
[2020-02-10 05:54] LABS: ANION GAP 11 (5-19); BLOOD UREA NITROGEN 16 mg/dL (7-20); CALCIUM 9.6 mg/dL (8.4-10.2); CARBON DIOXIDE 25 mmol/L (22-30); CHLORIDE 100 mmol/L (98-107); GLUCOSE 156 mg/dL (75-110); POTASSIUM 5.6 mmol/L (3.6-5.0)
[2020-02-10] MEDS: METFORMIN HCL 500 MG TABLET PO SCH ×2 (07:56→16:10)
[2020-02-10] MEDS: ACETYLCYSTEINE 20% SOLN 800 MG/4 ML VIAL.NEB NEB SCH (08:34)
[2020-02-10] MEDS: IPRATROPIUM BROMIDE 0.02% NEB 0.5 MG/2.5 ML AMPUL NEB SCH ×3 (08:34→20:29)
[2020-02-10] MEDS: LEVALBUTEROL HCL NEB 1.25 MG/3 ML AMPUL NEB SCH ×4 (08:34→20:29)
[2020-02-10] MEDS: DOCUSATE SODIUM 100 MG CAPSULE PO SCH ×2 (10:55→17:21)
[2020-02-10] MEDS: FAMOTIDINE 20 MG TABLET PO SCH ×2 (10:55→21:56)
[2020-02-10] MEDS: GLIPIZIDE 10 MG TABLET PO SCH ×2 (10:55→17:21)
--- NOTE | 2020-02-10 11:41 | PDOC PROGRESS REPORT ---
Subjective Progress Note for:: 02/10/20 Subjective:: The patient is feeling slightly better. He actually has saturation of 96% on room air. I did take his oxygen off this morning. We will see how he does with exertion. He is still coughing up sputum. It is still white. I will make sure he is on maximum mucolytic's. In addition he does report that the nebulizer treatments make him feel better. He has a nebulizer machine at home. I will increase the scheduled frequency as well. 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 ABSENT: bleeding, drainage Mouth exam: PRESENT: moist, tongue midline Respiratory exam: PRESENT: prolonged expiratory phas, rhonchi - Diffuse bilateral rhonchi, symmetrical, unlabored. ABSENT: accessory muscle use, rales, tachypnea, wheezes Cardiovascular exam: PRESENT: RRR, +S1, +S2. ABSENT: diastolic murmur, gallop, systolic murmur GI/Abdominal exam: PRESENT: normal bowel sounds, soft. ABSENT: distended, guarding, tenderness Rectal exam: PRESENT: deferred Gentrourinary exam: ABSENT: indwelling catheter Extremities exam: ABSENT: joint swelling, pedal edema Musculoskeletal exam: PRESENT: ambulatory, full ROM, normal inspection. ABSENT: deformity Neurological exam: PRESENT: alert, awake, oriented to person, oriented to place, oriented to situation, CN II-XII grossly intact Psychiatric exam: PRESENT: flat affect. ABSENT: agitated, anxious, unusual affect Focused psych exam: ABSENT: delusional, paranoid, restlessness Skin exam: PRESENT: dry, normal color, warm. ABSENT: rash Results Laboratory Results: 02/10/20 05:06 02/10/20 05:06 02/09/20 02/10/20 02/10/20 11:03 05:06 05:06 WBC 12.0 H RBC 4.36 Hgb 11.7 L Hct 35.6 L MCV 82 MCH 26.8 L MCHC 32.8 RDW 16.3 H Plt Count 614 H Sodium 136.4 L Potassium 5.6 H Chloride 100 Carbon Dioxide 25 Anion Gap 11 BUN 16 Creatinine 0.57 Est GFR ( Amer) > 60 Glucose 156 H Lactic Acid 1.4 Calcium 9.6 Magnesium 2.0 02/08/20 02/08/20 19:33 19:33 Creatine Kinase < 20 L CK-MB (CK-2) 0.54 Troponin I < 0.012 NT-Pro-B Natriuret Pep 603 H Impressions: Chest X-Ray 02/08/20 19:02 IMPRESSION: Borderline heart size. Extensive airspace disease in both lungs, pneumonia versus asymmetric pulmonary edema. Small right pleural effusion. Assessment and Plan - Diagnosis (1) Acute respiratory failure with hypoxia Is this a current diagnosis for this admission?: Yes Plan: 02/09/2020 The patient reports not needing oxygen at home. He is requiring 2 L nasal cannula to keep saturations greater than 90%. Will treat comorbidities and attempt to wean oxygen to room air. 02/10/2020 At rest on room air the patient's oxygen saturation was 96%. I will leave him on room air. We will see if he drops while walking to the bathroom. I believe he will be able to stay off of the oxygen at this point. I am going to increase his nebulizer treatments and add a flutter valve to help with pulmonary toilet (2) Pneumonia due to Klebsiella pneumoniae Qualifiers: Laterality: bilateral Is this a current diagnosis for this admission?: Yes Plan: 02/09/2020 In December 2019 the patient had pneumonia from Klebsiella pneumonia and yeast was present. He has had multiple blood cultures in the past positive for Klebsiella as well. In September 2019 his sputum had Patience with reduced normal rodolfo. His x-ray shows diffuse bilateral pneumonia. He is currently on meropenem. I have added micafungin for possible candidiasis/fungal pneumonia. I have asked for a sputum culture for yeast primarily as the patient has been on meropenem. 02/10/2020 The final sensitivities from the previous Klebsiella are complete. It was sensitive to ceftriaxone with an MARIELLA of less than 1. He will remain on the antibiotics but I will change to ceftriaxone and as he may need extended antibiotic therapy at home and this would be most suitable to a PICC line and once a day dosing. It is likely that a CT scan of the abdomen to reassess the liver abscesses will help determine length of treatment. He needs less oxygen and is actually on a trial of room air. He still has a productive cough and I am increasing his pulmonary toilet regimen (3) Candidiasis of lung Is this a current diagnosis for this admission?: Yes Plan: 02/09/2020 As above 02/10/2020 The patient had Patience in several sputum specimens in the past. We did submit a sputum culture yesterday. I started micafungin therapy as it could easily be a yeast infection in the lungs. We will continue the micafungin at this time. (4) Leukocytosis Qualifiers: Leukocytosis type: unspecified Qualified Code(s): D72.829 - Elevated white blood cell count, unspecified Is this a current diagnosis for this admission?: Yes Plan: 02/09/2020 White blood cell count is actually slightly higher today. He does have a significant bilateral pneumonia. We will continue meropenem and micafungin and continue to monitor serial CBCs. 02/10/2020 The white blood cell count is down to 12,000. I expect it to be in the normal range tomorrow. Continue antibiotic therapy. (5) Diabetes mellitus type 2 in nonobese Is this a current diagnosis for this admission?: Yes Plan: 02/09/2020 Hemoglobin A1c was greater than 9%. He will continue his oral medications. He normally takes a large dose of Levemir daily. If his sliding scale requirements are high I will reintroduce long-acting insulin and adjust based on his Accu- Cheks. 02/10/2020 Fingersticks are quite variable. They tend to be higher earlier in the day. I will add a small dose of Lantus in the evening and monitor Accu-Cheks. (6) Chronic systolic congestive heart failure Is this a current diagnosis for this admission?: Yes Plan: 02/09/2020 In September 2019 the patient had an ejection fraction of 40% by echocardiogram. We will monitor his intake and output. We will watch for volume overload. Net fluid balance is fairly neutral at this point. 02/10/2020 Continue current regimen (7) Liver abscess Is this a current diagnosis for this admission?: Yes Plan: 02/09/2020 The patient has multiple liver abscesses. This is based on a CT scan from September 2019. If his blood cultures are positive for Klebsiella then it is worth rescanning his abdomen. There certainly could be anaerobes. He has not traveled outside [facility] so parasitic lesions are less likely. We will continue to monitor the patient's progress. I did asked the patient if he had ever had a PICC line with long-term antibiotic therapy. He said he has not. This might be a consideration. 02/10/2020 I am going to repeat a CT scan of the liver. If there are still multiple abscesses the patient would benefit from long-term antibiotic therapy and possible aspiration of a cyst. (8) Lactic acidosis Is this a current diagnosis for this admission?: Yes Plan: 02/09/2020 Lactic acid was 3.1 on admission but is now normal. 02/10/2020 Resolved - Plan Summary Summary: Patient is admitted to the medical floor where he will receive routine supportive and symptomatic cares. He will be treated with IV fluids and an tibiotics utilizing meropenem. Serial lactic acid levels will be performed. Patient will receive supplemental oxygen via nasal cannula with possible use of noninvasive airway pressure support devices such as BiPAP. Patient received aggressive pulmonary toilet utilizing nebulized Xopenex, Atrovent and Mucomyst. CBCs, metabolic profiles and magnesium levels will be obtained as required. Before meals and at bedtime Accu-Cheks will be obtained and the patient be treated with a sliding scale insulin for hyperglycemia with a hypoglycemic protocol in place. Patient will be on a cardiac and diabetic restricted diet. Patient's usual home medications will be continued as appropriate once his me dication list has been verified and reconciled. - Time Time Spent with patient: 15-24 minutes Medications reviewed and adjusted accordingly: Yes
[2020-02-10] MEDS: METOPROLOL SUCCINATE 50 MG TAB.SR.24H PO SCH ×2 (12:05→21:57)
[2020-02-10] MEDS ORDERED: SODIUM POLYSTYRENE SULFONATE 15 GM/60 ML PO ONE (12:30)
[2020-02-10] MEDS: INSULIN REG, HUMAN 100 UNIT/ML 3 ML VIAL (PYX) SUBCUT PRN (12:45)
[2020-02-10] MEDS ORDERED: CEFTRIAXONE 2 GM/D5W RTU 2 GM/50 ML RTUPB IV ONE (14:30)
[2020-02-10] MEDS: MICAFUNGIN SODIUM 100 MG in NORMAL SALINE 100 ML IV SCH (18:11)
[2020-02-10] MEDS: GUAIFENESIN 600 MG TABLET.SA PO SCH (21:56)
[2020-02-10] MEDS: SIMVASTATIN 40 MG TABLET PO SCH (21:57)
[2020-02-10] MEDS ORDERED: INSULIN GLARGINE,HUM.REC.ANLOG 1,000 UNIT/10 ML VIAL SUBCUT SCH (22:00)
[2020-02-11] MEDS: IPRATROPIUM BROMIDE 0.02% NEB 0.5 MG/2.5 ML AMPUL NEB SCH ×3 (02:22→14:24)
[2020-02-11] MEDS: LEVALBUTEROL HCL NEB 1.25 MG/3 ML AMPUL NEB SCH ×3 (02:22→14:24)
[2020-02-11] MEDS: HEPARIN SOD (PORCINE) 5,000 UNIT/ML 1 ML VIAL SUBCUT SCH ×3 (05:38→22:25)
[2020-02-11 06:10] LABS: HEMATOCRIT 35.5 % (37.9-51.0); HEMOGLOBIN 11.6 g/dL (13.5-17.0); MEAN CORPUSCULAR HEMOGLOBIN 26.8 pg (27.0-33.4); MEAN CORPUSCULAR HGB CONC 32.8 g/dL (32.0-36.0); MEAN CORPUSCULAR VOLUME 82 fl (80-97); PLATELET COUNT 564 10^3/uL (150-450); RED BLOOD COUNT 4.34 10^6/uL (4.35-5.55); RED CELL DISTRIBUTION WIDTH 16.4 % (11.5-14.0); WHITE BLOOD COUNT 12.7 10^3/uL (4.0-10.5)
[2020-02-11 06:28] LABS: CARBON DIOXIDE 26 mmol/L (22-30); CHLORIDE 101 mmol/L (98-107)
[2020-02-11 06:29] LABS: BLOOD UREA NITROGEN 13 mg/dL (7-20); CALCIUM 9.5 mg/dL (8.4-10.2); POTASSIUM 5.2 mmol/L (3.6-5.0)
[2020-02-11 06:31] LABS: ANION GAP 12 (5-19)
[2020-02-11 06:34] LABS: GLUCOSE 69 mg/dL (75-110)
[2020-02-11] MEDS: METFORMIN HCL 500 MG TABLET PO SCH ×2 (08:10→15:16)
[2020-02-11] MEDS ORDERED: PROMETHAZINE HCL INJ 25 MG/1 ML VIAL IV PRN (08:30)
[2020-02-11] MEDS: METOPROLOL SUCCINATE 50 MG TAB.SR.24H PO SCH ×2 (09:38→22:31)
[2020-02-11] MEDS: CEFTRIAXONE 2 GM/D5W RTU 2 GM/50 ML RTUPB IV SCH (09:38)
[2020-02-11] MEDS: GUAIFENESIN 600 MG TABLET.SA PO SCH ×2 (09:38→22:26)
[2020-02-11] MEDS: DOCUSATE SODIUM 100 MG CAPSULE PO SCH ×2 (09:38→17:20)
[2020-02-11] MEDS: GLIPIZIDE 10 MG TABLET PO SCH ×2 (09:38→17:20)
[2020-02-11] MEDS: FAMOTIDINE 20 MG TABLET PO SCH ×2 (09:40→22:27)
[2020-02-11] MEDS ORDERED: ALBUTEROL SULFATE HFA (90 MCG/PUFF) 8 GM MDI IH PRN (14:47)
[2020-02-11] MEDS ORDERED: LEVALBUTEROL HCL NEB 1.25 MG/3 ML AMPUL NEB PRN (14:47)
[2020-02-11] MEDS ORDERED: SODIUM POLYSTYRENE SULFONATE 15 GM/60 ML PO ONE (14:48)
--- NOTE | 2020-02-11 14:56 | PDOC PROGRESS REPORT ---
Subjective Progress Note for:: 02/11/20 Subjective:: The patient is resting in bed. He is complaining more about his pain than his breathing. He did state that earlier when he got up to go the bathroom he was short of breath. He reports that he is still coughing up sputum. 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 ABSENT: prolonged expiratory phas, rales, tachypnea, wheezes Cardiovascular exam: PRESENT: RRR, +S1, +S2 GI/Abdominal exam: PRESENT: normal bowel sounds, soft. ABSENT: distended, tenderness Rectal exam: PRESENT: deferred Gentrourinary exam: ABSENT: indwelling catheter Musculoskeletal exam: PRESENT: ambulatory, normal inspection Neurological exam: PRESENT: alert, awake, oriented to person, oriented to place, oriented to time, oriented to situation, CN II-XII grossly intact Psychiatric exam: PRESENT: flat affect. ABSENT: agitated, anxious Results Laboratory Results: 02/11/20 05:13 02/11/20 05:13 02/11/20 02/11/20 05:13 05:13 WBC 12.7 H RBC 4.34 L Hgb 11.6 L Hct 35.5 L MCV 82 MCH 26.8 L MCHC 32.8 RDW 16.4 H Plt Count 564 H Sodium 138.8 Potassium 5.2 H Chloride 101 Carbon Dioxide 26 Anion Gap 12 BUN 13 Creatinine 0.52 Est GFR ( Amer) > 60 Glucose 69 L Calcium 9.5 Magnesium 2.1 02/09/20 19:42 Sputum Gram Stain - Final 02/09/20 19:42 Sputum Sputum Culture - Final C.albicans/C.dubliniensis Normal Rodolfo 02/08/20 02/08/20 19:33 19:33 Creatine Kinase < 20 L CK-MB (CK-2) 0.54 Troponin I < 0.012 NT-Pro-B Natriuret Pep 603 H Impressions: Chest X-Ray 02/08/20 19:02 IMPRESSION: Borderline heart size. Extensive airspace disease in both lungs, pneumonia versus asymmetric pulmonary edema. Small right pleural effusion. Assessment and Plan - Diagnosis (1) Acute respiratory failure with hypoxia Is this a current diagnosis for this admission?: Yes Plan: 02/09/2020 The patient reports not needing oxygen at home. He is requiring 2 L nasal cannula to keep saturations greater than 90%. Will treat comorbidities and attempt to wean oxygen to room air. 02/10/2020 At rest on room air the patient's oxygen saturation was 96%. I will leave him on room air. We will see if he drops while walking to the bathroom. I believe he will be able to stay off of the oxygen at this point. I am going to increase his nebulizer treatments and add a flutter valve to help with pulmonary toilet 02/11/2020 Patient still requires nasal cannula however during this encounter he was not wearing his oxygen and seemed quite comfortable. Continue pulmonary toilet regimen. To decrease exposure will be changing him to Trelegy and as needed medications. (2) Pneumonia due to Klebsiella pneumoniae Qualifiers: Laterality: bilateral Is this a current diagnosis for this admission?: Yes Plan: 02/09/2020 In December 2019 the patient had pneumonia from Klebsiella pneumonia and yeast was present. He has had multiple blood cultures in the past positive for Klebsiella as well. In September 2019 his sputum had Patience with reduced normal rodolfo. His x-ray shows diffuse bilateral pneumonia. He is currently on meropen em. I have added micafungin for possible candidiasis/fungal pneumonia. I have asked for a sputum culture for yeast primarily as the patient has been on meropenem. 02/10/2020 The final sensitivities from the previous Klebsiella are complete. It was sensitive to ceftriaxone with an MARIELLA of less than 1. He will remain on the antibiotics but I will change to ceftriaxone and as he may need extended a ntibiotic therapy at home and this would be most suitable to a PICC line and once a day dosing. It is likely that a CT scan of the abdomen to reassess the liver abscesses will help determine length of treatment. He needs less oxygen and is actually on a trial of room air. He still has a productive cough and I am increasing his pulmonary toilet regimen 02/11/2020 Ceftriaxone through February 17. We may need to obtain a CT scan to check the liver. He may need prolonged antibiotic therapy. I am trying to wait for a negative Covid-19 screen before sending him to radiology. His results should be back in the next day or 2. (3) Candidiasis of lung Is this a current diagnosis for this admission?: Yes Plan: 02/09/2020 As above 02/10/2020 The patient had Patience in several sputum specimens in the past. We did submit a sputum culture yesterday. I started micafungin therapy as it could easily be a yeast infection in the lungs. We will continue the micafungin at this time. 02/11/2020 His current sputum came back with the same Patience as before. I will continue the micafungin. (4) Leukocytosis Qualifiers: Leukocytosis type: unspecified Qualified Code(s): D72.829 - Elevated white blood cell count, unspecified Is this a current diagnosis for this admission?: Yes Plan: 02/09/2020 White blood cell count is actually slightly higher today. He does have a significant bilateral pneumonia. We will continue meropenem and micafungin and continue to monitor serial CBCs. 02/10/2020 The white blood cell count is down to 12,000. I expect it to be in the normal range tomorrow. Continue antibiotic therapy. 02/11/2020 Slightly higher today. Not a worrisome increase. Continue to monitor. (5) Diabetes mellitus type 2 in nonobese Is this a current diagnosis for this admission?: Yes Plan: 02/09/2020 Hemoglobin A1c was greater than 9%. He will continue his oral medications. He normally takes a large dose of Levemir daily. If his sliding scale requirements are high I will reintroduce long-acting insulin and adjust based on his Accu- Cheks. 02/10/2020 Fingersticks are quite variable. They tend to be higher earlier in the day. I will add a small dose of Lantus in the evening and monitor Accu-Cheks. 02/11/2020 Will be starting Lantus in the evening. We will give it a day or 2 before adjusting the dose. (6) Chronic systolic congestive heart failure Is this a current diagnosis for this admission?: Yes Plan: 02/09/2020 In September 2019 the patient had an ejection fraction of 40% by echocardiogram. We will monitor his intake and output. We will watch for volume overload. Net fluid balance is fairly neutral at this point. 02/10/2020 Continue current regimen 02/11/2020 Continue to maintain a neutral fluid status. No longer on IV fluid. (7) Liver abscess Is this a current diagnosis for this admission?: Yes Plan: 02/09/2020 The patient has multiple liver abscesses. This is based on a CT scan from September 2019. If his blood cultures are positive for Klebsiella then it is worth rescanning his abdomen. There certainly could be anaerobes. He has not traveled outside [facility] so parasitic lesions are less likely. We will continue to monitor the patient's progress. I did asked the patient if he had ever had a PICC line with long-term antibiotic therapy. He said he has not. This might be a consideration. 02/10/2020 I am going to repeat a CT scan of the liver. If there are still multiple abscesses the patient would benefit from long-term antibiotic therapy and possi ble aspiration of a cyst. (8) Lactic acidosis Is this a current diagnosis for this admission?: Yes Plan: 02/09/2020 Lactic acid was 3.1 on admission but is now normal. 02/10/2020 Resolved - Plan Summary Summary: Patient is admitted to the medical floor where he will receive routine supportiv e and symptomatic cares. He will be treated with IV fluids and antibiotics utilizing meropenem. Serial lactic acid levels will be performed. Patient will receive supplemental oxygen via nasal cannula with possible use of noninvasive airway pressure support devices such as BiPAP. Patient received aggressive pulmonary toilet utilizing nebulized Xopenex, Atrovent and Mucomyst. CBCs, metabolic profiles and magnesium levels will be obtained as required. Before meals and at bedtime Accu-Cheks will be obtained and the patient be treated with a sliding scale insulin for hyperglycemia with a hypoglycemic protocol in place. Patient will be on a cardiac and diabetic restricted diet. Patient's usual home medications will be continued as appropriate once his medication list has been verified and reconciled. - Time Time Spent with patient: 15-24 minutes Medications reviewed and adjusted accordingly: Yes Anticipated discharge: Home
[2020-02-11] MEDS: OXYCODONE-ACETAMINOPHEN 5-325 MG TABLET PO PRN ×2 (15:16→22:27)
[2020-02-11] MEDS: MICAFUNGIN SODIUM 100 MG in NORMAL SALINE 100 ML IV SCH (17:20)
[2020-02-11] MEDS: SIMVASTATIN 40 MG TABLET PO SCH (22:25)
[2020-02-11] MEDS: INSULIN GLARGINE,HUM.REC.ANLOG 1,000 UNIT/10 ML VIAL SUBCUT SCH (22:25)
[2020-02-12] MEDS: HEPARIN SOD (PORCINE) 5,000 UNIT/ML 1 ML VIAL SUBCUT SCH ×3 (05:12→22:33)
[2020-02-12 05:50] LABS: ANION GAP 11 (5-19); BLOOD UREA NITROGEN 14 mg/dL (7-20); CALCIUM 9.4 mg/dL (8.4-10.2); CARBON DIOXIDE 26 mmol/L (22-30); CHLORIDE 99 mmol/L (98-107); POTASSIUM 5.4 mmol/L (3.6-5.0)
[2020-02-12 06:10] LABS: GLUCOSE 61 mg/dL (75-110)
[2020-02-12] MEDS: GUAIFENESIN 600 MG TABLET.SA PO SCH ×2 (09:12→22:33)
[2020-02-12] MEDS: GLIPIZIDE 10 MG TABLET PO SCH ×2 (09:12→17:03)
[2020-02-12] MEDS: DOCUSATE SODIUM 100 MG CAPSULE PO SCH ×2 (09:12→17:03)
[2020-02-12] MEDS: FAMOTIDINE 20 MG TABLET PO SCH ×2 (09:12→22:33)
[2020-02-12] MEDS: METFORMIN HCL 500 MG TABLET PO SCH ×2 (09:12→16:15)
[2020-02-12] MEDS: CEFTRIAXONE 2 GM/D5W RTU 2 GM/50 ML RTUPB IV SCH (09:12)
[2020-02-12] MEDS: METOPROLOL SUCCINATE 50 MG TAB.SR.24H PO SCH ×2 (09:12→22:33)
[2020-02-12] MEDS: FLUTICASONE/UMECLIDIN/VILANTER 100-62.5-25 MCG/DOSE IH SCH (09:13)
--- NOTE | 2020-02-12 14:48 | PDOC PROGRESS REPORT ---
Subjective Progress Note for:: 02/12/20 Subjective:: No adverse events overnight. He is down to 2 L nasal cannula. He is very talkative and his speech is a bit rambling. Appetite is been fair. 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 ABSENT: accessory muscle use, chest wall tenderness, crackles, prolonged expiratory phas, retraction, tachypnea, wheezes Cardiovascular exam: PRESENT: RRR, +S1, +S2 Pulses: PRESENT: normal carotid pulses Vascular exam: PRESENT: normal capillary refill GI/Abdominal exam: PRESENT: normal bowel sounds, soft. ABSENT: distended, guarding, rebound, tenderness Extremities exam: ABSENT: clubbing, pedal edema Musculoskeletal exam: PRESENT: normal inspection. ABSENT: deformity Neurological exam: PRESENT: awake, oriented to person, oriented to place, oriented to situation Psychiatric exam: PRESENT: flat affect Skin exam: PRESENT: dry, warm Results Laboratory Results: 02/11/20 05:13 02/12/20 04:20 02/12/20 04:20 Sodium 136.1 L Potassium 5.4 H Chloride 99 Carbon Dioxide 26 Anion Gap 11 BUN 14 Creatinine 0.68 Est GFR ( Amer) > 60 Glucose 61 L Calcium 9.4 02/09/20 19:42 Sputum Gram Stain - Final 02/09/20 19:42 Sputum Sputum Culture - Final C.albicans/C.dubliniensis Normal Dotty 02/08/20 02/08/20 19:33 19:33 Creatine Kinase < 20 L CK-MB (CK-2) 0.54 Troponin I < 0.012 NT-Pro-B Natriuret Pep 603 H Impressions: Chest X-Ray 02/08/20 19:02 IMPRESSION: Borderline heart size. Extensive airspace disease in both lungs, pneumonia versus asymmetric pulmonary edema. Small right pleural effusion. Assessment and Plan - Diagnosis (1) Candidiasis of lung Is this a current diagnosis for this admission?: Yes Plan: Continue micafungin (2) Chronic systolic congestive heart failure Is this a current diagnosis for this admission?: Yes Plan: Not acutely exacerbated (3) Diabetes mellitus type 2 in nonobese Is this a current diagnosis for this admission?: Yes Plan: Continue consistent carbohydrate diet and sliding scale insulin (4) Liver abscess Is this a current diagnosis for this admission?: Yes Plan: Blood cultures have been negative. This is a bit of a chronic issue for him. This was picked up on imaging several months ago. His cultures have been negative so I doubt as if he needs to be reimaged at this time. He does not have a left upper quadrant pain. (5) Pneumonia Qualifiers: Pneumonia type: due to Klebsiella pneumoniae Laterality: bilateral Lung location: unspecified part of lung Qualified Code(s): J15.0 - Pneumonia due to Klebsiella pneumoniae Is this a current diagnosis for this admission?: Yes Plan: This is a presumptive diagnosis. His cultures have been negative. He is currently on antibiotics. Responding well. Down to 2 L nasal cannula. Tests for COVID-19 are pending. (6) Sepsis Qualifiers: Sepsis type: sepsis due to unspecified organism Sepsis acute organ dysfunction status: with acute organ dysfunction Severe sepsis acute organ dysfunction type: acute respiratory failure Acute respiratory failure type: with hypoxia Severe sepsis shock status: without septic shock Qualified Code(s): A41.9 - Sepsis, unspecified organism; R65.20 - Severe sepsis without septic shock; J96.01 - Acute respiratory failure with hypoxia Is this a current diagnosis for this admission?: Yes Plan: Resolved (7) Acute metabolic encephalopathy Is this a current diagnosis for this admission?: Yes Plan: Resolved - Plan Summary Summary: Patient is admitted to the medical floor where he will receive routine supportive and symptomatic cares. He will be treated with IV fluids and antibiotics utilizing meropenem. Serial lactic acid levels will be performed. Patient will receive supplemental oxygen via nasal cannula with possible use of noninvasive airway pressure support devices such as BiPAP. Patient received aggressive pulmonary toilet utilizing nebulized Xopenex, Atrovent and Mucomyst. CBCs, metabolic profiles and magnesium levels will be obtained as required. Before meals and at bedtime Accu-Cheks will be obtained and the patient be treated with a sliding scale insulin for hyperglycemia with a hypoglycemic protocol in place. Patient will be on a cardiac and diabetic restricted diet. Patient's usual home medications will be continued as appropriate once his medication list has been verified and reconciled. - Time Time Spent with patient: 15-24 minutes
[2020-02-12] MEDS: MICAFUNGIN SODIUM 100 MG in NORMAL SALINE 100 ML IV SCH (17:02)
[2020-02-12] MEDS: SIMVASTATIN 40 MG TABLET PO SCH (22:33)
[2020-02-12] MEDS: OXYCODONE-ACETAMINOPHEN 5-325 MG TABLET PO PRN (22:34)
[2020-02-12] MEDS: INSULIN GLARGINE,HUM.REC.ANLOG 1,000 UNIT/10 ML VIAL SUBCUT SCH (22:45)
[2020-02-13] MEDS: HEPARIN SOD (PORCINE) 5,000 UNIT/ML 1 ML VIAL SUBCUT SCH ×3 (06:09→21:47)
[2020-02-13] MEDS: METOPROLOL SUCCINATE 50 MG TAB.SR.24H PO SCH ×2 (09:29→21:15)
[2020-02-13] MEDS: DOCUSATE SODIUM 100 MG CAPSULE PO SCH ×2 (09:29→17:18)
[2020-02-13] MEDS: METFORMIN HCL 500 MG TABLET PO SCH ×2 (09:29→17:18)
[2020-02-13] MEDS: GUAIFENESIN 600 MG TABLET.SA PO SCH ×2 (09:29→21:15)
[2020-02-13] MEDS: CEFTRIAXONE 2 GM/D5W RTU 2 GM/50 ML RTUPB IV SCH (09:29)
[2020-02-13] MEDS: GLIPIZIDE 10 MG TABLET PO SCH ×2 (09:29→17:18)
[2020-02-13] MEDS: FAMOTIDINE 20 MG TABLET PO SCH ×2 (09:40→21:47)
[2020-02-13] MEDS: FLUTICASONE/UMECLIDIN/VILANTER 100-62.5-25 MCG/DOSE IH SCH (09:42)
[2020-02-13 10:58] LABS: ANION GAP 15 (5-19); BLOOD UREA NITROGEN 16 mg/dL (7-20); CALCIUM 10.2 mg/dL (8.4-10.2); CARBON DIOXIDE 23 mmol/L (22-30); CHLORIDE 98 mmol/L (98-107); GLUCOSE 144 mg/dL (75-110); POTASSIUM 5.1 mmol/L (3.6-5.0)
--- NOTE | 2020-02-13 16:24 | PDOC PROGRESS REPORT ---
Subjective Progress Note for:: 02/13/20 Subjective:: No adverse events overnight. He is off oxygen. He is very talkative and appears comfortable. Appetite is been fair and is improving. 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 ABSENT: accessory muscle use, chest wall tenderness, crackles, prolonged expiratory phas, retraction, tachypnea, wheezes Cardiovascular exam: PRESENT: RRR, +S1, +S2 Pulses: PRESENT: normal carotid pulses Vascular exam: PRESENT: normal capillary refill GI/Abdominal exam: PRESENT: normal bowel sounds, soft. ABSENT: distended, guarding, rebound, tenderness Extremities exam: ABSENT: clubbing, pedal edema Musculoskeletal exam: PRESENT: normal inspection. ABSENT: deformity Neurological exam: PRESENT: awake, oriented to person, oriented to place, oriented to situation Psychiatric exam: PRESENT: flat affect Skin exam: PRESENT: dry, warm Results Laboratory Results: 02/11/20 05:13 02/13/20 10:00 02/13/20 10:00 Sodium 136.0 L Potassium 5.1 H Chloride 98 Carbon Dioxide 23 Anion Gap 15 BUN 16 Creatinine 0.59 Est GFR ( Amer) > 60 Glucose 144 H Calcium 10.2 02/08/20 02/08/20 19:33 19:33 Creatine Kinase < 20 L CK-MB (CK-2) 0.54 Troponin I < 0.012 NT-Pro-B Natriuret Pep 603 H Impressions: Chest X-Ray 02/08/20 19:02 IMPRESSION: Borderline heart size. Extensive airspace disease in both lungs, pneumonia versus asymmetric pulmonary edema. Small right pleural effusion. Assessment and Plan - Diagnosis (1) Candidiasis of lung Is this a current diagnosis for this admission?: Yes Plan: Continue micafungin. He needs it for a total of 2 weeks. (2) Chronic systolic congestive heart failure Is this a current diagnosis for this admission?: Yes Plan: Not acutely exacerbated (3) Diabetes mellitus type 2 in nonobese Is this a current diagnosis for this admission?: Yes Plan: Continue consistent carbohydrate diet and sliding scale insulin (4) Liver abscess Is this a current diagnosis for this admission?: Yes Plan: Blood cultures have been negative. This is a bit of a chronic issue for him. This was picked up on imaging several months ago. His cultures have been negative so I doubt as if he needs to be reimaged at this time. He does not have a left upper quadrant pain. (5) Pneumonia Qualifiers: Pneumonia type: due to Klebsiella pneumoniae Laterality: bilateral Lung location: unspecified part of lung Qualified Code(s): J15.0 - Pneumonia due to Klebsiella pneumoniae Is this a current diagnosis for this admission?: Yes Plan: This is a presumptive diagnosis. His cultures have been negative. He is curre ntly on antibiotics. Responding well. Currently off oxygen. Tests for COVID- 19 are pending. (6) Sepsis Qualifiers: Sepsis type: sepsis due to unspecified organism Sepsis acute organ dysfunction status: with acute organ dysfunction Severe sepsis acute organ dysfunction type: acute respiratory failure Acute respiratory failure type: with hypoxia Severe sepsis shock status: without septic shock Qualified Code(s): A41.9 - Sepsis, unspecified organism; R65.20 - Severe sepsis without septic shock; J96.01 - Acute respiratory failure with hypoxia Is this a current diagnosis for this admission?: Yes Plan: Resolved (7) Acute metabolic encephalopathy Is this a current diagnosis for this admission?: Yes Plan: Resolved - Plan Summary Summary: Patient is admitted to the medical floor where he will receive routine supportive and symptomatic cares. He will be treated with IV fluids and antibiotics utilizing meropenem. Serial lactic acid levels will be performed. Patient will receive supplemental oxygen via nasal cannula with possible use of noninvasive airway pressure support devices such as BiPAP. Patient received aggressive pulmonary toilet utilizing nebulized Xopenex, Atrovent and Mucomyst. CBCs, metabolic profiles and magnesium levels will be obtained as required. Before meals and at bedtime Accu-Cheks will be obtained and the patient be treated with a sliding scale insulin for hyperglycemia with a hypoglycemic protocol in place. Patient will be on a cardiac and diabetic restricted diet. Patient's usual home medications will be continued as appropriate once his medication list has been verified and reconciled. - Time Time Spent with patient: 15-24 minutes
[2020-02-13] MEDS: MICAFUNGIN SODIUM 100 MG in NORMAL SALINE 100 ML IV SCH (17:18)
[2020-02-13] MEDS: SIMVASTATIN 40 MG TABLET PO SCH (21:15)
[2020-02-13] MEDS: INSULIN GLARGINE,HUM.REC.ANLOG 1,000 UNIT/10 ML VIAL SUBCUT SCH (21:48)
[2020-02-14] MEDS: HEPARIN SOD (PORCINE) 5,000 UNIT/ML 1 ML VIAL SUBCUT SCH ×3 (05:20→21:28)
[2020-02-14 06:20] LABS: ANION GAP 11 (5-19); BLOOD UREA NITROGEN 16 mg/dL (7-20); CARBON DIOXIDE 26 mmol/L (22-30); CHLORIDE 98 mmol/L (98-107); GLUCOSE 143 mg/dL (75-110); POTASSIUM 5.5 mmol/L (3.6-5.0)
[2020-02-14] MEDS ORDERED: SODIUM POLYSTYRENE SULFONATE 15 GM/60 ML PO ONE (09:00)
[2020-02-14] MEDS: FAMOTIDINE 20 MG TABLET PO SCH ×2 (09:32→21:29)
[2020-02-14] MEDS: FLUTICASONE/UMECLIDIN/VILANTER 100-62.5-25 MCG/DOSE IH SCH (09:34)
[2020-02-14] MEDS: GUAIFENESIN 600 MG TABLET.SA PO SCH ×2 (09:35→21:29)
[2020-02-14] MEDS: METOPROLOL SUCCINATE 50 MG TAB.SR.24H PO SCH ×2 (09:35→21:29)
[2020-02-14] MEDS: GLIPIZIDE 10 MG TABLET PO SCH ×2 (09:35→17:06)
[2020-02-14] MEDS: DOCUSATE SODIUM 100 MG CAPSULE PO SCH ×2 (09:35→17:06)
[2020-02-14] MEDS: CEFTRIAXONE 2 GM/D5W RTU 2 GM/50 ML RTUPB IV SCH (09:35)
--- NOTE | 2020-02-14 11:18 | PDOC PROGRESS REPORT ---
Subjective Progress Note for:: 02/14/20 Subjective:: 59 year old male presented to the emergency room with a 5-day history of dyspnea. The patient is a very poor historian, who admits to gradually worsening dyspnea over the course of the last 5 days which has become severe today. His dyspnea has been accompanied by increased coughing (nonproductive) and worsening dyspnea on exertion. His dyspnea has been associated with intermittent subjective fevers, generalized weakness, malaise, ague and fatigue. He denies other associated or accompanying signs and symptoms. He admits a prior similar episode due to pneumonia 1 month ago. He has not identified any additional aggravating or ameliorating factors for his dyspnea. In the emergency room he was found to be hypoxic and was also noted to have a leukocytosis and an elevated lactic acid. His chest x-ray showed persistence of his bilateral airspace disease. He was subsequently admitted to the hospital for further evaluation treatment. Patient still has a cough. It is productive of white sputum. He states previously it was yellow. He is still on oxygen but reports that his shortness of breath is slightly improved. He has had repeated episodes of pneumonia with Klebsiella and some sputum specimens in the past have tested positive for yeast. 02/09/20-Patient still has a cough. It is productive of white sputum. He states previously it was yellow. He is still on oxygen but reports that his shortness of breath is slightly improved. He has had repeated episodes of pneumonia with Klebsiella and some sputum specimens in the past have tested positive for yeast. 02/10/20-The patient is feeling slightly better. He actually has saturation of 96% on room air. I did take his oxygen off this morning. We will see how he does with exertion. He is still coughing up sputum. It is still white. I will make sure he is on maximum mucolytic's. In addition he does report that the nebulizer treatments make him feel better. He has a nebulizer machine at home. I will increase the scheduled frequency as well. 02/11/20-The patient is resting in bed. He is complaining more about his pain than his breathing. He did state that earlier when he got up to go the bathroom he was short of breath. He reports that he is still coughing up sputum. 02/12/20-No adverse events overnight. He is down to 2 L nasal cannula. He is very talkative and his speech is a bit rambling. Appetite is been fair. 02/13/20-No adverse events overnight. He is off oxygen. He is very talkative and appears comfortable. Appetite is been fair and is improving. 02/14/2020-patient admitted with healthcare acquired pneumonia. Your blood sugars are better today. Metformin was discontinued. Serum potassium is 5.5 given Kayexalate. Sputum culture is positive for Patience albicans on micafungin. covid test is pending. 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,ACUTE RESPIRATORY Physical Exam Vital Signs: Temp Pulse Resp BP Pulse Ox 97.4 F 83 17 120/68 97 02/14/20 07:26 02/14/20 07:26 02/14/20 02:24 02/14/20 07:26 02/14/20 07:26 Intake & Output 02/13/20 02/14/20 02/15/20 06:59 06:59 06:59 Intake Total 875 1126 50 Output Total 925 1275 Balance -50 -149 50 Weight 65.3 kg 65.5 kg 65.5 kg General appearance: PRESENT: no acute distress, well-developed Head exam: PRESENT: atraumatic Eye exam: PRESENT: PERRLA Mouth exam: PRESENT: dry mucosa Teeth exam: PRESENT: poor dentation Neck exam: ABSENT: carotid bruit, JVD, lymphadenopathy, thyromegaly Respiratory exam: PRESENT: decreased breath sounds Cardiovascular exam: PRESENT: RRR. ABSENT: diastolic murmur, rubs, systolic murmur Vascular exam: PRESENT: normal capillary refill GI/Abdominal exam: PRESENT: normal bowel sounds, soft. ABSENT: distended, guarding, mass, organolmegaly, rebound, tenderness Rectal exam: PRESENT: deferred Extremities exam: PRESENT: full ROM. ABSENT: calf tenderness, clubbing, pedal edema Neurological exam: PRESENT: alert, awake, oriented to person, oriented to place, oriented to time, oriented to situation, CN II-XII grossly intact. ABSENT: motor sensory deficit Psychiatric exam: PRESENT: appropriate affect, normal mood. ABSENT: homicidal ideation, suicidal ideation Results Laboratory Results: 02/11/20 05:13 02/14/20 05:17 02/14/20 05:17 Sodium 135.0 L Potassium 5.5 H Chloride 98 Carbon Dioxide 26 Anion Gap 11 BUN 16 Creatinine 0.67 Est GFR ( Amer) > 60 Glucose 143 H Calcium 10.0 02/08/20 21:16 Blood Blood Culture - Final NO GROWTH IN 5 DAYS 02/08/20 18:30 Blood Blood Culture - Final NO GROWTH IN 5 DAYS 02/08/20 02/08/20 19:33 19:33 Creatine Kinase < 20 L CK-MB (CK-2) 0.54 Troponin I < 0.012 NT-Pro-B Natriuret Pep 603 H Impressions: Chest X-Ray 02/08/20 19:02 IMPRESSION: Borderline heart size. Extensive airspace disease in both lungs, pneumonia versus asymmetric pulmonary edema. Small right pleural effusion. Assessment and Plan - Diagnosis (1) Candidiasis of lung Is this a current diagnosis for this admission?: Yes Plan: Continue micafungin. He needs it for a total of 2 weeks. 02/14/2020-sputum culture is positive for Patience. Present on micafungin. Plan is to give a total of 2 weeks therapy. (2) Chronic systolic congestive heart failure Is this a current diagnosis for this admission?: No Plan: Not acutely exacerbated 02/14/2020-patient has history of chronic systolic heart failure. On examination euvolemic. Blood pressure is 115/66. Stable. (3) Diabetes mellitus type 2 in nonobese Is this a current diagnosis for this admission?: No Plan: Continue consistent carbohydrate diet and sliding scale insulin 02/14/2020-blood sugars are running low in the 60s. Metformin was discontinued. Plan is to continue insulin sliding scale and to continue glipizide. diet ,Exercise, weight loss lifestyle modifications discussed with the patient. (4) Liver abscess Is this a current diagnosis for this admission?: No Plan: Blood cultures have been negative. This is a bit of a chronic issue for him. T his was picked up on imaging several months ago. His cultures have been negative so I doubt as if he needs to be reimaged at this time. He does not have a left upper quadrant pain. (5) Pneumonia Qualifiers: Pneumonia type: due to Klebsiella pneumoniae Laterality: bilateral Lung location: unspecified part of lung Qualified Code(s): J15.0 - Pneumonia due to Klebsiella pneumoniae Is this a current diagnosis for this admission?: Yes Plan: This is a presumptive diagnosis. His cultures have been negative. He is cur rently on antibiotics. Responding well. Currently off oxygen. Tests for COVID-19 are pending. 02/14/2020-pulse ox today is 99% on 2 L. Cover test is pending. Sputum cultures positive for Patience albicans. Blood cultures are negative. (6) Sepsis Qualifiers: Sepsis type: sepsis due to unspecified organism Sepsis acute organ dysfunction status: with acute organ dysfunction Severe sepsis acute organ dysfunction type: acute respiratory failure Acute respiratory failure type: with hypoxia Severe sepsis shock status: without septic shock Qualified Code(s): A41.9 - Sepsis, unspecified organism; R65.20 - Severe sepsis without septic shock; J96.01 - Acute respiratory failure with hypoxia Is this a current diagnosis for this admission?: Yes Plan: Resolved (7) Acute metabolic encephalopathy Is this a current diagnosis for this admission?: Yes Plan: Resolved - Plan Summary Summary: Patient is admitted to the medical floor where he will receive routine supportive and symptomatic cares. He will be treated with IV fluids and antibiotics utilizing meropenem. Serial lactic acid levels will be performed. Patient will receive supplemental oxygen via nasal cannula with possible use of noninvasive airway pressure support devices such as BiPAP. Patient received aggressive pulmonary toilet utilizing nebulized Xopenex, Atrovent and Mucomyst. CBCs, metabolic profiles and magnesium levels will be obtained as required. Before meals and at bedtime Accu-Cheks will be obtained and the patient be treated with a sliding scale insulin for hyperglycemia with a hypoglycemic protocol in place. Patient will be on a cardiac and diabetic restricted diet. Patient's usual home medications will be continued as appropriate once his medication list has been verified and reconciled.
[2020-02-14] MEDS: INSULIN REG, HUMAN 100 UNIT/ML 3 ML VIAL (PYX) SUBCUT PRN (11:23)
[2020-02-14] MEDS: MICAFUNGIN SODIUM 100 MG in NORMAL SALINE 100 ML IV SCH (17:05)
[2020-02-14] MEDS: INSULIN GLARGINE,HUM.REC.ANLOG 1,000 UNIT/10 ML VIAL SUBCUT SCH (21:28)
[2020-02-14] MEDS: SIMVASTATIN 40 MG TABLET PO SCH (21:29)
[2020-02-15] MEDS: HEPARIN SOD (PORCINE) 5,000 UNIT/ML 1 ML VIAL SUBCUT SCH ×3 (05:23→21:33)
[2020-02-15 06:02] LABS: ABSOLUTE EOSINOPHILS # (AUTO) 0.7 10^3/uL (0.0-0.6); ABSOLUTE LYMPHOCYTES (AUTO) 2.3 10^3/uL (0.5-4.7); ABSOLUTE MONOCYTES (AUTO) 0.9 10^3/uL (0.1-1.4); ABSOLUTE NEUT (AUTO) 8.8 10^3/uL (1.7-8.2); BASOPHILS % (AUTO) 0.3 % (0-2); EOSINOPHILS % (AUTO) 5.4 % (0-6); HEMATOCRIT 35.5 % (37.9-51.0); HEMOGLOBIN 12.1 g/dL (13.5-17.0); LYMPHOCYTES % (AUTO) 18.2 % (13-45); MEAN CORPUSCULAR HEMOGLOBIN 27.4 pg (27.0-33.4); MEAN CORPUSCULAR HGB CONC 34.1 g/dL (32.0-36.0); MEAN CORPUSCULAR VOLUME 81 fl (80-97); MONOCYTES % (AUTO) 7.3 % (3-13); PLATELET COUNT 491 10^3/uL (150-450); RED CELL DISTRIBUTION WIDTH 16.9 % (11.5-14.0); SEGMENTED NEUTROPHILS % (AUTO) 68.8 % (42-78); TOTAL CELLS COUNTED % (AUTO) 100 %; WHITE BLOOD COUNT 12.9 10^3/uL (4.0-10.5)
[2020-02-15 07:09] LABS: ANION GAP 11 (5-19); BLOOD UREA NITROGEN 17 mg/dL (7-20); CALCIUM 9.7 mg/dL (8.4-10.2); CARBON DIOXIDE 25 mmol/L (22-30); CHLORIDE 100 mmol/L (98-107); GLUCOSE 183 mg/dL (75-110); POTASSIUM 4.5 mmol/L (3.6-5.0)
[2020-02-15] MEDS: CEFTRIAXONE 2 GM/D5W RTU 2 GM/50 ML RTUPB IV SCH (09:22)
[2020-02-15] MEDS: DOCUSATE SODIUM 100 MG CAPSULE PO SCH ×2 (09:23→17:29)
[2020-02-15] MEDS: GUAIFENESIN 600 MG TABLET.SA PO SCH ×2 (09:23→21:31)
[2020-02-15] MEDS: METOPROLOL SUCCINATE 50 MG TAB.SR.24H PO SCH ×2 (09:23→21:31)
[2020-02-15] MEDS: GLIPIZIDE 10 MG TABLET PO SCH ×2 (09:23→17:30)
[2020-02-15] MEDS: FAMOTIDINE 20 MG TABLET PO SCH ×2 (09:23→21:32)
[2020-02-15] MEDS: FLUTICASONE/UMECLIDIN/VILANTER 100-62.5-25 MCG/DOSE IH SCH (09:25)
--- NOTE | 2020-02-15 09:59 | PDOC PROGRESS REPORT ---
Subjective Progress Note for:: 02/15/20 Subjective:: 59 year old male presented to the emergency room with a 5-day history of dyspnea. The patient is a very poor historian, who admits to gradually worsening dyspnea over the course of the last 5 days which has become severe today. His dyspnea has been accompanied by increased coughing (nonproductive) and worsening dyspnea on exertion. His dyspnea has been associated with intermittent subjective fevers, generalized weakness, malaise, ague and fatigue. He denies other associated or accompanying signs and symptoms. He admits a prior similar episode due to pneumonia 1 month ago. He has not identified any additional aggravating or ameliorating factors for his dyspnea. In the emergency room he was found to be hypoxic and was also noted to have a leukocytosis and an elevated lactic acid. His chest x-ray showed persistence of his bilateral airspace disease. He was subsequently admitted to the hospital for further evaluation treatment. Patient still has a cough. It is productive of white sputum. He states previously it was yellow. He is still on oxygen but reports that his shortness of breath is slightly improved. He has had repeated episodes of pneumonia with Klebsiella and some sputum specimens in the past have tested positive for yeast. 02/09/20-Patient still has a cough. It is productive of white sputum. He states previously it was yellow. He is still on oxygen but reports that his shortness of breath is slightly improved. He has had repeated episodes of pneumonia with Klebsiella and some sputum specimens in the past have tested positive for yeast. 02/10/20-The patient is feeling slightly better. He actually has saturation of 96% on room air. I did take his oxygen off this morning. We will see how he does with exertion. He is still coughing up sputum. It is still white. I will make sure he is on maximum mucolytic's. In addition he does report that the nebulizer treatments make him feel better. He has a nebulizer machine at home. I will increase the scheduled frequency as well. 02/11/20-The patient is resting in bed. He is complaining more about his pain than his breathing. He did state that earlier when he got up to go the bathroom he was short of breath. He reports that he is still coughing up sputum. 02/12/20-No adverse events overnight. He is down to 2 L nasal cannula. He is very talkative and his speech is a bit rambling. Appetite is been fair. 02/13/20-No adverse events overnight. He is off oxygen. He is very talkative and appears comfortable. Appetite is been fair and is improving. 02/14/2020-patient admitted with healthcare acquired pneumonia. Your blood sugars are better today. Metformin was discontinued. Serum potassium is 5.5 given Kayexalate. Sputum culture is positive for Patience albicans on micafungin. covid test is pending. 02/15/[id number]-old male admitted with healthcare acquired pneumonia. Patient is complaining of mild shortness of breath. Plan to do the chest x-ray portable. He is receiving inhalers at this time. WBC count is around 12,900. T-max is 98.4. Patient is receiving micafungin Patience in the sputum. covid came back negative. Patient will be moved to fourth floor. 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,ACUTE RESPIRATORY Physical Exam Vital Signs: Temp Pulse Resp BP Pulse Ox 98.4 F 80 16 138/81 H 98 02/15/20 05:14 02/15/20 05:14 02/15/20 05:14 02/15/20 05:14 02/15/20 05:14 Intake & Output 02/14/20 02/15/20 02/16/20 06:59 06:59 06:59 Intake Total 1126 1360 Output Total 1275 1500 Balance -149 -140 Weight 65.5 kg 65.9 kg General appearance: PRESENT: no acute distress, well-developed Head exam: PRESENT: atraumatic Eye exam: PRESENT: PERRLA Mouth exam: PRESENT: moist, tongue midline Teeth exam: PRESENT: poor dentation Neck exam: ABSENT: carotid bruit, JVD, lymphadenopathy, thyromegaly Respiratory exam: PRESENT: decreased breath sounds Cardiovascular exam: PRESENT: RRR. ABSENT: diastolic murmur, rubs, systolic murmur GI/Abdominal exam: PRESENT: normal bowel sounds, soft. ABSENT: distended, guarding, mass, organolmegaly, rebound, tenderness Rectal exam: PRESENT: deferred Neurological exam: PRESENT: alert, awake, oriented to person, oriented to place, oriented to time, oriented to situation, CN II-XII grossly intact. ABSENT: motor sensory deficit Psychiatric exam: PRESENT: appropriate affect, normal mood. ABSENT: homicidal ideation, suicidal ideation Results Laboratory Results: 02/15/20 05:18 02/15/20 06:40 02/15/20 02/15/20 02/15/20 05:18 05:18 06:40 WBC 12.9 H RBC 4.40 Hgb 12.1 L Hct 35.5 L MCV 81 MCH 27.4 MCHC 34.1 RDW 16.9 H Plt Count 491 H Seg Neutrophils % 68.8 Sodium Cancelled 136.2 L Potassium Cancelled 4.5 Chloride Cancelled 100 Carbon Dioxide Cancelled 25 Anion Gap Cancelled 11 BUN Cancelled 17 Creatinine Cancelled 0.53 Est GFR ( Amer) Cancelled > 60 Est GFR (Non-Af Amer) Cancelled Glucose Cancelled 183 H Calcium Cancelled 9.7 Magnesium Cancelled 1.8 02/08/20 02/08/20 19:33 19:33 Creatine Kinase < 20 L CK-MB (CK-2) 0.54 Troponin I < 0.012 NT-Pro-B Natriuret Pep 603 H Impressions: Chest X-Ray 02/08/20 19:02 IMPRESSION: Borderline heart size. Extensive airspace disease in both lungs, pneumonia versus asymmetric pulmonary edema. Small right pleural effusion. Assessment and Plan - Diagnosis (1) Candidiasis of lung Is this a current diagnosis for this admission?: Yes Plan: Continue micafungin. He needs it for a total of 2 weeks. 02/14/2020-sputum culture is positive for Patience. Present on micafungin. Plan is to give a total of 2 weeks therapy. covid neg (2) Chronic systolic congestive heart failure Is this a current diagnosis for this admission?: No Plan: Not acutely exacerbated 02/14/2020-patient has history of chronic systolic heart failure. On examination euvolemic. Blood pressure is 115/66. Stable. 07/17/2020-patient has history of chronic systolic heart failure. Euvolemic. Blood pressure is 138/81. Stable. (3) Diabetes mellitus type 2 in nonobese Is this a current diagnosis for this admission?: No Plan: Continue consistent carbohydrate diet and sliding scale insulin 02/14/2020-blood sugars are running low in the 60s. Metformin was discontinued. Plan is to continue insulin sliding scale and to continue glipizide. diet,Exercise, weight loss lifestyle modifications discussed with the patient. 02/15/2020-blood sugar today is 183. Hypoglycemia is resolved. Metformin is on hold. (4) Liver abscess Is this a current diagnosis for this admission?: No (5) Pneumonia Qualifiers: Pneumonia type: due to Klebsiella pneumoniae Laterality: bilateral Lung location: unspecified part of lung Qualified Code(s): J15.0 - Pneumonia due to Klebsiella pneumoniae Is this a current diagnosis for this admission?: Yes Plan: This is a presumptive diagnosis. His cultures have been negative. He is currently on antibiotics. Responding well. Currently off oxygen. Tests for COVID-19 are pending. 02/14/2020-pulse ox today is 99% on 2 L. Covid test is pending. Sputum cultures positive for Patience albicans. Blood cultures are negative. 02/15/2020-patient is complaining of shortness of breath to do the portable chest x-ray today pulse ox is 98% on 2 L. covid negative. (6) Sepsis Qualifiers: Sepsis type: sepsis due to unspecified organism Sepsis acute organ dysfunction status: with acute organ dysfunction Severe sepsis acute organ dysfunction type: acute respiratory failure Acute respiratory failure type: with hypoxia Severe sepsis shock status: without septic shock Qualified Code(s): A41.9 - Sepsis, unspecified organism; R65.20 - Severe sepsis without septic shock; J96.01 - Acute respiratory failure with hypoxia Is this a current diagnosis for this admission?: Yes Plan: Resolved (7) Acute metabolic encephalopathy Is this a current diagnosis for this admission?: Yes Plan: Resolved - Plan Summary Summary: Patient is admitted to the medical floor where he will receive routine supportive and symptomatic cares. He will be treated with IV fluids and antibiotics utilizing meropenem. Serial lactic acid levels will be performed. Patient will receive supplemental oxygen via nasal cannula with possible use of noninvasive airway pressure support devices such as BiPAP. Patient received aggressive pulmonary toilet utilizing nebulized Xopenex, Atrovent and Mucomyst. CBCs, metabolic profiles and magnesium levels will be obtained as required. Before meals and at bedtime Accu-Cheks will be obtained and the patient be treated with a sliding scale insulin for hyperglycemia with a hypoglycemic protocol in place. Patient will be on a cardiac and diabetic restricted diet. Patient's usual home medications will be continued as appropriate once his medication list has been verified and reconciled.
--- NOTE | 2020-02-15 13:35 | RADIOLOGY REPORT (SQ) ---
EXAM DESCRIPTION: CHEST SINGLE VIEW COMPLETED DATE/TIME: 02/15/2020 1:24 pm REASON FOR STUDY: dyspnea COMPARISON: None. NUMBER OF VIEWS: One view. TECHNIQUE: Single frontal radiographic image of the chest acquired. LIMITATIONS: None. FINDINGS: LUNGS AND PLEURA: Stable appearance. MEDIASTINUM AND HILAR STRUCTURES: Stable heart size and mediastinal structures. HEART AND VASCULAR STRUCTURES: Stable appearance. BONES: No acute findings. HARDWARE: None in the chest. OTHER: No other significant finding. IMPRESSION: STABLE APPEARANCE OF THE CHEST. TECHNICAL DOCUMENTATION: JOB ID: [id number] 2010 [employer]- All Rights Reserved Reading location - IP/workstation name: [email or web address]
[2020-02-15] MEDS: MICAFUNGIN SODIUM 100 MG in NORMAL SALINE 100 ML IV SCH (17:30)
[2020-02-15] MEDS: OXYCODONE-ACETAMINOPHEN 5-325 MG TABLET PO PRN (19:55)
[2020-02-15] MEDS: SIMVASTATIN 40 MG TABLET PO SCH (21:31)
[2020-02-15] MEDS: INSULIN GLARGINE,HUM.REC.ANLOG 1,000 UNIT/10 ML VIAL SUBCUT SCH (21:32)
[2020-02-16] MEDS: HEPARIN SOD (PORCINE) 5,000 UNIT/ML 1 ML VIAL SUBCUT SCH ×3 (05:50→22:18)
[2020-02-16 06:13] LABS: ANION GAP 8 (5-19); BLOOD UREA NITROGEN 13 mg/dL (7-20); CALCIUM 9.8 mg/dL (8.4-10.2); CARBON DIOXIDE 26 mmol/L (22-30); CHLORIDE 103 mmol/L (98-107); GLUCOSE 147 mg/dL (75-110); POTASSIUM 4.7 mmol/L (3.6-5.0)
[2020-02-16 08:08] LABS: ABSOLUTE BASOPHILS # (AUTO) 0.2 10^3/uL (0.0-0.2); ABSOLUTE EOSINOPHILS # (AUTO) 0.9 10^3/uL (0.0-0.6); ABSOLUTE LYMPHOCYTES (AUTO) 2.2 10^3/uL (0.5-4.7); ABSOLUTE MONOCYTES (AUTO) 0.9 10^3/uL (0.1-1.4); ABSOLUTE NEUT (AUTO) 8.5 10^3/uL (1.7-8.2); BASOPHILS % (AUTO) 1.3 % (0-2); EOSINOPHILS % (AUTO) 7.1 % (0-6); HEMATOCRIT 34.7 % (37.9-51.0); HEMOGLOBIN 11.8 g/dL (13.5-17.0); LYMPHOCYTES % (AUTO) 17.6 % (13-45); MEAN CORPUSCULAR HEMOGLOBIN 27.6 pg (27.0-33.4); MEAN CORPUSCULAR HGB CONC 33.9 g/dL (32.0-36.0); MEAN CORPUSCULAR VOLUME 81 fl (80-97); MONOCYTES % (AUTO) 6.9 % (3-13); PLATELET COUNT 454 10^3/uL (150-450); RED BLOOD COUNT 4.26 10^6/uL (4.35-5.55); RED CELL DISTRIBUTION WIDTH 16.5 % (11.5-14.0); SEGMENTED NEUTROPHILS % (AUTO) 67.1 % (42-78); TOTAL CELLS COUNTED % (AUTO) 100 %; WHITE BLOOD COUNT 12.7 10^3/uL (4.0-10.5)
[2020-02-16] MEDS: GLIPIZIDE 10 MG TABLET PO SCH ×2 (09:55→17:24)
[2020-02-16] MEDS: DOCUSATE SODIUM 100 MG CAPSULE PO SCH ×2 (09:55→17:24)
[2020-02-16] MEDS: GUAIFENESIN 600 MG TABLET.SA PO SCH ×2 (09:56→22:19)
[2020-02-16] MEDS: CEFTRIAXONE 2 GM/D5W RTU 2 GM/50 ML RTUPB IV SCH (09:56)
[2020-02-16] MEDS: FLUTICASONE/UMECLIDIN/VILANTER 100-62.5-25 MCG/DOSE IH SCH (09:56)
[2020-02-16] MEDS: METOPROLOL SUCCINATE 50 MG TAB.SR.24H PO SCH ×2 (09:56→22:22)
--- NOTE | 2020-02-16 11:14 | PDOC PROGRESS REPORT ---
Subjective Progress Note for:: 02/16/20 Subjective:: 59 year old male presented to the emergency room with a 5-day history of dyspnea. The patient is a very poor historian, who admits to gradually worsening dyspnea over the course of the last 5 days which has become severe today. His dyspnea has been accompanied by increased coughing (nonproductive) and worsening dyspnea on exertion. His dyspnea has been associated with intermittent subjective fevers, generalized weakness, malaise, ague and fatigue. He denies other associated or accompanying signs and symptoms. He admits a prior similar episode due to pneumonia 1 month ago. He has not identified any additional aggravating or ameliorating factors for his dyspnea. In the emergency room he was found to be hypoxic and was also noted to have a leukocytosis and an elevated lactic acid. His chest x-ray showed persistence of his bilateral airspace disease. He was subsequently admitted to the hospital for further evaluation treatment. Patient still has a cough. It is productive of white sputum. He states previously it was yellow. He is still on oxygen but reports that his shortness of breath is slightly improved. He has had repeated episodes of pneumonia with Klebsiella and some sputum specimens in the past have tested positive for yeast. 02/09/20-Patient still has a cough. It is productive of white sputum. He states previously it was yellow. He is still on oxygen but reports that his shortness of breath is slightly improved. He has had repeated episodes of pneumonia with Klebsiella and some sputum specimens in the past have tested positive for yeast. 02/10/20-The patient is feeling slightly better. He actually has saturation of 96% on room air. I did take his oxygen off this morning. We will see how he does with exertion. He is still coughing up sputum. It is still white. I will make sure he is on maximum mucolytic's. In addition he does report that the nebulizer treatments make him feel better. He has a nebulizer machine at home. I will increase the scheduled frequency as well. 02/11/20-The patient is resting in bed. He is complaining more about his pain than his breathing. He did state that earlier when he got up to go the bathroom he was short of breath. He reports that he is still coughing up sputum. 02/12/20-No adverse events overnight. He is down to 2 L nasal cannula. He is very talkative and his speech is a bit rambling. Appetite is been fair. 02/13/20-No adverse events overnight. He is off oxygen. He is very talkative and appears comfortable. Appetite is been fair and is improving. 02/14/2020-patient admitted with healthcare acquired pneumonia. Your blood sugars are better today. Metformin was discontinued. Serum potassium is 5.5 given Kayexalate. Sputum culture is positive for Patience albicans on micafungin. covid test is pending. 02/[id number]-old male admitted with healthcare acquired pneumonia. Patient is complaining of mild shortness of breath. Plan to do the chest x-ray portable. He is receiving inhalers at this time. WBC count is around 12,900. T-max is 98.4. Patient is receiving micafungin Patience in the sputum. covid came back negative. Patient will be moved to fourth floor. 02/[id number]-old male admitted with healthcare acquired pneumonia. Doing well. Not in distress. Pulse ox is 100% on room air. He is receiving micafungin for Patience in sputum. 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,ACUTE RESPIRATORY Physical Exam Vital Signs: Temp Pulse Resp BP Pulse Ox 97.4 F 83 18 120/65 100 02/16/20 06:42 02/16/20 06:42 02/16/20 06:42 02/16/20 06:42 02/16/20 06:42 Intake & Output 02/15/20 02/16/20 02/17/20 06:59 06:59 06:59 Intake Total 1360 610 Output Total 1500 750 Balance -140 -140 Weight 65.9 kg 65.9 kg General appearance: PRESENT: no acute distress, well-developed Head exam: PRESENT: atraumatic Eye exam: PRESENT: PERRLA Mouth exam: PRESENT: moist, tongue midline Teeth exam: PRESENT: poor dentation Neck exam: ABSENT: carotid bruit, JVD, lymphadenopathy, thyromegaly Respiratory exam: PRESENT: decreased breath sounds Cardiovascular exam: PRESENT: RRR. ABSENT: diastolic murmur, rubs, systolic murmur GI/Abdominal exam: PRESENT: normal bowel sounds, soft. ABSENT: distended, guarding, mass, organolmegaly, rebound, tenderness Rectal exam: PRESENT: deferred Extremities exam: PRESENT: full ROM. ABSENT: calf tenderness, clubbing, pedal edema Neurological exam: PRESENT: alert, awake, oriented to person, oriented to place, oriented to time, oriented to situation, CN II-XII grossly intact. ABSENT: motor sensory deficit Psychiatric exam: PRESENT: appropriate affect, normal mood. ABSENT: homicidal ideation, suicidal ideation Results Laboratory Results: 02/16/20 05:27 02/16/20 05:27 02/16/20 02/16/20 02/16/20 05:27 05:27 05:27 WBC 12.7 H RBC 4.26 L Hgb 11.8 L Hct 34.7 L MCV 81 MCH 27.6 MCHC 33.9 RDW 16.5 H Plt Count 454 H Seg Neutrophils % 67.1 Sodium 136.7 L Cancelled Potassium 4.7 Cancelled Chloride 103 Cancelled Carbon Dioxide 26 Cancelled Anion Gap 8 Cancelled BUN 13 Cancelled Creatinine 0.46 L Cancelled Est GFR ( Amer) > 60 Cancelled Est GFR (Non-Af Amer) Cancelled Glucose 147 H Cancelled Calcium 9.8 Cancelled Magnesium 1.8 Total Bilirubin Cancelled AST Cancelled Alkaline Phosphatase Cancelled Total Protein Cancelled Albumin Cancelled 02/08/20 02/08/20 19:33 19:33 Creatine Kinase < 20 L CK-MB (CK-2) 0.54 Troponin I < 0.012 NT-Pro-B Natriuret Pep 603 H Impressions: Chest X-Ray 02/15/20 00:00 IMPRESSION: STABLE APPEARANCE OF THE CHEST. Assessment and Plan - Diagnosis (1) Candidiasis of lung Is this a current diagnosis for this admission?: Yes Plan: Continue micafungin. He needs it for a total of 2 weeks. 02/14/2020-sputum culture is positive for Patience. Present on micafungin. Plan is to give a total of 2 weeks therapy. covid neg 02/16/2020-sputum culture positive for Patience on micafungin. carona virus testing came back negative. (2) Chronic systolic congestive heart failure Is this a current diagnosis for this admission?: No Plan: Not acutely exacerbated 02/14/2020-patient has history of chronic systolic heart failure. On examination euvolemic. Blood pressure is 115/66. Stable. 02/15/2020-patient has history of chronic systolic heart failure. Euvolemic. Blood pressure is 138/81. Stable. 02/16/2020-patient has history of chronic systolic heart failure, euvolemic. Blood pressure is 120/65. (3) Diabetes mellitus type 2 in nonobese Is this a current diagnosis for this admission?: No Plan: Continue consistent carbohydrate diet and sliding scale insulin 02/14/2020-blood sugars are running low in the 60s. Metformin was discontinued. Plan is to continue insulin sliding scale and to continue glipizide. diet,Exercise, weight loss lifestyle modifications discussed with the patient. 02/15/2020-blood sugar today is 183. Hypoglycemia is resolved. Metformin is on hold. 02/16/2020-patient blood sugar is 122. Stable. Metformin on hold. Plan is to continue insulin sliding scale. (4) Liver abscess Is this a current diagnosis for this admission?: No Plan: Blood cultures have been negative. This is a bit of a chronic issue for him. This was picked up on imaging several months ago. His cultures have been negative so I doubt as if he needs to be reimaged at this time. He does not have a left upper quadrant pain. (5) Pneumonia Qualifiers: Pneumonia type: due to Klebsiella pneumoniae Laterality: bilateral Lung location: unspecified part of lung Qualified Code(s): J15.0 - Pneumonia due to Klebsiella pneumoniae Is this a current diagnosis for this admission?: Yes Plan: This is a presumptive diagnosis. His cultures have been negative. He is currently on antibiotics. Responding well. Currently off oxygen. Tests for COVID-19 are pending. 02/14/2020-pulse ox today is 99% on 2 L. Covid test is pending. Sputum cultures positive for Patience albicans. Blood cultures are negative. 02/15/2020-patient is complaining of shortness of breath to do the portable chest x-ray today pulse ox is 98% on 2 L. covid negative. (6) Sepsis Qualifiers: Sepsis type: sepsis due to unspecified organism Sepsis acute organ dysfunct ion status: with acute organ dysfunction Severe sepsis acute organ dysfunction type: acute respiratory failure Acute respiratory failure type: with hypoxia Severe sepsis shock status: without septic shock Qualified Code(s): A41.9 - Sepsis, unspecified organism; R65.20 - Severe sepsis without septic shock; J96.01 - Acute respiratory failure with hypoxia Is this a current diagnosis for this admission?: Yes Plan: Resolved (7) Acute metabolic encephalopathy Is this a current diagnosis for this admission?: Yes Plan: Resolved - Plan Summary Summary: Patient is admitted to the medical floor where he will receive routine supportive and symptomatic cares. He will be treated with IV fluids and antibiotics utilizing meropenem. Serial lactic acid levels will be performed. Patient will receive supplemental oxygen via nasal cannula with possible use of noninvasive airway pressure support devices such as BiPAP. Patient received aggressive pulmonary toilet utilizing nebulized Xopenex, Atrovent and Mucomyst. CBCs, metabolic profiles and magnesium levels will be obtained as required. Before meals and at bedtime Accu-Cheks will be obtained and the patient be treated with a sliding scale insulin for hyperglycemia with a hypoglycemic protocol in place. Patient will be on a cardiac and diabetic restricted diet. Patient's usual home medications will be continued as appropriate once his medication list has been verified and reconciled.
[2020-02-16] MEDS: FAMOTIDINE 20 MG TABLET PO SCH ×2 (12:09→22:20)
[2020-02-16] MEDS: INSULIN REG, HUMAN 100 UNIT/ML 3 ML VIAL (PYX) SUBCUT SCH ×3 (12:17→21:39)
[2020-02-16 13:00] LABS: ALBUMIN 3.3 g/dL (3.5-5.0); ALKALINE PHOSPHATASE 93 U/L (38-126); ASPARTATE AMINO TRANSFERASE 19 U/L (17-59); BILIRUBIN,DIRECT 0.3 mg/dL (0.0-0.4); BILIRUBIN,TOTAL 0.3 mg/dL (0.2-1.3)
[2020-02-16] MEDS: OXYCODONE-ACETAMINOPHEN 5-325 MG TABLET PO PRN (18:39)
[2020-02-16] MEDS: SIMVASTATIN 40 MG TABLET PO SCH (22:19)
[2020-02-16] MEDS: INSULIN GLARGINE,HUM.REC.ANLOG 1,000 UNIT/10 ML VIAL SUBCUT SCH (22:19)
[2020-02-17] MEDS: HEPARIN SOD (PORCINE) 5,000 UNIT/ML 1 ML VIAL SUBCUT SCH (05:44)
[2020-02-17] MEDS: INSULIN REG, HUMAN 100 UNIT/ML 3 ML VIAL (PYX) SUBCUT SCH (07:25)
[2020-02-17 08:43] VITALS: BP 113/63
--- NOTE | 2020-02-17 10:16 | PDOC DISCHARGE SUMMARY ---
Impression - Admit/DC Date/PCP Admission Date/Primary Care Provider: 02/08/20 21:42 WANDA NEFF Discharge Date: 02/17/20 - Discharge Diagnosis (1) Candidiasis of lung Is this a current diagnosis for this admission?: Yes (2) Chronic systolic congestive heart failure Is this a current diagnosis for this admission?: No (3) Diabetes mellitus type 2 in nonobese Is this a current diagnosis for this admission?: No (4) Liver abscess Is this a current diagnosis for this admission?: No (5) Pneumonia Is this a current diagnosis for this admission?: Yes (6) Sepsis Is this a current diagnosis for this admission?: Yes (7) Acute metabolic encephalopathy Is this a current diagnosis for this admission?: Yes - Assessment Summary: Patient is admitted to the medical floor where he will receive routine supportive and symptomatic cares. He will be treated with IV fluids and antibiotics utilizing meropenem. Serial lactic acid levels will be performed. Patient will receive supplemental oxygen via nasal cannula with possible use of noninvasive airway pressure support devices such as BiPAP. Patient received aggressive pulmonary toilet utilizing nebulized Xopenex, Atrovent and Mucomyst. CBCs, metabolic profiles and magnesium levels will be obtained as required. Before meals and at bedtime Accu-Cheks will be obtained and the patient be treated with a sliding scale insulin for hyperglycemia with a hypoglycemic protocol in place. Patient will be on a cardiac and diabetic restricted diet. Patient's usual home medications will be continued as appropriate once his medication list has been verified and reconciled. (1) Candidiasis of lung Is this a current diagnosis for this admission?: Yes Plan: Continue micafungin. He needs it for a total of 2 weeks. 02/14/2020-sputum culture is positive for Patience. Present on micafungin. Plan is to give a total of 2 weeks therapy. covid neg 02/16/2020-sputum culture positive for Patience on micafungin. carona virus testing came back negative. 02/17/2020-patient is receiving micafungin for Patience in the sputum I spoke to the pharmacist this morning the recommendation is patient does not need any oral antifungal at the time of discharge. Appreciate the input from the pharmacy. (2) Chronic systolic congestive heart failure Is this a current diagnosis for this admission?: No Plan: Not acutely exacerbated 02/14/2020-patient has history of chronic systolic heart failure. On examination euvolemic. Blood pressure is 115/66. Stable. 02/15/2020-patient has history of chronic systolic heart failure. Euvolemic. Blood pressure is 138/81. Stable. 02/16/2020-patient has history of chronic systolic heart failure, euvolemic. Blood pressure is 120/65. 02/17/2020-patient has history of chronic systolic heart failure on examination euvolemic. Blood pressure is 125/66. Patient is advised to continue home medications at the time of discharge. (3) Diabetes mellitus type 2 in nonobese Is this a current diagnosis for this admission?: No Plan: Continue consistent carbohydrate diet and sliding scale insulin 02/14/2020-blood sugars are running low in the 60s. Metformin was discontinued. Plan is to continue insulin sliding scale and to continue glipizide. diet,Exercise, weight loss lifestyle modifications discussed with the patient. 02/15/2020-blood sugar today is 183. Hypoglycemia is resolved. Metformin is on hold. 02/16/2020-patient blood sugar is 122. Stable. Metformin on hold. Plan is to continue insulin sliding scale. 02/17/2020-patient has history of type 2 diabetes mellitus blood sugar today is 133. Stable. Patient is advised to continue home medications at the time of discharge. (4) Liver abscess Is this a current diagnosis for this admission?: No Plan: Blood cultures have been negative. This is a bit of a chronic issue for him. This was picked up on imaging several months ago. His cultures have been negative so I doubt as if he needs to be reimaged at this time. He does not have a left upper quadrant pain. 02/17/2020-patient has a history of liver abscesses blood cultures are negative he has this chronic problem. Patient denies any abdominal pains. He needs to follow-up with primary care physician for further management. 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 (5) Pneumonia Qualifiers: Pneumonia type: due to Klebsiella pneumoniae Laterality: bilateral Lung location: unspecified part of lung Qualified Code(s): J15.0 - Pneumonia due to Klebsiella pneumoniae Is this a current diagnosis for this admission?: Yes Plan: This is a presumptive diagnosis. His cultures have been negative. He is currently on antibiotics. Responding well. Currently off oxygen. Tests for COVID-19 are pending. 02/14/2020-pulse ox today is 99% on 2 L. Covid test is pending. Sputum cultures positive for Patience albicans. Blood cultures are negative. 02/15/2020-patient is complaining of shortness of breath to do the portable chest x-ray today pulse ox is 98% on 2 L. covid negative. 02/17/20-patient denies any shortness of breath comfortably in the chair communicating well. Pulse ox is 93% room air. Blood cultures are negative sputum culture positive for Patience he was treated with IV antibiotic therapy and antifungal therapy patient can go home without antibiotics. (6) Sepsis Qualifiers: Sepsis type: sepsis due to unspecified organism Sepsis acute organ dysfu nction status: with acute organ dysfunction Severe sepsis acute organ dysfunction type: acute respiratory failure Acute respiratory failure type: with hypoxia Severe sepsis shock status: without septic shock Qualified Code(s): A41.9 - Sepsis, unspecified organism; R65.20 - Severe sepsis without septic shock; J96.01 - Acute respiratory failure with hypoxia Is this a current diagnosis for this admission?: Yes Plan: Resolved (7) Acute metabolic encephalopathy Is this a current diagnosis for this admission?: Yes Plan: resolved - Additional Information Resuscitation Status: Full Code Discharge Diet: Diabetic Discharge Activity: Activity As Tolerated Referrals: WANDA NEFF MD [Primary Care Provider] - Follow up as needed Home Medications: Glipizide [Glucotrol 10 mg Tablet] 10 mg PO BID 12/30/19 Oxycodone HCl/Acetaminophen [Percocet 5-325 mg Tablet] 1 tab PO Q8HP PRN 12/30/19 Simvastatin [Zocor 40 mg Tablet] 40 mg PO QHS 12/30/19 Metoprolol Succinate [Toprol Xl 50 mg Tab.sr] 50 mg PO Q12 30 Days #30 tab.sr.24h 01/04/20 Insulin Detemir [Levemir] 60 units SUBCUT QPM 02/08/20 Lisinopril [Prinivil 5 mg Tablet] 5 mg PO DAILY 02/08/20 Promethazine/Dextromethorphan [Promethazine-Dm Syrup] 5 ml PO Q8HP PRN 02/08/20 Metformin HCl [Glucophage 500 mg Tablet] 1,000 mg PO BIDACBS 02/09/20 History of Present Illiness History of Present Illness: OSCAR KOO is a 59 year old male 59 year old male presented to the emergency room with a 5-day history of dyspnea. The patient is a very poor historian, who admits to gradually worsening dyspnea over the course of the last 5 days which has become severe today. His dyspnea has been accompanied by increased coughing (nonproductive) and worsening dyspnea on exertion. His dyspnea has been associated with intermittent subjective fevers, generalized weakness, malaise, ague and fatigue. He denies other associated or accompanying signs and symptoms. He admits a prior similar episode due to pneumonia 1 month ago. He has not identified any additional aggravating or ameliorating factors for his dyspnea. In the emergency room he was found to be hypoxic and was also noted to have a leukocytosis and an elevated lactic acid. His chest x-ray showed persistence of his bilateral airspace disease. He was subsequently admitted to the hospital for further evaluation treatment. Hospital Course Hospital Course: 59 year old male presented to the emergency room with a 5-day history of dyspnea. The patient is a very poor historian, who admits to gradually wors ening dyspnea over the course of the last 5 days which has become severe today. His dyspnea has been accompanied by increased coughing (nonproductive) and worsening dyspnea on exertion. His dyspnea has been associated with intermittent subjective fevers, generalized weakness, malaise, ague and fatigue. He denies other associated or accompanying signs and symptoms. He admits a prior similar episode due to pneumonia 1 month ago. He has not identified any additional aggravating or ameliorating factors for his dyspnea. In the emergency room he was found to be hypoxic and was also noted to have a leukocytosis and an elevated lactic acid. His chest x-ray showed persistence of his bilateral airspace disease. He was subsequently admitted to the hospital for further evaluation treatment. Patient still has a cough. It is productive of white sputum. He states previously it was yellow. He is still on oxygen but reports that his shortness of breath is slightly improved. He has had repeated episodes of pneumonia with Klebsiella and some sputum specimens in the past have tested positive for yeast. 02/09/20-Patient still has a cough. It is productive of white sputum. He states previously it was yellow. He is still on oxygen but reports that his shortness of breath is slightly improved. He has had repeated episodes of pneumonia with Klebsiella and some sputum specimens in the past have tested positive for yeast. 02/10/20-The patient is feeling slightly better. He actually has saturation of 96% on room air. I did take his oxygen off this morning. We will see how he does with exertion. He is still coughing up sputum. It is still white. I will make sure he is on maximum mucolytic's. In addition he does report that the nebulizer treatments make him feel better. He has a nebulizer machine at home. I will increase the scheduled frequency as well. 02/11/20-The patient is resting in bed. He is complaining more about his pain than his breathing. He did state that earlier when he got up to go the bathroom he was short of breath. He reports that he is still coughing up sputum. 02/12/20-No adverse events overnight. He is down to 2 L nasal cannula. He is very talkative and his speech is a bit rambling. Appetite is been fair. 02/13/20-No adverse events overnight. He is off oxygen. He is very talkative and appears comfortable. Appetite is been fair and is improving. 02/14/2020-patient admitted with healthcare acquired pneumonia. Your blood sugars are better today. Metformin was discontinued. Serum potassium is 5.5 given Kayexalate. Sputum culture is positive for Patience albicans on micafungin. covid test is pending. 02/15/[id number]-hczf-old male admitted with healthcare acquired pneumonia. Patient is complaining of mild shortness of breath. Plan to do the chest x-ray portable. He is receiving inhalers at this time. WBC count is around 12,900. T-max is 98.4. Patient is receiving micafungin Patience in the sputum. covid ca me back negative. Patient will be moved to fourth floor. 02/16/[id number]-kbls-old male admitted with healthcare acquired pneumonia. Doing well. Not in distress. Pulse ox is 100% on room air. He is receiving micafungin for Patience in sputum. 02/17/2051-45-pfmj-old male admitted with healthcare associated pneumonia completed the antibiotic therapy. He is afebrile for the last several days blood cultures are negative. Sputum cultures came back positive for Patience he was treated with micafungin. Pulse ox today is 93% room air. Patient is stable to go home today. Physical Exam Vital Signs: Temp Pulse Resp BP Pulse Ox 98.0 F 87 19 113/63 93 02/17/20 08:41 02/17/20 08:41 02/17/20 08:41 02/17/20 08:41 02/17/20 08:41 Intake & Output 02/16/20 02/17/20 02/18/20 06:59 06:59 06:59 Intake Total 610 1067 Output Total 750 1550 Balance -140 -483 Weight 65.9 kg 66.4 kg General appearance: PRESENT: no acute distress, well-developed Head exam: PRESENT: atraumatic Eye exam: PRESENT: PERRLA Mouth exam: PRESENT: dry mucosa Teeth exam: PRESENT: poor dentation Neck exam: ABSENT: carotid bruit, JVD, lymphadenopathy, thyromegaly Respiratory exam: PRESENT: decreased breath sounds Cardiovascular exam: PRESENT: RRR. ABSENT: diastolic murmur, rubs, systolic murmur GI/Abdominal exam: PRESENT: normal bowel sounds, soft. ABSENT: distended, guarding, mass, organolmegaly, rebound, tenderness Rectal exam: PRESENT: deferred Extremities exam: PRESENT: full ROM. ABSENT: calf tenderness, clubbing, pedal edema Neurological exam: PRESENT: alert, awake, oriented to person, oriented to place, oriented to time, oriented to situation, CN II-XII grossly intact. ABSENT: motor sensory deficit Psychiatric exam: PRESENT: appropriate affect, normal mood. ABSENT: homicidal ideation, suicidal ideation Results Laboratory Results: WBC 12.7 10^3/uL (4.0-10.5) H 02/16/20 05:27 RBC 4.26 10^6/uL (4.35-5.55) L 02/16/20 05:27 Hgb 11.8 g/dL (13.5-17.0) L 02/16/20 05:27 Hct 34.7 % (37.9-51.0) L 02/16/20 05:27 MCV 81 fl (80-97) 02/16/20 05:27 MCH 27.6 pg (27.0-33.4) 02/16/20 05:27 MCHC 33.9 g/dL (32.0-36.0) 02/16/20 05:27 RDW 16.5 % (11.5-14.0) H 02/16/20 05:27 Plt Count 454 10^3/uL (150-450) H 02/16/20 05:27 Lymph % (Auto) 17.6 % (13-45) 02/16/20 05:27 [place] % (Auto) 6.9 % (3-13) 02/16/20 05:27 Eos % (Auto) 7.1 % (0-6) H 02/16/20 05:27 Baso % (Auto) 1.3 % (0-2) 02/16/20 05:27 Absolute Neuts (auto) 8.5 10^3/uL (1.7-8.2) H 02/16/20 05:27 Absolute Lymphs (auto) 2.2 10^3/uL (0.5-4.7) 02/16/20 05:27 Absolute Monos (auto) 0.9 10^3/uL (0.1-1.4) 02/16/20 05:27 Absolute Eos (auto) 0.9 10^3/uL (0.0-0.6) H 02/16/20 05:27 Absolute Basos (auto) 0.2 10^3/uL (0.0-0.2) 02/16/20 05:27 Seg Neutrophils % 67.1 % (42-78) 02/16/20 05:27 Carbonic Acid 1.26 mmol/L (1.05-1.35) 02/08/20 21:40 HCO3/H2CO3 Ratio 22:1 02/08/20 21:40 ABG pH 7.45 (7.35-7.45) 02/08/20 21:40 ABG pCO2 42.0 mmHg (35-45) 02/08/20 21:40 ABG pO2 78.1 mmHg (80-100) L 02/08/20 21:40 ABG HCO3 28.3 mmol/L (20-24) H 02/08/20 21:40 ABG Total CO2 29.6 mmol/L (23-27) H 02/08/20 21:40 ABG O2 Saturation 96.0 % (94-98) 02/08/20 21:40 ABG Base Excess 3.8 mmol/L 02/08/20 21:40 FiO2 28% 02/08/20 21:40 Sodium 136.7 mmol/L (137-145) L 02/16/20 05:27 Sodium Cancelled 02/16/20 05:27 Potassium 4.7 mmol/L (3.6-5.0) 02/16/20 05:27 Potassium Cancelled 02/16/20 05:27 Chloride 103 mmol/L (98-107) 02/16/20 05:27 Chloride Cancelled 02/16/20 05:27 Carbon Dioxide 26 mmol/L (22-30) 02/16/20 05:27 Carbon Dioxide Cancelled 02/16/20 05:27 Anion Gap 8 (5-19) 02/16/20 05:27 Anion Gap Cancelled 02/16/20 05:27 BUN 13 mg/dL (7-20) 02/16/20 05:27 BUN Cancelled 02/16/20 05:27 Creatinine 0.46 mg/dL (0.52-1.25) L 02/16/20 05:27 Creatinine Cancelled 02/16/20 05:27 Est GFR ( Amer) > 60 (>60) 02/16/20 05:27 Est GFR ( Amer) Cancelled 02/16/20 05:27 Est GFR (Non-Af Amer) Cancelled 02/16/20 05:27 Est GFR (MDRD) Non-Af > 60 (>60) 02/16/20 05:27 Est GFR (MDRD) Non-Af Cancelled 02/16/20 05:27 Glucose 147 mg/dL (75-110) H 02/16/20 05:27 Glucose Cancelled 02/16/20 05:27 POC Glucose 133 mg/dL (70-110) H 02/17/20 06:21 Hemoglobin A1c % 9.7 % (4.7-6.0) H 02/09/20 07:48 Lactic Acid 1.4 mmol/L (0.7-2.1) 02/09/20 11:03 Calcium 9.8 mg/dL (8.4-10.2) 02/16/20 05:27 Calcium Cancelled 02/16/20 05:27 Magnesium 1.8 mg/dL (1.6-2.3) 02/16/20 05:27 Total Bilirubin 0.3 mg/dL (0.2-1.3) 02/16/20 05:27 Total Bilirubin Cancelled 02/16/20 05:27 Direct Bilirubin 0.3 mg/dL (0.0-0.4) 02/16/20 05:27 Direct Bilirubin Cancelled 02/16/20 05:27 Neonat Total Bilirubin Cancelled 02/16/20 05:27 Neonat Total Bilirubin Not Reportable 02/16/20 05:27 Neonat Direct Bilirubin Cancelled 02/16/20 05:27 Neonat Direct Bilirubin Not Reportable 02/16/20 05:27 Neonat Indirect Bili Cancelled 02/16/20 05:27 Neonat Indirect Bili Not Reportable 02/16/20 05:27 AST 19 U/L (17-59) 02/16/20 05:27 AST Cancelled 02/16/20 05:27 ALT 13 U/L (<50) 02/16/20 05:27 ALT Cancelled 02/16/20 05:27 Alkaline Phosphatase 93 U/L (38-126) 02/16/20 05:27 Alkaline Phosphatase Cancelled 02/16/20 05:27 Creatine Kinase < 20 U/L (55-170) L 02/08/20 19:33 CK-MB (CK-2) 0.54 ng/mL (<4.55) 02/08/20 19:33 Troponin I < 0.012 ng/mL 02/08/20 19:33 NT-Pro-B Natriuret Pep 603 pg/mL (<125) H 02/08/20 19:33 Total Protein 9.0 g/dL (6.3-8.2) H 02/16/20 05:27 Total Protein Cancelled 02/16/20 05:27 Albumin 3.3 g/dL (3.5-5.0) L 02/16/20 05:27 Albumin Cancelled 02/16/20 05:27 Triglycerides 85 mg/dL (<150) 02/09/20 07:48 Cholesterol 123.58 mg/dL (0-200) 02/09/20 07:48 LDL Cholesterol Direct 67 mg/dL (<100) 02/09/20 07:48 VLDL Cholesterol 17.0 mg/dL (10-31) 02/09/20 07:48 HDL Cholesterol 29 mg/dL (>40) L 02/09/20 07:48 EGFR Cancelled 02/16/20 05:27 TSH 1.77 uIU/mL (0.47-4.68) 02/09/20 07:48 Urine Color YELLOW 02/08/20 22:50 Urine Appearance CLEAR 02/08/20 22:50 Urine pH 5.0 (5.0-9.0) 02/08/20 22:50 Ur Specific [place] 1.016 02/08/20 22:50 Urine Protein NEGATIVE mg/dL (NEGATIVE) 02/08/20 22:50 Urine Glucose (UA) >=500 mg/dL (NEGATIVE) H 02/08/20 22:50 Urine Ketones NEGATIVE mg/dL (NEGATIVE) 02/08/20 22:50 Urine Blood NEGATIVE (NEGATIVE) 02/08/20 22:50 Urine Nitrite NEGATIVE (NEGATIVE) 02/08/20 22:50 Urine Bilirubin NEGATIVE (NEGATIVE) 02/08/20 22:50 Urine Urobilinogen NEGATIVE mg/dL (<2.0) 02/08/20 22:50 Ur Leukocyte Esterase NEGATIVE (NEGATIVE) 02/08/20 22:50 Urine WBC (Auto) 1 /HPF 02/08/20 22:50 Urine RBC (Auto) 1 /HPF 02/08/20 22:50 U Hyaline Cast (Auto) 4 /LPF 02/08/20 22:50 Urine Mucus (Auto) OCC /LPF 02/08/20 22:50 Urine Ascorbic Acid NEGATIVE (NEGATIVE) 02/08/20 22:50 COVID-19 Source THROAT 02/08/20 21:45 COVID-19 (KASH) Not Detected (Not Detect) 02/08/20 21:45 02/08/20 19:33 CK-MB (CK-2) 0.54 Troponin I < 0.012 NT-Pro-B Natriuret Pep 603 H Impressions: Chest X-Ray 02/08/20 19:02 IMPRESSION: Borderline heart size. Extensive airspace disease in both lungs, pneumonia versus asymmetric pulmonary edema. Small right pleural effusion. Chest X-Ray 02/15/20 00:00 IMPRESSION: STABLE APPEARANCE OF THE CHEST. Plan Plan of Treatment: Patient is advised to be compliant with his medications and he was also advised to follow-up with primary care physician in 3 to 5 days. Patient agreed and v erbalized response. Time Spent: Greater than 30 Minutes Stroke Is this a Stroke Patient?: No Acute Heart Failure - Is this a Heart Failure Patient?: No
== END 2020-02-17 09:26 | disposition home or self-care (01) | DRG 871 ==
LOC: ER 18:13 → EH 21:42 → 5 23:16 → 4N 02-15 10:25
PROVIDERS: ADMIT Emergency Medicine; ATTEND Internal Medicine
DX: A41.9 Sepsis, unspecified organism (principal); B37.1 Pulmonary candidiasis; J15.0 Pneumonia due to Klebsiella pneumoniae; K75.0 Abscess of liver; J96.01 Acute respiratory failure with hypoxia; G93.41 Metabolic encephalopathy; I50.22 Chronic systolic (congestive) heart failure; E11.9 Type 2 diabetes mellitus without complications; M19.90 Unspecified osteoarthritis, unspecified site; Z87.891 Personal history of nicotine dependence; Z83.3 Family history of diabetes mellitus; Z79.4 Long term (current) use of insulin; Z79.899 Other long term (current) drug therapy; Z85.118 Personal history of other malignant neoplasm of bronchus and lung; Z87.01 Personal history of pneumonia (recurrent)
CPT/HCPCS: 36415; 36600; 71045; 80048; 80053; 80061; 80076; 81001; 82550; 82553; 82803; 82962; 83036; 83605; 83735; 83880; 84443; 84484; 85025; 85027; 87040; 87070; 87205; 87635; 93005; 93010; 94640; 96365; 96375; 99291; J0696; J1644; J1815; J1940; J2185; J2248; J2543; J3490; J7050; J7614